=== PATIENT | female | born 1960 | race Caucasian/White ===

== ENCOUNTER 2021-09-09 11:00 | Outpatient (RCR) | payer MEDICAID, SELFPAY | END 2021-09-14 23:59 | LOC: DC 11:00 | PROVIDERS: PCP Physician Assistant Medical; Referring Provider Physician Assistant Medical; Visit Provider Physician Assistant Medical | DX: E11.9 Type 2 diabetes mellitus without complications (principal) | CPT/HCPCS: 97802; G0108 ==

== ENCOUNTER 2022-08-26 05:51 | Day surgery (SDC) | payer MEDICARE, MEDICAID, SELFPAY ==
[2022-08-26] VITALS (7 sets, daily range): BP systolic 86–117; BP diastolic 54–96; PULSE 93–103; RESP 16–20; TEMP 37–37.2; O2SAT 94–98; BMI 29.4
[2022-08-26] MEDS: Lactated Ringers 1,000 ML 15 ML IV (06:43)
[2022-08-26 07:11] LABS: Bedside Glucose 168 mg/dL (74-106)
--- NOTE | 2022-08-26 07:18 | HP.PCM_ITS ---
History and Physical Date of Admission: 08/26/22 Date of Service:? 08/21/22 MR#: [id number] Acct: [id number] Name:? FABRICIO EDWARDS Rep #: [id number] : 1960 ? ? Provider: Dr. Landy Turpin MD Age/Sex:? 61/F ? ? [place] [facility] [place] Status: Signed Intake Vital Signs ? 08/12/2309:18 08/20/2314:40 08/21/2313:00 Height 5 ft 5 in 5 ft 5 in 5 ft 5 in Weight: ? 179 lb 0.986 oz 179 lb BMI ? ? 29.7 BP ? ? 127/83 H Blood Pressure Location ? ? Rt brachial Position ? ? Sitting Respiration ? ? 20 H Pulse ? ? 108 H Pulse Source ? ? Monitor Temp ? ? 97.6 F L Temp Source ? ? Temporal Pulse Oximetry (%) ? ? 94 Oxygen Delivery Method ? ? 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 Required: No Is patient in pain?: No Allergies Seasonal Allergies: Uncoded Allergy (Verified 08/21/22 14:03) PT UNSURE OF REACTION Medications acetaminophen 325 mg capsule 325 mg PO ONCE PRN 07/31/22 [History Confirmed 08/21/22] albuterol sulfate 90 mcg/actuation aerosol inhaler 2 puff inhalation Q4H PRN 07/31/22 [History Confirmed 08/21/22] aspirin 81 mg tablet,delayed release (Adult Low Dose Aspirin) 81 mg PO DAILY 07/31/22 [History Confirmed 08/21/22] bupropion HCl 150 mg tablet,12 hr sustained-release 150 mg PO Q12H 07/31/22 [History Confirmed 08/21/22] empagliflozin 10 mg tablet 10 mg PO DAILY 07/31/22 [History Confirmed 08/21/22] ergocalciferol (vitamin D2) 1,250 mcg (50,000 unit) capsule 1,250 mcg PO QWEEK 07/31/22 [History Confirmed 08/21/22] famotidine 20 mg tablet 20 mg PO BID 07/31/22 [History Confirmed 08/21/22] fluticasone fur. 100 mcg-umeclid 62.5 mcg-vilant 25 mcg inhalat.powder (Trelegy Ellipta) 1 inh inhalation DAILY 07/31/22 [History Confirmed 08/21/22] fluticasone propionate 50 mcg/actuation nasal spray,suspension (Allergy Relief (fluticasone)) 1 spray intranasal DAILY 07/31/22 [History Confirmed 08/21/22] ipratropium 0.5 mg-albuterol 3 mg (2.5 mg base)/3 mL nebulization soln 3 ml inhalation Q4H PRN 07/31/22 [History Confirmed 08/21/22] lisinopril 2.5 mg tablet 2.5 mg PO DAILY 07/31/22 [History Confirmed 08/21/22] lovastatin 20 mg tablet 20 mg PO DAILY 07/31/22 [History Confirmed 08/21/22] metformin 500 mg tablet 500 mg PO TIDWMEAL 07/31/22 [History Confirmed 08/21/22] montelukast 10 mg tablet 10 mg PO DAILY 07/31/22 [History Confirmed 08/21/22] sitagliptin phosphate 100 mg tablet 100 mg PO DAILY 07/31/22 [History Confirmed 08/21/22] tiotropium bromide 2.5 mcg/actuation mist for inhalation (Spiriva Respimat) 2 puff inhalation DAILY 07/31/22 [History Confirmed 08/21/22] trazodone 50 mg tablet 50 mg PO DAILY 07/31/22 [History Confirmed 08/21/22] cetirizine 10 mg tablet 10 mg PO DAILY PRN 08/01/22 [History Confirmed 08/21/22] ondansetron 8 mg disintegrating tablet 8 mg PO Q8H PRN nausea and vomiting #30 tabs 08/12/22 [Rx Confirmed 08/21/22] PFSH Medical History? Acute respiratory failure Cigarette nicotine dependence with nicotine-induced disorder COPD (chronic obstructive pulmonary disease) COVID-19 Depression Diabetes mellitus Encounter for education Gout Murmur VINNIE (obstructive sleep apnea) Seasonal allergies Wears dentures Wears glasses Surgical History? H/O arthroscopy of left knee H/O foot surgery H/O tooth extraction H/O: hysterectomy History of bronchoscopy History of carpal tunnel surgery History of lobectomy of lung History of tonsillectomy Family History? Mother Diabetes Heart disease Cancer ?? ? brain tumorFather Cancer ?? ? blood cancer per ptSister Heart disease Diabetes Cancer ?? ? lungGrandfather Cancer ?? ? lungUncle DiabetesSon Cancer ?? ? testicular Social History? Smoking Status:? Former smoker quit date: 11/12/19 pack-years: 53 alcohol intake:? never substance use type:? 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 Patient's initially she has had surgery did not needing chemotherapy.? Patient had her first chemotherapy treatment this Thursday.? Patient has also began radiation along with this 5 days a week. ROS General General: No weight change, appetite, fatigue, colon cancer or breast cancer HEENT HEENT: No difficulty swallowing, eye injury, eye surgery, swollen glands or hoarseness Endo Endocrine: Yes diabetes mellitus; No thyroid disease, thyroid cancer, Hair loss, heat intolerance or cold intolerance Skin Skin: Yes rash; No changing moles Musc Musculoskeletal: Yes arthritis and gout; No back problems, rheumatoid arthritis or joint pain Cardio Cardiovascular: Yes murmur; No pacemaker, heart disease, atrial fibrillation, high blood pressure, heart attack, heart stent, palpitations, shortness of breat with exertion or chest pain Psych Psychiatric: Yes depression and anxiety; No hearing voices Resp Respiratory: Yes shortness of breath, Yes sleep apnea, No cough, Yes COPD, No asthma, Yes emphysema and No wheezing Gastro Gastrointestinal: No abdominal pain, No nausea or vomiting, No diarrhea, No constipation, No blood in stool, Yes acid reflux, No hemorrhoids, No ulcers, No gallbladder problem and No black,tarry stools Srinivas Hematologic: No blood thinners, No blood disorders, No bleeding, No anemia and No blood clots Neuro Neurologic: Yes numbness and Yes tingling Exam Const General: cooperative, healthy appearing and no acute distress HENMT Head: normal to inspection Neck Neck: supple Chest Other: Palpation of bilateral upper chest normal Resp Effort & Inspection: normal respiratory effort Cardio Rate: regular rate GI Inspection: non-distended Palpation: soft, no guarding and nontender Skin General: no rashes or lesions noted Neuro General: patient oriented x3 Extrem General: no clubbing, cyanosis or edema Psych Affect: normal affect Assessment and Plan Assessment and Plan (1) Radiation esophagitis: ?Status:?Acute (2) Encounter for education: ?Status:?Acute (3) Pre-procedure lab exam: ?Status:?Acute (4) Recurrent squamous cell carcinoma of right lung: ?Status:?Acute ?Comment: Recurrent Squamous cell carcinoma with R hilar mass with lung collapse. Discussed disease status, treatment with chemotherapy and Radiation, chemotherapy with weekly Taxol and Carboplatin weekly, risks, benefits and side effects again. Pt agrees to proceed. Comes to start chemotherapy with Radiation. Counts and chemistry reviewed, OK for therapy. Plan I have discussed above with the patient- Port-a-Cath placement.? Left possible right--scheduled for 730 on 08/26 Patient has been counseled as to the risks/benefits of the procedure. I have explained the risks of the surgery, including but not limited to: infection, bleeding, injury to any blood vessels/nerves, injury to lungs (such as pneumothorax or hemothorax and need for chest tube), not having any access, nonfunctioning of port due to thrombosis, infection of port, etc.? the patient understands and agrees to proceed. I have answered all the patient's questions to the patient?s satisfaction and the patient has no further questions. Landy Turpin M.D. Pager: [phone] [facility] [address] [place] [address], [address] [place] [address] Office: [phone] Coding Level of Care Code Off vis,new,level 3 Diagnoses Radiation esophagitis? K20.80; T66.XXXA Encounter for education? Z71.9 Pre-procedure lab exam? Z01.812 Recurrent squamous cell carcinoma of right lung? C34.91 08/22/22 0952 <Electronically signed by Landy Turpin MD> Date Landy Turpin MD
[2022-08-26] MEDS: Cefazolin 2 GM in 0.9% Normal Saline 100 ML IV (07:29)
[2022-08-26] MEDS: Bupivacaine Mpf 0.5% 30 ML VIAL (07:50)
[2022-08-26] MEDS: Lidocaine 1% /Epi 1:100 (20ml) 20 ML Vial (07:50)
--- NOTE | 2022-08-26 08:16 | PCM.OPRPT ---
Report of Operation Date of Procedure: 08/26/22 Pre-Operative Diagnosis: z45.2, recurrent squamous cell carcinoma of right lung Post-Operative Diagnosis: Same Surgery/Procedure Performed:: Insertion of right IJ Port-A-Cath Use of ultrasound Use of fluoroscopy Surgeon: Landy Turpin Type of Anesthesia: Local MAC Anesthesiologist: Perez Davidson Special Medications: Ancef 2 g IV x1 Specimen's removed: None Estimated Blood Loss (mL): < 10 cc Description of Procedure: After informed consent was given, the patient was brought to the operating room and placed in the supine position. Appropriate time out protocol was followed. Patient was then given IV conscious sedation for anesthesia. The patient's right upper chest and neck were then prepped with a surgical skin preparation and sterile surgical drapes were placed. After proper landmarks were ascertained, the skin at the upper right chest area was then infiltrated with 1:1 mixture of 1% lidocaine with epinephrine and 0.5% marcaine. A needle trocar was then inserted into the right internal jugular vein with ultrasound guidance-multiple vessels were viewed with u/s and the right IJ was chosen-- and there was good aspiration of venous blood. A wire was then threaded into the needle trocar and this was visualized under fluoroscopy to ensure that the wire was in the superior vena cava. Once this was done, then the needle trocar was removed. A small skin mar was made with an 11 blade knife at the wire entrance site. The dilator with the introducer sheath attached was then placed over the wire into the right internal jugular vein via the Seldinger technique and this was visualized under fluoroscopy. The dilator and sheath were in proper position as visualized by fluoroscopy. A subcutaneous pocket was then created caudad to the catheter insertion site. A transverse skin incision was made after the skin and subcutaneous tissues were infiltrated with local anesthetic. Blunt dissection was then used to create a space large enough for placement of the subcutaneous port. The catheter was then tunneled into the subcutaneous pocket. The wire and dilator were then removed. The catheter was then threaded into the introducer sheath and was positioned with its tip at the junction of the superior vena cava and the right atrium as visualized under fluoroscopy. The excess catheter was transected. The catheter was then attached to the subcutaneous port using manufacturers guidelines. The catheter was flushed with a heparin saline mixture prior to placement. Hemostasis was carefully controlled with electrocautery. The port was sutured to the subcutaneous fascia using 2-0 Vicryl suture at two sites. The port was then placed in the subcutaneous pocket. The incision were reapproximated with interrupted subdermal 3-0 vicryl sutures. The skin was reapproximated with 3-0 nylon suture in a interrupted fashion. Steristrips were used for reinforcement of the skin closure at IJ insertion site and a sterile opsite dressings were applied. The patient tolerated the procedure well. Grafts/Implants Used: Bard PowerPort isp M.R.I. 8Fr Lot [id number] [id number]
--- NOTE | 2022-08-26 08:20 | DCINST_ITS ---
Discharge Instructions Procedure Port-A-Cath Diet Discharge Diet: Light diet - advance as tolerated Activity May shower in (days): 5 (Keep port site clean and dry x5 days. Neck incision okay to get wet after 1 day. Okay to lower shower and upper sponge bath. OR okay to taper off port site with a Ziploc bag to shower) Lifting Restrictions: No lifting > 15 pounds for 3 days with the arm on the side of the port Dressing / Incision Call your doctor if your incision/area has: Continuous Slow Oozing, Sudden Increased Bleeding, Increased Pain/ Swelling, Increased Redness, Foul Smelling Discharge and Swelling at the incision site Call your doctor if you observe: Fever of 101 or Higher Change Dressing in: 2 days Follow Up Care Please Follow Up With: Landy Turpin MD When: In 10 days for permanent suture removal?call office for appointment Test Results: Test results from this visit will be discussed in further detail at your follow- up appointment, if applicable. Discharge Plan Admission Attending Provider: Landy Turpin Primary Care Provider: Marce Amador Discharge Orders/Prescriptions Prescriptions: Continued albuterol sulfate 90 mcg/actuation HFA aerosol inhaler 2 puff inhalation Q4H PRN (Reason: SOB) aspirin [Adult Low Dose Aspirin] 81 mg tablet,delayed release (DR/EC) 81 mg PO DAILY bupropion HCl 150 mg tablet sustained-release 12 hr 150 mg PO Q12H empagliflozin 10 mg tablet 10 mg PO DAILY ergocalciferol (vitamin D2) 1,250 mcg (50,000 unit) capsule 1,250 mcg PO QWEEK famotidine 20 mg tablet 20 mg PO BID fluticasone propionate [Allergy Relief (fluticasone)] 50 mcg/actuation spray,suspension 1 spray intranasal DAILY PRN (Reason: ALLERGIES) Rx Instructions: administer into each nostril Trelegy Ellipta 100-62.5-25 mcg blister with device 1 inh inhalation DAILY ipratropium-albuterol 0.5 mg-3 mg(2.5 mg base)/3 mL solution for nebulization 3 ml inhalation Q4H PRN (Reason: SOB) lisinopril 2.5 mg tablet 2.5 mg PO DAILY lovastatin 20 mg tablet 20 mg PO DAILY metformin 500 mg tablet 500 mg PO TIDWMEAL montelukast 10 mg tablet 10 mg PO DAILY sitagliptin phosphate 100 mg tablet 100 mg PO DAILY trazodone 50 mg tablet 50 mg PO QHS cetirizine 10 mg tablet 10 mg PO DAILY ondansetron 8 mg tablet,disintegrating 8 mg PO Q8H PRN (Reason: nausea and vomiting) Qty: 30 2RF Referrals / Follow Up: Marce Amador, [place] [Primary Care Provider] - Disposition Disposition (needs filled in before D/C Order can be placed): Home, Self Care
--- NOTE | 2022-08-26 08:33 | RAD_ITS ---
STUDY: X-RAY CHEST REASON FOR EXAM: Female, 61 years old. Port placement TECHNIQUE: Frontal view of the chest COMPARISON: None. FINDINGS: There is a right-sided port with its tip in the superior vena cava. There is no pneumothorax. There is a [id number] right pleural effusion with overlying atelectasis. The left lung is clear. The heart is normal in size. The visualized osseous structures are within normal limits. RAD/Chest 1 View (Portable) IMPRESSION: Satisfactory position of the right-sided port. No pneumothorax. [id number] right pleural effusion with overlying atelectasis Electronically Signed: Kendell Vaughn MD at 9:10 EDT ,
== END 2022-08-26 09:32 | disposition home or self-care (01) ==
LOC: SDC 05:52 → AC 05:53
PROVIDERS: PCP Physician Assistant Medical; Referring Provider Surgery; Visit Provider Surgery
PROC: (CPT 36561; principal; 2022-08-26 07:15)
DX: Z45.2 Encounter for adjustment and management of vascular access device (principal); C34.91 Malignant neoplasm of unspecified part of right bronchus or lung; M06.9 Rheumatoid arthritis, unspecified; J43.9 Emphysema, unspecified; E11.9 Type 2 diabetes mellitus without complications; T66.XXXA Radiation sickness, unspecified, initial encounter; K20.80 Other esophagitis without bleeding; J98.19 Other pulmonary collapse; I10 Essential (primary) hypertension; E78.00 Pure hypercholesterolemia, unspecified; K21.9 Gastro-esophageal reflux disease without esophagitis; G47.33 Obstructive sleep apnea (adult) (pediatric); Z99.81 Dependence on supplemental oxygen; Z79.82 Long term (current) use of aspirin; Z79.84 Long term (current) use of oral hypoglycemic drugs; Z79.899 Other long term (current) drug therapy; Z87.891 Personal history of nicotine dependence
CPT/HCPCS: 36561; 00532; 71045; 77001; 82962; J7120; C1788

== ENCOUNTER → 2022-09-09 | Outpatient (CLI) | payer MEDICARE, MEDICAID, SELFPAY ==
--- NOTE | 2022-09-09 10:17 | EKG12_ITS ---
Test Reason : Blood Pressure : / mmHG Vent. Rate : 130 BPM Atrial Rate : 130 BPM P-R Int : 148 ms QRS Dur : 082 ms QT Int : 298 ms P-R-T Axes : 032 002 060 degrees QTc Int : 438 ms Sinus tachycardia Otherwise normal ECG Confirmed by ASHLEY DRAKE, RAGHAVENDRA ([id number]), assistant editor RENITA LENZ ([id number]) on 09/10/2022 9:28:49 AM Referred By: Darryl Ramirez Confirmed By:RAGHAVENDRA RAMIREZ MD
== END | disposition home or self-care (01) ==
LOC: PSN 10:16
PROVIDERS: PCP Physician Assistant Medical; Referring Provider Internal Medicine Medical Oncology; Visit Provider Internal Medicine Medical Oncology
DX: C34.91 Malignant neoplasm of unspecified part of right bronchus or lung (principal)
CPT/HCPCS: 93005

== ENCOUNTER → 2022-09-11 | Outpatient (CLI) | payer MEDICARE, MEDICAID, SELFPAY ==
--- NOTE | 2022-09-11 07:43 | ECHODONC_ITS ---
Reason For Study: ANTINEOPLASTIC CHEMOTHERAPY Procedure This was a 2D Doppler, Color Flow transthoracic echocardiogram. Myocardial strain analysis was performed in this exam to aid in the assessment of cardiac function. The study was technically difficult. Exam performed in department. Left Ventricle Normal LV size. Left ventricular systolic function is normal. The estimated ejection fraction is 60 %. No regional wall motion abnormalities noted. Right Ventricle Normal RV size. Normal systolic function. Atria Normal left atrium. Normal right atrium. Mitral Valve Normal mitral valve. Tricuspid Valve Normal tricuspid valve. Aortic Valve Normal aortic valve. Pulmonic Valve The pulmonic valve is not well visualized. Great Vessels Normal aortic root. The pulmonary artery is normal size. Normal inferior vena cava. Pericardium/Pleural No pericardial effusion. MMode/2D Measurements & Calculations LVIDd: 4.0 cm IVSd: 1.1 cm Ao root diam: 3.0 cm LVIDs: 2.4 cm LVPWd: 1.1 cm RVDd: 3.0 cm FS: 40.7 % LVAd ap4: 24.1 cm2 LVAd ap2: 21.0 cm2 SV(MOD-sp4): 37.7 ml LVLd ap4: 8.0 cm LVLd ap2: 8.0 cm EDV(MOD-sp4): 66.0 ml EDV(MOD-sp2): 47.6 ml EDV(sp4-el): 61.5 ml EDV(sp2-el): 47.2 ml LVAs ap4: 14.5 cm2 LVAs ap2: 12.7 cm2 LVLs ap4: 7.0 cm LVLs ap2: 6.5 cm ESV(MOD-sp4): 28.3 ml ESV(MOD-sp2): 23.2 ml ESV(sp4-el): 25.4 ml ESV(sp2-el): 21.4 ml EF(MOD-sp4): 57.1 % EF(MOD-sp2): 51.2 % EF(sp4-el): 58.6 % SV(MOD-sp2): 24.4 ml SV(sp4-el): 36.1 ml LA dimension(2D): 4.1 cm Time Measurements MV dec time: 0.12 sec Doppler Measurements & Calculations MV E max ping: 107.2 cm/sec Ao V2 max: 141.4 cm/sec LV V1 max: 99.9 cm/sec MV A max ping: 56.8 cm/sec Ao max P.0 mmHg LV V1 max P.0 mmHg MV E/A: 1.9 Ao V2 mean: 104.6 cm/sec LV V1 mean P.6 mmHg Ao mean P.9 mmHg LV V1 mean: 77.8 cm/sec Ao V2 VTI: 25.0 cm LV V1 VTI: 18.1 cm AV (velocity ratio): 0.72 PA V2 max: 92.3 cm/sec ECHO/ONC Echo Complete Interpretation Summary Normal LV size. Left ventricular systolic function is normal. The estimated ejection fraction is 60 %. Structurally normal valves. Ordering Physician: Darryl Ramirez Referring Physician: Marce Amador Performed By: Lucas, Gillian, RDCS, RVT
== END | disposition home or self-care (01) ==
LOC: CVS 07:42
PROVIDERS: PCP Physician Assistant Medical; Referring Provider Internal Medicine Medical Oncology; Visit Provider Internal Medicine Medical Oncology
DX: Z51.11 Encounter for antineoplastic chemotherapy (principal)
CPT/HCPCS: 93306; 93356

== ENCOUNTER → 2022-09-16 | Outpatient (CLI) | payer MEDICARE, MEDICAID, SELFPAY ==
--- NOTE | 2022-09-16 16:13 | CT_ITS ---
STUDY: CTA CHEST REASON FOR EXAM: Female, 61 years old. Tachycardia, chest pain, history of lung cancer RADIATION DOSAGE (If Supplied By Facility): CTDIvol = ( 8.51 ) mGy, DLP = ( 364.37 ) mGycm TECHNIQUE: The examination was performed with the intravenous administration of IV 100mL Isovue-370. Post-processing of the angiographic images was performed, with multiplanar reformation and 3D reconstruction. Individualized dose optimization techniques were used for this CT. COMPARISON: 08/26/2022 chest x-ray FINDINGS: Normal enhancement of the main pulmonary artery and right and left pulmonary arteries. Normal enhancement of the bilateral peripheral pulmonary arteries. There is no demonstrated pulmonary embolism. Normal thoracic aorta and visualized great vessels. There is no demonstrated aortic dissection. Normal heart and pericardium. Right thyroid nodule measures up to at least 3.9 cm. Circumferential esophageal thickening is probably posttreatment change. Right lower lobectomy with diffuse right perihilar soft tissue thickening. Normal visualized trachea and bronchi. The lungs are well expanded. Right lung base subsegmental atelectasis. Emphysematous lungs. Normal pleura. Normal chest wall structures. Normal thoracic vertebral alignment. Small hypoattenuating right adrenal gland nodule, probably adenoma. CT/CTA Chest W/WO Contrast IMPRESSION: 3.9 cm right thyroid mass. Correlate with outpatient thyroid ultrasound. Right perihilar soft tissue thickening may represent tumor recurrence or posttreatment change. No demonstrated pulmonary embolism or arterial dissection. Electronically Signed: Dharmesh Collazo MD at 17:47 EDT ,
[2022-09-16] MEDS: 0.9% Saline Lock 10 ML Syringe IV (16:33)
== END | disposition home or self-care (01) ==
LOC: CT 16:07
PROVIDERS: PCP Physician Assistant Medical; Referring Provider Nurse Practitioner Family; Visit Provider Nurse Practitioner Family
DX: R00.0 Tachycardia, unspecified (principal)
CPT/HCPCS: 71275; Q9967; A4216

== ENCOUNTER 2022-10-16 11:30 | Emergency (ER) | payer MEDICARE, MEDICAID, SELFPAY ==
[2022-10-16] VITALS (9 sets, daily range): BP systolic 91–118; BP diastolic 53–95; PULSE 91–117; RESP 12–19; TEMP 36.7–37.2; O2SAT 87–99; BMI 27.0
--- NOTE | 2022-10-16 13:00 | EX.ED.DYSGE1 ---
HPI History of Present Illness Chief Complaint: Weakness Narrative Narrative: 62-year-old female with a current squamous cell carcinoma of the right lung status post 6 months of chemotherapy and radiation therapy presenting with fever, chills, sore throat. Patient states that she had a Tmax of 101.6. Previously seen at and had a septic work-up done. COVID and flu were negative. She was told she has a urine UTI and was put on Keflex which has been taking. She states she feels like a truck hit her now. She does not have any nausea. She has a mild headache. No chest pain. She does not have a cough or shortness of breath. [facility] Medical History Acute respiratory failure Anemia Anxiety Cancer Cardiology follow-up encounter COPD (chronic obstructive pulmonary disease) COVID-19 Depression Diabetes mellitus Dietary restriction Easy bruising Encounter for education Former smoker Gastric reflux Gout High cholesterol History of echocardiogram History of edema History of steroid therapy History of stress test Hypertension Injury of head and neck Murmur On home oxygen therapy Rheumatoid arthritis Seasonal allergies Tinnitus Wears dentures Wears glasses Home Medications albuterol sulfate 90 mcg/actuation aerosol inhaler 2 puff inhalation Q4H PRN SOB 07/31/22 [History Last Taken Unknown] aspirin 81 mg tablet,delayed release (Adult Low Dose Aspirin) 81 mg PO DAILY 07/31/22 [History Last Taken Unknown] empagliflozin 10 mg tablet 10 mg PO DAILY 07/31/22 [History Last Taken Unknown] ergocalciferol (vitamin D2) 1,250 mcg (50,000 unit) capsule 1,250 mcg PO QWEEK 07/31/22 [History Last Taken Unknown] famotidine 20 mg tablet 20 mg PO BID 07/31/22 [History Last Taken Unknown] fluticasone fur. 100 mcg-umeclid 62.5 mcg-vilant 25 mcg inhalat.powder (Trelegy Ellipta) 1 inh inhalation DAILY 07/31/22 [History Last Taken Unknown] fluticasone propionate 50 mcg/actuation nasal spray,suspension (Allergy Relief (fluticasone)) 1 spray intranasal DAILY PRN ALLERGIES 07/31/22 [History Last Taken Unknown] ipratropium 0.5 mg-albuterol 3 mg (2.5 mg base)/3 mL nebulization soln 3 ml inhalation Q4H PRN SOB 07/31/22 [History Last Taken Unknown] lovastatin 20 mg tablet 20 mg PO DAILY 07/31/22 [History Last Taken Unknown] metformin 500 mg tablet 500 mg PO TIDWMEAL 07/31/22 [History Last Taken Unknown] montelukast 10 mg tablet 10 mg PO DAILY 07/31/22 [History Last Taken Unknown] sitagliptin phosphate 100 mg tablet 100 mg PO DAILY 07/31/22 [History Last Taken Unknown] trazodone 50 mg tablet 50 mg PO QHS 07/31/22 [History Last Taken Unknown] cetirizine 10 mg tablet 10 mg PO DAILY 08/01/22 [History Last Taken Unknown] ondansetron 8 mg disintegrating tablet 8 mg PO Q8H PRN nausea and vomiting #30 tabs 08/12/22 [Rx Last Taken Unknown] lidocaine-prilocaine 2.5 %-2.5 % topical cream 1 applic topical ONCE PRN PORT ACCESS 30 days #30 grams 08/26/22 [Rx Last Taken Unknown] MAGIC MOUTH WASH (BMX) 180 mL suspension 15 ml PO .qid PRN pain #180 mL 08/27/22 [Rx Last Taken Unknown] omeprazole 20 mg capsule,delayed release 20 mg PO DAILY #40 caps 08/27/22 [Rx Last Taken Unknown] metoprolol succinate 25 mg tablet,extended release 24 hr (Toprol XL) 25 mg PO BID #60 tabs 09/26/22 [Rx Last Taken Unknown] Allergy/AdvReac Type Severity Reaction Status Date / Time Environmental Allergies: Allergy Other Verified 10/16/22 11:31 Uncoded [seasonal] Family History Mother Diabetes Heart disease Cancer brain tumor Father Cancer blood cancer per pt Sister Heart disease Diabetes Cancer lung Grandfather Cancer lung Uncle Diabetes Son Cancer testicular Surgical History H/O arthroscopy of left knee H/O foot surgery H/O tooth extraction H/O: hysterectomy History of bronchoscopy History of carpal tunnel surgery History of lobectomy of lung History of tonsillectomy Port-A-Cath in place Social History Smoking Status: Former smoker quit date: 11/12/19 pack-years: 53 alcohol intake: never substance use type: does not use ROS ROS ED Constitutional Constitutional ED: Reports chills and fever(s) Eyes Eyes: Denies change in vision ENT ENT ED: Denies rhinorrhea or sore throat Cardiovascular Cardiovascular: Denies chest pain or palpitations Respiratory/Chest Respiratory/Chest: Denies cough or dyspnea Gastrointestinal Gastrointestinal: Denies abdominal pain Genitourinary Genitourinary ED: Denies dysuria or hematuria Musculoskeletal Musculoskeletal: Reports myalgias; Denies arthralgias Integumentary Denies abscess Neurologic Neurologic: Reports headache(s); Denies paresthesias Psychiatric Psychiatric: Denies anxiety or depression EXAM Physical Exam Const Vital Signs: 10/16/22 11:31 10/16/22 12:04 10/16/22 11:33 Temperature 99 F 98.1 F Temperature Source Temporal Temporal Pulse Rate 117 H 102 H Respiratory Rate 14 12 Respiratory Effort Respiratory Pattern Blood Pressure 116/95 H 96/55 L Blood Pressure Mean 102 68 Pulse Ox 96 98 94 Oxygen Delivery Method Room Air Room Air Room Air 10/16/22 12:33 10/16/22 13:50 10/16/22 13:00 Temperature 98.1 F 98.1 F Temperature Source Temporal Temporal Pulse Rate 102 H 104 H Respiratory Rate 19 H 17 Respiratory Effort Normal Non-Labored Respiratory Pattern Normal Blood Pressure 91/53 L 118/82 H Blood Pressure Mean 65 94 Pulse Ox 93 97 Oxygen Delivery Method Room Air Room Air Positive well nourished General Appearance ED: NAD; Negative for pallor HEENT Reports moist mucous membranes Eyes PERRL and EOMs intact bilaterally Chest Wall inspection of chest normal and palpation of chest normal Resp normal respiratory effort and clear to auscultation bilaterally Auscultation: Negative for rales, rhonchi or wheezes Cardio regular rate and regular rhythm GI normal to inspection, nondistended, normoactive bowel sounds Neuro oriented x3 and CN's II-XII intact bilaterally Sensorium / Orientation: alert Motor Exam: strength 5/5 throughout Skin no rashes or lesions noted and no wounds General Skin Exam: Negative for jaundice or pallor MDM MDM MDM Narrative Medical decision making narrative: 62-year-old female status post chemotherapy and radiation therapy for 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 Sepsis work-up was pursued. EKG showed a sinus tachycardia with a ventricular rate of 109 bpm without sign of ischemic change or dysrhythmia. Chest x-ray my interpretation shows no acute cardiopulmonary process and the radiologist interprets this and agrees. CBC shows leukopenia. Hemoglobin stable 11.8. Platelets normal 189. Patient lymphocytic. Coagulation studies are normal. Renal function and electrolytes within normal limits. LFTs are normal. Lactic acid normal at 0.8. Urinalysis negative for infection but does show 150 ketones. D-dimer came back elevated at 1.49. Patient with history of recurrent squamous cell carcinoma of the lung I did obtain a CTA of the chest abdomen pelvis to rule out dissection, PE, malignancy or metastasis. This was ultimately negative with the exception of some new noncalcified nodules in the right upper lobe new since previous CT. Patient counseled on findings. Her COVID and flu swab came back positive for influenza B. This is the fifth day of the patient's symptoms though she is outside the treatment window but she is no longer having fevers and she looks well-appearing. At this point I feel she stable for discharge. Return precautions are discussed. Impression: 1. Influenza B 2. Fatigue 3. History of recurrent squamous cell carcinoma Lab Data Labs: Laboratory Results - last 24 hr 10/16/22 10/16/22 10/16/22 13:30 13:30 13:30 WBC 2.9 L RBC 3.75 L Hgb 11.8 L Hct 35.3 L MCV 94.1 MCH 31.5 MCHC 33.4 RDW Std Deviation 58.9 H RDW Coeff of Gina 17.3 H Plt Count 189 MPV 8.9 Immature Gran % (Auto) 0.700 Neut % (Auto) 64.2 Lymph % (Auto) 11.5 L [place] % (Auto) 22.3 H Eos % (Auto) 0.3 Baso % (Auto) 1.0 Absolute Neuts (auto) 1.8 L Absolute Lymphs (auto) 0.33 L Nucleated RBC % 0 Differential Comment COMMENT Diff Path Review May foll PT 13.6 INR 1.0 APTT 29.6 D-Dimer Quant (PE/DVT) 1.49 H* Sodium 140 Potassium 4.2 Chloride 105 Carbon Dioxide 27.0 Anion Gap 8 BUN 16 Creatinine 0.53 L Estim Creat Clear Calc 96.49 Est GFR (MDRD) Af Amer 149 Est GFR (MDRD) Non-Af 123 BUN/Creatinine Ratio 30.1 H Glucose 81 Lactic Acid Calcium 8.8 Total Bilirubin 0.40 AST 21 ALT 29 Alkaline Phosphatase 74 Total Protein 6.6 Albumin 3.4 Globulin 3.2 Albumin/Globulin Ratio 1.1 Urine Color Urine Clarity Urine pH Ur Specific [place] Urine Protein Urine Glucose (UA) Urine Ketones Urine Occult Blood Urine Nitrite Urine Bilirubin Urine Urobilinogen Ur Leukocyte Esterase Urine RBC Urine WBC Ur Squamous Epith Cells Urine Bacteria Urine Mucus 10/16/22 10/16/22 13:30 14:09 WBC RBC Hgb Hct MCV MCH MCHC RDW Std Deviation RDW Coeff of Gina Plt Count MPV Immature Gran % (Auto) Neut % (Auto) Lymph % (Auto) [place] % (Auto) Eos % (Auto) Baso % (Auto) Absolute Neuts (auto) Absolute Lymphs (auto) Nucleated RBC % Differential Comment Diff Path Review PT INR APTT D-Dimer Quant (PE/DVT) Sodium Potassium Chloride Carbon Dioxide Anion Gap BUN Creatinine Estim Creat Clear Calc Est GFR (MDRD) Af Amer Est GFR (MDRD) Non-Af BUN/Creatinine Ratio Glucose Lactic Acid 0.8 Calcium Total Bilirubin AST ALT Alkaline Phosphatase Total Protein Albumin Globulin Albumin/Globulin Ratio Urine Color Yellow Urine Clarity Sl. Cloudy Urine pH 5.0 Ur Specific [place] 1.020 Urine Protein Negative Urine Glucose (UA) 1000 H Urine Ketones 150 A* Urine Occult Blood Negative Urine Nitrite Negative Urine Bilirubin Negative Urine Urobilinogen Normal Ur Leukocyte Esterase Negative Urine RBC 0 SEEN Urine WBC 0 SEEN Ur Squamous Epith Cells 0-5 SEEN Urine Bacteria 0 SEEN Urine Mucus 0 SEEN Radiography Diagnostic Testing: Clinical Impression(s) from Imaging Studies Chest/Abdomen/Pelvis CTA 10/16/22 13:58 IMPRESSION: No evidence of pulmonary embolism. Status post right lower lobectomy with postoperative scarring and/or atelectasis although this has improved as compared to prior study. Several scattered noncalcified nodules in the right upper lobe. These are new as compared to prior study. Electronically Signed: Aren Maynard MD at 15:11 EDT , Discharge Plan Triage Chief Complaint: Weakness ED Provider: Juan Carlos Miles Dx/Rx/DC Orders Instructions: ED Influenza (Adult), ED Weakness (Uncertain Cause) Prescriptions: No Action albuterol sulfate 90 mcg/actuation HFA aerosol inhaler 2 puff inhalation Q4H PRN (Reason: SOB) aspirin [Adult Low Dose Aspirin] 81 mg tablet,delayed release (DR/EC) 81 mg PO DAILY empagliflozin 10 mg tablet 10 mg PO DAILY ergocalciferol (vitamin D2) 1,250 mcg (50,000 unit) capsule 1,250 mcg PO QWEEK famotidine 20 mg tablet 20 mg PO BID fluticasone propionate [Allergy Relief (fluticasone)] 50 mcg/actuation spray,suspension 1 spray intranasal DAILY PRN (Reason: ALLERGIES) Rx Instructions: administer into each nostril Trelegy Ellipta 100-62.5-25 mcg blister with device 1 inh inhalation DAILY ipratropium-albuterol 0.5 mg-3 mg(2.5 mg base)/3 mL solution for nebulization 3 ml inhalation Q4H PRN (Reason: SOB) lovastatin 20 mg tablet 20 mg PO DAILY metformin 500 mg tablet 500 mg PO TIDWMEAL montelukast 10 mg tablet 10 mg PO DAILY sitagliptin phosphate 100 mg tablet 100 mg PO DAILY trazodone 50 mg tablet 50 mg PO QHS cetirizine 10 mg tablet 10 mg PO DAILY ondansetron 8 mg tablet,disintegrating 8 mg PO Q8H PRN (Reason: nausea and vomiting) Qty: 30 2RF omeprazole 20 mg capsule,delayed release(DR/EC) 20 mg PO DAILY Qty: 40 0RF Rx Instructions: take one tab PO daily MAGIC MOUTH WASH (BMX) 180 mL suspension 15 ml PO .qid PRN (Reason: pain) Qty: 180 5RF Rx Instructions: diphenhydramine 12.5 mg/5 mL oral liquid 60 mL; aluminum-mag hydroxide-simethicone 400 mg-400 mg-40 mg/5 mL oral susp 60 mL; Lidocaine Viscous 2 % mucosal solution 60 mL; Per 180 mL metoprolol succinate [Toprol XL] 25 mg tablet extended release 24 hr 25 mg PO BID Qty: 60 1RF lidocaine-prilocaine 2.5-2.5 % cream 1 applic topical ONCE PRN (Reason: PORT ACCESS) 30 Days Qty: 30 2RF Primary Care Provider: Marce Amador Referrals: Marce Amador, MESSI [Primary Care Provider] - Disposition Disposition: Home, Self Care
[2022-10-16 13:47] LABS: Absolute Lymphocyte Count 0.33 X10^3/uL (0.83-4.51); Absolute Neutrophil Count 1.8 X10^3/uL (2.0-7.7); Basophil# 0.03 X10^3/uL; Eosinophil# 0.01 X10^3/uL; Eosinophils% 0.3 % (0-5); Hematocrit 35.3 % (37-47); Hemoglobin 11.8 g/dL (12.0-15.0); Lymphocyte # 0.33 X10^3/ul (0.83-4.51); Lymphocyte % 11.5 % (19-41); Mean Corp Hgb Conc 33.4 g/dL (32-36); Mean Corpuscular Hgb 31.5 pg (27.0-32.0); Mean Corpuscular Volume 94.1 fL (81-99); Mean Platelet Vol. 8.9 fl (6.2-12.0); Monocyte# 0.64 X10^3/uL; Monocyte% 22.3 % (0-10); NRBC Flagged by Analyzer 0 % (0-5); Neutrophil # 1.84 X10^3/uL (2.7-7.7); Neutrophil % 64.2 % (47-70); POSITIVE DIFFERENTIAL YES; Platelet Count 189 K/mm3 (150-450); RBC Distribution Width CV 17.3 % (11.6-14.6); RBC Distribution Width SD 58.9 fl (35.1-43.9); Red Blood Count 3.75 M/mm3 (4.2-5.4); White Blood Count 2.9 K/mm3 (4.4-11.0)
[2022-10-16 13:49] LABS: Differential Indicated SCAN CRITERIA MET
--- NOTE | 2022-10-16 13:58 | CT_ITS ---
STUDY: CTA CHEST, ABDOMEN T PELVIS WITH CONTRAST REASON FOR EXAM: Female, 62 years old. Abdominal pain/dyspnea. History of squamous cell carcinoma. Chemotherapy and radiation therapy. RADIATION DOSAGE (If Supplied By Facility): CTDIvol = ( 11.37 ) mGy, DLP = ( 951.45 ) mGycm TECHNIQUE: Transaxial imaging was performed following intravenous administration of IV 100mL Isovue-370. Individualized dose optimization techniques were used for this CT. COMPARISON: Comparison is made with prior study dated September 16, 2022. FINDINGS: CHEST A right-sided portacatheter seen with the tip in the superior vena cava. Stable heterogeneous nodule in the right lobe of the liver. Since prior study, there has been improved aeration of the right middle lobe with residual heterogeneous infiltrate suggestive of a possible post radiation fibrosis and/or atelectasis. Mild degree of emphysematous changes. Tiny noncalcified nodule seen in the right upper lobe. These have increased in size as compared to prior study. The patient is status post right lower lobectomy. There are calcifications of the coronary arteries. Normal mediastinum. Normal hilar regions. Normal unenhanced pulmonary arteries. Normal aorta arch and descending thoracic aorta. There are multi-level degenerative changes of the thoracic spine. There is no demonstrated abnormality of the visualized upper abdomen. ABDOMEN There is decreased attenuation of the liver consistent with steatosis. Normal gallbladder and extrahepatic biliary system. Normal spleen. Normal pancreas. Normal bilateral adrenal glands. Normal right kidney. Normal left kidney. There is a small hiatal hernia. Normal small intestine. There are multiple colonic diverticula consistent with diverticulosis. The appendix is visualized and appears normal. There is diffuse atherosclerotic calcification of the abdominal aorta, without a demonstrated aneurysm. Normal inferior vena cava. Normal retroperitoneum. Normal abdominal wall. There are mild degenerative changes of the visualized lumbar spine. PELVIS Normal urinary bladder. The patient is status post hysterectomy. Normal visualized small intestine. Normal visualized colon. There is no pelvic fluid. There is no pelvic lymphadenopathy or mass lesion. There is diffuse atherosclerotic calcification of the pelvic arteries. CT/CTA Chst, Abd, Pel W and/or WO IMPRESSION: No evidence of pulmonary embolism. Status post right lower lobectomy with postoperative scarring and/or atelectasis although this has improved as compared to prior study. Several scattered noncalcified nodules in the right upper lobe. These are new as compared to prior study. Electronically Signed: Aren Maynard MD at 15:11 EDT ,
[2022-10-16] MEDS: Acetaminophen 500 MG Tablet 1000 MG PO (13:59)
[2022-10-16 14:04] LABS: ALB/GLOB Ratio 1.1 RATIO (0.9-2.4); AST(SGOT) 21 U/L (15-37); Alanine Aminotransfer ALT/SGPT 29 U/L (13-56); Albumin, Serum 3.4 g/dL (3.2-5.0); Alkaline Phosphatase 74 U/L (45-117); Anion Gap 8 (5-15); BUN 16 mg/dL (7-18); BUN/Creat Ratio 30.1 RATIO (10-20); Calcium,Total 8.8 mg/dL (8.5-10.1); Chloride 105 mmol/L (98-107); Creatinine, Serum 0.53 mg/dL (0.55-1.02); EST Glomerular Filtration Rate 123 mL/min (>60); Est Glom Filt Rate - Afr Amer 149 mL/min (>60); Estimated Creatinine Clearance 96.49 ml/min; Globulin 3.2 g/dL (2.2-4.2); Glucose 81 mg/dL (74-106); Potassium 4.2 mmol/L (3.5-5.1); Protein, Total 6.6 g/dL (6.4-8.2); Sodium Level 140 mmol/L (136-145)
[2022-10-16 14:09] LABS: Lactic Acid 0.8 mmol/L (0.4-1.9)
[2022-10-16 14:11] LABS: Prothrombin Time (Protime)PT. 13.6 SECONDS (11.7-14.9)
[2022-10-16 14:12] LABS: Partial Thromboplast Time 29.6 Seconds (24.1-36.2)
[2022-10-16 14:22] LABS: Bacteria 0 SEEN /hpf (None Seen); Mucous, Urine 0 SEEN /hpf (<or=2+); Red Blood Cells-Urine 0 SEEN /hpf (0-5); White Blood Cells 0 SEEN /hpf (0-5)
[2022-10-16 14:40] LABS: D-Dimer Quantitative (DVT/PE) 1.49 FEU/ug/m (0.27-0.49)
[2022-10-16 14:42] LABS: Color, Urine Yellow (Yellow); Glucose, Dipstick 1000 mg/dl (Normal); Leukocyte Esterase-Dipstick Negative /ul (Negative); Nitrite-Dipstick Negative (Negative); Occult Blood-Urine Negative /ul (Negative); Protein-Dipstick Negative (Negative); Urine Bilirubin Dipstick Negative (Negative); Urine Clarity Sl. Cloudy (Clear); Urine Urobilinogen Normal (Normal)
[2022-10-16 14:48] LABS: Ketone-Dipstick 150 mg/dl (Negative)
[2022-10-16 14:53] LABS: Squamous Epithelial Cells - UA 0-5 SEEN /hpf (5-10)
[2022-10-17 14:04] LABS: Pathologist Review Reviewed
== END 2022-10-16 16:07 | disposition home or self-care (01) ==
PROVIDERS: Emergency Provider Student in an Organized Health Care Education/Training Program; PCP Physician Assistant Medical; Visit Provider Student in an Organized Health Care Education/Training Program
DX: J10.1 Influenza due to other identified influenza virus with other respiratory manifestations (principal); C34.91 Malignant neoplasm of unspecified part of right bronchus or lung; J44.9 Chronic obstructive pulmonary disease, unspecified; E11.9 Type 2 diabetes mellitus without complications; Z92.3 Personal history of irradiation; E78.00 Pure hypercholesterolemia, unspecified; Z92.21 Personal history of antineoplastic chemotherapy; I10 Essential (primary) hypertension; Z87.891 Personal history of nicotine dependence; R51.9 Headache, unspecified
CPT/HCPCS: 36591; 71275; 74174; 80053; 81001; 83605; 85025; 85379; 85610; 85730; 87040; 87086; 87428; 93005; 99285; Q9967; A4216

== ENCOUNTER → 2022-10-21 | Outpatient (CLI) | payer MEDICARE, MEDICAID, SELFPAY ==
--- NOTE | 2022-10-21 08:29 | CT_ITS ---
STUDY: CT CHEST WITH CONTRAST REASON FOR EXAM: Female, 62 years old. NSCLC - assess treatment response RADIATION DOSAGE (If Supplied By Facility): CTDIvol = ( 10.27 ) mGy, DLP = ( 395.75 ) mGycm TECHNIQUE: Transaxial imaging was performed following intravenous administration of IV 100mL Isovue-300. Multiplanar coronal and sagittal images were reformatted. Individualized dose optimization techniques were used for this CT. COMPARISON: Comparison is made with prior study dated October 16, 2022. FINDINGS: CHEST A right-sided Port-A-Cath is seen with the tip in the superior vena cava. Stable enlargement and heterogeneous nodular density in the right lobe of the thyroid. Once again, there are multiple bilateral tiny pulmonary nodules seen in both lungs. There has been essentially no change. The patient is status post right lower lobectomy with postoperative scarring. Increased markings in the anterior medial aspect of the left lower lobe. There is no demonstrated pleural abnormality. There are calcifications of the coronary arteries. Normal mediastinum. Normal hilar regions. Normal unenhanced pulmonary arteries. Normal aorta arch and descending thoracic aorta. There are multi-level degenerative changes of the thoracic spine. Thickening of the distal esophagus. CT/Chest WITH Contrast IMPRESSION: Multiple bilateral pulmonary nodules as described. There is been no change since prior study. Status post right lower lobectomy with scarring in the right lower lobe as well as in the left lower lobe. Electronically Signed: Aren Maynard MD at 15:01 EDT ,
[2022-10-21] MEDS: 0.9 % NaCl (Sterile) Posiflush 10 mL IV (08:40)
== END | disposition home or self-care (01) ==
LOC: CT 08:23
PROVIDERS: PCP Physician Assistant Medical; Referring Provider Internal Medicine Medical Oncology; Visit Provider Internal Medicine Medical Oncology
DX: C34.90 Malignant neoplasm of unspecified part of unspecified bronchus or lung (principal)
CPT/HCPCS: 71260; Q9967; A4216

== ENCOUNTER 2022-12-02 07:45 | Outpatient (RCR) | payer MEDICARE, MEDICAID, SELFPAY | END 2022-12-15 23:59 | LOC: NS 07:45 | PROVIDERS: PCP Physician Assistant Medical; Visit Provider Internal Medicine Medical Oncology | DX: Z71.3 Dietary counseling and surveillance (principal) ==

== ENCOUNTER → 2023-04-22 | Outpatient (CLI) | payer MEDICARE, MEDICAID, SELFPAY ==
--- NOTE | 2023-04-22 15:54 | CT_ITS ---
INDICATION: NSCLC EXAMINATION: CT CHEST AND ABDOMEN WITH CONTRAST - CT Chest And Abdomen W/ Contrast Injection TECHNIQUE: Helically acquired images were obtained of the chest and abdomen. A radiation dose optimization technique was used for this scan. IV Contrast dosage and agent: 100 mL of Isovue-300 Oral contrast: None. COMPARISON: Prior study dated: 02/03/2023 FINDINGS: ----Chest: LUNGS, PLEURA AND LARGE AIRWAYS: The central airways are patent. The central right lung mass in the hilar region seen on prior imaging is not currently visualized, with significant consolidation of the right upper lobe present. Air bronchograms are noted. Prior study showed multiple pulmonary nodules in the upper lung which are decreased in size compared to prior and now partially obscured by the associated consolidation. For instance, there was a posterior nodule of the right upper lobe which currently measures 0.9 cm on series 2 image 29. This previously measured 1.4 cm. There is now cavitation involving some of these nodules, for instance as seen on series 2 image 36 posteriorly. Suture line of the lower right lung as well as posterior right midlung. This is similar to prior. Small right pleural effusion. Atelectasis at the left base. Moderate emphysema. There is a left upper lobe anterior nodule which is not seen on prior. This measures 0.4 cm on series 2 image 31. No pneumothorax. THYROID: 1.7 cm hypoattenuating nodule in the right lobe of the thyroid gland. This is similar. No abnormal FDG activity. HEART AND PERICARDIUM: Heart size is normal. No pericardial effusion. Rightward mediastinal shift due to volume loss of the right lung. VESSELS: Thoracic aorta is not dilated. MEDIASTINUM AND МАРИЯ: There is persistent right hilar fullness posterior to the pulmonary vasculature. Similar soft tissue density remains seen throughout the right hilar region. No other evidence of mediastinal lymphadenopathy. There is circumferential esophageal wall thickening. This is seen diffusely. No hiatal hernia. BONES: No suspicious lytic or blastic abnormality. Mild degenerative changes of the spine. ----Abdomen (without Pelvis): LIVER: Homogeneous. No focal mass. GALLBLADDER AND BILIARY TREE: No calcified gallstones. The gallbladder is contracted. No wall edema. No intra- or extrahepatic biliary ductal dilation. PANCREAS: No focal cystic or solid mass. SPLEEN: Normal size without focal cystic or solid mass. ADRENAL GLANDS: No nodules. KIDNEYS AND URETERS: Normal renal size and position. No hydronephrosis. PERITONEUM: No ascites or free air. No other fluid collection. BOWEL: Appendix not in the [id number]. No stomach or bowel distension. No focal inflammatory change. LYMPH NODES: No enlarged mesenteric or retroperitoneal lymph nodes. VESSELS: Aorta is non-dilated. Moderate atherosclerotic calcifications. ABDOMINAL WALL: No discrete abdominal wall hernia. BONES: No lytic or blastic abnormality. CT/CT Chest AND Abd W/ Contrast IMPRESSION: Change in appearance in the right lung, likely in part treatment related. The prior hilar region mass is no longer seen. Decreased prominence of multiple nodules of the right upper lung, some of which are now cavitating. This suggests a positive response. There is persistent soft tissue fullness in the right hilar region. Area of consolidation throughout the right mid lung with air bronchograms, nonspecific. This could be treatment related or pneumonia. Cannot exclude underlying neoplasm. There is moderate emphysema. There is a new left upper lobe nodule anteriorly measuring 0.4 cm, not seen on prior. Follow-up per oncologic protocol. No suspicious findings in the abdomen. Electronically Signed: Abrahan Rivas MD at 17:05 EST ,
== END | disposition home or self-care (01) ==
PROVIDERS: PCP Physician Assistant Medical; Referring Provider Nurse Practitioner Family; Visit Provider Nurse Practitioner Family
DX: C34.91 Malignant neoplasm of unspecified part of right bronchus or lung (principal)
CPT/HCPCS: 71260; 74160; Q9967

== ENCOUNTER → 2023-05-19 | Outpatient (CLI) | payer MEDICARE, MEDICAID, SELFPAY ==
--- NOTE | 2023-05-19 16:49 | CT_ITS ---
EXAM: CT CHEST WITH INTRAVENOUS CONTRAST CLINICAL INDICATION: ACUTE RADIATION PNEUMONITIS/LUNG CANCER TECHNIQUE: Helically acquired images were obtained of the chest with intravenous contrast. This CT exam was performed using one or more of the following dose reduction techniques: automated exposure control, adjustment of the mA and/or kV according to patient size, and/or use of iterative reconstruction technique. CONTRAST: IV 100mL Isovue-300 COMPARISON: 04/22/2023 FINDINGS: LUNGS AND PLEURAL SPACES: There is consolidation with volume loss in the right upper and lower lobes. There are small nodular opacities in the right apex which are stable. No mass. No pleural effusion or thickening. No pneumothorax. HEART: Unremarkable. Heart size is normal. No pericardial effusion. MEDIASTINUM: Unremarkable. No mediastinal or hilar adenopathy. Esophagus is unremarkable. No hiatal hernia. THYROID: Unremarkable. No thyroid lesions. BONES/JOINTS: Unremarkable. No suspicious lytic or blastic abnormality. VASCULATURE: There is soft tissue causing extrinsic compression on the distal right mainstem pulmonary artery. There is no pulmonary embolus identified. Thoracic aorta is non-dilated. No thoracic aortic dissection. LYMPH NODES: There is soft tissue density in the right hilum which may represent adenopathy. CT/Chest WITH Contrast IMPRESSION: Persistent consolidation and scarring seen in the right lung which is stable from the reference examination. There are small nodules in the right upper lobe which are stable. There is also stable soft tissue in the hilum which may represent adenopathy. There has been no significant change from the reference exam. Electronically Signed: Chilo Andrews MD at 17:33 EST ,
== END | disposition home or self-care (01) ==
LOC: CT 16:42
PROVIDERS: PCP Physician Assistant Medical; Referring Provider Internal Medicine Medical Oncology; Visit Provider Internal Medicine Medical Oncology
DX: C34.31 Malignant neoplasm of lower lobe, right bronchus or lung (principal); J70.0 Acute pulmonary manifestations due to radiation
CPT/HCPCS: 71260; Q9967

== ENCOUNTER 2023-06-07 17:50 | Emergency (ER) | payer MEDICARE, MEDICAID, SELFPAY ==
[2023-06-07] VITALS (13 sets, daily range): BP systolic 100–120; BP diastolic 75–97; PULSE 100–119; RESP 16–20; TEMP 36.2–36.4; O2SAT 91–95; BMI 27.0
--- NOTE | 2023-06-07 18:45 | CT_ITS ---
STUDY: CTA Chest WO/W Contrast Injection 06/07/2023 8:12 PM REASON FOR EXAM: Female, 62 years old. cough, sob, high risk PE TECHNIQUE: The examination was performed with the intravenous administration of IV 75mL Isovue-370 contrast material. Post-processing of the angiographic images was performed, with axial imaging and 3D reconstruction. MIPS images were obtained. Individualized dose optimization techniques were used for this CT. COMPARISON: 12.6.23. 1.2.24 FINDINGS: There are degenerative changes of the shoulders. There is no pneumothorax. Stable right pleural effusion. Stable areas of consolidation throughout the right lung. Stable nodules in the right upper lobe. Right portacatheter. There are calcifications of the coronary arteries. Shift of the mediastinum to the right side. This is stable. Stable soft tissue in the right hilum. This may be adenopathy. Normal pulmonary arteries. There is atherosclerotic calcification of the aortic arch with tortuosity and elongation of the aortic arch and descending thoracic aorta. There are multi-level degenerative changes of the thoracic spine. There are no acute findings of the upper abdomen. CT/CTA Chest W/WO Contrast IMPRESSION: No demonstrated pulmonary embolism or arterial dissection. There has been no change in the appearance of the chest since the prior study. Electronically Signed: George Purvis MD at 20:16 EST ,
--- NOTE | 2023-06-07 18:59 | ED.VIS.DYS ---
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 Ramirez. Just has history of diabetes and COPD. She is on daily Decadron. She is presenting for 3 days of worsening cough, shortness of breath and sputum production. Denies any chest pain. Does not like she has been wheezing. Is now coughing up green sputum which is new for her. She does have a mild sore throat which she attributed to all of her coughing and some postnasal drip. Denies any sick contact. Denies any fever or chills. No side of his legs. No history of DVT or PE. No other complaints or concerns at this time. [facility] Medical History Acute respiratory failure Anemia Anxiety Cancer Cardiology follow-up encounter Contact with or exposure to other viral diseases COPD (chronic obstructive pulmonary disease) COVID-19 Depression Diabetes mellitus Dietary restriction Easy bruising Encounter for education Fever Former smoker Gastric reflux Gout High cholesterol History of echocardiogram History of edema History of steroid therapy History of stress test Hypertension Injury of head and neck Murmur On home oxygen therapy Pneumonia Rheumatoid arthritis Seasonal allergies SOB (shortness of breath) Tinnitus URI (upper respiratory infection) Wears dentures Wears glasses Home Medications albuterol sulfate 90 mcg/actuation aerosol inhaler 2 puff inhalation Q4H PRN SOB 07/31/22 [History Last Taken Unknown] aspirin 81 mg tablet,delayed release (Adult Low Dose Aspirin) 81 mg PO DAILY 07/31/22 [History Last Taken Unknown] ergocalciferol (vitamin D2) 1,250 mcg (50,000 unit) capsule 1,250 mcg PO QWEEK 07/31/22 [History Last Taken Unknown] famotidine 20 mg tablet 20 mg PO BID 07/31/22 [History Last Taken Unknown] fluticasone fur. 100 mcg-umeclid 62.5 mcg-vilant 25 mcg inhalat.powder (Trelegy Ellipta) 1 inh inhalation DAILY 07/31/22 [History Last Taken Unknown] fluticasone propionate 50 mcg/actuation nasal spray,suspension (Allergy Relief (fluticasone)) 1 spray intranasal DAILY PRN ALLERGIES 07/31/22 [History Last Taken Unknown] ipratropium 0.5 mg-albuterol 3 mg (2.5 mg base)/3 mL nebulization soln 3 ml inhalation Q4H PRN SOB 07/31/22 [History Last Taken Unknown] lovastatin 20 mg tablet 20 mg PO DAILY 07/31/22 [History Last Taken Unknown] metformin 500 mg tablet 500 mg PO TIDWMEAL 07/31/22 [History Last Taken Unknown] montelukast 10 mg tablet 10 mg PO DAILY 07/31/22 [History Last Taken Unknown] sitagliptin phosphate 100 mg tablet 100 mg PO DAILY 07/31/22 [History Last Taken Unknown] trazodone 50 mg tablet 50 mg PO QHS 07/31/22 [History Last Taken Unknown] cetirizine 10 mg tablet 10 mg PO DAILY 08/01/22 [History Last Taken Unknown] ondansetron 8 mg disintegrating tablet 8 mg PO Q8H PRN nausea and vomiting #30 tabs 08/12/22 [Rx Last Taken Unknown] citalopram 40 mg tablet 40 mg PO DAILY 02/16/23 [History Last Taken Unknown] lidocaine-prilocaine 2.5 %-2.5 % topical cream 1 applic topical ONCE PRN port access 30 days #30 grams 03/16/23 [Rx Last Taken Unknown] MAGIC MOUTH WASH (BMX) 180 mL suspension 15 ml PO .qid PRN pain #180 mL 04/16/23 [Rx Last Taken Unknown] dexamethasone 4 mg tablet 4 mg PO DAILY 30 days #30 tabs 05/21/23 [Rx Last Taken Unknown] meloxicam 15 mg tablet 15 mg PO DAILY PRN pain 05/29/23 [History Last Taken Unknown] metoprolol succinate 25 mg tablet,extended release 24 hr (Toprol XL) 25 mg PO Q12H 05/29/23 [History Last Taken Unknown] albuterol sulfate 2.5 mg/3 mL (0.083 %) solution for nebulization 2.5 mg continuous nebulization Q4H PRN shortness of breath or wheezing 06/07/23 [History Last Taken Unknown] bupropion HCl 150 mg tablet,12 hr sustained-release 150 mg PO Q12H 06/07/23 [History Last Taken Unknown] clotrimazole-betamethasone 1 %-0.05 % topical cream 1 applic topical Q12H PRN rash 06/07/23 [History Last Taken Unknown] dexamethasone 4 mg tablet 4 mg PO Q12H #10 tabs 06/07/23 [Rx Last Taken Unknown] doxycycline monohydrate 100 mg capsule 100 mg PO BID #14 CAPSULES 06/07/23 [Rx Last Taken Unknown] empagliflozin 25 mg tablet (Jardiance) 25 mg PO DAILY 06/07/23 [History Last Taken Unknown] lisinopril 2.5 mg tablet 2.5 mg PO DAILY 06/07/23 [History Last Taken Unknown] omeprazole 20 mg capsule,delayed release 20 mg PO DAILY PRN gerd 06/07/23 [History Last Taken Unknown] valacyclovir 1 gram tablet 1,000 mg PO Q8H 06/07/23 [History Last Taken Unknown] Allergy/AdvReac Type Severity Reaction Status Date / Time Environmental Allergies: Allergy Other Verified 05/29/23 09:56 Uncoded [seasonal] Family History Mother Diabetes Heart disease Cancer brain tumor Father Cancer blood cancer per pt Sister Heart disease Diabetes Cancer lung Grandfather Cancer lung Uncle Diabetes Son Cancer testicular Surgical History H/O arthroscopy of left knee H/O foot surgery H/O tooth extraction H/O: hysterectomy History of bronchoscopy History of carpal tunnel surgery History of lobectomy of lung History of tonsillectomy Port-A-Cath in place Social History Smoking Status: Former smoker quit date: 11/12/19 pack-years: 53 alcohol intake: never substance use type: does not use ROS ROS ED Constitutional Constitutional ED: Reports other Details: Fatigue ; Denies chills or fever(s) Eyes Eyes: Denies change in vision ENT ENT ED: Reports sore throat; Denies ear pain or rhinorrhea Cardiovascular Cardiovascular: Denies chest pain Respiratory/Chest Respiratory/Chest: Reports cough, dyspnea and sputum Gastrointestinal Gastrointestinal: Denies abdominal pain, nausea or vomiting Musculoskeletal Musculoskeletal: Denies arthralgias or myalgias Integumentary Denies rash Neurologic Neurologic: Denies headache(s) Hematologic/Lymphatic Hematologic/Lymphatic: Denies easy bleeding or easy bruising EXAM Physical Exam Const Vital Signs: 06/07/23 17:51 06/07/23 19:24 06/07/23 17:52 Temperature 97.5 F L 97.5 F L Temperature Source Temporal Oral Pulse Rate 119 H 105 H Respiratory Rate 16 19 H Respiratory Effort Respiratory Pattern Normal Blood Pressure 100/75 101/85 H Blood Pressure Mean 83 90 Pulse Ox 95 94 Oxygen Delivery Method Room Air 06/07/23 18:52 06/07/23 19:00 06/07/23 19:06 Temperature 97.5 F L 97.5 F L Temperature Source Temporal Temporal Pulse Rate 114 H 108 H Respiratory Rate 19 H 20 H Respiratory Effort Respiratory Pattern Blood Pressure 119/97 H 119/97 H Blood Pressure Mean 104 104 Pulse Ox 93 93 93 Oxygen Delivery Method Room Air Room Air 06/07/23 19:06 06/07/23 19:15 06/07/23 19:21 Temperature Temperature Source Pulse Rate 106 H Respiratory Rate 16 Respiratory Effort Normal Non-Labored Respiratory Pattern Blood Pressure 119/97 H Blood Pressure Mean 105 Pulse Ox 94 Oxygen Delivery Method 06/07/23 19:30 06/07/23 19:51 06/07/23 20:00 Temperature 97.1 F L Temperature Source Temporal Pulse Rate 119 H 100 103 H Respiratory Rate 19 H 16 20 H Respiratory Effort Respiratory Pattern Blood Pressure 120/85 H Blood Pressure Mean 96 Pulse Ox 92 91 95 Oxygen Delivery Method Room Air 06/07/23 21:00 06/07/23 21:00 Temperature 97.1 F L Temperature Source Temporal Pulse Rate 104 H 104 H Respiratory Rate 20 H 20 H Respiratory Effort Respiratory Pattern Blood Pressure 104/85 H 104/85 H Blood Pressure Mean 91 91 Pulse Ox 92 92 Oxygen Delivery Method Positive well nourished and well developed General Appearance ED: well developed and NAD HEENT Reports TM's clear and moist mucous membranes atraumatic Tympanic Membrane ED: Yes TM's clear Eyes PERRL Neck no lymphadenopathy, supple and no JVD Resp normal respiratory effort Resp Narrative: Coarse breath sounds throughout, no wheezing appreciated, hacking cough productive of sputum during exam Auscultation: Negative for rales, rhonchi or wheezes Cardio regular rate, regular rhythm and no murmurs GI non-tender and non-distended Extremity normal to inspection General Extremety ED: Negative for edema General Extremity: Negative for edema Neuro oriented x3 Sensorium / Orientation: alert Motor Exam: Negative for general weakness Psych mental status grossly normal Skin no wounds and skin turgor normal MDM MDM MDM Narrative Medical decision making narrative: Patient evaluated for 3 days of worsening cough and sputum production. Suspect infectious etiology however given her history of lung cancer and radiation pneumonitis cannot rule out PE or worsening pneumonitis. Will obtain CT of the chest, EKG (patient is tachycardic however she ran out of her metoprolol) and give IV fluids as well as her metoprolol in the emergency room. Respiratory symptoms do not sound cardiac. Heart rate does improve with metoprolol but she remains mildly tachycardic. CBC largely normal. Does have a mild left shift however this could be secondary to chronic steroid therapy as well. BMP unremarkable, EKG shows sinus tachycardia with no acute ischemic changes and I do not think she requires a troponin at this time. COVID, flu and RSV swab are negative. CT of the chest is negative for PE. It shows stable changes to the lung consistent with her prior known lung cancer as well as radiation pneumonitis. Case is discussed with Dr. Mcdermott, oncology on-call, who is comfortable given her acute change in her sputum and breathing as well as history of COPD treat her more like a COPD exacerbation. Does recommend bursting her steroid by doubling her Decadron and is agreeable with antibiotics. Patient be placed on a course of doxycycline. Patient is given 1 dose of metoprolol to take home so she can take it in the morning as she lives over 30 minutes away from the pharmacy and is otherwise out of her metoprolol. Patient is [place] ambulated in g the ER and does not go below 88%. She has supplemental oxygen to wear as needed at home as well. Is given return precautions. Will follow-up closely with her oncologist. Discharged home in stable improved condition. Given first dose of dicyclomine and additional dose of Decadron in the emergency room. Lab Data Labs: Laboratory Results - last 24 hr 06/07/23 19:05 WBC 6.9 RBC 4.48 Hgb 12.4 Hct 40.3 MCV 90.0 MCH 27.7 MCHC 30.8 L RDW Std Deviation 57.5 H RDW Coeff of Gina 17.4 H Plt Count 282 MPV 9.2 Immature Gran % (Auto) 1.300 H Neut % (Auto) 87.2 H Lymph % (Auto) 4.5 L Woods % (Auto) 6.7 Eos % (Auto) 0.0 Baso % (Auto) 0.3 Absolute Neuts (auto) 6.0 Absolute Lymphs (auto) 0.31 L Nucleated RBC % 0 Differential Comment SCANNED Sodium 133 L Potassium 4.9 Chloride 98 Carbon Dioxide 25.0 Anion Gap 10 BUN 23 H Creatinine 0.66 Estim Creat Clear Calc 86.60 Est GFR (MDRD) Af Amer 115 Est GFR (MDRD) Non-Af 95 BUN/Creatinine Ratio 34.6 H Glucose 280 H Calcium 10.0 Radiography Diagnostic Testing: Clinical Impression(s) from Imaging Studies Chest CTA 06/07/23 18:45 IMPRESSION: No demonstrated pulmonary embolism or arterial dissection. There has been no change in the appearance of the chest since the prior study. Electronically Signed: George Purvis MD at 20:16 EST Reading Location ID and State: [facility] / [place] , Service support , Rhythm Strip Rhythm Strip: Sinus Tach Rate: 104 Ectopy: None EKG Initial EKG: Attestation: I personally reviewed and interpreted this EKG as follows: Interpretation: Sinus Tachycardia Comments: Sinus tachycardia rate of 104 bpm Normal axis Normal intervals Normal ST segments Management Discussion w/another healthcare provider: Vp Delivery Discharge Plan Triage Chief Complaint: Shortness of Breath Other Complaint: Cold Sx ED Provider: Lisa Buckley Dx/Rx/DC Orders Clinical Impression: Radiation pneumonitis, Asthma exacerbation in COPD Instructions: ED COPD Flare Prescriptions: New dexamethasone 4 mg tablet 4 mg PO Q12H Qty: 10 0RF doxycycline monohydrate 100 mg capsule 100 mg PO BID Qty: 14 0RF No Action albuterol sulfate 90 mcg/actuation HFA aerosol inhaler 2 puff inhalation Q4H PRN (Reason: SOB) aspirin [Adult Low Dose Aspirin] 81 mg tablet,delayed release (DR/EC) 81 mg PO DAILY ergocalciferol (vitamin D2) 1,250 mcg (50,000 unit) capsule 1,250 mcg PO QWEEK famotidine 20 mg tablet 20 mg PO BID fluticasone propionate [Allergy Relief (fluticasone)] 50 mcg/actuation spray,suspension 1 spray intranasal DAILY PRN (Reason: ALLERGIES) Rx Instructions: administer into each nostril Trelegy Ellipta 100-62.5-25 mcg blister with device 1 inh inhalation DAILY ipratropium-albuterol 0.5 mg-3 mg(2.5 mg base)/3 mL solution for nebulization 3 ml inhalation Q4H PRN (Reason: SOB) lovastatin 20 mg tablet 20 mg PO DAILY metformin 500 mg tablet 500 mg PO TIDWMEAL montelukast 10 mg tablet 10 mg PO DAILY sitagliptin phosphate 100 mg tablet 100 mg PO DAILY trazodone 50 mg tablet 50 mg PO QHS cetirizine 10 mg tablet 10 mg PO DAILY ondansetron 8 mg tablet,disintegrating 8 mg PO Q8H PRN (Reason: nausea and vomiting) Qty: 30 2RF meloxicam 15 mg tablet 15 mg PO DAILY PRN (Reason: pain) citalopram 40 mg tablet 40 mg PO DAILY MAGIC MOUTH WASH (BMX) 180 mL suspension 15 ml PO .qid PRN (Reason: pain) Qty: 180 5RF Rx Instructions: diphenhydramine 12.5 mg/5 mL oral liquid 60 mL; aluminum-mag hydroxide-simethicone 400 mg-400 mg-40 mg/5 mL oral susp 60 mL; Lidocaine Viscous 2 % mucosal solution 60 mL; Per 180 mL dexamethasone 4 mg tablet 4 mg PO DAILY 30 Days Qty: 30 1RF metoprolol succinate [Toprol XL] 25 mg tablet extended release 24 hr 25 mg PO Q12H Jardiance 25 mg tablet 25 mg PO DAILY albuterol sulfate 2.5 mg /3 mL (0.083 %) solution for nebulization 2.5 mg continuous nebulization Q4H PRN (Reason: shortness of breath or wheezing) bupropion HCl 150 mg tablet sustained-release 12 hr 150 mg PO Q12H Hold Instructions: on hold for chemo Patient Comments: TAKE 1 TABLET BY MOUTH EVERY 12 HOURS lisinopril 2.5 mg tablet 2.5 mg PO DAILY Hold Instructions: on hold for chemo Patient Comments: TAKE 1 TABLET BY MOUTH ONCE DAILY valacyclovir 1 gram tablet 1,000 mg PO Q8H Patient Comments: started on 06/03/2023 for 7 days clotrimazole-betamethasone 1-0.05 % cream 1 applic TOPICAL Q12H PRN (Reason: rash) omeprazole 20 mg capsule,delayed release(DR/EC) 20 mg PO DAILY PRN (Reason: gerd) Rx Instructions: take one tab PO daily lidocaine-prilocaine 2.5-2.5 % cream 1 applic topical ONCE PRN (Reason: port access) 30 Days Qty: 30 2RF Primary Care Provider: Marce Amador Referrals: Darryl Ramirez MD [Med Staff - Active Staff] - As soon as possible Marce Amador PA [Primary Care Provider] - Activity Restrictions/Additional Instructions: For the next 5 days double up your Decadron (dexamethasone) to 4 mg twice a day. You been given a prescription for a course of antibiotics as well as we suspect you have a COPD exacerbation. If your breathing gets worse please return to the emergency room. Continue to use your breathing treatments at home, you can use the DuoNeb every 4 hours as needed. Disposition Disposition: Home, Self Care
[2023-06-07 19:20] LABS: Absolute Lymphocyte Count 0.31 X10^3/uL (0.83-4.51); Basophil# 0.02 X10^3/uL; Basophil% 0.3 % (0-1); Hematocrit 40.3 % (37-47); Hemoglobin 12.4 g/dL (12.0-15.0); Lymphocyte # 0.31 X10^3/ul (0.83-4.51); Lymphocyte % 4.5 % (19-41); Mean Corp Hgb Conc 30.8 g/dL (32-36); Mean Corpuscular Hgb 27.7 pg (27.0-32.0); Mean Platelet Vol. 9.2 fl (6.2-12.0); Monocyte# 0.46 X10^3/uL; Monocyte% 6.7 % (0-10); NRBC Flagged by Analyzer 0 % (0-5); Neutrophil # 6.02 X10^3/uL (2.7-7.7); Neutrophil % 87.2 % (47-70); POSITIVE DIFFERENTIAL YES; Platelet Count 282 K/mm3 (150-450); RBC Distribution Width CV 17.4 % (11.6-14.6); RBC Distribution Width SD 57.5 fl (35.1-43.9); Red Blood Count 4.48 M/mm3 (4.2-5.4); White Blood Count 6.9 K/mm3 (4.4-11.0)
[2023-06-07 19:21] LABS: Differential Indicated SCAN CRITERIA MET
[2023-06-07 19:23] LABS: Differential Comment SCANNED
[2023-06-07] MEDS: 0.9% Normal Saline (500mL Bag) 500 ML 999 ML IV (19:23)
[2023-06-07] MEDS: Metoprolol(XL)Succ 25 MG Tablet PO ×2 (19:24→21:51)
[2023-06-07 19:34] LABS: Anion Gap 10 (5-15); BUN 23 mg/dL (7-18); BUN/Creat Ratio 34.6 RATIO (10-20); Chloride 98 mmol/L (98-107); Creatinine, Serum 0.66 mg/dL (0.55-1.02); EST Glomerular Filtration Rate 95 mL/min (>60); Est Glom Filt Rate - Afr Amer 115 mL/min (>60); Glucose 280 mg/dL (74-106); Potassium 4.9 mmol/L (3.5-5.1); Sodium Level 133 mmol/L (136-145)
--- NOTE | 2023-06-07 20:39 | ED.RN ---
SPO2 varied from 88%-93% while walking. Complains of mild shortness of breath with activity.
[2023-06-07] MEDS: dexAMETHasone 4 MG Tablet PO (21:51)
[2023-06-07] MEDS: Doxycycline 100 MG CAPSULE PO (21:51)
== END 2023-06-07 21:57 | disposition home or self-care (01) ==
PROVIDERS: Emergency Provider Emergency Medicine; PCP Physician Assistant Medical; Visit Provider Emergency Medicine
DX: J70.0 Acute pulmonary manifestations due to radiation (principal); C34.31 Malignant neoplasm of lower lobe, right bronchus or lung; J44.1 Chronic obstructive pulmonary disease with (acute) exacerbation; E11.9 Type 2 diabetes mellitus without complications; J02.9 Acute pharyngitis, unspecified; Z87.891 Personal history of nicotine dependence; I10 Essential (primary) hypertension; E78.00 Pure hypercholesterolemia, unspecified; Z79.899 Other long term (current) drug therapy
CPT/HCPCS: 36591; 71275; 80048; 85025; 87631; 93005; 96360; 99285; J7040; Q9967; A4216

== ENCOUNTER → 2023-06-22 | Outpatient (CLI) | payer MEDICARE, MEDICAID, SELFPAY ==
--- NOTE | 2023-06-22 16:15 | CT_ITS ---
EXAM: CT CHEST WITH INTRAVENOUS CONTRAST CLINICAL INDICATION: Radiation pneumonitis. TECHNIQUE: Helically acquired images were obtained of the chest with intravenous contrast. This CT exam was performed using one or more of the following dose reduction techniques: automated exposure control, adjustment of the mA and/or kV according to patient size, and/or use of iterative reconstruction technique. CONTRAST: IV 100mL [id number]-370 RADIATION DOSE: CTDIvol = 12.54 mGy, DLP = 442.57 mGy-cm COMPARISON: CTA chest 06/07/2023. CT chest with contrast 05/19/2023. FINDINGS: LUNGS AND PLEURAL SPACES: Multiple noncalcified and indeterminate pulmonary nodules in the right upper lobe without obvious change in size and number. Multifocal atelectasis and or consolidation with air bronchograms in the bottom half of the right lung are unchanged. Centrilobular cysts in the upper lobes. No pleural effusion or thickening. No suspicious pulmonary nodules in the left lung. HEART: Calcified plaques in the LAD branch of the left coronary artery. No other calcified plaques in the remaining coronary arteries. Normal cardiac size. Normal pericardium. Heart size is normal. MEDIASTINUM: Right-sided mediastinal shift and overall diminished right lung volume are unchanged. No mediastinal or hilar adenopathy. Esophagus is unremarkable. No hiatal hernia. THYROID: 1.5 cm hypodense nodule in the right thyroid lobe. BONES/JOINTS: Unremarkable. No suspicious lytic or blastic abnormality. VASCULATURE: No pulmonary thromboemboli, thoracic aortic aneurysm or dissection. No stenosis of the celiac artery, SMA and renal arteries. CT/Chest WITH Contrast IMPRESSION: 1. Multifocal atelectasis and/or consolidation with air bronchograms in the bottom half of the right lung are unchanged when compared to 06/07/2023. 2. Multiple noncalcified and indeterminate pulmonary nodules in the right upper lobe without obvious significant change in size and number. 3. No pulmonary thromboemboli, thoracic aortic aneurysm or dissection. 4. 1.5 cm hypodense nodule in the thyroid lobe. This is unchanged when compared to 05/19/2023. Electronically Signed: Darrin Ornelas MD at 9:36 EST ,
== END | disposition home or self-care (01) ==
LOC: CT 15:49
PROVIDERS: PCP Physician Assistant Medical; Referring Provider Internal Medicine Medical Oncology; Visit Provider Internal Medicine Medical Oncology
DX: C34.91 Malignant neoplasm of unspecified part of right bronchus or lung (principal); J70.0 Acute pulmonary manifestations due to radiation
CPT/HCPCS: 71260; Q9967; A4216

== ENCOUNTER → 2023-07-13 | Outpatient (CLI) | payer MEDICARE, MEDICAID, SELFPAY ==
--- NOTE | 2023-07-13 10:53 | MRI_ITS ---
STUDY: MRI BRAIN WITH AND WITHOUT CONTRAST REASON FOR EXAM: Female, 62 years old. LUNG CA-NEW LEFT FOOT DROP TECHNIQUE: Standardized multiplanar fat and water weighted pulse sequences were obtained. IV 15cc Clariscan was administered for the contrast portion of the examination. COMPARISON: None. FINDINGS: Normal size of the ventricles and extra-axial spaces for the patient''s age. Mild periventricular white matter ischemic changes without mass effect or restricted diffusion.. Probable old infarct in the left external capsule. Normal bilateral basal ganglia. Normal thalami. There is no extra-axial fluid accumulation. Normal flow voids within the major intracranial circulation suggesting patency by spin echo criteria. Normal venous enhancement. There is no enhancing intra-axial or extra-axial abnormality. Empty sella deformity of uncertain significance. Normal, pituitary gland, infundibular stalk, optic chiasm and hypothalamus. Normal tectal plate and pineal gland. Normal midbrain, anthony and medulla. Normal cerebellum. Normal basal cisterns. Normal bilateral temporal bones. Normal bilateral internal auditory canals. No demonstrated orbital abnormality, within the constraints of a routine brain study. Polypoid mucosal thickening of the maxillary sinuses bilaterally.. Normal calvarium and skull base. Normal visualized soft tissue structures. Normal visualized upper cervical spine. MRI/Brain W/WO Contrast IMPRESSION: Mild periventricular white matter ischemic change without evidence for acute infarct.. Probable old lacunar infarct in left external capsule No enhancing lesion to suggest metastatic disease. Electronically Signed: Gregorio Mustafa MD at 19:51 EST ,
== END | disposition home or self-care (01) ==
LOC: MRI 10:49
PROVIDERS: PCP Physician Assistant Medical; Referring Provider Internal Medicine Medical Oncology; Visit Provider Internal Medicine Medical Oncology
DX: M21.372 Foot drop, left foot (principal)
CPT/HCPCS: 70553; A9575

== ENCOUNTER 2023-07-24 14:47 | Inpatient (IN) | payer MEDICARE, MEDICAID, SELFPAY ==
[2023-07-24] VITALS (14 sets, daily range): BP systolic 90–127; BP diastolic 47–97; PULSE 110–132; RESP 12–20; TEMP 36.6–37.8; O2SAT 81–96; BMI 27.5; BMI 26.5
--- NOTE | 2023-07-24 15:05 | EKG12_ITS ---
Test Reason : SOB Blood Pressure : / mmHG Vent. Rate : 121 BPM Atrial Rate : 121 BPM P-R Int : 158 ms QRS Dur : 080 ms QT Int : 302 ms P-R-T Axes : 043 008 051 degrees QTc Int : 428 ms Sinus tachycardia Otherwise normal ECG Confirmed by Hernandez Nieves ([id number]), assistant editor MARIFER MORALES ([id number]) on 07/28/2023 7:08:18 AM Referred By: Confirmed By:Hernandez Nieves
[2023-07-24 15:43] LABS: Absolute Lymphocyte Count 0.63 X10^3/uL (0.83-4.51); Absolute Neutrophil Count 6.4 X10^3/uL (2.0-7.7); Basophil# 0.08 X10^3/uL; Eosinophil# 0.18 X10^3/uL; Eosinophils% 2.2 % (0-5); Hematocrit 35.3 % (37-47); Hemoglobin 10.8 g/dL (12.0-15.0); Lymphocyte # 0.63 X10^3/ul (0.83-4.51); Lymphocyte % 7.9 % (19-41); Mean Corp Hgb Conc 30.6 g/dL (32-36); Mean Corpuscular Hgb 28.2 pg (27.0-32.0); Mean Corpuscular Volume 92.2 fL (81-99); Mean Platelet Vol. 10.1 fl (6.2-12.0); Monocyte# 0.69 X10^3/uL; Monocyte% 8.6 % (0-10); NRBC Flagged by Analyzer 0 % (0-5); Neutrophil # 6.36 X10^3/uL (2.7-7.7); Neutrophil % 79.3 % (47-70); Platelet Count 404 K/mm3 (150-450); RBC Distribution Width CV 15.9 % (11.6-14.6); Red Blood Count 3.83 M/mm3 (4.2-5.4)
--- NOTE | 2023-07-24 15:54 | EDS_ITS ---
HPI History of Present Illness Chief Complaint: Shortness of Breath Informant: patient Narrative Narrative: Patient worsening dyspnea fever yesterday. Started cough for at least 10 days. His COPD on 2 L oxygen just at night at baseline. She was admitted to [facility] Thursday through Thursday. She is treated for pneumonia. She reports there is fluid in her right lung. Reports her plan drainage of the fluid however Thursday they decided not to. She is told to continue her oxygen at 2-2.5 liters at rest and up to 5 L with activities. Yesterday had a fever 101. Now productive sputum. History of non-small lung cancer follow-up with Dr. Ramirez, upcoming immunotherapy. Patient finished her Zithromax is 1 tab left of her Augmentin. [facility] Medical History Anemia Anxiety and depression Cancer Chronic hypoxic respiratory failure Contact with or exposure to other viral diseases COPD (chronic obstructive pulmonary disease) COVID-19 Diabetes mellitus Former smoker Gastric reflux Gout High cholesterol History of steroid therapy Hypertension Injury of head and neck Iron deficiency anemia Recurrent squamous cell carcinoma of right lung Rheumatoid arthritis Seasonal allergies Tinnitus Wears dentures Wears glasses Home Medications albuterol sulfate 90 mcg/actuation aerosol inhaler 2 puff inhalation Q4H PRN SOB 07/31/22 [History Last Taken Unknown] aspirin 81 mg tablet,delayed release (Adult Low Dose Aspirin) 81 mg PO DAILY 07/31/22 [History Last Taken Unknown] ergocalciferol (vitamin D2) 1,250 mcg (50,000 unit) capsule 1,250 mcg PO QWEEK 07/31/22 [History Last Taken Unknown] famotidine 20 mg tablet 20 mg PO BID 07/31/22 [History Last Taken Unknown] fluticasone propionate 50 mcg/actuation nasal spray,suspension (Allergy Relief (fluticasone)) 1 spray intranasal DAILY PRN ALLERGIES 07/31/22 [History Last Taken Unknown] ipratropium 0.5 mg-albuterol 3 mg (2.5 mg base)/3 mL nebulization soln 3 ml inhalation Q4H PRN SOB 07/31/22 [History Last Taken Unknown] lovastatin 20 mg tablet 20 mg PO DAILY 07/31/22 [History Last Taken Unknown] metformin 500 mg tablet 500 mg PO TIDWMEAL 07/31/22 [History Last Taken Unknown] montelukast 10 mg tablet 10 mg PO DAILY 07/31/22 [History Last Taken Unknown] sitagliptin phosphate 100 mg tablet 100 mg PO DAILY 07/31/22 [History Last Taken Unknown] trazodone 50 mg tablet 50 mg PO QHS 07/31/22 [History Last Taken Unknown] cetirizine 10 mg tablet 10 mg PO DAILY 08/01/22 [History Last Taken Unknown] ondansetron 8 mg disintegrating tablet 8 mg PO Q8H PRN nausea and vomiting #30 tabs 08/12/22 [Rx Last Taken Unknown] citalopram 40 mg tablet 40 mg PO DAILY 02/16/23 [History Last Taken Unknown] lidocaine-prilocaine 2.5 %-2.5 % topical cream 1 applic topical ONCE PRN port access 30 days #30 grams 03/16/23 [Rx Last Taken Unknown] MAGIC MOUTH WASH (BMX) 180 mL suspension 15 ml PO .qid PRN pain #180 mL 04/16/23 [Rx Last Taken Unknown] meloxicam 15 mg tablet 15 mg PO DAILY PRN pain 05/29/23 [History Last Taken Unknown] albuterol sulfate 2.5 mg/3 mL (0.083 %) solution for nebulization 2.5 mg continuous nebulization Q4H PRN shortness of breath or wheezing 06/07/23 [History Last Taken Unknown] benzonatate 200 mg capsule 200 mg PO TID PRN cough #20 caps 06/07/23 [Rx Last Taken Unknown] bupropion HCl 150 mg tablet,12 hr sustained-release 150 mg PO Q12H 06/07/23 [History Last Taken Unknown] clotrimazole-betamethasone 1 %-0.05 % topical cream 1 applic topical Q12H PRN rash 06/07/23 [History Last Taken Unknown] empagliflozin 25 mg tablet (Jardiance) 25 mg PO DAILY 06/07/23 [History Last Taken Unknown] omeprazole 20 mg capsule,delayed release 20 mg PO DAILY PRN gerd 06/07/23 [History Last Taken Unknown] metoprolol succinate 25 mg tablet,extended release 24 hr (Toprol XL) 25 mg PO Q12H Mail order RX never arrived. #180 tabs 07/09/23 [Rx Last Taken Unknown] amoxicillin 875 mg-potassium clavulanate 125 mg tablet 1 tab PO Q12H 07/24/23 [History Last Taken Unknown] fluticasone fur. 200 mcg-umeclid 62.5 mcg-vilant 25 mcg inhalat.powder (Trelegy Ellipta) 1 inh inhalation Q24H 07/24/23 [History Last Taken Unknown] gabapentin 100 mg capsule 100 mg PO QHS 07/24/23 [History Last Taken Unknown] levalbuterol tartrate 45 mcg/actuation aerosol inhaler 1 puff inhalation Q4H PRN shortness of breath or wheezing 07/24/23 [History Last Taken Unknown] semaglutide 0.25 mg or 0.5 mg (2 mg/3 mL) subcutaneous pen injector (Ozempic) 0.25 mg subcut 07/24/23 [History Last Taken Unknown] Allergy/AdvReac Type Severity Reaction Status Date / Time Environmental Allergies: Allergy congestion Verified 07/24/23 19:53 Uncoded Family History Mother Diabetes Heart disease Cancer brain tumor Father Cancer blood cancer per pt Sister Heart disease Diabetes Cancer lung Grandfather Cancer lung Uncle Diabetes Son Cancer testicular Surgical History H/O arthroscopy of left knee H/O foot surgery H/O tooth extraction H/O: hysterectomy History of bronchoscopy History of carpal tunnel surgery History of lobectomy of lung History of tonsillectomy Port-A-Cath in place Social History (Updated 07/24/23 @ 20:[address] Antonella Jane MD) household members: none Smoking Status: Former smoker quit date: 11/12/19 pack-years: 53 alcohol intake: never substance use type: does not use ROS ROS ED Constitutional Constitutional ED: Denies chills, fever(s) or sweats Eyes Eyes: Denies change in vision ENT ENT ED: Denies dysphagia or sore throat Cardiovascular Cardiovascular: Denies chest pain, leg edema, palpitations or racing heartbeat Respiratory/Chest Respiratory/Chest: Reports cough, dyspnea and dyspnea on exertion Gastrointestinal Gastrointestinal: Denies abdominal pain, diarrhea, nausea or vomiting Genitourinary Genitourinary ED: Denies dysuria, hematuria or urinary frequency Musculoskeletal Musculoskeletal: Denies back pain, extremity pain or neck pain Integumentary Denies rash or wounds Neurologic Neurologic: Denies headache(s), paresthesias or weakness EXAM Physical Exam Const Vital Signs: 07/24/23 14:48 07/24/23 15:48 07/24/23 15:48 Temperature 100.0 F H Temperature Source Temporal Pulse Rate 132 H Respiratory Rate 20 H Respiratory Effort Respiratory Pattern Blood Pressure 93/74 Blood Pressure Mean 80 Pulse Ox 81 95 Oxygen Delivery Method Room Air Nasal Cannula Nasal Cannula Oxygen Flow Rate (L/min) 4 4 07/24/23 15:50 07/24/23 16:28 07/24/23 16:15 Temperature 99.7 F H 99.7 F H Temperature Source Oral Oral Pulse Rate 125 H 122 H Respiratory Rate 18 17 Respiratory Effort Short of Breath Labored Respiratory Pattern Tachypnea Blood Pressure 90/47 L 103/83 H Blood Pressure Mean 61 88 Pulse Ox 92 93 Oxygen Delivery Method Nasal Cannula Nasal Cannula Nasal Cannula Oxygen Flow Rate (L/min) 4 4 4 07/24/23 17:00 07/24/23 18:00 07/24/23 19:00 Temperature 98.3 F Temperature Source Oral Pulse Rate 121 H 117 H 112 H Respiratory Rate 17 20 H 17 Respiratory Effort Respiratory Pattern Blood Pressure 99/70 107/66 122/97 H Blood Pressure Mean 80 79 105 Pulse Ox 94 95 94 Oxygen Delivery Method Nasal Cannula Oxygen Flow Rate (L/min) 4 07/24/23 19:51 07/24/23 20:00 Temperature 98.3 F 98.2 F Temperature Source Oral Pulse Rate 110 H 119 H Respiratory Rate 12 14 Respiratory Effort Respiratory Pattern Blood Pressure 127/91 H 109/89 H Blood Pressure Mean 103 95 Pulse Ox 95 95 Oxygen Delivery Method Nasal Cannula Oxygen Flow Rate (L/min) 4 Positive well nourished and well developed Constitutional Narrative: 4 L nasal cannula, no respiratory distress. General Appearance ED: well developed and NAD HEENT Reports moist mucous membranes normocephalic and atraumatic Eyes PERRL, EOMs intact bilaterally and conjunctivae normal General Eye ED: Yes normal appearance of both eyes Neck no lymphadenopathy and supple General: Negative for tenderness Chest Wall Chest: Negative for tenderness Resp normal respiratory effort Resp Narrative: Blunting breath sounds right lower lobe. Effort and Inspection: symmetric chest movement; Negative for respiratory dis tress Cardio regular rhythm and no murmurs Rate: tachycardic Peripheral Pulses: pulses 2+ throughout GI normal to inspection, nondistended, normoactive bowel sounds and non-tender Palpation: Negative for guarding or rebound tenderness present Back/Spine no CVA tenderness and no thoracic nor lumbar tenderness Extremity normal to inspection General Extremety ED: Negative for edema or tenderness General Extremity: Negative for edema Neuro oriented x3 and no sensory deficits noted Sensorium / Orientation: awake and alert Skin no rashes or lesions noted and no wounds MDM MDM MDM Narrative Medical decision making narrative: Interventions / MDM: Differential diagnosis: Diagnosis considered but do not suspect: N/A My EKG interpretation: Sinus rate of 121, no ST or T wave changes. Imaging independently reviewed and interpreted by myself: Two-view chest x-ray: Large right pleural effusion. External documents reviewed: N/A Test considered but not ordered:N/A ED course: Patient tachycardic low-grade fever. Initial nursing protocol labs drawn, added sepsis labs. EKG sinus tachycardia. Chest no dry mucosal membranes. No wheezing. Suspect stress from her history of reported pleural effusion. Two-view chest x-ray ordered. Blood pressure 93/74 on arrival states her blood pressure is typically in the 90s. 1710: Chest x-ray right pleural effusion. However per radiology similar stable findings compared to her previous CT on June 22, 2023. White count 8 hemoglobin 10.8. Lactic acid 1. COVID influenza and RSV negative. Blood pressure 90/47 heart rate 125, will give gentle fluids and reevaluate heart rate. 1800: Blood pressure systolic 107 heart rate 115. Discussed further with patient she had a partial right lower lobe resection years ago. This is reason why they did not do the thoracentesis. Discussed likely due to scarring. Discussed with reported stable finding compared to CT, we will re-CT her chest for evaluation of his actual pleural effusion versus scarring. Patient agrees. This was ordered. 1944: CT chest negative for PE notes loculated effusion right lower lobe. No stable pneumonia findings. Patient on continuous oxygen at 4 L. Symptoms worsen developed a fever yesterday elevated temperature today with tachycardia that is new. She has history of cancer on immunotherapy. She is failing outpatient treatment. I will discuss with hospitalist for admission and antibiotic treatment. 2030: Discussed with hospitalist Dr. Jane for admission. Will start Zosyn and vancomycin. Re-evaluation: stable Disposition discussed with patient/family/significant other: Patient Case discussed with consulting clinician: Hospitalist This note was generated with [employer] dictation software. It may contain incorrect words, spelling, and punctuation that were not noted in checking the note before signing. Lab Data Attestation: I reviewed the patient's lab results. Labs: Laboratory Results - last 24 hr 07/24/23 07/24/23 15:30 16:33 WBC 8.0 RBC 3.83 L Hgb 10.8 L Hct 35.3 L MCV 92.2 MCH 28.2 MCHC 30.6 L RDW Std Deviation 54.0 H RDW Coeff of Gina 15.9 H Plt Count 404 MPV 10.1 Immature Gran % (Auto) 1.000 H Neut % (Auto) 79.3 H Lymph % (Auto) 7.9 L [place] % (Auto) 8.6 Eos % (Auto) 2.2 Baso % (Auto) 1.0 Absolute Neuts (auto) 6.4 Absolute Lymphs (auto) 0.63 L Nucleated RBC % 0 PT 14.3 INR 1.1 APTT 40.8 H Sodium Cancelled 135 L Potassium Cancelled 4.1 Chloride Cancelled 96 L Carbon Dioxide Cancelled 28.0 Anion Gap Cancelled 11 BUN Cancelled 17 Creatinine Cancelled 0.67 Estim Creat Clear Calc Cancelled Est GFR (MDRD) Af Amer Cancelled 114 Est GFR (MDRD) Non-Af Cancelled 94 BUN/Creatinine Ratio Cancelled 25.4 H Glucose Cancelled 234 H Lactic Acid 1.0 Calcium Cancelled 9.4 Total Bilirubin 0.40 Direct Bilirubin 0.14 AST 17 ALT 26 Alkaline Phosphatase 102 Troponin I High Sens Cancelled 9 Total Protein 7.2 Albumin 2.3 L Globulin 4.9 H Radiography Diagnostic Testing: Clinical Impression(s) from Imaging Studies Chest X-Ray 07/24/23 16:05 IMPRESSION: No significant change since the prior CT. Electronically Signed: George Purvis MD at 16:15 EST , Chest CTA 07/24/23 18:11 IMPRESSION: 1. No demonstrated pulmonary embolism or arterial dissection. 2. Right pleural effusion which appears loculated is unchanged. Left pneumonia. Left diffuse infiltrate is unchanged since the prior study. Multiple bilateral pulmonary nodules may represent a neoplastic or infectious process. There is diffuse interlobular septal thickening which may suggest underlying pulmonary edema. Electronically Signed: George Purvis MD at 19:10 EST Reading Location ID and State: [facility] / [place] , Service support , Discharge Plan Disposition Disposition: Acute Care Hospital [facility] Discharge Date/Time: 07/24/23 21:29
--- NOTE | 2023-07-24 16:05 | RAD_ITS ---
STUDY: XR Chest 2 Views 07/24/2023 4:06 PM REASON FOR EXAM: Female, 62 years old. cough COMPARISON: CT 06/22/2023 TECHNIQUE: XR Chest 2 Views FINDINGS: Right pleural effusion. Right ported catheter. Multiple right pulmonary nodules. Right lung mass or infiltrate is unchanged. Normal heart size. There is right shift of the mediastinum. Normal abdon. Prominent appearing increased interstitial lung markings. Normal visualized pulmonary arteries. There is atherosclerotic calcification of the aortic arch with tortuosity. There are diffuse degenerative changes of the visualized thoracic spine. There is degenerative osteoarthritis of the bilateral shoulders. There are no acute findings of the upper abdomen. RAD/Chest PA and Lateral IMPRESSION: No significant change since the prior CT. Electronically Signed: George Purvis MD at 16:15 EST ,
[2023-07-24 16:53] LABS: International Normalized Ratio 1.1; Prothrombin Time (Protime)PT. 14.3 SECONDS (11.7-14.9)
[2023-07-24 16:54] LABS: Partial Thromboplast Time 40.8 Seconds (24.1-36.2)
[2023-07-24 17:13] LABS: AST(SGOT) 17 U/L (15-37); Alanine Aminotransfer ALT/SGPT 26 U/L (13-56); Albumin, Serum 2.3 g/dL (3.2-5.0); Alkaline Phosphatase 102 U/L (45-117); Anion Gap 11 (5-15); BUN 17 mg/dL (7-18); BUN/Creat Ratio 25.4 RATIO (10-20); Bilirubin, Direct 0.14 mg/dL (0.00-0.30); Calcium,Total 9.4 mg/dL (8.5-10.1); Chloride 96 mmol/L (98-107); Creatinine, Serum 0.67 mg/dL (0.55-1.02); EST Glomerular Filtration Rate 94 mL/min (>60); Est Glom Filt Rate - Afr Amer 114 mL/min (>60); Globulin 4.9 g/dL (2.2-4.2); Glucose 234 mg/dL (74-106); Potassium 4.1 mmol/L (3.5-5.1); Protein, Total 7.2 g/dL (6.4-8.2); Sodium Level 135 mmol/L (136-145); Troponin-I HS 9 pg/mL (3.0-54.0)
[2023-07-24] MEDS: 0.9% Normal Saline (500mL Bag) 500 ML 999 ML IV (17:26)
--- NOTE | 2023-07-24 18:11 | CT_ITS ---
EXAM: CT ANGIOGRAPHY CHEST WITHOUT AND WITH INTRAVENOUS CONTRAST CLINICAL INDICATION: dyspnea, right pleural effusion TECHNIQUE: Helically acquired angiography images were obtained of the chest without and with intravenous contrast. This CT exam was performed using one or more of the following dose reduction techniques: automated exposure control, adjustment of the mA and/or kV according to patient size, and/or use of iterative reconstruction technique. MIP reconstructed images were created and reviewed. CONTRAST: IV 100mL [id number] RADIATION DOSE: CTDIvol = 8.82 mGy, DLP = 447.51 mGy-cm COMPARISON: 2.5.24 FINDINGS: PULMONARY ARTERIES: Unremarkable. No demonstrated pulmonary embolism or arterial dissection. AORTA: There is atherosclerotic calcification of the aortic arch with tortuosity and elongation of the aortic arch and descending thoracic aorta. Normal in caliber. No evidence of dissection. GREAT VESSELS OF AORTIC ARCH: Unremarkable. Normal in caliber. No evidence of dissection. LUNGS AND PLEURAL SPACES: Loculated right pleural effusion. Diffuse right lung consolidation or infiltrate is unchanged. Multiple bilateral pulmonary nodules. Intralobular septal thickening bilaterally. Diffuse infiltrate in the left lung. No pneumothorax. HEART: There are calcifications of the coronary arteries. Heart size is normal. No pericardial effusion. MEDIASTINUM: Unremarkable. No mediastinal or hilar adenopathy. Esophagus is unremarkable. No hiatal hernia. THYROID: Unremarkable. No thyroid lesions. BONES/JOINTS: There are degenerative changes of the shoulders. There are multi-level degenerative changes of the thoracic spine. No suspicious lytic or blastic abnormality. OTHER FINDINGS: Post-processing of the angiographic images was performed, with axial imaging and 3D reconstruction. MIPS images were obtained. CT/CTA Chest W/WO Contrast IMPRESSION: 1. No demonstrated pulmonary embolism or arterial dissection. 2. Right pleural effusion which appears loculated is unchanged. Left pneumonia. Left diffuse infiltrate is unchanged since the prior study. Multiple bilateral pulmonary nodules may represent a neoplastic or infectious process. There is diffuse interlobular septal thickening which may suggest underlying pulmonary edema. Electronically Signed: George Purvis MD at 19:10 EST ,
--- NOTE | 2023-07-24 20:28 | PCM.HP.STD ---
HPI - General General Date of Admission: 07/24/23 Date of Service: 07/24/23 Chief Complaint: Dyspnea. HPI Narrative The patient is a 62 y/o F w/ PMHx: Anxiety and Depression, Chronic anemia, COPD, GERD, Gout, Rheumatoid arthritis, Former Tobacco use, Diabetes mellitus type II with chronic neuropathy, Chronic Hypoxic Respiratory Failure (2-2.5L NC rest, 5L NC activity), Squamous cell carcinoma RLL s/p lobectomy and medistinal LNDx (11/13/20) with pathologic stage IA2 (pT1b pN0 M0) with recent evidence for local disease recurrence following with Dr. Ramirez with most recent evaluation 07/09/23 who presents to the [facility] ED on 07/24/23 with history of worsening dyspnea, cough starting at least 7 to 10 days prior with onset of fever over the last 24 hours with history of recent admission to [facility] on Thursday through Thursday with treatment for pneumonia with per her report at their facility plan for possible drainage of the fluid but eventually deferred maintained on 2 to 2.5 L at rest and up to 5 L with activity oxygen therapy with now recurrent fevers up to 101 at home and productive sputum reporting that she finished her Z-Bryan and had 1 tablet left of her Augmentin but given worsening status prompted referral to the ED for evaluation. Workup in the ED included T max 100 temporally, heart rate 132, BP 93/74, respiratory rate 20, initially 81% on room air, most recent vital signs include T98.3, heart rate 110, BP 127/91, respiratory rate 12, 95% on 4 L nasal cannula, CBC with WBC 8, human 10.8, MCV 92.2, platelet 404 with increased immature granulocytes with lymphopenia, coags with PTT 40.8 otherwise not marked appearing, CMP with sodium 135, chloride 96, glucose 234, lactic acid 1.0, hepatic profile not marked appearing, troponin 9, chest x-ray with stable changes with a right pleural effusion, right port cath in place, multiple right pulmonary nodules, right lung mass unchanged from previous, follow-up CTPA with no demonstrated pulmonary embolism or arterial dissection, right pleural effusion appears loculated which is unchanged from previous, left-sided pneumonia evident, left diffuse infiltrate unchanged since prior study, multiple bilateral pulmonary nodules possibly neoplastic or infectious, diffuse interlobular septal thickening which may suggest underlying pulmonary edema, SARS COVID/influenza/RSV PCR negative. In the ED patient ministered IV vancomycin and IV Zosyn therapy. [facility] Medical History (Updated 07/24/23 @ 20:[address] Antonella Jane MD) Anemia Anxiety and depression Cancer Chronic hypoxic respiratory failure Contact with or exposure to other viral diseases COPD (chronic obstructive pulmonary disease) COVID-19 Diabetes mellitus Former smoker Gastric reflux Gout High cholesterol History of steroid therapy Hypertension Injury of head and neck Iron deficiency anemia Recurrent squamous cell carcinoma of right lung Rheumatoid arthritis Seasonal allergies Tinnitus Wears dentures Wears glasses Home Medications albuterol sulfate 90 mcg/actuation aerosol inhaler 2 puff inhalation Q4H PRN SOB 07/31/22 [History Last Taken Unknown] aspirin 81 mg tablet,delayed release (Adult Low Dose Aspirin) 81 mg PO DAILY 07/31/22 [History Last Taken Unknown] ergocalciferol (vitamin D2) 1,250 mcg (50,000 unit) capsule 1,250 mcg PO QWEEK 07/31/22 [History Last Taken Unknown] famotidine 20 mg tablet 20 mg PO BID 07/31/22 [History Last Taken Unknown] fluticasone propionate 50 mcg/actuation nasal spray,suspension (Allergy Relief (fluticasone)) 1 spray intranasal DAILY PRN ALLERGIES 07/31/22 [History Last Taken Unknown] ipratropium 0.5 mg-albuterol 3 mg (2.5 mg base)/3 mL nebulization soln 3 ml inhalation Q4H PRN SOB 07/31/22 [History Last Taken Unknown] lovastatin 20 mg tablet 20 mg PO DAILY 07/31/22 [History Last Taken Unknown] metformin 500 mg tablet 500 mg PO TIDWMEAL 07/31/22 [History Last Taken Unknown] montelukast 10 mg tablet 10 mg PO DAILY 07/31/22 [History Last Taken Unknown] sitagliptin phosphate 100 mg tablet 100 mg PO DAILY 07/31/22 [History Last Taken Unknown] trazodone 50 mg tablet 50 mg PO QHS 07/31/22 [History Last Taken Unknown] cetirizine 10 mg tablet 10 mg PO DAILY 08/01/22 [History Last Taken Unknown] ondansetron 8 mg disintegrating tablet 8 mg PO Q8H PRN nausea and vomiting #30 tabs 08/12/22 [Rx Last Taken Unknown] citalopram 40 mg tablet 40 mg PO DAILY 02/16/23 [History Last Taken Unknown] lidocaine-prilocaine 2.5 %-2.5 % topical cream 1 applic topical ONCE PRN port access 30 days #30 grams 03/16/23 [Rx Last Taken Unknown] MAGIC MOUTH WASH (BMX) 180 mL suspension 15 ml PO .qid PRN pain #180 mL 04/16/23 [Rx Last Taken Unknown] meloxicam 15 mg tablet 15 mg PO DAILY PRN pain 05/29/23 [History Last Taken Unknown] albuterol sulfate 2.5 mg/3 mL (0.083 %) solution for nebulization 2.5 mg continuous nebulization Q4H PRN shortness of breath or wheezing 06/07/23 [History Last Taken Unknown] benzonatate 200 mg capsule 200 mg PO TID PRN cough #20 caps 06/07/23 [Rx Last Taken Unknown] bupropion HCl 150 mg tablet,12 hr sustained-release 150 mg PO Q12H 06/07/23 [History Last Taken Unknown] clotrimazole-betamethasone 1 %-0.05 % topical cream 1 applic topical Q12H PRN rash 06/07/23 [History Last Taken Unknown] empagliflozin 25 mg tablet (Jardiance) 25 mg PO DAILY 06/07/23 [History Last Taken Unknown] omeprazole 20 mg capsule,delayed release 20 mg PO DAILY PRN gerd 06/07/23 [History Last Taken Unknown] metoprolol succinate 25 mg tablet,extended release 24 hr (Toprol XL) 25 mg PO Q12H Mail order RX never arrived. #180 tabs 07/09/23 [Rx Last Taken Unknown] amoxicillin 875 mg-potassium clavulanate 125 mg tablet 1 tab PO Q12H 07/24/23 [History Last Taken Unknown] fluticasone fur. 200 mcg-umeclid 62.5 mcg-vilant 25 mcg inhalat.powder (Trelegy Ellipta) 1 inh inhalation Q24H 07/24/23 [History Last Taken Unknown] gabapentin 100 mg capsule 100 mg PO QHS 07/24/23 [History Last Taken Unknown] levalbuterol tartrate 45 mcg/actuation aerosol inhaler 1 puff inhalation Q4H PRN shortness of breath or wheezing 07/24/23 [History Last Taken Unknown] semaglutide 0.25 mg or 0.5 mg (2 mg/3 mL) subcutaneous pen injector (Ozempic) 0.25 mg subcut 07/24/23 [History Last Taken Unknown] Allergy/AdvReac Type Severity Reaction Status Date / Time Environmental Allergies: Allergy congestion Verified 07/24/23 19:53 Uncoded Family History Mother Diabetes Heart disease Cancer brain tumor Father Cancer blood cancer per pt Sister Heart disease Diabetes Cancer lung Grandfather Cancer lung Uncle Diabetes Son Cancer testicular Surgical History H/O arthroscopy of left knee H/O foot surgery H/O tooth extraction H/O: hysterectomy History of bronchoscopy History of carpal tunnel surgery History of lobectomy of lung History of tonsillectomy Port-A-Cath in place Social History (Updated 07/24/23 @ 20:[address] Antonella Jane MD) household members: none Smoking Status: Former smoker quit date: 11/12/19 pack-years: 53 alcohol intake: never substance use type: does not use ROS ROS Narrative Admission Review of Systems: CONSTITUTIONAL: No weight loss, + fever, chills, weakness or fatigue. HEENT: Eyes: No visual loss, blurred vision, double vision or yellow sclerae. Ears, Nose, Throat: No hearing loss, sneezing, congestion, runny nose or sore throat. SKIN: No rash or itching, lesions, wounds. CARDIOVASCULAR: Chronic issues with peripheral distal edema. + No chest pain, chest pressure or chest discomfort, palpitations, orthopnea, syncopal events. RESPIRATORY: + Dyspnea, mildly productive sputum. No marked wheezing or hemoptysis. GASTROINTESTINAL: No anorexia, nausea, vomiting or diarrhea, abdominal pain, melena, BRBPR. GENITOURINARY: No dysuria, frequency, urgency or retention. NEUROLOGICAL: + Chronic left foot drop. No headache, dizziness, syncope, paralysis, ataxia, numbness or tingling in the extremities, focal weakness, change in bowel or bladder control, seizure. MUSCULOSKELETAL: + muscle, back pain, joint pain or stiffness, chronic left foot drop. HEMATOLOGIC: + Anemia, easy bleeding/bruising. LYMPHATICS: No enlarged nodes. No history of splenectomy. PSYCHIATRIC: + History of anxiety and depression. ENDOCRINOLOGIC: No reports of sweating, cold or heat intolerance. No polyuria or polydipsia. ALLERGIES: No history of asthma, hives, eczema or rhinitis. Vital Signs Vital Signs Vital Signs: 07/24/23 14:48 07/24/23 15:48 07/24/23 15:48 Temperature 100.0 F H Temperature Source Temporal Pulse Rate 132 H Respiratory Rate 20 H Respiratory Effort Respiratory Pattern Blood Pressure 93/74 Blood Pressure Mean 80 Pulse Ox 81 95 Oxygen Delivery Method Room Air Nasal Cannula Nasal Cannula Oxygen Flow Rate (L/min) 4 4 07/24/23 15:50 07/24/23 16:28 07/24/23 16:15 Temperature 99.7 F H 99.7 F H Temperature Source Oral Oral Pulse Rate 125 H 122 H Respiratory Rate 18 17 Respiratory Effort Short of Breath Labored Respiratory Pattern Tachypnea Blood Pressure 90/47 L 103/83 H Blood Pressure Mean 61 88 Pulse Ox 92 93 Oxygen Delivery Method Nasal Cannula Nasal Cannula Nasal Cannula Oxygen Flow Rate (L/min) 4 4 4 07/24/23 17:00 07/24/23 18:00 07/24/23 19:00 Temperature 98.3 F Temperature Source Oral Pulse Rate 121 H 117 H 112 H Respiratory Rate 17 20 H 17 Respiratory Effort Respiratory Pattern Blood Pressure 99/70 107/66 122/97 H Blood Pressure Mean 80 79 105 Pulse Ox 94 95 94 Oxygen Delivery Method Nasal Cannula Oxygen Flow Rate (L/min) 4 07/24/23 19:51 Temperature 98.3 F Temperature Source Pulse Rate 110 H Respiratory Rate 12 Respiratory Effort Respiratory Pattern Blood Pressure 127/91 H Blood Pressure Mean 103 Pulse Ox 95 Oxygen Delivery Method Oxygen Flow Rate (L/min) Weight Weight: 165 lb 5.547 oz Body Mass Index (BMI) 27.5 Physical Exam Narrative Physical Examination: General: Awake, alert, oriented x 3 and cooperative, seated upright in the ED bed, fatigued but no acute distress. Skin: Normal color, normal turgor, no icterus, no cyanosis except occasional staged ecchymoses. HEENT: AT/NC, EOMI, PERRLA, mildly dry MM, no carotid bruits or JVD noted. Lungs: Significantly diminished, greater bases, primarily right upper, middle and lower lobe posteriorly, mildly coarse left lower lobe, no evidence of any distress, no marked rales or any wheezing. Heart: Mildly tachycardic with regular rhythm; no gallop, rub audible. Abdomen: Soft, overweight, NTTP, ND, normal BS, no appreciated HSM. Extremities: No cyanosis, no clubbing, no current noted peripheral edema. Neurological: Patient awake, alert, oriented as noted, cognitive function intact; pupils equally reactive to light and accommodation, cranial nerves grossly normal, moving all 4 extremities, chronic left foot drop present, no focal deficits, strength moderately to severely globally Belkis secondary to acute presentation complaints. Psychiatric: Affect appears n fatigued otherwise ormal, no acute evidence of depressive or anxiety feelings but does have underlying history. Results Lab / Micro Data 07/24/23 15:30 07/24/23 16:33 Labs: Laboratory Results - last 24 hr 07/24/23 15:30: WBC 8.0, RBC 3.83 L, Hgb 10.8 L, Hct 35.3 L, MCV 92.2, MCH 28.2, MCHC 30.6 L, RDW Std Deviation 54.0 H, RDW Coeff of Gina 15.9 H, Plt Count 404, MPV 10.1, Immature Gran % (Auto) 1.000 H, Neut % (Auto) 79.3 H, Lymph % (Auto) 7.9 L, Schuyler % (Auto) 8.6, Eos % (Auto) 2.2, Baso % (Auto) 1.0, Absolute Neuts (auto) 6.4, Absolute Lymphs (auto) 0.63 L, Nucleated RBC % 0, Sodium Cancelled, Potassium Cancelled, Chloride Cancelled, Carbon Dioxide Cancelled, Anion Gap Cancelled, BUN Cancelled, Creatinine Cancelled, Estim Creat Clear Calc Cancelled, Est GFR (MDRD) Af Amer Cancelled, Est GFR (MDRD) Non-Af Cancelled, BUN/Creatinine Ratio Cancelled, Glucose Cancelled, Calcium Cancelled, Troponin I High Sens Cancelled 07/24/23 16:33: PT 14.3, INR 1.1, APTT 40.8 H, Sodium 135 L, Potassium 4.1, Chloride 96 L, Carbon Dioxide 28.0, Anion Gap 11, BUN 17, Creatinine 0.67, Est GFR (MDRD) Af Amer 114, Est GFR (MDRD) Non-Af 94, BUN/Creatinine Ratio 25.4 H, Glucose 234 H, Lactic Acid 1.0, Calcium 9.4, Total Bilirubin 0.40, Direct Bilirubin 0.14, AST 17, ALT 26, Alkaline Phosphatase 102, Troponin I High Sens 9, Total Protein 7.2, Albumin 2.3 L, Globulin 4.9 H Micro: Microbiology 07/24/23 16:02 Mucosa - Nose SARS-CoV-2, Influenza & RSV (PCR) - Final Imaging Radiology Impression Chest X-Ray 07/24/23 16:05 IMPRESSION: No significant change since the prior CT. Electronically Signed: George Purvis MD at 16:15 EST , Chest CTA 07/24/23 18:11 IMPRESSION: 1. No demonstrated pulmonary embolism or arterial dissection. 2. Right pleural effusion which appears loculated is unchanged. Left pneumonia. Left diffuse infiltrate is unchanged since the prior study. Multiple bilateral pulmonary nodules may represent a neoplastic or infectious process. There is diffuse interlobular septal thickening which may suggest underlying pulmonary edema. Electronically Signed: George Purvis MD at 19:10 EST , Assessment & Plan Assessment/Plan (1) Acute and chronic respiratory failure with hypoxia: (2) Pneumonia: PLAN: Plan The patient is a 62 y/o F w/ PMHx: Anxiety and Depression, Chronic anemia, COPD, GERD, Gout, Rheumatoid arthritis, Former Tobacco use, Diabetes mellitus type II with chronic neuropathy, Chronic Hypoxic Respiratory Failure (2-2.5L NC rest, 5L NC activity), Squamous cell carcinoma RLL s/p lobectomy and medistinal LNDx (11/13/20) with pathologic stage IA2 (pT1b pN0 M0) with recent evidence for local disease recurrence following with Dr. Ramirez with most recent evaluation 07/09/23 who presents to the [facility] ED on 07/24/23 with history of worsening dyspnea, cough starting at least 7 to 10 days prior with onset of fever over the last 24 hours with history of recent admission to [facility] on Thursday through Thursday with treatment for pneumonia with per her report at their facility plan for possible drainage of the fluid but eventually deferred maintained on 2 to 2.5 L at rest and up to 5 L with activity oxygen therapy with now recurrent fevers up to 101 at home and productive sputum reporting that she finished her Z-Bryan and had 1 tablet left of her Augmentin but given worsening status prompted referral to the ED for evaluation. #1. LLL Pneumonia complicated by underlying COPD as well as underlying stable right pleural effusion which is loculated but unchanged, diffuse infiltrate unchanged since previous, mild bilateral pulmonary nodules likely neoplastic given underlying disease as well as diffuse interlobular septal thickening w/ Acute on Chronic Hypoxic Respiratory Failure, Failed recent abx therapy: Will admit to [facility], maintain on oxygen with wean as tolerated to home oxygen supplementation at rest/activity, continue ATC budesonide, PRN albuterol, maintained on IV Zosyn and Vancomycin w/ MRSA screen requested, HOB, IS parameters w/ pending sputum cultures, full respiratory viral panel and urine antigens as well as procalcitonin especially given no marked WBC elevation however does have increased immature granulocytes as certainly could be viral. Bld cx x 2 obtained in the ED. Pulmonary consultation requested. #2. Squamous cell carcinoma: RLL, s/p lobectomy and medistinal LNDx (11/13/20) with pathologic stage IA2 (pT1b pN0 M0) with recent evidence for local disease recurrence following with Dr. Ramirez with most recent evaluation 07/09/23. 03/12/2023 Started therapy with Taxol/Carboplatin/Nivolumab/Yevoy-->04/12/23 transitioned secondary to toxicity carboplatin, paclitaxel, nivolumab->04/23/23 Immunotherapy eventually held secondary to radiation pneumonitis started on decadron. Most recent course of imaging CT chest 05/19/2023 w/ persistent consolidation in the R lung, stable nodules-->CT 07/02/2023 stable consolidation R lung with stable nodules. 06/22/23 Onset L foot drop, follow-up MRI brain 07/13/23 with mild periventricular white matter ischemic change without evidence of acute infarct with a probable old lacunar infarct in the left external capsule with no enhancing lesion to suggest metastatic disease. Resumed 07/09/2023 maintenance Nivolumab and Ipilimumab. Encourage continued follow-up outpatient with oncology as previously arranged. #3. Chronic COPD with chronic allergic rhinitis: Will maintain on oxygen with wean as tolerated to home oxygen supplementation given acute presentation #1 as noted, continue ATC budesonide, PRN albuterol, HOB, IS parameters, continue patient on fluticasone, montelukast, cetirizine home regimen. #4. Chronic normocytic anemia: Admission hemoglobin 10.8, MCV 92.2, baseline hemoglobin more recently appears 12 range, currently 10.8, will continue closely monitor and may need to further address and workup if decreases. #5. Anxiety and depression: We will continue patient home trazodone, bupropion, citalopram home regimen. #6. Hypertension: Continue home regimen including metoprolol although given history may need to consider alternate regimen, PRN hydralazine. #7. Hyperlipidemia: We will continue patient on statin therapy. #8. GERD: We will continue patient home PPI. #9. Diabetes mellitus type II with chronic neuropathy: Hold oral home regimen, continue home insulin regimen, ADA diet, accu checks w/ ISS. #10. DVT prophylaxis: Lovenox cautiously. #11. CODE status: Patient HCPOA and living will are not in place but she notes that she would want her son and her sister to be her decision makers if she was unable. Discussed CODE status at length including difference between FULL code, DNR-CCA and DNR-CC status. Following discussions about the differences in these status, requested Full Code status. Advanced Care Planning Face to Face Time: 16 minutes. Charges/Coding Visit Charges Inpatient E&M: 15247 Init Hosp L3 Procedures Hospitalists Procedures: 50611 Advncd Care Plan 30 Min
[2023-07-24] MEDS: Piperacil/Tazobactam 4.5 GM in 0.9% Normal Saline (100mL MB+) 100 ML IV (20:59)
[2023-07-24] MEDS: Budesonide Respules 0.5 MG/2 ML AMPUL.NEB. INHALATION (23:06)
[2023-07-24] MEDS: 0.9% Normal Saline (1000mL) 1,000 ML 75 ML IV (23:16)
[2023-07-24] MEDS: Vancomycin HCl 2,000 MG in 0.9% Normal Saline (500mL Bag) 500 ML 250 MG IV (23:16)
[2023-07-24] MEDS: Acetaminophen 325 MG Tablet 650 MG PO (23:16)
[2023-07-24] MEDS: Metoprolol(XL)Succ 25 MG Tablet PO (23:17)
[2023-07-24 23:21] LABS: Procalcitonin 0.11 ng/mL (0.00-0.09)
[2023-07-24 23:32] LABS: Phosphorus 3.8 mg/dL (2.5-4.9)
[2023-07-25] VITALS (9 sets, daily range): BP systolic 103–117; BP diastolic 64–79; PULSE 89–113; RESP 16–20; TEMP 36.2–37.1; O2SAT 91–97
--- NOTE | 2023-07-25 02:45 | PCM.RX.CS ---
Consult Antibiotic Management Pharmacy has been consulted to manage selected antibiotic: Vancomycin Type of Intervention Type of Consult: New start Labs Labs: Sodium 135 mmol/L (136-145) L 07/24/23 16:33 Potassium 4.1 mmol/L (3.5-5.1) 07/24/23 16:33 Chloride 96 mmol/L (98-107) L 07/24/23 16:33 Carbon Dioxide 28.0 mmol/L (21.0-32.0) 07/24/23 16:33 Anion Gap 11 (5-15) 07/24/23 16:33 BUN 17 mg/dL (7-18) 07/24/23 16:33 Creatinine 0.67 mg/dL (0.55-1.02) 07/24/23 16:33 Est GFR (MDRD) Af Amer 114 mL/min (>60) 07/24/23 16:33 Est GFR (MDRD) Non-Af 94 mL/min (>60) 07/24/23 16:33 BUN/Creatinine Ratio 25.4 RATIO (10-20) H 07/24/23 16:33 Glucose 234 mg/dL (74-106) H 07/24/23 16:33 Microbiology Microbiology: Microbiology 07/24/23 23:10 Mucosa - Nasopharyngeal Respiratory Panel (PCR) - Final 07/24/23 16:02 Mucosa - Nose SARS-CoV-2, Influenza & RSV (PCR) - Final Dosing Weight Weight used for dosin.4 kg Estimated Creatinine Clearance Estimated Creatinine Clearance: 84.4 Goal Trough Goal Trough: 15-20 mcg/mL Pharmacy Plan for Drug Dosing Pharmacy Plan for Drug Dosing: Pharmacy Service will continue to monitor and adjust dosing as required. Follow-Up Labs Follow-Up Labs: Trough: Vancomycin Date/Time Labs Ordered Labs to be done on [date and time ordered]: 07/25 @ 1100
[2023-07-25] MEDS: Piperacil/Tazobactam 3.375 GM in 0.9% Normal Saline (50mL MB+) 50 ML IV ×3 (05:50→21:08)
[2023-07-25] MEDS: Insulin Lispro 100 UNIT/ML INSULN.PEN SC ×4 (05:59→21:18)
[2023-07-25 06:20] LABS: Bedside Glucose 155 mg/dL (74-106)
[2023-07-25 06:33] LABS: Absolute Neutrophil Count 5.5 X10^3/uL (2.0-7.7); Basophil# 0.07 X10^3/uL; Eosinophil# 0.24 X10^3/uL; Eosinophils% 3.4 % (0-5); Hematocrit 35.2 % (37-47); Hemoglobin 10.5 g/dL (12.0-15.0); Lymphocyte % 5.7 % (19-41); Mean Corp Hgb Conc 29.8 g/dL (32-36); Mean Corpuscular Hgb 27.9 pg (27.0-32.0); Mean Corpuscular Volume 93.4 fL (81-99); Mean Platelet Vol. 9.1 fl (6.2-12.0); Monocyte# 0.73 X10^3/uL; Monocyte% 10.5 % (0-10); NRBC Flagged by Analyzer 0 % (0-5); Neutrophil # 5.45 X10^3/uL (2.7-7.7); Neutrophil % 78.3 % (47-70); POSITIVE DIFFERENTIAL YES; Platelet Count 410 K/mm3 (150-450); RBC Distribution Width CV 15.8 % (11.6-14.6); RBC Distribution Width SD 54.3 fl (35.1-43.9); Red Blood Count 3.77 M/mm3 (4.2-5.4)
[2023-07-25] MEDS: Budesonide Respules 0.5 MG/2 ML AMPUL.NEB. INHALATION ×2 (06:55→20:44)
[2023-07-25 07:09] LABS: ALB/GLOB Ratio 0.5 RATIO (0.9-2.4); AST(SGOT) 12 U/L (15-37); Alanine Aminotransfer ALT/SGPT 22 U/L (13-56); Albumin, Serum 2.2 g/dL (3.2-5.0); Alkaline Phosphatase 97 U/L (45-117); Anion Gap 4 (5-15); BUN 13 mg/dL (7-18); BUN/Creat Ratio 25.4 RATIO (10-20); Calcium,Total 9.1 mg/dL (8.5-10.1); Chloride 102 mmol/L (98-107); Creatinine, Serum 0.51 mg/dL (0.55-1.02); EST Glomerular Filtration Rate 128 mL/min (>60); Est Glom Filt Rate - Afr Amer 155 mL/min (>60); Estimated Creatinine Clearance 111.11 ml/min; Globulin 4.5 g/dL (2.2-4.2); Glucose 164 mg/dL (74-106); Potassium 4.3 mmol/L (3.5-5.1); Protein, Total 6.7 g/dL (6.4-8.2); Sodium Level 137 mmol/L (136-145)
--- NOTE | 2023-07-25 07:10 | PCM.PN.HOSP ---
Reason for Visit Reason for Visit: Diagnoses Pneumonia, unspecified organism (07/24/23) Acute and chronic respiratory failure with hypoxia (07/24/23) Subjective Subjective Patient is a 62-year-old lady with history of lung CA sent to the ED by her oncologist with shortness of breath. CTA demonstrated right-sided loculated pleural effusion as well as pneumonia involving left lung. Objective Data Objective Data Vital Signs: Vital Signs Temp Pulse Resp BP Pulse Ox O2 Del Method O2 Flow Rate 98.2 F 110 H 18 104/65 93 Nasal Cannula 3 07/25/23 02:45 07/25/23 06:56 07/25/23 06:56 07/25/23 02:45 07/25/23 06:56 07/25/23 06:56 07/25/23 06:56 Oxygen Flow Rate (L/min) 3 Oxygen Delivery Method Nasal Cannula Weight: 72.4 kg Body Mass Index (BMI) 26.5 Intake & Output: Intake and Output for Last 24 Hours 07/23/23 07/24/23 07/25/23 23:59 23:59 23:59 Intake Total 600 / 600 540 / 540 Balance 600 / 600 540 / 540 Lab / Micro Data 07/25/23 06:03 07/25/23 06:03 Labs: Laboratory Results - last 24 hr 07/24/23 15:30: WBC 8.0, RBC 3.83 L, Hgb 10.8 L, Hct 35.3 L, MCV 92.2, MCH 28.2, MCHC 30.6 L, RDW Std Deviation 54.0 H, RDW Coeff of Gina 15.9 H, Plt Count 404, MPV 10.1, Immature Gran % (Auto) 1.000 H, Neut % (Auto) 79.3 H, Lymph % (Auto) 7.9 L, [place] % (Auto) 8.6, Eos % (Auto) 2.2, Baso % (Auto) 1.0, Absolute Neuts (auto) 6.4, Absolute Lymphs (auto) 0.63 L, Nucleated RBC % 0, Sodium Cancelled, Potassium Cancelled, Chloride Cancelled, Carbon Dioxide Cancelled, Anion Gap Cancelled, BUN Cancelled, Creatinine Cancelled, Estim Creat Clear Calc Cancelled, Est GFR (MDRD) Af Amer Cancelled, Est GFR (MDRD) Non-Af Cancelled, BUN/Creatinine Ratio Cancelled, Glucose Cancelled, Calcium Cancelled, Troponin I High Sens Cancelled 07/24/23 16:33: PT 14.3, INR 1.1, APTT 40.8 H, Sodium 135 L, Potassium 4.1, Chloride 96 L, Carbon Dioxide 28.0, Anion Gap 11, BUN 17, Creatinine 0.67, Est GFR (MDRD) Af Amer 114, Est GFR (MDRD) Non-Af 94, BUN/Creatinine Ratio 25.4 H, Glucose 234 H, Lactic Acid 1.0, Calcium 9.4, Total Bilirubin 0.40, Direct Bilirubin 0.14, AST 17, ALT 26, Alkaline Phosphatase 102, Troponin I High Sens 9, Total Protein 7.2, Albumin 2.3 L, Globulin 4.9 H 07/24/23 22:37: Phosphorus 3.8, Magnesium 2.0, Procalcitonin 0.11 H 07/25/23 05:53: POC Glucose 155 H 07/25/23 06:03: WBC 7.0, RBC 3.77 L, Hgb 10.5 L, Hct 35.2 L, MCV 93.4, MCH 27.9, MCHC 29.8 L, RDW Std Deviation 54.3 H, RDW Coeff of Gina 15.8 H, Plt Count 410, MPV 9.1, Immature Gran % (Auto) 1.100 H, Neut % (Auto) 78.3 H, Lymph % (Auto) 5.7 L, [place] % (Auto) 10.5 H, Eos % (Auto) 3.4, Baso % (Auto) 1.0, Absolute Neuts (auto) 5.5, Absolute Lymphs (auto) 0.40 L, Nucleated RBC % 0, Sodium 137, Potassium 4.3, Chloride 102, Carbon Dioxide 31.0, Anion Gap 4 L, BUN 13, Creatinine 0.51 L, Estim Creat Clear Calc 111.11, Est GFR (MDRD) Af Amer 155, Est GFR (MDRD) Non-Af 128, BUN/Creatinine Ratio 25.4 H, Glucose 164 H, Calcium 9.1, Total Bilirubin 0.30, AST 12 L, ALT 22, Alkaline Phosphatase 97, Total Protein 6.7, Albumin 2.2 L, Globulin 4.5 H, Albumin/Globulin Ratio 0.5 L Micro: Microbiology 03/08/24 23:10 Mucosa - Nasopharyngeal Respiratory Panel (PCR) - Final 07/24/23 16:02 Mucosa - Nose SARS-CoV-2, Influenza & RSV (PCR) - Final Radiography Diagnostic Testing: Radiology Impression Chest X-Ray 07/24/23 16:05 IMPRESSION: No significant change since the prior CT. Electronically Signed: George Purvis MD at 16:15 EST , Chest CTA 07/24/23 18:11 IMPRESSION: 1. No demonstrated pulmonary embolism or arterial dissection. 2. Right pleural effusion which appears loculated is unchanged. Left pneumonia. Left diffuse infiltrate is unchanged since the prior study. Multiple bilateral pulmonary nodules may represent a neoplastic or infectious process. There is diffuse interlobular septal thickening which may suggest underlying pulmonary edema. Electronically Signed: George Purvis MD at 19:10 EST , Physical Exam Narrative GENERAL: cooperative HEENT: Atraumatic; normocephalic EYES; Anicteric, Normal Conjunctiva NECK; supple, normal thyroid, RESPIRATORY: Diminished to auscultation CARDIOVASCULAR: Regular S1 S2, GI: soft, normoactive bowel sounds, : No Renal angle tenderness; EXTREMITIES: No edema, no clubbing, MUSCULOSKELETAL: no muscle wasting NEURO: Awake; no lateralizing signs. SKIN: No Rash PSYCH; Flat affect Assessment & Plan Assessment/Plan (1) Acute and chronic respiratory failure with hypoxia: (2) Pneumonia: PLAN: Plan Patient is a 62-year-old lady with history of lung CA sent to the ED by her oncologist with shortness of breath. CTA demonstrated right-sided loculated pleural effusion as well as pneumonia involving left lung. 1. Left lower lobe pneumonia with suspected multidrug-resistant organisms ? Given patient immunocompromise state. Admitted to regular nursing floor cultures sent patient started on broad-spectrum antibiotic therapy with Zosyn and vancomycin. Placed on supplemental oxygen titrated to keep saturation greater than 90 2. 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 Patient has undergone lobectomy. Had a local recurrence and has since been followed by oncology on, patient is on immunotherapy as outpatient. 3. COPD ? Bronchodilator treatment as needed 4. Chronic hypoxic respiratory failure ? Secondary to a combination of COPD and patient underlying lung malignancy patient is on home oxygen 5. Diabetes mellitus type II -patient's oral hypoglycemics held. Placed on long acting insulin, Accu-Cheks a.c. and at bedtime and covered with sliding scale insulin 6.. Hypertension - Blood pressure controlled, home medications continued with dose adjustment as needed 7. Depression with anxiety ? Patient is on citalopram did continue 8. Diabetic polyneuropathy ? Patient is on gabapentin discontinued 9. Anemia - Secondary to chronic disorder monitoring H&H and transfuse if patient becomes symptomatic or hemoglobin falls below 7 10. Dyslipidemia -Patient is on statin therapy, continued at home dose 11 DVT prophylaxis ? SC Lovenox Time spent in the patient's overall evaluation,decision-making process, review of diagnostic data, adjustment of management, discussion with other providers, nursing nursing and ancillary staff involved in patient's care documentation, 52 Minutes Charges/Coding Visit Charges Inpatient E&M: 57548 Subs Hosp L3
[2023-07-25] MEDS: Enoxaparin 40 MG/0.4 ML Syringe SC (10:09)
[2023-07-25] MEDS: Loratadine 10 MG Tablet PO (10:10)
[2023-07-25] MEDS: Aspirin E.C. 81 MG Tablet PO (10:10)
[2023-07-25] MEDS: Metoprolol(XL)Succ 25 MG Tablet PO ×2 (10:10→21:11)
[2023-07-25] MEDS: Montelukast 10 MG Tablet PO (10:11)
[2023-07-25] MEDS: Citalopram 40 MG TABLET PO (10:11)
--- NOTE | 2023-07-25 10:22 | CASEMGMT ---
JOON ASHFORD Assessment: Face to Face with pt for initial transition planning/care coordination assessment. RN MAKEDA introduced self and role at [facility], pt voices understanding and consents to assessment. Pt is A&O x4 and answers all questions appropriately at this time. Pt resting in bed. Care providers, pharmacy, and demographics verified/updated. Admitting Dx: Acute on Chronic Hypoxia, LLL PNA PCP: MESSI Amador Specialists: Follows with Hem/Onc and Cardio at [facility], Pulmonology Dr. Borrero Preferred Pharmacy: [facility] Insurance: [employer] Medicare and Medicaid Prescription Benefit: yes LNOK: Patrick Oliva [phone] Living Arrangements: Pt lives at home, alone. Home has 2-5 steps to enter depending on entrance and is a 2 story home. Pt reports she does not have issues with the stairs into the home. Pt reports she does not go up to the 2nd story, she has a bathroom on the main level and sleeps on the couch. Pt is independent with personal care, has an aide for light housekeeping. Aide comes M 9-1300, T [phone], Fr 9-1330. Family is local and can assist if needed. Transportation: Pt does not currently drive, children and grandchildren assist with any transportation needs. DME: Oxygen through [employer]. Need to follow up on Thursday to confirm home O2. Pt reports her concentrator flashes red when turned up to 5L and her portables are not lasting as they should. Pt reports [employer] is supposed to come out on Thursday. Pt also has a cane, BSC, and w/c but she does not use any of them. HHC/SNF: None Pt states no concerns with going home at time of dc. Pt states no further concerns/needs. CM to follow. Advised pt to ask CM if any further question/concerns/needs arise, voices understanding. Pt Goal: Home Plan: Home Sarah Schmid MSN, RN, CCM
[2023-07-25 12:00] LABS: Bedside Glucose 157 mg/dL (74-106)
[2023-07-25] MEDS: Vancomycin HCl 1,250 MG in 0.9% Normal Saline (250mL Bag) 250 ML 167 MG IV (12:05)
[2023-07-25 17:01] LABS: Bedside Glucose 256 mg/dL (74-106)
[2023-07-25] MEDS: Atorvastatin Calcium 10 MG Tablet 5 MG PO (21:08)
[2023-07-25] MEDS: Gabapentin 100 MG Capsule PO (21:08)
[2023-07-25] MEDS: traZODone 50 MG Tablet PO (21:09)
--- NOTE | 2023-07-25 21:30 | CON.PCM.CC_ITS ---
HPI Consult Data Date of Consult: 07/25/23 HPI Narrative HPI Narrative: FABRICIO EDWARDS, is a 62 F who presents [facility] Medical History Anemia Anxiety and depression Cancer Chronic hypoxic respiratory failure Contact with or exposure to other viral diseases COPD (chronic obstructive pulmonary disease) COVID-19 Diabetes mellitus Former smoker Gastric reflux Gout High cholesterol History of steroid therapy Hypertension Injury of head and neck Iron deficiency anemia Recurrent squamous cell carcinoma of right lung Rheumatoid arthritis Seasonal allergies Tinnitus Wears dentures Wears glasses Home Medications albuterol sulfate 90 mcg/actuation aerosol inhaler 2 puff inhalation Q4H PRN SOB 07/31/22 [History Last Taken Unknown] aspirin 81 mg tablet,delayed release (Adult Low Dose Aspirin) 81 mg PO DAILY blood thinner 07/31/22 [History Last Taken Unknown] ergocalciferol (vitamin D2) 1,250 mcg (50,000 unit) capsule 1,250 mcg PO .twice week supplement 07/31/22 [History Last Taken 07/16/23] fluticasone propionate 50 mcg/actuation nasal spray,suspension (Allergy Relief (fluticasone)) 1 spray intranasal DAILY PRN ALLERGIES 07/31/22 [History Last Taken Unknown] ipratropium 0.5 mg-albuterol 3 mg (2.5 mg base)/3 mL nebulization soln 3 ml inhalation Q4H PRN SOB 07/31/22 [History Last Taken Unknown] lovastatin 20 mg tablet 20 mg PO DAILY see 07/31/22 [History Last Taken Unknown] metformin 500 mg tablet 500 mg PO TIDWMEAL dm 07/31/22 [History Last Taken Unknown] montelukast 10 mg tablet 10 mg PO DAILY 07/31/22 [History Last Taken Unknown] sitagliptin phosphate 100 mg tablet 100 mg PO DAILY see 07/31/22 [History Last Taken Unknown] trazodone 50 mg tablet 50 mg PO QHS sleep 07/31/22 [History Last Taken Unknown] cetirizine 10 mg tablet 10 mg PO DAILY see 08/01/22 [History Last Taken Unknown] ondansetron 8 mg disintegrating tablet 8 mg PO Q8H PRN nausea and vomiting #30 tabs 08/12/22 [Rx Last Taken Unknown] citalopram 40 mg tablet 40 mg PO DAILY see 02/16/23 [History Last Taken Unknown] lidocaine-prilocaine 2.5 %-2.5 % topical cream 1 applic topical ONCE PRN port access 30 days #30 grams 03/16/23 [Rx Last Taken Unknown] MAGIC MOUTH WASH (BMX) 180 mL suspension 15 ml PO .qid PRN pain #180 mL 04/16/23 [Rx Last Taken Unknown] meloxicam 15 mg tablet 15 mg PO DAILY PRN pain 05/29/23 [History Last Taken Unknown] albuterol sulfate 2.5 mg/3 mL (0.083 %) solution for nebulization 2.5 mg continu ous nebulization Q4H PRN shortness of breath or wheezing 06/07/23 [History Last Taken Unknown] bupropion HCl 150 mg tablet,12 hr sustained-release 150 mg PO Q12H see 06/07/23 [History Last Taken Unknown] empagliflozin 25 mg tablet (Jardiance) 25 mg PO DAILY blood thinner 06/07/23 [History Last Taken Unknown] metoprolol succinate 25 mg tablet,extended release 24 hr (Toprol XL) 25 mg PO Q12H Mail order RX never arrived. #180 tabs 07/09/23 [Rx Last Taken Unknown] amoxicillin 875 mg-potassium clavulanate 125 mg tablet 1 tab PO Q12H 07/24/23 [History Last Taken Unknown] fluticasone fur. 200 mcg-umeclid 62.5 mcg-vilant 25 mcg inhalat.powder (Trelegy Ellipta) 1 inh inhalation Q24H breathing 07/24/23 [History Last Taken Unknown] gabapentin 100 mg capsule 100 mg PO QHS pain 07/24/23 [History Last Taken Unknown] levalbuterol tartrate 45 mcg/actuation aerosol inhaler 1 puff inhalation Q4H PRN shortness of breath or wheezing 07/24/23 [History Last Taken Unknown] multivitamin (Daily Multi-Vitamin tablet) 1 tab PO DAILY supplement 07/24/23 [History Last Taken Unknown] semaglutide 0.25 mg or 0.5 mg (2 mg/3 mL) subcutaneous pen injector (Ozempic) 0.25 mg subcut QWEEK dm 07/24/23 [History Last Taken Unknown] Allergy/AdvReac Type Severity Reaction Status Date / Time No Known Allergies Allergy Verified 07/24/23 22:42 Family History Mother Diabetes Heart disease Cancer brain tumor Father Cancer blood cancer per pt Sister Heart disease Diabetes Cancer lung Grandfather Cancer lung Uncle Diabetes Son Cancer testicular Surgical History H/O arthroscopy of left knee H/O foot surgery H/O tooth extraction H/O: hysterectomy History of bronchoscopy History of carpal tunnel surgery History of lobectomy of lung History of tonsillectomy Port-A-Cath in place Social History (Updated 07/24/23 @ 20:[address] Antonella Jane MD) household members: none Smoking Status: Former smoker quit date: 11/12/19 pack-years: 53 alcohol intake: never substance use type: does not use Objective Data Objective Data Vital Signs: Vital Signs Last response Temperature 36.8 C 07/25/23 16:00 Temperature Source Temporal 07/25/23 16:00 Pulse Rate 108 H 07/25/23 21:11 Pulse Strength Normal (2+) 07/25/23 10:00 Respiratory Rate 20 H 07/25/23 20:48 Respiratory Effort Non-Labored 07/25/23 07:53 Respiratory Pattern Normal 07/25/23 06:56 Blood Pressure 103/64 07/25/23 16:00 Blood Pressure Mean 77 07/25/23 16:00 Blood Pressure Source Monitor 07/25/23 16:00 Blood Pressure Position Semi-Fowlers 07/25/23 16:00 Blood Pressure Location Left Arm 07/25/23 16:00 Pulse Ox 91 07/25/23 20:48 Oxygen Delivery Method Nasal Cannula 07/25/23 20:48 Oxygen Flow Rate (L/min) 4 07/25/23 20:48 I&O: I&O Last 24 Hours 07/24/23 07/25/23 07/25/23 23:59 11:59 23:59 Intake Total 600 / 600 590 / 3493.75 2903.75 / 3493.75 Balance 600 / 600 590 / 3493.75 2903.75 / 3493.75 I&O: Total Stay 07/24/23 14:47 thru 07/25/23 18:00 Intake Total 4093.75 Balance 4093.75 Current Meds Ordered / Administered: Current meds ordered / Administered Generic Name Dose Route Start Last Admin Trade Name Freq PRN Reason Stop Dose Admin Acetaminophen 650 mg 07/24/23 22:24 07/24/23 23:16 Acetaminophen 325 Mg Tablet PO 650 mg Q4H PRN PRN Administration Fever, pain 1-10 Al Hydroxide/Mg Hydroxide 30 ml 07/24/23 22:24 Mag Hydrox/Al Hydrox/Simeth 30 Ml Udc PO Q6H PRN PRN Gastric Burning Albuterol Sulfate 2.5 mg 07/24/23 22:24 Albuterol 2.5 Mg/3 Ml Vial.Neb. INHALATION Q2H PRN PRN Dyspnea, wheezing Aspirin 81 mg 07/25/23 10:00 07/25/23 10:10 Aspirin E.C. 81 Mg Tablet PO 81 mg DAILY CHELY Administration Atorvastatin Calcium 5 mg 07/25/23 22:00 07/25/23 21:08 Atorvastatin Calcium 10 Mg Tablet PO 5 mg QHS CHELY Administration Budesonide 0.5 mg 07/24/23 22:30 07/25/23 20:44 Budesonide Respules 0.5 Mg/2 Ml Ampul.Neb. INHALATION 0.5 mg BID.RT CHELY Administration Citalopram Hydrobromide 40 mg 07/25/23 10:00 07/25/23 10:11 Citalopram 40 Mg Tablet PO 40 mg DAILY CHELY Administration Dextrose 0 gm 07/24/23 22:24 Dextrose 50%-Water 25 Gm/50 Ml Disp.Syrin IV X1 PRN HYPOGLYCEMIA Protocol Enoxaparin Sodium 40 mg 07/25/23 10:00 07/25/23 10:09 Enoxaparin 40 Mg/0.4 Ml Syringe SC 40 mg DAILY CHELY Administration Fluticasone Propionate 1 spray 07/24/23 22:29 Fluticasone 0.05% 1 [place] Nasal.Sry NASAL DAILY PRN PRN ALLERGIES Gabapentin 100 mg 07/25/23 22:00 07/25/23 21:08 Gabapentin 100 Mg Capsule PO 100 mg QHS CHELY Administration Glucagon 1 mg 07/24/23 22:24 Glucagon 1 Mg/Ml Syringe IM X1 PRN HYPOGLYCEMIA Guaifenesin 20 ml 07/24/23 22:24 Guaifenesin 10 Ml Udc (200mg/10ml) PO Q4H PRN PRN COUGH Hydralazine HCl 10 mg 07/24/23 22:24 Hydralazine 20 Mg/Ml Vial IV Q4H PRN PRN SBP > 160 Protocol Sodium Chloride 250 mls @ 15 mls/hr 07/24/23 20:55 IV .[id number] PRN Saline Flush Piperacillin Sod/Tazobactam 50 mls @ 12.5 mls/hr 07/25/23 06:00 07/25/23 21:08 Sod 3.375 gm/ Sodium Chloride IV 12.5 mls/hr Q8 CHELY Administration Vancomycin IV-PHARMACY TO DOSE 500 mls @ 250 mls/hr 07/24/23 22:24 1 each/ Sodium Chloride IV X1 PRN Rx to Dose Protocol Vancomycin HCl 1,250 mg/ 275 mls @ 167 mls/hr 07/25/23 11:30 07/25/23 13:45 Sodium Chloride IV Infused Q12H CHELY Infusion Insulin Human Lispro 0 unit 07/25/23 07:00 07/25/23 21:18 Insulin Lispro 100 Unit/Ml Insuln.Pen SC 1 u ACHS CHELY Administration Protocol Lidocaine/Diphenhydr/Alum/Mg/Simeth 15 ml 07/24/23 22:52 Bmx Liquid 180 Ml PO 4X/DAY PRN PRN MOUTH PAIN Lidocaine/Prilocaine 1 gm 07/24/23 22:29 Lidocaine/Prilocaine Hcl 5 Gm Tube TOPICAL X1 PRN PORT ACCESS Protocol Loratadine 10 mg 07/25/23 10:00 07/25/23 10:10 Loratadine 10 Mg Tablet PO 10 mg DAILY CHELY Administration Melatonin 3 mg 07/24/23 22:24 Melatonin 3 Mg Tablet PO QHS PRN PRN INSOMNIA Meloxicam 15 mg 07/24/23 22:29 Meloxicam 15 Mg Tablet PO DAILY PRN PRN Pain Score 1-10 Metoprolol Succinate 25 mg 07/24/23 22:30 07/25/23 21:11 Metoprolol(Xl)Succ 25 Mg Tablet PO 25 mg BID CHELY Administration Protocol Montelukast Sodium 10 mg 07/25/23 10:00 07/25/23 10:11 Montelukast 10 Mg Tablet PO 10 mg DAILY CHELY Administration Ondansetron HCl 4 mg 07/24/23 22:24 Ondansetron 4 Mg/2 Ml Vial IV Q8H PRN PRN NAUSEA/VOMITING Prochlorperazine Edisylate 5 mg 07/24/23 22:24 Prochlorperazine 10 Mg/2 Ml Vial IV Q4H PRN PRN Breakthrough nausea/vomiting Senna/Docusate Sodium 2 tablet 07/24/23 22:24 Senna/Docusate Sodium 1 Tablet PO BID PRN PRN Constipation Sodium Chloride 10 - 40 ml 07/24/23 20:55 0.9% Saline Lock 10 Ml Syringe IV UD PRN SALINE FLUSH Throat Lozenges 1 lozenge 07/24/23 22:24 Benzocaine/Menthol 1 Lozenge MUCOUS MEM Q2H PRN PRN SORE THROAT Trazodone HCl 50 mg 07/25/23 22:00 07/25/23 21:09 Trazodone 50 Mg Tablet PO 50 mg QHS [facility] Administration Vancomycin Protocol 1 lab 07/26/23 09:00 Vancomycin Trough/Random Due MC 07/26/23 13:00 DAILY [facility] Lab / Micro Data 07/25/23 06:03 07/25/23 06:03 Labs: Laboratory Results - last 24 hr 07/24/23 22:37: Phosphorus 3.8, Magnesium 2.0, Procalcitonin 0.11 H 07/25/23 05:53: POC Glucose 155 H 07/25/23 06:03: WBC 7.0, RBC 3.77 L, Hgb 10.5 L, Hct 35.2 L, MCV 93.4, MCH 27.9, MCHC 29.8 L, RDW Std Deviation 54.3 H, RDW Coeff of Gina 15.8 H, Plt Count 410, MPV 9.1, Immature Gran % (Auto) 1.100 H, Neut % (Auto) 78.3 H, Lymph % (Auto) 5.7 L, [place] % (Auto) 10.5 H, Eos % (Auto) 3.4, Baso % (Auto) 1.0, Absolute Neuts (auto) 5.5, Absolute Lymphs (auto) 0.40 L, Nucleated RBC % 0, Sodium 137, P otassium 4.3, Chloride 102, Carbon Dioxide 31.0, Anion Gap 4 L, BUN 13, Creatinine 0.51 L, Estim Creat Clear Calc 111.11, Est GFR (MDRD) Af Amer 155, Est GFR (MDRD) Non-Af 128, BUN/Creatinine Ratio 25.4 H, Glucose 164 H, Calcium 9.1, Total Bilirubin 0.30, AST 12 L, ALT 22, Alkaline Phosphatase 97, Total Protein 6.7, Albumin 2.2 L, Globulin 4.5 H, Albumin/Globulin Ratio 0.5 L 07/25/23 11:38: POC Glucose 157 H 07/25/23 16:11: POC Glucose 256 H Micro: Microbiology 07/24/23 23:10 Mucosa - Nasopharyngeal Respiratory Panel (PCR) - Final 07/24/23 16:02 Mucosa - Nose SARS-CoV-2, Influenza & RSV (PCR) - Final Assessment and Plan . Assessment and plan: Chart and data reviewed at length Full consultation to follow Recent CT chest reviewed and c/w prior exams I think it is likely she has pneumonitis related to recent chemotherapy and immunotherapy Diagnostic bronchoscopy potentially useful to help r/o OI, but unclear if she could safely tolerate this currently, and unavailable over weekend It is probably prudent to initiate an empiric course of corticosteroids soon Will follow up Critical Care Time: The entirety of this encounter was done via Telemedicine
[2023-07-25 21:38] LABS: Bedside Glucose 175 mg/dL (74-106)
[2023-07-26] VITALS (11 sets, daily range): BP systolic 105–112; BP diastolic 64–93; PULSE 101–112; RESP 18–20; TEMP 36.8–37.2; O2SAT 90–97
[2023-07-26] MEDS: Vancomycin HCl 1,250 MG in 0.9% Normal Saline (250mL Bag) 250 ML 167 MG IV (01:38)
[2023-07-26] MEDS: Piperacil/Tazobactam 3.375 GM in 0.9% Normal Saline (50mL MB+) 50 ML IV ×3 (06:02→21:55)
[2023-07-26 06:47] LABS: Absolute Lymphocyte Count 0.48 X10^3/uL (0.83-4.51); Absolute Neutrophil Count 5.8 X10^3/uL (2.0-7.7); Basophil# 0.05 X10^3/uL; Basophil% 0.7 % (0-1); Eosinophil# 0.28 X10^3/uL; Eosinophils% 3.7 % (0-5); Hematocrit 35.3 % (37-47); Hemoglobin 10.6 g/dL (12.0-15.0); Lymphocyte # 0.48 X10^3/ul (0.83-4.51); Lymphocyte % 6.3 % (19-41); Mean Corpuscular Hgb 28.2 pg (27.0-32.0); Mean Corpuscular Volume 93.9 fL (81-99); Mean Platelet Vol. 9.3 fl (6.2-12.0); Monocyte# 0.89 X10^3/uL; Monocyte% 11.7 % (0-10); NRBC Flagged by Analyzer 0 % (0-5); Neutrophil # 5.84 X10^3/uL (2.7-7.7); Neutrophil % 76.7 % (47-70); POSITIVE DIFFERENTIAL YES; Platelet Count 411 K/mm3 (150-450); RBC Distribution Width CV 15.8 % (11.6-14.6); RBC Distribution Width SD 54.7 fl (35.1-43.9); Red Blood Count 3.76 M/mm3 (4.2-5.4); White Blood Count 7.6 K/mm3 (4.4-11.0)
[2023-07-26 07:15] LABS: Anion Gap 6 (5-15); BUN 9 mg/dL (7-18); BUN/Creat Ratio 17.7 RATIO (10-20); Calcium,Total 9.4 mg/dL (8.5-10.1); Chloride 101 mmol/L (98-107); Creatinine, Serum 0.51 mg/dL (0.55-1.02); EST Glomerular Filtration Rate 129 mL/min (>60); Est Glom Filt Rate - Afr Amer 156 mL/min (>60); Estimated Creatinine Clearance 111.11 ml/min; Glucose 166 mg/dL (74-106); Magnesium 2.1 mg/dL (1.6-2.6); Phosphorus 3.2 mg/dL (2.5-4.9); Potassium 4.6 mmol/L (3.5-5.1); Sodium Level 138 mmol/L (136-145)
[2023-07-26 07:16] LABS: Bedside Glucose 161 mg/dL (74-106)
[2023-07-26] MEDS: Insulin Lispro 100 UNIT/ML INSULN.PEN SC ×4 (07:22→21:53)
[2023-07-26] MEDS: Budesonide Respules 0.5 MG/2 ML AMPUL.NEB. INHALATION ×2 (07:25→19:42)
[2023-07-26 08:10] LABS: BNP,B-Type NATRIURETIC PEPTIDE 84.2 pg/mL (0-100)
[2023-07-26] MEDS: Loratadine 10 MG Tablet PO (08:33)
[2023-07-26] MEDS: Montelukast 10 MG Tablet PO (08:33)
[2023-07-26] MEDS: Metoprolol(XL)Succ 25 MG Tablet PO ×2 (08:34→21:54)
[2023-07-26] MEDS: Enoxaparin 40 MG/0.4 ML Syringe SC (08:34)
[2023-07-26] MEDS: Citalopram 40 MG TABLET PO (08:34)
[2023-07-26] MEDS: Aspirin E.C. 81 MG Tablet PO (08:34)
--- NOTE | 2023-07-26 09:13 | PCM.PN.HOSP ---
Reason for Visit Reason for Visit: Diagnoses Pneumonia, unspecified organism (07/24/23) Acute and chronic respiratory failure with hypoxia (07/24/23) Subjective Subjective Patient seen admit to having a productive cough now. Her overall clinical condition improving Objective Data Objective Data Vital Signs: Vital Signs Temp Pulse Resp BP Pulse Ox O2 Del Method O2 Flow Rate 98.7 F 112 H 18 112/93 H 94 Nasal Cannula 4 07/26/23 08:31 07/26/23 08:34 07/26/23 08:31 07/26/23 08:31 07/26/23 08:31 07/26/23 08:31 07/26/23 08:31 Oxygen Flow Rate (L/min) 4 Oxygen Delivery Method Nasal Cannula Weight: 72.4 kg Body Mass Index (BMI) 26.5 Intake & Output: Intake and Output for Last 24 Hours 07/24/23 07/25/23 07/27/23 23:59 23:59 00:59 Intake Total 600 / 600 3493.75 / 3493.75 325 / 325 Output Total 70 / 70 Balance 600 / 600 3493.75 / 3493.75 255 / 255 Lab / Micro Data 07/26/23 06:05 07/26/23 06:05 Labs: Laboratory Results - last 24 hr 07/25/23 11:38: POC Glucose 157 H 07/25/23 16:11: POC Glucose 256 H 07/25/23 21:17: POC Glucose 175 H 07/26/23 06:05: WBC 7.6, RBC 3.76 L, Hgb 10.6 L, Hct 35.3 L, MCV 93.9, MCH 28.2, MCHC 30.0 L, RDW Std Deviation 54.7 H, RDW Coeff of Gina 15.8 H, Plt Count 411, MPV 9.3, Immature Gran % (Auto) 0.900, Neut % (Auto) 76.7 H, Lymph % (Auto) 6.3 L, [place] % (Auto) 11.7 H, Eos % (Auto) 3.7, Baso % (Auto) 0.7, Absolute Neuts (auto) 5.8, Absolute Lymphs (auto) 0.48 L, Nucleated RBC % 0, Sodium 138, Potassium 4.6, Chloride 101, Carbon Dioxide 31.0, Anion Gap 6, BUN 9, Creatinine 0.51 L, Estim Creat Clear Calc 111.11, Est GFR (MDRD) Af Amer 156, Est GFR (MDRD) Non-Af 129, BUN/Creatinine Ratio 17.7, Glucose 166 H, Calcium 9.4, Phosphorus 3.2, Magnesium 2.1, B-Natriuretic Peptide 84.2 07/26/23 06:57: POC Glucose 161 H Micro: Microbiology 07/24/23 23:10 Mucosa - Nasopharyngeal Respiratory Panel (PCR) - Final 07/24/23 16:02 Mucosa - Nose SARS-CoV-2, Influenza & RSV (PCR) - Final Physical Exam Narrative GENERAL: cooperative HEENT: Atraumatic; normocephalic EYES; Anicteric, Normal Conjunctiva NECK; supple, normal thyroid, RESPIRATORY: Diminished to auscultation CARDIOVASCULAR: Regular S1 S2, GI: soft, normoactive bowel sounds, : No Renal angle tenderness; EXTREMITIES: No edema, no clubbing, MUSCULOSKELETAL: no muscle wasting NEURO: Awake; no lateralizing signs. SKIN: No Rash PSYCH; Flat affect Assessment & Plan Assessment/Plan (1) Acute and chronic respiratory failure with hypoxia: (2) Pneumonia: PLAN: Plan Patient is a 62-year-old lady with history of lung CA sent to the ED by her oncologist with shortness of breath. CTA demonstrated right-sided loculated pleural effusion as well as pneumonia involving left lung. 1. Left lower lobe pneumonia with suspected multidrug-resistant organisms ? Given patient immunocompromise state. Admitted to regular nursing floor cultures sent patient started on broad-spectrum antibiotic therapy with Zosyn and vancomycin. Placed on supplemental oxygen titrated to keep saturation greater than 90 ? 07/26/2023 cultures pending 2. 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 Patient has undergone lobectomy. Had a local recurrence and has since been followed by oncology on, patient is on immunotherapy as outpatient. 3. COPD ? Bronchodilator treatment as needed 4. Chronic hypoxic respiratory failure ? Secondary to a combination of COPD and patient underlying lung malignancy patient is on home oxygen 5. Diabetes mellitus type II -patient's oral hypoglycemics held. Placed on long acting insulin, Accu-Cheks a.c. and at bedtime and covered with sliding scale insulin 6.. Hypertension - Blood pressure controlled, home medications continued with dose adjustment as needed 7. Depression with anxiety ? Patient is on citalopram did continue 8. Diabetic polyneuropathy ? Patient is on gabapentin discontinued 9. Anemia - Secondary to chronic disorder monitoring H&H and transfuse if patient becomes symptomatic or hemoglobin falls below 7 10. Dyslipidemia -Patient is on statin therapy, continued at home dose 11 DVT prophylaxis ? SC Lovenox Time spent in the patient's overall evaluation,decision-making process, review of diagnostic data, adjustment of management, discussion with other providers, nursing nursing and ancillary staff involved in patient's care documentation, 40 Minutes Charges/Coding Visit Charges Inpatient E&M: 60275 Subs Hosp L2
[2023-07-26 11:24] LABS: Vancomycin, Trough Level 12.8 ug/mL (5.0-15.0)
[2023-07-26 12:56] LABS: Bedside Glucose 281 mg/dL (74-106)
--- NOTE | 2023-07-26 12:59 | PCM.RX.CS ---
Consult Antibiotic Management Pharmacy has been consulted to manage selected antibiotic: Vancomycin Type of Intervention Type of Consult: Follow-up Suspected Infection Suspected Infection: Pneumonia Labs Labs: Sodium 138 mmol/L (136-145) 07/26/23 06:05 Potassium 4.6 mmol/L (3.5-5.1) 07/26/23 06:05 Chloride 101 mmol/L (98-107) 07/26/23 06:05 Carbon Dioxide 31.0 mmol/L (21.0-32.0) 07/26/23 06:05 Anion Gap 6 (5-15) 07/26/23 06:05 BUN 9 mg/dL (7-18) 07/26/23 06:05 Creatinine 0.51 mg/dL (0.55-1.02) L 07/26/23 06:05 Est GFR (MDRD) Af Amer 156 mL/min (>60) 07/26/23 06:05 Est GFR (MDRD) Non-Af 129 mL/min (>60) 07/26/23 06:05 BUN/Creatinine Ratio 17.7 RATIO (10-20) 07/26/23 06:05 Glucose 166 mg/dL (74-106) H 07/26/23 06:05 Vancomycin Trough 12.8 ug/mL (5.0-15.0) 07/26/23 10:47 Microbiology Microbiology: Microbiology 07/26/23 09:40 Urine, Clean Catch Legionella Antigen - Final 07/24/23 23:10 Mucosa - Nasopharyngeal Respiratory Panel (PCR) - Final 07/24/23 16:02 Mucosa - Nose SARS-CoV-2, Influenza & RSV (PCR) - Final Goal Trough Goal Trough: 15-20 mcg/mL Pharmacy Plan for Drug Dosing Pharmacy Plan for Drug Dosing: VANCOMYCIN LEVEL RECEIVED Current Vancomycin Dose: 1250mg q12h (1130,2330) Number of Doses Received: x1 2000mg ER dose, x2 1250mg doses Vancomycin Level: 12.8 Hours Since Last Dose: 9 hours since last dose 07/26/23 at 0138 Renal Function: SrCr 0.51 Renal Function Trend: stable Lab/Micro: Vancomycin Plan/Comments: resulted trough is below the ordered goal trough of 15-20. recommend increasing dose from 1250mg q12 to 1500mg q12h starting 07/26/23 at 1300. trough prior to the 4th dose Pending Level: 07/27/22 at 0030 Pharmacy Service will continue to monitor and adjust dosing as required. Follow-Up Labs Follow-Up Labs: Trough: Vancomycin (07/28/23 at 0030)
[2023-07-26] MEDS: Vancomycin Trough/Random Due 1 LAB MC (13:20)
[2023-07-26] MEDS: Vancomycin HCl 1,500 MG in 0.9% Normal Saline (500mL Bag) 500 ML 250 MG IV (13:31)
[2023-07-26] MEDS: 0.9% Saline Lock 10 ML Syringe IV (13:36)
[2023-07-26 16:58] LABS: Bedside Glucose 239 mg/dL (74-106)
[2023-07-26] MEDS: Acetaminophen 325 MG Tablet 650 MG PO (19:53)
[2023-07-26] MEDS: Gabapentin 100 MG Capsule PO (21:52)
[2023-07-26] MEDS: Atorvastatin Calcium 10 MG Tablet 5 MG PO (21:54)
[2023-07-26] MEDS: traZODone 50 MG Tablet PO (21:55)
[2023-07-26 22:19] LABS: Bedside Glucose 301 mg/dL (74-106)
[2023-07-27] MEDS: Vancomycin HCl 1,500 MG in 0.9% Normal Saline (500mL Bag) 500 ML 250 MG IV ×2 (01:58→13:50)
--- NOTE | 2023-07-27 02:28 | PN.CC_ITS ---
Objective Data Objective Data Vital Signs: Vital Signs Last response Temperature 36.8 C 07/26/23 20:02 Temperature Source Oral 07/26/23 20:02 Pulse Rate 105 H 07/26/23 21:54 Pulse Strength Normal (2+) 07/26/23 10:00 Respiratory Rate 18 07/26/23 20:02 Respiratory Effort Normal, Non-Labored 07/26/23 20:35 Respiratory Depth Normal 07/26/23 20:35 Respiratory Pattern Normal 07/26/23 20:35 Blood Pressure 105/74 07/26/23 20:02 Blood Pressure Mean 84 07/26/23 20:02 Blood Pressure Source Monitor 07/26/23 20:02 Blood Pressure Position Semi-Fowlers 07/26/23 20:02 Blood Pressure Location Left Arm 07/25/23 16:00 Pulse Ox 96 07/26/23 20:02 Oxygen Delivery Method Nasal Cannula 07/26/23 20:35 Oxygen Flow Rate (L/min) 3.5 07/26/23 20:35 I&O: I&O Last 24 Hours 07/26/23 07/26/23 07/27/23 11:59 23:59 11:59 Intake Total 2280 / 2655 50 / 50 Output Total Balance 2280 / 2585 50 / 50 I&O: Total Stay 07/24/23 14:47 thru 07/27/23 01:55 Intake Total 6798.75 Output Total 70 Balance 6728.75 Current Meds Ordered / Administered: Current meds ordered / Administered Generic Name Dose Route Start Last Admin Trade Name Freq PRN Reason Stop Dose Admin Acetaminophen 650 mg 07/24/23 22:24 07/26/23 19:53 Acetaminophen 325 Mg Tablet PO 650 mg Q4H PRN PRN Administration Fever, pain -02/24 Al Hydroxide/Mg Hydroxide 30 ml 07/24/23 22:24 Mag Hydrox/Al Hydrox/Simeth 30 Ml Udc PO Q6H PRN PRN Gastric Burning Albuterol Sulfate 2.5 mg 07/24/23 22:24 Albuterol 2.5 Mg/3 Ml Vial.Neb. INHALATION Q2H PRN PRN Dyspnea, wheezing Aspirin 81 mg 07/25/23 10:00 07/26/23 08:34 Aspirin E.C. 81 Mg Tablet PO 81 mg DAILY CHELY Administration Atorvastatin Calcium 5 mg 07/25/23 22:00 07/26/23 21:54 Atorvastatin Calcium 10 Mg Tablet PO 5 mg QHS CHELY Administration Budesonide 0.5 mg 07/24/23 22:30 07/26/23 19:42 Budesonide Respules 0.5 Mg/2 Ml Ampul.Neb. INHALATION 0.5 mg BID.RT CHELY Administration Citalopram Hydrobromide 40 mg 07/25/23 10:00 07/26/23 08:34 Citalopram 40 Mg Tablet PO 40 mg DAILY CHELY Administration Dextrose 0 gm 07/24/23 22:24 Dextrose 50%-Water 25 Gm/50 Ml Disp.Syrin IV X1 PRN HYPOGLYCEMIA Protocol Enoxaparin Sodium 40 mg 07/25/23 10:00 07/26/23 08:34 Enoxaparin 40 Mg/0.4 Ml Syringe SC 40 mg DAILY CHELY Administration Fluticasone Propionate 1 spray 07/24/23 22:29 Fluticasone 0.05% 1 [place] Nasal.Sry NASAL DAILY PRN PRN ALLERGIES Gabapentin 100 mg 07/25/23 22:00 07/26/23 21:52 Gabapentin 100 Mg Capsule PO 100 mg QHS CHELY Administration Glucagon 1 mg 07/24/23 22:24 Glucagon 1 Mg/Ml Syringe IM X1 PRN HYPOGLYCEMIA Guaifenesin 20 ml 07/24/23 22:24 Guaifenesin 10 Ml Udc (200mg/10ml) PO Q4H PRN PRN COUGH Hydralazine HCl 10 mg 07/24/23 22:24 Hydralazine 20 Mg/Ml Vial IV Q4H PRN PRN SBP > 160 Protocol Sodium Chloride 250 mls @ 15 mls/hr 07/24/23 20:55 IV .[id number] PRN Saline Flush Piperacillin Sod/Tazobactam 50 mls @ 12.5 mls/hr 07/25/23 06:00 07/27/23 01:55 Sod 3.375 gm/ Sodium Chloride IV Infused Q8 [facility] Infusion Vancomycin IV-PHARMACY TO DOSE 500 mls @ 250 mls/hr 07/24/23 22:24 1 each/ Sodium Chloride IV X1 PRN Rx to Dose Protocol Vancomycin HCl 1,500 mg/ 530 mls @ 250 mls/hr 07/26/23 13:00 07/27/23 01:58 Sodium Chloride IV 250 mls/hr Q12H CHELY Administration Insulin Human Lispro 0 unit 07/25/23 07:00 07/26/23 21:53 Insulin Lispro 100 Unit/Ml Insuln.Pen SC 4 u ACHS CHELY Administration Protocol Lidocaine/Diphenhydr/Alum/Mg/Simeth 15 ml 07/24/23 22:52 Bmx Liquid 180 Ml PO 4X/DAY PRN PRN MOUTH PAIN Lidocaine/Prilocaine 1 gm 07/24/23 22:29 Lidocaine/Prilocaine Hcl 5 Gm Tube TOPICAL X1 PRN PORT ACCESS Protocol Loratadine 10 mg 07/25/23 10:00 07/26/23 08:33 Loratadine 10 Mg Tablet PO 10 mg DAILY CHELY Administration Melatonin 3 mg 07/24/23 22:24 Melatonin 3 Mg Tablet PO QHS PRN PRN INSOMNIA Meloxicam 15 mg 07/24/23 22:29 Meloxicam 15 Mg Tablet PO DAILY PRN PRN Pain Score 1-10 Methylprednisolone 40 mg 07/26/23 14:00 07/26/23 21:53 Methylprednisolone 40 Mg/Ml Vial IV 40 mg Q8 CHELY Administration Metoprolol Succinate 25 mg 07/24/23 22:30 07/26/23 21:54 Metoprolol(Xl)Succ 25 Mg Tablet PO 25 mg BID CHELY Administration Protocol Montelukast Sodium 10 mg 07/25/23 10:00 07/26/23 08:33 Montelukast 10 Mg Tablet PO 10 mg DAILY CHELY Administration Ondansetron HCl 4 mg 07/24/23 22:24 Ondansetron 4 Mg/2 Ml Vial IV Q8H PRN PRN NAUSEA/VOMITING Prochlorperazine Edisylate 5 mg 07/24/23 22:24 Prochlorperazine 10 Mg/2 Ml Vial IV Q4H PRN PRN Breakthrough nausea/vomiting Senna/Docusate Sodium 2 tablet 07/24/23 22:24 Senna/Docusate Sodium 1 Tablet PO BID PRN PRN Constipation Sodium Chloride 10 - 40 ml 07/24/23 20:55 07/26/23 13:36 0.9% Saline Lock 10 Ml Syringe IV 10 ml UD PRN Administration SALINE FLUSH Throat Lozenges 1 lozenge 07/24/23 22:24 Benzocaine/Menthol 1 Lozenge MUCOUS MEM Q2H PRN PRN SORE THROAT Trazodone HCl 50 mg 07/25/23 22:00 07/26/23 21:55 Trazodone 50 Mg Tablet PO 50 mg QHS [facility] Administration Vancomycin Protocol 1 lab 07/27/23 22:30 Vancomycin Trough/Random Due MC 07/28/23 02:30 DAILY [facility] Lab / Micro Data 07/26/23 06:05 07/26/23 06:05 Labs: Laboratory Results - last 24 hr 07/26/23 06:05: WBC 7.6, RBC 3.76 L, Hgb 10.6 L, Hct 35.3 L, MCV 93.9, MCH 28.2, MCHC 30.0 L, RDW Std Deviation 54.7 H, RDW Coeff of Gina 15.8 H, Plt Count 411, MPV 9.3, Immature Gran % (Auto) 0.900, Neut % (Auto) 76.7 H, Lymph % (Auto) 6.3 L, [place] % (Auto) 11.7 H, Eos % (Auto) 3.7, Baso % (Auto) 0.7, Absolute Neuts (auto) 5.8, Absolute Lymphs (auto) 0.48 L, Nucleated RBC % 0, Sodium 138, Potassium 4.6, Chloride 101, Carbon Dioxide 31.0, Anion Gap 6, BUN 9, Creatinine 0.51 L, Estim Creat Clear Calc 111.11, Est GFR (MDRD) Af Amer 156, Est GFR (MDRD) Non-Af 129, BUN/Creatinine Ratio 17.7, Glucose 166 H, Calcium 9.4, Phosphorus 3.2, Magnesium 2.1, B-Natriuretic Peptide 84.2 07/26/23 06:57: POC Glucose 161 H 07/26/23 10:47: Vancomycin Trough 12.8 07/26/23 12:22: POC Glucose 281 H 07/26/23 16:33: POC Glucose 239 H 07/26/23 21:52: POC Glucose 301 H Micro: Microbiology 07/26/23 09:40 Urine, Random Streptococcus pneumoniae Antigen (M - Final 07/26/23 09:40 Urine, Clean Catch Legionella Antigen - Final Assessment and Plan . Assessment and plan: Patient seen and examined on 07/26/23 She is feeling better, but still requiring O2 via N/C. Very little reserve - O2 desaturation w/ any activity. Long d/w patient regarding her course of chemotherapy and immunotherapy, timeline of symptoms and corticosteroid use. It sounds like she has had significant immune-related adverse effects requiring dexamethasone. The steroids were apparently stopped a few months ago d/t hyperglycemia. Immune-checkpoint therapy was resumed a few weeks ago. 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
[2023-07-27 04:00] VITALS: BP 113/77; PULSE 91; RESP 18; TEMP 36.9; O2SAT 97
[2023-07-27 05:43] VITALS: BMI 27.1
[2023-07-27] MEDS: Piperacil/Tazobactam 3.375 GM in 0.9% Normal Saline (50mL MB+) 50 ML IV ×2 (06:31→16:32)
[2023-07-27] MEDS: Insulin Lispro 100 UNIT/ML INSULN.PEN SC ×3 (06:31→16:35)
[2023-07-27 06:46] LABS: Bedside Glucose 266 mg/dL (74-106)
[2023-07-27 07:10] LABS: Absolute Neutrophil Count 6.4 X10^3/uL (2.0-7.7); Basophil# 0.03 X10^3/uL; Basophil% 0.4 % (0-1); Hemoglobin 10.6 g/dL (12.0-15.0); Lymphocyte % 5.6 % (19-41); Mean Corp Hgb Conc 30.3 g/dL (32-36); Mean Corpuscular Hgb 28.4 pg (27.0-32.0); Mean Corpuscular Volume 93.8 fL (81-99); Mean Platelet Vol. 9.1 fl (6.2-12.0); Monocyte# 0.16 X10^3/uL; Monocyte% 2.3 % (0-10); NRBC Flagged by Analyzer 0 % (0-5); Neutrophil # 6.38 X10^3/uL (2.7-7.7); Neutrophil % 90.1 % (47-70); POSITIVE DIFFERENTIAL YES; Platelet Count 402 K/mm3 (150-450); RBC Distribution Width CV 15.4 % (11.6-14.6); RBC Distribution Width SD 52.5 fl (35.1-43.9); Red Blood Count 3.73 M/mm3 (4.2-5.4); White Blood Count 7.1 K/mm3 (4.4-11.0)
[2023-07-27 08:01] LABS: Anion Gap 7 (5-15); BUN 14 mg/dL (7-18); BUN/Creat Ratio 26.4 RATIO (10-20); Calcium,Total 9.8 mg/dL (8.5-10.1); Chloride 102 mmol/L (98-107); Creatinine, Serum 0.53 mg/dL (0.55-1.02); EST Glomerular Filtration Rate 123 mL/min (>60); Est Glom Filt Rate - Afr Amer 149 mL/min (>60); Estimated Creatinine Clearance 107.94 ml/min; Glucose 255 mg/dL (74-106); Potassium 4.7 mmol/L (3.5-5.1); Sodium Level 137 mmol/L (136-145)
[2023-07-27 08:20] VITALS: PULSE 95; RESP 16; O2SAT 97
[2023-07-27] MEDS: Budesonide Respules 0.5 MG/2 ML AMPUL.NEB. INHALATION (08:22)
[2023-07-27 08:32] VITALS: BP 115/77; PULSE 89; RESP 16; TEMP 36.9; O2SAT 95
[2023-07-27 08:44] VITALS: BP 115/77; PULSE 89
[2023-07-27] MEDS: Montelukast 10 MG Tablet PO (08:44)
[2023-07-27] MEDS: Metoprolol(XL)Succ 25 MG Tablet PO (08:44)
[2023-07-27] MEDS: Citalopram 40 MG TABLET PO (08:44)
[2023-07-27] MEDS: Aspirin E.C. 81 MG Tablet PO (08:44)
[2023-07-27] MEDS: Loratadine 10 MG Tablet PO (08:44)
[2023-07-27] MEDS: Enoxaparin 40 MG/0.4 ML Syringe SC (08:46)
[2023-07-27 09:08] LABS: Bedside Glucose 284 mg/dL (74-106)
--- NOTE | 2023-07-27 09:11 | PN.CC_ITS ---
Assessment & Plan Assessment/Plan (1) Acute and chronic respiratory failure with hypoxia: (2) SOB (shortness of breath): (3) Radiation pneumonitis: PLAN: Plan RECOMMENDATIONS: 1. Check walking oximetry prior to discharge 2. Consider transition to 40 mg of prednisone if discharging. Wean by 10 mg/day and 7-day intervals 3. Consider discontinuation of immunotherapy 4. Aggressive control of blood sugars given need for systemic steroids 5. Okay to discontinue Pulmicort while on systemic steroids 6. Okay to discharge later today, if culture negative, from a pulmonary perspective IMPRESSIONS: 1. Acute hypoxia secondary to pneumonitis Patient has concomitant squamous cell carcinoma, COPD and chronic respiratory failure. Patient is on immunotherapy and has a pattern consistent with pneumonitis. Patient carries a diagnosis of radiation pneumonitis, but this would look very similar for immunotherapy. Given patient has had multiple episodes of pneumonitis, consideration for discontinuation of immunotherapy by oncology. Patient should have a walking oximetry prior to discharge. Would recommend transitioning patient to 40 mg of prednisone and weaning by 10 mg every 7 days (4-week taper). Patient is not having any constitutional symptoms to suggest occult infection, but bronchoscopy could be considered with BAL to evaluate if patient declines. Likely okay to discontinue antibiotics if blood cultures negative later today. 2. Diabetes mellitus type 2/diabetic polyneuropathy Blood sugars will be very difficult to control on systemic steroids. Anticipate protracted taper. Patient may benefit from initiation of basal insulin, but defer to primary team. 3. Depression/anemia/hypertension/dyslipidemia/foot drop Complicates care, management, recovery and prognosis. Okay to continue with baseline medications from my perspective. Blood counts have remained stable throughout hospitalization. No signs of GI bleed despite high steroid therapy. Subjective Subjective Patient feels back to baseline today and much improved from yesterday. Patient's oxygen is at her baseline. Patient states she has been ambulating around the room and tolerating this well. On further discussion, patient reportedly had pneumonitis associated with immunotherapy previously and had this held. Patient has received 2 doses of immunotherapy prior to her current presentation. Objective Data Objective Data Vital Signs: Vital Signs Temp Pulse Resp BP Pulse Ox O2 Del Method O2 Flow Rate 36.9 C 89 16 115/77 95 Nasal Cannula 3.5 07/27/23 08:32 07/27/23 08:44 07/27/23 08:32 07/27/23 08:44 07/27/23 08:32 07/27/23 08:32 07/27/23 08:32 Oxygen Flow Rate (L/min) 3.5 Oxygen Delivery Method Nasal Cannula Weight: 73.9 kg Body Mass Index (BMI) 27.1 Intake & Output: Intake and Output for Last 24 Hours 07/25/23 07/26/23 07/27/23 22:59 23:59 23:59 Intake Total 580 / 580 Output Total Balance 580 / 580 Lab / Micro Data Attestation: I reviewed the patient's lab results. 07/27/23 06:58 07/27/23 06:58 Labs: Laboratory Results - last 24 hr 07/26/23 10:47: Vancomycin Trough 12.8 07/26/23 12:22: POC Glucose 281 H 07/26/23 16:33: POC Glucose 239 H 07/26/23 21:52: POC Glucose 301 H 07/27/23 06:27: POC Glucose 266 H 07/27/23 06:58: WBC 7.1, RBC 3.73 L, Hgb 10.6 L, Hct 35.0 L, MCV 93.8, MCH 28.4, MCHC 30.3 L, RDW Std Deviation 52.5 H, RDW Coeff of Gina 15.4 H, Plt Count 402, MPV 9.1, Immature Gran % (Auto) 1.600 H, Neut % (Auto) 90.1 H, Lymph % (Auto) 5.6 L, [place] % (Auto) 2.3, Eos % (Auto) 0.0, Baso % (Auto) 0.4, Absolute Neuts (auto) 6.4, Absolute Lymphs (auto) 0.40 L, Nucleated RBC % 0, Sodium 137, P otassium 4.7, Chloride 102, Carbon Dioxide 28.0, Anion Gap 7, BUN 14, Creatinine 0.53 L, Estim Creat Clear Calc 107.94, Est GFR (MDRD) Af Amer 149, Est GFR (MDRD) Non-Af 123, BUN/Creatinine Ratio 26.4 H, Glucose 255 H, Calcium 9.8 07/27/23 08:48: POC Glucose 284 H Micro: Microbiology 07/26/23 09:40 Urine, Random Streptococcus pneumoniae Antigen (M - Final 07/26/23 09:40 Urine, Clean Catch Legionella Antigen - Final 07/24/23 23:10 Mucosa - Nasopharyngeal Respiratory Panel (PCR) - Final 07/24/23 16:02 Mucosa - Nose SARS-CoV-2, Influenza & RSV (PCR) - Final Physical Exam Const alert, oriented x3 and no apparent distress Constitutional Narrative: No conversational dyspnea General Appearance: Negative for ill appearing HEENT normocephalic and head/scalp atraumatic Eyes PERRL, EOMs intact bilaterally, conjunctivae normal and no scleral icterus Eyes Narrative: Glasses in place Neck full ROM Chest inspection of chest normal Resp Auscultation: rales; Negative for rhonchi or wheezes Cardio S1 normal heart sound, S2 normal heart sound, no murmurs, no rub and no gallops GI normal to inspection, nondistended, normoactive bowel sounds Extremity no clubbing, cyanosis or edema Skin no rashes or lesions noted Neuro oriented x3 and CN's II-XII intact bilaterally Psych cooperative and affect normal Charges/Coding Visit Charges Inpatient E&M: 73016 Subs Hosp L2
--- NOTE | 2023-07-27 09:54 | CASEMGMT ---
RN CM into pt room, pt states that her concentrator is fine until it is turned up to 5L. Notified [employer] who will reschedule visit to assess as pt does not have anyone who can be at her house for them to come today. Pt reports her little tank that she brought with her to the ER ran out and she did not think it was working properly. She states she did have it on 4L, so she is aware it may have ran out. Her family will bring in a portable tank upon dc and it can be verified if working or not. Pt states she would like to ambulate the halls soon. She denies any needs at home.
[2023-07-27 11:37] LABS: Bedside Glucose 346 mg/dL (74-106)
[2023-07-27 13:31] VITALS: PULSE 103; RESP 24; O2SAT 95
[2023-07-27] MEDS: Ipratropium/Albuterol Sulfate 3 ML AMPUL.NEB INHALATION (13:31)
[2023-07-27 16:48] VITALS: BP 105/70; PULSE 109; RESP 16; TEMP 36.8; O2SAT 93
--- NOTE | 2023-07-27 16:49 | DS.PCM_ITS ---
Providers Date of Admission: 07/24/23 Date of Discharge: 07/27/23 Primary Care Physician: MESSI Ruvalcaba Consultations 07/24/23 22:24 Consult: Hand Flesher / Pulmonary Medicine Routine Consulting Provider: Intensivists/Pulmonary Med Reason for Consult: LLL PNA, complicated by lung CA, chronic effusion EMERGENT Consult: No MD Notified: Yes Date Notified: 07/25/23 Time Notified: 10:16 Method of Notification: Answering Service Reason For Visit: ACUTE ON CHRONIC HYPOXIA, LLL PNA, FAILED RECENT Diagnosis Discharge Diagnosis (1) Acute and chronic respiratory failure with hypoxia: Status: Chronic Code(s): J96.21 - Acute and chronic respiratory failure with hypoxia (2) SOB (shortness of breath): Status: Acute Code(s): R06.02 - Shortness of breath (3) Radiation pneumonitis: Status: Acute Code(s): J70.0 - Acute pulmonary manifestations due to radiation Medications at Discharge Home Medications albuterol sulfate 90 mcg/actuation aerosol inhaler 2 puff inhalation Q4H PRN SOB 07/31/22 aspirin 81 mg tablet,delayed release (Adult Low Dose Aspirin) 81 mg PO DAILY blood thinner 07/31/22 ergocalciferol (vitamin D2) 1,250 mcg (50,000 unit) capsule 1,250 mcg PO .twice week supplement 07/31/22 fluticasone propionate 50 mcg/actuation nasal spray,suspension (Allergy Relief (fluticasone)) 1 spray intranasal DAILY PRN ALLERGIES 07/31/22 ipratropium 0.5 mg-albuterol 3 mg (2.5 mg base)/3 mL nebulization soln 3 ml inhalation Q4H PRN SOB 07/31/22 lovastatin 20 mg tablet 20 mg PO DAILY see 07/31/22 metformin 500 mg tablet 500 mg PO TIDWMEAL dm 07/31/22 montelukast 10 mg tablet 10 mg PO DAILY 07/31/22 sitagliptin phosphate 100 mg tablet 100 mg PO DAILY see 07/31/22 trazodone 50 mg tablet 50 mg PO QHS sleep 07/31/22 cetirizine 10 mg tablet 10 mg PO DAILY see 08/01/22 ondansetron 8 mg disintegrating tablet 8 mg PO Q8H PRN nausea and vomiting #30 tabs 08/12/22 citalopram 40 mg tablet 40 mg PO DAILY see 02/16/23 lidocaine-prilocaine 2.5 %-2.5 % topical cream 1 applic topical ONCE PRN port access 30 days #30 grams 03/16/23 MAGIC MOUTH WASH (BMX) 180 mL suspension 15 ml PO .qid PRN pain #180 mL 04/16/23 meloxicam 15 mg tablet 15 mg PO DAILY PRN pain 05/29/23 albuterol sulfate 2.5 mg/3 mL (0.083 %) solution for nebulization 2.5 mg con tinuous nebulization Q4H PRN shortness of breath or wheezing 06/07/23 bupropion HCl 150 mg tablet,12 hr sustained-release 150 mg PO Q12H see 06/07/23 empagliflozin 25 mg tablet (Jardiance) 25 mg PO DAILY blood thinner 06/07/23 metoprolol succinate 25 mg tablet,extended release 24 hr (Toprol XL) 25 mg PO Q12H Mail order RX never arrived. #180 tabs 07/09/23 fluticasone fur. 200 mcg-umeclid 62.5 mcg-vilant 25 mcg inhalat.powder (Trelegy Ellipta) 1 inh inhalation Q24H breathing 07/24/23 gabapentin 100 mg capsule 100 mg PO QHS pain 07/24/23 levalbuterol tartrate 45 mcg/actuation aerosol inhaler 1 puff inhalation Q4H PRN shortness of breath or wheezing 07/24/23 multivitamin (Daily Multi-Vitamin tablet) 1 tab PO DAILY supplement 07/24/23 semaglutide 0.25 mg or 0.5 mg (2 mg/3 mL) subcutaneous pen injector (Ozempic) 0.25 mg subcut QWEEK dm 07/24/23 prednisone 10 mg tablet See Rx Instructions .Route .COMPLEX #70 tabs 07/27/23 Hospital Course Operations None Procedures None Summary of Care Provided Minutes Spent on Discharge: 55 Hospital Course: Patient is a 62-year-old female with a past medical history as outlined was admitted through the ED on 07/24/2023 with a complaint of shortness of breath and fevers that started for about a day prior to admission. The cough has been going on for about 10 days. She had been recently admitted at [facility] for about 3 days and treated with pneumonia. She says she was told there was fluid around her lung and plan was for the fluid to be drained but this plan was subsequently aborted. She was on oxygen at 2 to 2.5 L at rest and this was increased to 5 L with activity. She went home and subsequently had a fever with productive cough. She had a history of non-small cell lung cancer on immunotherapy. She had nearly finished her course of antibiotics at the time that she came in. Chest x-ray showed right pleural effusion with right Port-A-Cath in place and multiple right pleural nodules with a right lung mass which was unchanged from prior. CT of the chest showed no evidence of PE and showed a loculated right pleural effusion and left-sided pneumonia with left diffuse infiltrate which is unchanged since previous study and multiple bilateral lung nodules. COVID and flu as well as RSV test were negative. She was admitted and managed for left lower lobe pneumonia in the setting of underlying lung cancer and COPD. She was started on IV vancomycin and Zosyn. Pulmonology was consulted. Patient's shortness of breath improved and she felt much better. His symptoms were thought to be more due to the immunotherapy that she was on and she was advised that she will need to discuss with oncologist about stopping the immunotherapy as his symptoms were likely due to drug-induced pneumonitis. She felt better was discharged home on 07/27/2023. She is follow- up with her primary care doctor and pulmonology as well as oncology within 1 to 2 weeks. She is to use oxygen at home for shortness of breath as needed. Patient seen and examined prior to discharge. She felt well and had no active complaints. Review of systems otherwise negative. Labs and vitals reviewed. Home medication reviewed and reconciled. Physical Exam Const alert, oriented x3 and no apparent distress General Appearance: cooperative and comfortable Orientation / Consciousness: awake Exam Limitations: no limitations HEENT normocephalic, head/scalp atraumatic, hearing grossly normal bilaterally and moist oral mucous membranes Mouth: oral and palatal mucosa normal Eyes PERRL, EOMs intact bilaterally and conjunctivae normal Neck no lymphadenopathy and supple Resp Resp Narrative: Mildly diminished breath sounds bibasilarly. No wheezes or crackles. On 3.5 L of oxygen. Cardio regular rate, regular rhythm, S1 normal heart sound, S2 normal heart sound and no murmurs GI normal to inspection, nondistended, normoactive bowel sounds, soft to palpation, non-tender and non-distended Extremity normal to inspection, full ROM and no clubbing, cyanosis or edema Skin no rashes or lesions noted, no wounds and skin turgor normal Neuro oriented x3, CN's II-XII intact bilaterally, moves all extremities and no focal motor deficits Sensorium / Orientation: awake Motor Exam: strength 5/5 throughout Psych affect normal Weight / BMI Weight Weight: 162 lb 14.746 oz Body Mass Index (BMI) 27.1 ABG / Lab / Microbiology Data 07/27/23 06:58 07/27/23 06:58 Laboratory: Laboratory Results - last 24 hr 07/26/23 16:33: POC Glucose 239 H 07/26/23 21:52: POC Glucose 301 H 07/27/23 06:27: POC Glucose 266 H 07/27/23 06:58: WBC 7.1, RBC 3.73 L, Hgb 10.6 L, Hct 35.0 L, MCV 93.8, MCH 28.4, MCHC 30.3 L, RDW Std Deviation 52.5 H, RDW Coeff of Gina 15.4 H, Plt Count 402, MPV 9.1, Immature Gran % (Auto) 1.600 H, Neut % (Auto) 90.1 H, Lymph % (Auto) 5.6 L, [place] % (Auto) 2.3, Eos % (Auto) 0.0, Baso % (Auto) 0.4, Absolute Neuts (auto) 6.4, Absolute Lymphs (auto) 0.40 L, Nucleated RBC % 0, Sodium 137, Potassium 4.7, Chloride 102, Carbon Dioxide 28.0, Anion Gap 7, BUN 14, Creatinine 0.53 L, Estim Creat Clear Calc 107.94, Est GFR (MDRD) Af Amer 149, Est GFR (MDRD) Non-Af 123, BUN/Creatinine Ratio 26.4 H, Glucose 255 H, Calcium 9.8 07/27/23 08:48: POC Glucose 284 H 07/27/23 11:11: POC Glucose 346 H Microbiology: Microbiology 07/26/23 09:40 Urine, Random Streptococcus pneumoniae Antigen (M - Final 07/26/23 09:40 Urine, Clean Catch Legionella Antigen - Final 07/24/23 23:10 Mucosa - Nasopharyngeal Respiratory Panel (PCR) - Final 07/24/23 16:02 Mucosa - Nose SARS-CoV-2, Influenza & RSV (PCR) - Final D/C Instructions Discharge Diet: Low fat / Low cholesterol Weight Bearing Status: Weight bearing as tolerated Call your doctor if you observe: Fever of 101 or Higher, Shortness of breath, Dizziness, Swelling in the ankles and Chest pain Meaningful Use Info Meaningful Use Diagnoses (Choose all that apply): None applicable Discharge Plan Admission Admit Date/Time: 07/24/23 20:29 Primary Reason for Your Visit: pneumonitis with hypoxia Attending Provider: Tram Frederick Primary Care Provider: Marce Amador Consulting Providers: Antonella Jane; Mamadou Beltran; Calvin Heck; Galen Blevins; David Boyd; Fallon Villeda; Shankar Aguero; Arabella Chwe; Wilberto Al; Nick West; Sang Castillo; Saroj Locktet; Pavel Yun; Jas Castañeda Instructions Patient Instructions: ED Understanding Hypersensitivity Pneumonitis, ED Dyspnea Additional Instructions / Restrictions: Patient counseled that she will need to stop her immunotherapy as is likely the cause of her pneumonitis. Discharge Orders/Prescriptions Prescriptions: New prednisone 10 mg tablet See Rx Instructions .ROUTE .COMPLEX Qty: 70 0RF Rx Instructions: 40 mg orally x 7 days, then 30mg daily x 7 days, 20mg daily x 7 days then 10mg daily x 7 days. Continued albuterol sulfate 90 mcg/actuation HFA aerosol inhaler 2 puff inhalation Q4H PRN (Reason: SOB) aspirin [Adult Low Dose Aspirin] 81 mg tablet,delayed release (DR/EC) 81 mg PO DAILY ergocalciferol (vitamin D2) 1,250 mcg (50,000 unit) capsule 1,250 mcg PO .twice week fluticasone propionate [Allergy Relief (fluticasone)] 50 mcg/actuation spray,suspension 1 spray intranasal DAILY PRN (Reason: ALLERGIES) Rx Instructions: administer into each nostril ipratropium-albuterol 0.5 mg-3 mg(2.5 mg base)/3 mL solution for nebulization 3 ml inhalation Q4H PRN (Reason: SOB) lovastatin 20 mg tablet 20 mg PO DAILY metformin 500 mg tablet 500 mg PO TIDWMEAL montelukast 10 mg tablet 10 mg PO DAILY sitagliptin phosphate 100 mg tablet 100 mg PO DAILY Hold Instructions: MD Ordered trazodone 50 mg tablet 50 mg PO QHS cetirizine 10 mg tablet 10 mg PO DAILY ondansetron 8 mg tablet,disintegrating 8 mg PO Q8H PRN (Reason: nausea and vomiting) Qty: 30 2RF meloxicam 15 mg tablet 15 mg PO DAILY PRN (Reason: pain) citalopram 40 mg tablet 40 mg PO DAILY MAGIC MOUTH WASH (BMX) 180 mL suspension 15 ml PO .qid PRN (Reason: pain) Qty: 180 5RF Rx Instructions: diphenhydramine 12.5 mg/5 mL oral liquid 60 mL; aluminum-mag hydroxide- simethicone 400 mg-400 mg-40 mg/5 mL oral susp 60 mL; Lidocaine Viscous 2 % mucosal solution 60 mL; Per 180 mL Jardiance 25 mg tablet 25 mg PO DAILY albuterol sulfate 2.5 mg /3 mL (0.083 %) solution for nebulization 2.5 mg continuous nebulization Q4H PRN (Reason: shortness of breath or wheezing) bupropion HCl 150 mg tablet sustained-release 12 hr 150 mg PO Q12H Hold Instructions: on hold for chemo Patient Comments: TAKE 1 TABLET BY MOUTH EVERY 12 HOURS Trelegy Ellipta 200-62.5-25 mcg blister with device 1 inh INHALATION Q24H gabapentin 100 mg capsule 100 mg PO QHS Patient Comments: TAKE 1 CAPSULE BY MOUTH AT BEDTIME levalbuterol tartrate 45 mcg/actuation HFA aerosol inhaler 1 puff INHALATION Q4H PRN (Reason: shortness of breath or wheezing) Ozempic 0.25 mg or 0.5 mg (2 mg/3 mL) pen injector 0.25 mg SUBCUT QWEEK Patient Comments: takes on thursday multivitamin [Daily Multi-Vitamin] Tablet 1 tab PO DAILY lidocaine-prilocaine 2.5-2.5 % cream 1 applic topical ONCE PRN (Reason: port access) 30 Days Qty: 30 2RF metoprolol succinate [Toprol XL] 25 mg tablet extended release 24 hr 25 mg PO Q12H Qty: 180 3RF Discontinued amoxicillin-pot clavulanate 875-125 mg tablet 1 tab PO Q12H Referrals / Follow Up: Marce Amador, PA [Primary Care Provider] - Within 2 Weeks Disposition Disposition (needs filled in before D/C Order can be placed): Home, Self Care Charges/Coding Visit Charges Inpatient E&M: 24126 Disch Hosp >30min
[2023-07-27] MEDS: 0.9% Saline Lock 10 ML Syringe IV (16:56)
[2023-07-27 18:10] LABS: Bedside Glucose 323 mg/dL (74-106)
--- NOTE | 2023-07-29 09:29 | CASEMGMT ---
Social Work SW received call from [facility]. Pt has Passport services and piano case maker is Aren [phone]. Pt has a medical alert, medication tower, home delivered meals and a home health aid from [facility] - 4.5 hours Thursday and Thursday, 1.75 hours on Thursday. EMANUEL updated Aren on admission and discharge status. IVANNA Smith
== END 2023-07-27 18:51 | disposition home or self-care (01) | DRG 206 ==
LOC: ED 20:31 → MS3 07-25 07:06
PROVIDERS: Internal Medicine; Admitting Provider Family Medicine; Emergency Provider Emergency Medicine; PCP Physician Assistant Medical; Visit Provider Student in an Organized Health Care Education/Training Program
DX: J70.0 Acute pulmonary manifestations due to radiation (principal); D84.9 Immunodeficiency, unspecified; J96.11 Chronic respiratory failure with hypoxia; J44.0 Chronic obstructive pulmonary disease with (acute) lower respiratory infection; J90 Pleural effusion, not elsewhere classified; C34.31 Malignant neoplasm of lower lobe, right bronchus or lung; E11.42 Type 2 diabetes mellitus with diabetic polyneuropathy; D64.9 Anemia, unspecified; I10 Essential (primary) hypertension; K21.9 Gastro-esophageal reflux disease without esophagitis; J30.9 Allergic rhinitis, unspecified; E78.5 Hyperlipidemia, unspecified; F41.8 Other specified anxiety disorders; T45.1X5A Adverse effect of antineoplastic and immunosuppressive drugs, initial encounter; Z86.16 Personal history of COVID-19; Z79.1 Long term (current) use of non-steroidal anti-inflammatories (NSAID); Z79.84 Long term (current) use of oral hypoglycemic drugs; Z87.891 Personal history of nicotine dependence; Z79.51 Long term (current) use of inhaled steroids; Z79.82 Long term (current) use of aspirin
CPT/HCPCS: 36415; 36591; 71046; 71275; 80048; 80053; 80076; 80202; 82962; 83605; 83735; 83880; 84100; 84145; 84484; 85025; 85610; 85730; 87040; 87449; 87631; 87633; 93005; 94640; 94668; 94760; 99285; J7030; J7040; J7050; Q9967; A4216

== ENCOUNTER → 2023-07-30 | Outpatient (CLI) | payer MEDICARE, MEDICAID, SELFPAY ==
--- NOTE | 2023-07-30 11:24 | VDLE_ITS ---
Reason For Study: Bilateral leg swelling RIGHT LEFT GSV is normal. GSV is normal. CFV is compressible, spontaneous, phasic, CFV is compressible, spontaneous, phasic, competent and demonstrates normal competent, and demonstrates normal augmentation. augmentation. FV is compressible, spontaneous, phasic, FV is compressible, spontaneous, phasic, competent and demonstrates normal competent and demonstrates normal augmentation. augmentation. POP V is compressible, spontaneous, phasic, POP V is compressible, spontaneous, phasic, competent and demonstrates normal competent and demonstrates normal augmentation. augmentation. T/P Trunk is compressible. T/P Trunk is compressible. PTV is compressible. PTV is compressible. RT PerV is compressible. LT PerV is compressible. Procedure Acute deep vein thrombosis is noted in the This is a venous duplex using B-mode, color Soleus V. It is dilated and NONCOMPRESSIBLE. flow and spectral Doppler. Exam performed in department. A preliminary report was called and/or faxed to [facility]. VL/Venous Duplex US - Elliot Extrem Interpretation Summary Acute deep vein thrombosis is noted in the left soleus vein. Deep veins of the right lower extremity are patent and compressible segmentally . There is no evidence of right lower extremity deep vein thrombosis. The bilateral great sap henous veins appear patent and compressible segmentally. Ordering Physician: Jennifer Delong Referring Physician: Marce Amador Performed By: Abimbola Matos RVT
== END | disposition home or self-care (01) ==
LOC: CVS 11:24
PROVIDERS: PCP Physician Assistant Medical; Referring Provider Nurse Practitioner Family; Visit Provider Nurse Practitioner Family
DX: R60.0 Localized edema (principal)
CPT/HCPCS: 93970

== ENCOUNTER → 2023-09-09 | Outpatient (CLI) | payer MEDICARE, MEDICAID, SELFPAY ==
--- NOTE | 2023-09-08 18:31 | CT_ITS ---
STUDY: CT CHEST WITH CONTRAST REASON FOR EXAM: Female, 62 years old. LUNG CA/PNEUMONITIS RADIATION DOSAGE (If Supplied By Facility): CTDIvol = ( 13.10 ) mGy, DLP = ( 616.85 ) mGycm TECHNIQUE: Transaxial imaging was performed following intravenous administration of IV 100mL Isovue-300. Multiplanar coronal and sagittal images were reformatted. Individualized dose optimization techniques were used for this CT. COMPARISON: Comparison is made with prior study dated June 22, 2023 and July 24, 2023. FINDINGS: CHEST A right-sided portacatheter is in situ with the tip in the superior vena cava. There is a 9.1 cm hypodensity in the midpole of the right lobe of the thyroid. Volume loss in the right hemithorax with shift of the heart and mediastinal structures towards the right hemithorax. There is been an increase in the size of the previously seen nodule in the peripheral lateral aspect of the right upper lobe as seen on axial image #32. This previously measured 3.5 mm and presently measures 6.9 mm. There is also evidence of increased size of the pleural-based nodule in the right upper lobe presently measuring 1.5 cm x 1 cm. There is evidence increased size of the previously seen nodule in the mid posterior medial aspect of the right upper lobe presently measuring 6.2 mm. Since prior study, there has been progressive airspace disease with air bronchograms in the right middle lobe and right lower lobes most likely secondary to post radiation pneumonitis and fibrosis. Stable scarring in the upper lobes worse on the right side. There are calcifications of the coronary arteries. Normal mediastinum. Normal hilar regions. Normal unenhanced pulmonary arteries. Normal aorta arch and descending thoracic aorta. There are multi-level degenerative changes of the thoracic spine. There is no demonstrated abnormality of the visualized upper abdomen. CT/Chest WITH Contrast IMPRESSION: Persistent volume loss in the right hemithorax with progressive size of the previously seen nodules in the right upper lobe as described. The left lung is unchanged. Stable hypodensity in the right lobe of the thyroid. Electronically Signed: Aren Maynard MD at 13:40 EDT ,
== END | disposition home or self-care (01) ==
LOC: CT 11:15
PROVIDERS: PCP Physician Assistant Medical; Referring Provider Internal Medicine Medical Oncology; Visit Provider Internal Medicine Medical Oncology
DX: C34.91 Malignant neoplasm of unspecified part of right bronchus or lung (principal)
CPT/HCPCS: 71260; Q9967; A4216

== ENCOUNTER → 2023-10-08 | Outpatient (CLI) | payer MEDICARE, MEDICAID, SELFPAY ==
--- NOTE | 2023-10-08 13:10 | VDLE_ITS ---
Reason For Study: HX LLE DVT RIGHT LEFT GSV is normal. GSV is normal. CFV is compressible, spontaneous, phasic, CFV is compressible, spontaneous, phasic, competent and demonstrates normal competent, and demonstrates normal augmentation. augmentation. FV is compressible, spontaneous, phasic, FV is compressible, spontaneous, phasic, competent and demonstrates normal competent and demonstrates normal augmentation. augmentation. POP V is compressible, spontaneous, phasic, POP V is compressible, spontaneous, and competent and demonstrates normal phasic. augmentation. T/P Trunk is compressible. T/P Trunk is compressible. PTV is compressible. PTV is compressible. LT PerV is compressible. RT PerV is compressible. Acute deep vein thrombosis is noted in the Procedure SOLEUS V. It is dilated and NONCOMPRESSIBLE. This is a venous duplex using B-mode, color flow and spectral Doppler. Exam performed in department. The exam was diagnostic. A preliminary report was called and/or faxed to [facility] at [facility]. VL/Venous Duplex US - Elliot Extrem Interpretation Summary Acute deep vein thrombosis is noted in the left soleus vein. Deep veins of the right lower extremity are patent and compressible segmentally . There is no evidence of right lower extremity deep vein thrombosis. The bilateral great sap henous veins appear patent and compressible segmentally. Ordering Physician: Darryl Ramirez Referring Physician: Marce Amador Performed By: Jason Moore RVT
== END | disposition home or self-care (01) ==
LOC: CVS 13:08
PROVIDERS: PCP Physician Assistant Medical; Referring Provider Internal Medicine Medical Oncology; Visit Provider Internal Medicine Medical Oncology
DX: M79.89 Other specified soft tissue disorders (principal)
CPT/HCPCS: 93970

== ENCOUNTER → 2023-10-19 | Outpatient (CLI) | payer MEDICARE, MEDICAID, SELFPAY ==
--- NOTE | 2023-10-19 09:02 | NM_ITS ---
CLINICAL: 63-year-old female with history of primary lung carcinoma. WHOLE BODY 99m Tc MDP RADIONUCLIDE BONE SCINTIGRAPHY COMPARISON: None available FINDINGS: Following the intravenous administration of 27.9 mCi of 99m Tc MDP, whole body bone images reveal: 1. Increased radiopharmaceutical concentration is defined in the mid cervical spine posteriorly on the left, acromioclavicular and sternoclavicular compartments of both shoulders, the bilateral wrists, the patellofemoral compartments of both knees, the medial tibial and femoral compartment of the right knee, the bilateral midfoot, the seventh thoracic vertebra posteriorly on the left, the posterior midline sacrum. 2. Facilitated uptake is noted in the seventh and ninth ribs posteriorly on the right. 3. The remaining skeletal structures are scintigraphically unremarkable with normal-appearing renal images and urinary bladder activity identified. NM/Bone Scan Whole Body IMPRESSION: 1. The increase in tracer uptake noted in the right posterior ribs is most consistent with trauma-fracture. Plain film radiography correlation may be of benefit. 2. Degenerative arthritis is demonstrated in the cervical and thoracic spine, bilateral shoulders, both wrists, the knee articulations bilaterally and right-left midfoot. Electronically Signed: Matthias Ash DO at 8:46 EDT ,
== END | disposition home or self-care (01) ==
PROVIDERS: PCP Physician Assistant Medical; Referring Provider Internal Medicine Medical Oncology; Visit Provider Internal Medicine Medical Oncology
DX: C34.31 Malignant neoplasm of lower lobe, right bronchus or lung (principal)
CPT/HCPCS: 78306; A9503

== ENCOUNTER 2023-11-08 12:15 | Inpatient (IN) | payer MEDICARE, MEDICAID, SELFPAY ==
[2023-11-08 12:16] VITALS: BP 106/65; PULSE 124; RESP 16; TEMP 36.3; O2SAT 92
--- NOTE | 2023-11-08 12:56 | CT_ITS ---
STUDY: CT ABDOMEN AND PELVIS WITH CONTRAST REASON FOR EXAM: Female, 63 years old. Bloody diarrhea. History of right lung cancer. RADIATION DOSAGE (If Supplied By Facility): CTDIvol = ( 20 to ) mGy, DLP = ( 1127 ) mGycm TECHNIQUE: Transaxial images were obtained through the abdomen and pelvis without oral contrast. 100 ml of Isovue-370 contrast was administered. Sagittal and coronal images were reconstructed. Individualized dose optimization techniques were used for this CT. COMPARISON: No relevant prior comparison study available FINDINGS: LOWER THORAX: There is a small right pleural effusion and chronic consolidation at the right lung base which is grossly unchanged when compared with the chest CT dated 07/24/2023. The visualized portions of the heart and pericardium are within normal limits. GALLBLADDER / BILE DUCTS: There are no calcified gallstones present. There is no intrahepatic biliary duct dilatation. The common bile duct is normal in caliber. There are no calcified ductal stones. LIVER: The liver is within normal limits. There are no suspicious hepatic lesions. SPLEEN: The spleen is normal in size. PANCREAS: There is mild peripancreatic stranding. ADRENAL GLANDS: The adrenal glands are within normal limits. KIDNEYS / BLADDER: There are no renal or ureteral stones. There is no hydronephrosis. There are no focal renal lesions. The urinary bladder is partially distended and appears grossly unremarkable. STOMACH / BOWEL: Normal visualized stomach. There is no bowel obstruction or inflammation. There are colonic diverticula without evidence of diverticulitis. The appendix is visualized and appears normal. PERITONEUM/RETROPERITONEUM: There is no abdominal or pelvic free air, free fluid or fluid collection. There is no abnormal soft tissue mass identified. There is no abdominal or pelvic lymphadenopathy. VESSELS: The aorta is normal in caliber. The IVC is unremarkable. BONES: There are no destructive osseous lesions. SOFT TISSUES: The visualized soft tissues are within normal limits. CT/Abdomen/Pelvis W IV Cont ONLY IMPRESSION: Mild peripancreatic stranding. Correlation with laboratory lipase value is recommended to evaluate for acute pancreatitis. No bowel obstruction or inflammation. Normal appendix. Colonic diverticula without evidence of acute diverticulitis. Normal kidneys. No hydronephrosis. Small right pleural effusion and chronic consolidation at the right lung base which is grossly unchanged when compared with the chest CT dated 07/24/2023. Electronically Signed: Kendell Vaughn MD at 14:13 EDT ,
--- NOTE | 2023-11-08 12:58 | EDS_ITS ---
<Statement entered by Nora Gautam MD - 11/08/23 16:51> I have personally performed a face to face assessment of the patient and have reviewed the MOSES Note. Patient present secondary to GI bleed. She reports having frequent loose stools for the past 4 days. Today she has noted blood mixed with the stool on 2 separate occasions. She has not had significant abdominal pain. Patient is currently on Xarelto for history of DVT. Patient sitting upright in bed no acute distress. Head neck examination unremarkable. Heart is regular rate and rhythm. Lung sounds are clear. Abdomen is soft with no focal tenderness. Hypoactive but present bowel sounds are noted. CBC and chemistry studies reveal hemoglobin of 10.2. This is down about a gram and a half compared to a month ago. CT scan of the abdomen pelvis reveals diverticulosis with no evidence of acute diverticulitis. There is peripancreatic stranding noted. Lipase is then added and noted to be elevated at 538. Patient discussed with GI. She is to be prepped for scopes tomorrow. He did want the patient to be given Protonix at this time. Patient also discussed with hospitalist. HPI History of Present Illness Chief Complaint: GI Bleed Narrative Narrative: 63-year-old female with past medical history of HTN, HLD, DM2, lung cancer, DVT on Xarelto presents with blood in her stool. Over the last 4 days she has had soft formed stool approximately 15 times a day. She will get an occasional stomach cramps indicating she needs to have a bowel movement but has no overt pain. This morning with 2 of the soft bowel movements there was red blood mixed throughout the stool prompting her to come in. She denies fever or chills or vomiting. She states occasionally when she eats she gets nauseated but this is a chronic issue. 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 She completed chemo/radiation and most recently immunotherapy but states she worsened and discontinued this in May 2023. She is scheduled for a CT scan tomorrow and has follow-up with Dr. Ramirez to plan the next treatment options. She wears 2L nasal cannula at baseline. [facility] Medical History DVT (deep venous thrombosis) Need for pneumocystis prophylaxis Pneumonitis Bilateral lower extremity edema Chronic hypoxic respiratory failure Anxiety and depression Acute and chronic respiratory failure with hypoxia Iron deficiency anemia Radiation pneumonitis Contact with or exposure to other viral diseases SOB (shortness of breath) Tinnitus Cancer History of steroid therapy Rheumatoid arthritis Anemia High cholesterol Injury of head and neck Gastric reflux Former smoker Hypertension Recurrent squamous cell carcinoma of right lung Wears glasses Wears dentures Seasonal allergies Gout Diabetes mellitus COVID-19 COPD (chronic obstructive pulmonary disease) Home Medications ?Medication ?Instructions ?Recorded ?Last Taken ?Type albuterol sulfate 90 mcg/actuation 2 puff inhalation Q4H PRN SOB 07/31/22 Unknown History aerosol inhaler ergocalciferol (vitamin D2) 1,250 1,250 mcg PO .twice week supplement 07/31/22 07/16/23 History mcg (50,000 unit) capsule fluticasone propionate 50 1 spray intranasal DAILY PRN 07/31/22 Unknown History mcg/actuation nasal ALLERGIES spray,suspension (Allergy Relief (fluticasone)) ipratropium 0.5 mg-albuterol 3 mg 3 ml inhalation Q4H PRN SOB 07/31/22 Unknown History (2.5 mg base)/3 mL nebulization soln lovastatin 20 mg tablet 20 mg PO DAILY see 07/31/22 Unknown History metformin 500 mg tablet 500 mg PO TIDWMEAL dm 07/31/22 Unknown History montelukast 10 mg tablet 10 mg PO DAILY 07/31/22 Unknown History trazodone 50 mg tablet 50 mg PO QHS sleep 07/31/22 Unknown History cetirizine 10 mg tablet 10 mg PO DAILY see 08/01/22 Unknown History citalopram 40 mg tablet 40 mg PO DAILY see 02/16/23 Unknown History albuterol sulfate 2.5 mg/3 mL 2.5 mg continuous nebulization Q4H 06/07/23 Unknown History (0.083 %) solution for nebulization PRN shortness of breath or wheezing fluticasone fur. 200 mcg-umeclid 1 inh inhalation Q24H breathing 07/24/23 Unknown History 62.5 mcg-vilant 25 mcg inhalat.powder (Trelegy Ellipta) gabapentin 100 mg capsule 100 mg PO QHS pain 07/24/23 Unknown History levalbuterol tartrate 45 1 puff inhalation Q4H PRN 07/24/23 Unknown History mcg/actuation aerosol inhaler shortness of breath or wheezing multivitamin (Daily Multi-Vitamin 1 tab PO DAILY supplement 07/24/23 Unknown History tablet) pantoprazole 20 mg tablet,delayed 20 mg PO DAILY #30 tabs 07/30/23 Unknown Rx release (Protonix) sulfamethoxazole 800 1 tab PO .COMPLEX #30 tabs 07/30/23 Unknown Rx mg-trimethoprim 160 mg tablet (Bactrim DS) sitagliptin phosphate 100 mg 100 mg PO DAILY 08/13/23 Unknown History tablet (Januvia) empagliflozin 25 mg tablet 25 mg PO QDAY 09/10/23 Unknown History (Jardiance) mecobalamin (vitamin B12) 1,000 1,000 mcg PO .twice weekly 09/10/23 Unknown History mcg chewable tablet prednisone 10 mg tablet 10 mg PO DAILY #14 tabs 09/10/23 Unknown Rx insulin glargine 100 unit/mL 30 unit subcut DAILY 09/16/23 Unknown History subcutaneous solution (Lantus U-100 Insulin) insulin lispro 100 unit/mL 8 - 10 unit subcut TID 09/16/23 Unknown History subcutaneous pen rivaroxaban 20 mg tablet (Xarelto) 20 mg PO DAILY #30 tabs 10/08/23 Unknown Rx Allergy/AdvReac Type Severity Reaction Status Date / Time No Known Allergies Allergy Verified 11/08/23 12:20 Family History Mother Diabetes Heart disease Cancer brain tumor Father Cancer blood cancer per pt Sister Heart disease Diabetes Cancer lung Grandfather Cancer lung Uncle Diabetes Son Cancer testicular Surgical History Port-A-Cath in place History of lobectomy of lung History of bronchoscopy H/O arthroscopy of left knee History of tonsillectomy H/O tooth extraction H/O foot surgery H/O: hysterectomy History of carpal tunnel surgery Social History household members: none Smoking Status: Former smoker quit date: 11/12/19 pack-years: 53 alcohol intake: never substance use type: does not use ROS ROS ED ROS Narrative Constitutional: Negative for fever, chills, malaise. CVS: Negative for chest pain, syncope. Respiratory: Negative for shortness of breath. GI: Negative for abdominal pain, constipation, melena. EXAM Physical Exam Narrative Exam Narrative: CONST: Patient sitting in no acute distress. EYES: Normal inspection. NECK: Normal inspection. RESP: No respiratory distress, CTAB. CVS: Regular rate and rhythm, no murmur, no gallop. ABD: Soft and nontender, no guarding or rebound, nondistended. Normal bowel sounds x 4. TANIYA: Normal external inspection with no evidence of blood. SKIN: Color normal, no rash, warm, dry, intact. EXTREMITIES: Normal appearance, no pedal edema. NEURO: Alert and answering questions appropriately. PSYCH: Normal affect. Const Vital Signs: 11/08/23 12:16 11/08/23 13:22 11/08/23 14:00 Temperature 97.3 F L 97 F L Temperature Source Temporal Temporal Pulse Rate 124 H 108 H 109 H Respiratory Rate 16 20 H 18 Blood Pressure 106/65 110/66 130/90 H Blood Pressure Mean 78 80 103 Pulse Ox 92 95 95 Oxygen Delivery Method Room Air Nasal Cannula Oxygen Flow Rate (L/min) 2 MDM MDM MDM Narrative Medical decision making narrative: Differential: GI bleed including diverticulosis, diverticulitis, hemorrhoids Consults: Hospitalist and GI 63-year-old female presents with frequent soft formed brown bowel movements and 2 episodes of red blood mixed in her stool this morning. She appears well and nontoxic. She is tachycardic around 108 during my exam with otherwise stable vital signs. She wears baseline 2 L of oxygen with history of lung cancer. Her abdomen is soft and nontender. Labs show normal white count of 6.4. Hemoglobin of 10.2 is down about a gram and a half from 1 month ago. BUN and creatinine are normal at 18 and 0.65. Glucose 141. CT scan shows mild peripancreatic stranding so lipase was added on and is 538. She has no epigastric tenderness or nausea or vomiting. There are no other acute findings. I discussed the case with Dr. Brown who recommended IV Protonix and bowel prep with GoLytely so he can scope tomorrow. Case was discussed with the hospitalist. Lab Data Attestation: I reviewed the patient's lab results. Labs: Laboratory Results - last 24 hr 11/08/23 13:05 WBC 6.4 RBC 3.90 L Hgb 10.2 L Hct 34.5 L MCV 88.5 MCH 26.2 L MCHC 29.6 L RDW Std Deviation 47.9 H RDW Coeff of Gina 15.0 H Plt Count 358 MPV 8.8 Immature Gran % (Auto) 0.300 Neut % (Auto) 79.9 H Lymph % (Auto) 5.5 L [place] % (Auto) 9.1 Eos % (Auto) 4.4 Baso % (Auto) 0.8 Absolute Neuts (auto) 5.1 Absolute Lymphs (auto) 0.35 L Nucleated RBC % 0 Sodium 134 L Potassium 3.9 Chloride 98 Carbon Dioxide 25.0 Anion Gap 11 BUN 18 Creatinine 0.65 Est GFR (MDRD) Af Amer 118 Est GFR (MDRD) Non-Af 97 BUN/Creatinine Ratio 27.7 H Glucose 141 H Calcium 9.4 Total Bilirubin 0.40 AST 8 L ALT 11 L Alkaline Phosphatase 82 Total Protein 7.1 Albumin 2.6 L Globulin 4.5 H Albumin/Globulin Ratio 0.6 L Lipase 538 H Radiography Diagnostic Testing: Clinical Impression(s) from Imaging Studies Abdomen/Pelvis CT 11/08/23 12:56 IMPRESSION: Mild peripancreatic stranding. Correlation with laboratory lipase value is recommended to evaluate for acute pancreatitis. No bowel obstruction or inflammation. Normal appendix. Colonic diverticula without evidence of acute diverticulitis. Normal kidneys. No hydronephrosis. Small right pleural effusion and chronic consolidation at the right lung base which is grossly unchanged when compared with the chest CT dated 07/24/2023. Electronically Signed: Kendell Vaughn MD at 14:13 EDT , Discharge Plan Triage Chief Complaint: GI Bleed ED Midlevel Provider: Shena Sheikh ED Provider: Nora Gautam Dx/Rx/DC Orders Clinical Impression: GI bleed, Anemia, Anticoagulant long-term use Prescriptions: No Action albuterol sulfate 90 mcg/actuation HFA aerosol inhaler 2 puff inhalation Q4H PRN (Reason: SOB) ergocalciferol (vitamin D2) 1,250 mcg (50,000 unit) capsule 1,250 mcg PO .twice week fluticasone propionate [Allergy Relief (fluticasone)] 50 mcg/actuation spray,suspension 1 spray intranasal DAILY PRN (Reason: ALLERGIES) Rx Instructions: administer into each nostril ipratropium-albuterol 0.5 mg-3 mg(2.5 mg base)/3 mL solution for nebulization 3 ml inhalation Q4H PRN (Reason: SOB) lovastatin 20 mg tablet 20 mg PO DAILY metformin 500 mg tablet 500 mg PO TIDWMEAL montelukast 10 mg tablet 10 mg PO DAILY trazodone 50 mg tablet 50 mg PO QHS cetirizine 10 mg tablet 10 mg PO DAILY citalopram 40 mg tablet 40 mg PO DAILY sulfamethoxazole-trimethoprim [Bactrim DS] 800-160 mg tablet 1 tab PO .COMPLEX Qty: 30 2RF Rx Instructions: 1 TAB orally on Mondays, Wednesdays, and Fridays ONLY pantoprazole [Protonix] 20 mg tablet,delayed release (DR/EC) 20 mg PO DAILY Qty: 30 2RF Januvia 100 mg tablet 100 mg PO DAILY insulin glargine [Lantus U-100 Insulin] 100 unit/mL solution 30 unit subcut DAILY insulin lispro 100 unit/mL insulin pen 8 - 10 unit subcut TID Xarelto 20 mg tablet 20 mg PO DAILY Qty: 30 3RF Rx Instructions: must administer with evening meal Jardiance 25 mg tablet 25 mg PO QDAY mecobalamin (vitamin B12) 1,000 mcg tablet,chewable 1,000 mcg PO .twice weekly albuterol sulfate 2.5 mg /3 mL (0.083 %) solution for nebulization 2.5 mg continuous nebulization Q4H PRN (Reason: shortness of breath or wheezing) Trelegy Ellipta 200-62.5-25 mcg blister with device 1 inh INHALATION Q24H gabapentin 100 mg capsule 100 mg PO QHS Patient Comments: TAKE 1 CAPSULE BY MOUTH AT BEDTIME levalbuterol tartrate 45 mcg/actuation HFA aerosol inhaler 1 puff INHALATION Q4H PRN (Reason: shortness of breath or wheezing) multivitamin [Daily Multi-Vitamin] Tablet 1 tab PO DAILY prednisone 10 mg tablet 10 mg PO DAILY Qty: 14 0RF Primary Care Provider: Marce Amador Referrals: Marce Amador, PA [Primary Care Provider] - Print Language: Tunisian
[2023-11-08] MEDS: 0.9% Normal Saline (1000mL) 1,000 ML 999 ML IV (13:15)
[2023-11-08 13:16] LABS: Absolute Lymphocyte Count 0.35 X10^3/uL (0.83-4.51); Absolute Neutrophil Count 5.1 X10^3/uL (2.0-7.7); Basophil# 0.05 X10^3/uL; Basophil% 0.8 % (0-1); Eosinophil# 0.28 X10^3/uL; Eosinophils% 4.4 % (0-5); Hematocrit 34.5 % (37-47); Hemoglobin 10.2 g/dL (12.0-15.0); Lymphocyte # 0.35 X10^3/ul (0.83-4.51); Lymphocyte % 5.5 % (19-41); Mean Corp Hgb Conc 29.6 g/dL (32-36); Mean Corpuscular Hgb 26.2 pg (27.0-32.0); Mean Corpuscular Volume 88.5 fL (81-99); Mean Platelet Vol. 8.8 fl (6.2-12.0); Monocyte# 0.58 X10^3/uL; Monocyte% 9.1 % (0-10); NRBC Flagged by Analyzer 0 % (0-5); Neutrophil # 5.07 X10^3/uL (2.7-7.7); Neutrophil % 79.9 % (47-70); POSITIVE DIFFERENTIAL YES; Platelet Count 358 K/mm3 (150-450); RBC Distribution Width SD 47.9 fl (35.1-43.9); White Blood Count 6.4 K/mm3 (4.4-11.0)
[2023-11-08 13:22] VITALS: BP 110/66; PULSE 108; RESP 20; TEMP 36.1; O2SAT 95
[2023-11-08 13:30] LABS: ALB/GLOB Ratio 0.6 RATIO (0.9-2.4); AST(SGOT) 8 U/L (15-37); Alanine Aminotransfer ALT/SGPT 11 U/L (13-56); Albumin, Serum 2.6 g/dL (3.2-5.0); Alkaline Phosphatase 82 U/L (45-117); Anion Gap 11 (5-15); BUN 18 mg/dL (7-18); BUN/Creat Ratio 27.7 RATIO (10-20); Calcium,Total 9.4 mg/dL (8.5-10.1); Chloride 98 mmol/L (98-107); Creatinine, Serum 0.65 mg/dL (0.55-1.02); EST Glomerular Filtration Rate 97 mL/min (>60); Est Glom Filt Rate - Afr Amer 118 mL/min (>60); Globulin 4.5 g/dL (2.2-4.2); Glucose 141 mg/dL (74-106); Potassium 3.9 mmol/L (3.5-5.1); Protein, Total 7.1 g/dL (6.4-8.2); Sodium Level 134 mmol/L (136-145)
[2023-11-08 14:00] VITALS: BP 130/90; PULSE 109; RESP 18; O2SAT 95
[2023-11-08 14:51] LABS: Lipase 538 U/L (13-75)
--- NOTE | 2023-11-08 15:48 | NURSING ---
PCU LOWE GI BLEED
[2023-11-08] MEDS: Pantoprazole Sodium 40 MG in 0.9% Normal Saline (100mL MB+) 100 ML 330 MG IV ×2 (15:54→20:31)
[2023-11-08 15:58] VITALS: BP 117/69; PULSE 110; RESP 18; TEMP 36.4; O2SAT 94
--- NOTE | 2023-11-08 16:12 | HP.PCM.HOS_ITS ---
HPI - General General Date of Admission: 11/08/23 Date of Service: 11/08/23 Chief Complaint: Multiple episodes of diarrhea HPI Narrative FABRICIO EDWARDS, is a 63 F with lung cancer currently with treatment on hold, chronic hypoxic respiratory failure on 2 L O2, diabetes, DVT who presented to [facility] ED 11/08/2023 due to blood in her stool and diarrhea. Patient reports 4 days of up to 20 stools a day and today began to see blood in her stool. She is not having any abdominal pain or nausea or vomiting, breathing is at baseline, sometimes feels cold but has not had any fever, chronic tingling in hands and feet and no other acute complaints. In ED hemoglobin 10.2 down from 11.6, lipase [address] with mild peripancreatic stranding. GI was contacted and recommended IV PPI and admission for endoscopy. Patient agreeable. [facility] Medical History DVT (deep venous thrombosis) Need for pneumocystis prophylaxis Pneumonitis Bilateral lower extremity edema Chronic hypoxic respiratory failure Anxiety and depression Acute and chronic respiratory failure with hypoxia Iron deficiency anemia Radiation pneumonitis Contact with or exposure to other viral diseases SOB (shortness of breath) Tinnitus Cancer History of steroid therapy Rheumatoid arthritis Anemia High cholesterol Injury of head and neck Gastric reflux Former smoker Hypertension Recurrent squamous cell carcinoma of right lung Wears glasses Wears dentures Seasonal allergies Gout Diabetes mellitus COVID-19 COPD (chronic obstructive pulmonary disease) Home Medications ?Medication ?Instructions ?Recorded ?Last Taken ?Type albuterol sulfate 90 mcg/actuation 2 puff inhalation Q4H PRN SOB 07/31/22 Unknown History aerosol inhaler ergocalciferol (vitamin D2) 1,250 1,250 mcg PO .twice week supplement 07/31/22 07/16/23 History mcg (50,000 unit) capsule fluticasone propionate 50 1 spray intranasal DAILY PRN 07/31/22 Unknown History mcg/actuation nasal ALLERGIES spray,suspension (Allergy Relief (fluticasone)) ipratropium 0.5 mg-albuterol 3 mg 3 ml inhalation Q4H PRN SOB 07/31/22 Unknown History (2.5 mg base)/3 mL nebulization soln lovastatin 20 mg tablet 20 mg PO DAILY see 07/31/22 Unknown History metformin 500 mg tablet 500 mg PO TIDWMEAL dm 07/31/22 Unknown History montelukast 10 mg tablet 10 mg PO DAILY breathing 07/31/22 Unknown History trazodone 50 mg tablet 50 mg PO QHS sleep 07/31/22 Unknown History cetirizine 10 mg tablet 10 mg PO DAILY see 08/01/22 Unknown History citalopram 40 mg tablet 40 mg PO DAILY see 02/16/23 Unknown History albuterol sulfate 2.5 mg/3 mL 2.5 mg continuous nebulization Q4H 06/07/23 Unknown History (0.083 %) solution for nebulization PRN shortness of breath or wheezing fluticasone fur. 200 mcg-umeclid 1 inh inhalation Q24H breathing 07/24/23 Unknown History 62.5 mcg-vilant 25 mcg inhalat.powder (Trelegy Ellipta) gabapentin 100 mg capsule 100 mg PO QHS pain 07/24/23 Unknown History levalbuterol tartrate 45 1 puff inhalation Q4H PRN 07/24/23 Unknown History mcg/actuation aerosol inhaler shortness of breath or wheezing multivitamin (Daily Multi-Vitamin 1 tab PO DAILY supplement 07/24/23 Unknown History tablet) pantoprazole 20 mg tablet,delayed 20 mg PO DAILY #30 tabs 07/30/23 Unknown Rx release (Protonix) sulfamethoxazole 800 1 tab PO .COMPLEX #30 tabs 07/30/23 Unknown Rx mg-trimethoprim 160 mg tablet (Bactrim DS) sitagliptin phosphate 100 mg 100 mg PO DAILY diabetes 08/13/23 Unknown History tablet (Januvia) empagliflozin 25 mg tablet 25 mg PO QDAY diabetes 09/10/23 Unknown History (Jardiance) mecobalamin (vitamin B12) 1,000 1,000 mcg PO .twice weekly 09/10/23 Unknown History mcg chewable tablet prednisone 10 mg tablet 10 mg PO DAILY #14 tabs 09/10/23 Unknown Rx insulin glargine 100 unit/mL 30 unit subcut DAILY 09/16/23 Unknown History subcutaneous solution (Lantus U-100 Insulin) insulin lispro 100 unit/mL 10 - 15 unit subcut TID diabetes 09/16/23 Unknown History subcutaneous pen rivaroxaban 20 mg tablet (Xarelto) 20 mg PO DAILY blood thinner #30 10/08/23 Unknown Rx tabs Allergy/AdvReac Type Severity Reaction Status Date / Time No Known Allergies Allergy Verified 11/08/23 12:20 Family History Mother Diabetes Heart disease Cancer brain tumor Father Cancer blood cancer per pt Sister Heart disease Diabetes Cancer lung Grandfather Cancer lung Uncle Diabetes Son Cancer testicular Surgical History Port-A-Cath in place History of lobectomy of lung History of bronchoscopy H/O arthroscopy of left knee History of tonsillectomy H/O tooth extraction H/O foot surgery H/O: hysterectomy History of carpal tunnel surgery Social History household members: none Smoking Status: Former smoker quit date: 11/12/19 pack-years: 53 alcohol intake: never substance use type: does not use ROS ROS Narrative General: Denies fever, sometimes is cold HENT: Denies headache, denies stuffy nose, denies sore throat EYES: Denies changes in vision Resp: Chronic shortness of breath, slowly improving Cardiac: Denies chest pain GI: Denies abdominal pain, multiple episodes of bowel movement as well as blood in stool, denies nausea/vomiting : Denies changes in urination Extremity: Denies swelling MSK: Denies weakness Neuro: Chronic numbness and tingling in fingers and toes Heme: Denies any bleeding or bruising Skin: Denies rashes Psychiatric: No complaints voiced Vital Signs Vital Signs Vital Signs: 11/08/23 12:16 11/08/23 13:22 11/08/23 14:00 Temperature 97.3 F L 97 F L Temperature Source Temporal Temporal Pulse Rate 124 H 108 H 109 H Respiratory Rate 16 20 H 18 Blood Pressure 106/65 110/66 130/90 H Blood Pressure Mean 78 80 103 Pulse Ox 92 95 95 Oxygen Delivery Method Room Air Nasal Cannula Oxygen Flow Rate (L/min) 2 11/08/23 15:58 Temperature 97.6 F L Temperature Source Pulse Rate 110 H Respiratory Rate 18 Blood Pressure 117/69 Blood Pressure Mean 85 Pulse Ox 94 Oxygen Delivery Method Oxygen Flow Rate (L/min) Physical Exam Narrative General: Alert, oriented, no apparent distress HEENT: Atraumatic, normocephalic Eyes: Anicteric, normal conjunctiva, extraocular movements grossly intact Neck: Supple Respiratory: Somewhat diminished bilaterally Cardiovascular: Regular rate and rhythm GI: Soft, nontender, nondistended Extremities: No edema Musculoskeletal: Moving all extremities Neuro: No overt focal neurological deficits Skin: No rashes appreciated Psych: Cooperative Results Lab / Micro Data 11/08/23 13:05 11/08/23 13:05 Labs: Laboratory Results - last 24 hr 11/08/23 13:05: WBC 6.4, RBC 3.90 L, Hgb 10.2 L, Hct 34.5 L, MCV 88.5, MCH 26.2 L, MCHC 29.6 L, RDW Std Deviation 47.9 H, RDW Coeff of Gina 15.0 H, Plt Count 358, MPV 8.8, Immature Gran % (Auto) 0.300, Neut % (Auto) 79.9 H, Lymph % (Auto) 5.5 L, [place] % (Auto) 9.1, Eos % (Auto) 4.4, Baso % (Auto) 0.8, Absolute Neuts (auto) 5.1, Absolute Lymphs (auto) 0.35 L, Nucleated RBC % 0, Sodium 134 L, Potassium 3.9, Chloride 98, Carbon Dioxide 25.0, Anion Gap 11, BUN 18, Creatinine 0.65, Est GFR (MDRD) Af Amer 118, Est GFR (MDRD) Non-Af 97, B UN/Creatinine Ratio 27.7 H, Glucose 141 H, Calcium 9.4, Total Bilirubin 0.40, A ST 8 L, ALT 11 L, Alkaline Phosphatase 82, Total Protein 7.1, Albumin 2.6 L, G lobulin 4.5 H, Albumin/Globulin Ratio 0.6 L, Lipase 538 H Imaging Radiology Impression Abdomen/Pelvis CT 11/08/23 12:56 IMPRESSION: Mild peripancreatic stranding. Correlation with laboratory lipase value is recommended to evaluate for acute pancreatitis. No bowel obstruction or inflammation. Normal appendix. Colonic diverticula without evidence of acute diverticulitis. Normal kidneys. No hydronephrosis. Small right pleural effusion and chronic consolidation at the right lung base which is grossly unchanged when compared with the chest CT dated 07/24/2023. Electronically Signed: Kendell Vaughn MD at 14:13 EDT , Assessment & Plan Assessment/Plan (1) Anemia: (2) DVT (deep venous thrombosis): QUALIFIERS: DVT location: lower extremity Affected thrombotic vein of extremity: other lower extremity vein Chronicity: acute Laterality: l eft Qualified Code(s): I82.492 - Acute embolism and thrombosis of other specified deep vein of left lower extremity (3) Diabetes mellitus: QUALIFIERS: Diabetes mellitus type: type 2 Diabetes mellitus intermediate manager insulin use: with intermediate manager use Diabetes mellitus complication status: w ith hyperglycemia Qualified Code(s): E11.65 - Type 2 diabetes mellitus with hyperglycemia; Z79.4 - joint terminal attack controller (current) use of insulin (4) GI bleed: PLAN: Plan # Diarrhea and concern for GI bleed -Patient has had many bowel movements over the past several days with soft stool and today has had some blood mixed in with her stool -Hemoglobin previously 11.6 10/07 and is 10.2 today -Hold Xarelto -IV PPI -GI consult -N.p.o. at midnight -Check mag -Start gentle IV fluids -Trend H&H -Type and hold 1 unit -Will check stool studies -CT abdomen pelvis with mild peripancreatic stranding and elevated lipase however patient has no pain or nausea and vomiting # Chronic hypoxic respiratory failure on 2 L home O2/lung cancer -Continue home inhalers -Incentive spirometry -Maintain O2 -Patient follows with Dr. Ramirez on outpatient basis and supposed to have CT chest and abdomen with contrast tomorrow for further decision on treatment #Type 2 diabetes mellitus -Glucose checks and sliding scale insulin -Awaiting home dose verification -Hold metformin # DVT -Holding Xarelto given concern for GI bleed #DVT ppx: Marcelo Healy MD Time spent in the patient's overall evaluation,decision-making process, review of diagnostic data, adjustment of management, discussion with other providers, nursing nursing and ancillary staff involved in patient's care documentation, 57 minutes Charges/Coding Visit Charges Inpatient E&M: 87857 Init Hosp L2
[2023-11-08 17:23] VITALS: BMI 29.5
[2023-11-08 17:58] LABS: Bedside Glucose 155 mg/dL (74-106)
[2023-11-08] MEDS: 0.9% Normal Saline (1000mL) 1,000 ML 75 ML IV (18:25)
[2023-11-08 19:06] LABS: Hematocrit 34.5 % (37-47); Hemoglobin 10.2 g/dL (12.0-15.0)
[2023-11-08 19:48] VITALS: PULSE 106; RESP 16; O2SAT 96
[2023-11-08] MEDS: Albuterol 2.5 MG/3 ML VIAL.NEB. INHALATION (19:48)
[2023-11-08] MEDS: Bisacodyl 5 MG Tablet 20 MG PO (19:58)
[2023-11-08] MEDS: Atorvastatin Calcium 10 MG Tablet 5 MG PO (20:31)
[2023-11-08] MEDS: Polyethylene Glycol 3350 BOWEL PREP 1 BOTTLE PO (20:31)
[2023-11-08] MEDS: Gabapentin 100 MG Capsule PO (20:31)
[2023-11-08] MEDS: traZODone 50 MG Tablet PO (20:34)
[2023-11-08] MEDS: Insulin Lispro 100 UNIT/ML INSULN.PEN SC (20:53)
[2023-11-08 20:55] VITALS: BP 108/68; PULSE 110; RESP 18; TEMP 36.6; O2SAT 96
[2023-11-08 22:14] LABS: Bedside Glucose 190 mg/dL (74-106)
[2023-11-08 22:53] LABS: Hematocrit 33.4 % (37-47); Hemoglobin 10.1 g/dL (12.0-15.0)
[2023-11-09] VITALS (16 sets, daily range): BP systolic 97–113; BP diastolic 49–78; PULSE 89–127; RESP 14–20; TEMP 36.3–37.1; O2SAT 92–97; BMI 29.5; BMI 29.3
--- NOTE | 2023-11-09 | COLBX_PTH ---
PATIENT: FABRICIO EDWARDS LOC: [facility] U#:[id number] AGE/SX: 63/F ROOM: [facility] RE11/08/[address]: Dr. Sera Healy MD : 1960 BED: 1 DIS: 11/13/2023 SPEC #: [id number] RECD: 11/09/23 21:52 STATUS: VALERIA BAUTISTA #: [id number] JOÃO: 11/09/23 00:[address]: Matthew Brown DEPT: SURGICAL PATHOLOGY RECD BY: Vinnie Thomas ENTERED: 11/10/23 08:50 SP TYPE: COLON BX OT DR: MD Marce Cuello PA Tissues: A - Duodenum, NOS B - Sigmoid colon biopsy Procedures: Surgery Specimen Level IV HEADER OPERATION: Colposcopy. EGD PRE-OP DIAGNOSIS: GI bleed TISSUE SUBMITTED: A. Duodenum, B. Recto sigmoid colon MICROSCOPIC DIAGNOSIS A. Duodenum, biopsy: Fragments of duodenal mucosa with focal superficial erosion and moderate acute and chronic inflammation. B. Rectal sigmoid colon, biopsy: Focal chronic active colitis. See microscopic description and comment. Emigdio 11/11/2023 COMMENT Correlation with clinical, endoscopic findings and appropriate follow up are necessary. MICROSCOPIC DESCRIPTION Slides are reviewed. B. This specimen shows fragments of colonic mucosa with focal ulceration, acute and chronic inflammatory cell infiltrate in the lambda propria, cryptitis, crypt abscesses and minimal glandular distortion. Granulomas are not seen. No evidence of dysplasia. GROSS DESCRIPTION A. Received in fixative is one container labeled with the patient's name and designated Duodenum biopsy. The specimen consists of multiple irregular fragments of light gonzalez soft tissue that in aggregate measure 1.0 x 0.3 x 0.1 cm. The specimen is totally submitted in one cassette. B. Received in fixative is one container labeled with the patient's name and designated Recto sigmoid colon. The specimen consists of multiple irregular fragments of light gonzalez soft tissue that in aggregate measure 1.2 x 0.5 x 0.1 cm. The specimen is totally submitted in one cassette. [place]/ 11/11/23 TC:2 CPT:87512y6
--- NOTE | 2023-11-09 | COLBX_PTH ---
PATIENT: FABRICIO EDWARDS LOC: [facility] U#:[id number] AGE/SX: 63/F ROOM: [facility] RE11/08/[address]: Dr. Sera Healy MD : [id number] BED: 1 DIS: 11/13/2023 SPEC #: [id number] RECD: 11/09/23 21:52 STATUS: VALERIA BAUTISTA #: [id number] JOÃO: 11/09/23 00:[address]: Matthew Brown DEPT: SURGICAL PATHOLOGY RECD BY: Vinnie Thomas ENTERED: 11/10/23 08:50 SP TYPE: COLON BX OT DR: MD Marce Cuello PA Tissues: A - Duodenum, NOS B - Sigmoid colon biopsy Procedures: Surgery Specimen Level IV HEADER OPERATION: Colposcopy. EGD PRE-OP DIAGNOSIS: GI bleed TISSUE SUBMITTED: A. Duodenum, B. Recto sigmoid colon MICROSCOPIC DIAGNOSIS A. Duodenum, biopsy: Fragments of duodenal mucosa with focal superficial erosion and moderate acute and chronic inflammation. B. Rectal sigmoid colon, biopsy: Focal chronic active colitis. See microscopic description and comment. Emigdio 11/11/2023 COMMENT Correlation with clinical, endoscopic findings and appropriate follow up are necessary. MICROSCOPIC DESCRIPTION Slides are reviewed. B. This specimen shows fragments of colonic mucosa with focal ulceration, acute and chronic inflammatory cell infiltrate in the lambda propria, cryptitis, crypt abscesses and minimal glandular distortion. Granulomas are not seen. No evidence of dysplasia. GROSS DESCRIPTION A. Received in fixative is one container labeled with the patient's name and designated Duodenum biopsy. The specimen consists of multiple irregular fragments of light gonzalez soft tissue that in aggregate measure 1.0 x 0.3 x 0.1 cm. The specimen is totally submitted in one cassette. B. Received in fixative is one container labeled with the patient's name and designated Recto sigmoid colon. The specimen consists of multiple irregular fragments of light gonzalez soft tissue that in aggregate measure 1.2 x 0.5 x 0.1 cm. The specimen is totally submitted in one cassette. CHARLOTTE/ 11/09/23 TC:2 CPT:10748m7
--- NOTE | 2023-11-09 05:55 | EKG12_ITS ---
Test Reason : AM EKG Blood Pressure : / mmHG Vent. Rate : 114 BPM Atrial Rate : 114 BPM P-R Int : 154 ms QRS Dur : 082 ms QT Int : 328 ms P-R-T Axes : 041 006 051 degrees QTc Int : 452 ms Sinus tachycardia Otherwise normal ECG When compared with ECG of 24-JUL-2023 15:51, No significant change was found Confirmed by Hernandez Nieves ([id number]), production editor MARIFER MORALES ([id number]) on 11/10/2023 8:19:46 AM Referred By: CHRISSY Confirmed By:Hernandez Nieves
[2023-11-09 06:07] LABS: Absolute Lymphocyte Count 0.31 X10^3/uL (0.83-4.51); Basophil# 0.04 X10^3/uL; Basophil% 0.8 % (0-1); Eosinophil# 0.32 X10^3/uL; Eosinophils% 6.1 % (0-5); Hematocrit 31.6 % (37-47); Hemoglobin 9.5 g/dL (12.0-15.0); Lymphocyte # 0.31 X10^3/ul (0.83-4.51); Lymphocyte % 5.9 % (19-41); Mean Corp Hgb Conc 30.1 g/dL (32-36); Mean Corpuscular Hgb 26.6 pg (27.0-32.0); Mean Corpuscular Volume 88.5 fL (81-99); Mean Platelet Vol. 9.1 fl (6.2-12.0); Monocyte# 0.61 X10^3/uL; Monocyte% 11.6 % (0-10); NRBC Flagged by Analyzer 0 % (0-5); Neutrophil # 3.98 X10^3/uL (2.7-7.7); Neutrophil % 75.4 % (47-70); POSITIVE DIFFERENTIAL YES; Platelet Count 316 K/mm3 (150-450); RBC Distribution Width SD 48.7 fl (35.1-43.9); Red Blood Count 3.57 M/mm3 (4.2-5.4); White Blood Count 5.3 K/mm3 (4.4-11.0)
[2023-11-09 06:26] LABS: International Normalized Ratio 1.1; Prothrombin Time (Protime)PT. 14.4 SECONDS (11.7-14.9)
[2023-11-09 06:27] LABS: Partial Thromboplast Time 38.1 Seconds (24.1-36.2)
[2023-11-09 06:49] LABS: ALB/GLOB Ratio 0.6 RATIO (0.9-2.4); AST(SGOT) 6 U/L (15-37); Alanine Aminotransfer ALT/SGPT 12 U/L (13-56); Albumin, Serum 2.3 g/dL (3.2-5.0); Alkaline Phosphatase 69 U/L (45-117); Anion Gap 9 (5-15); BUN 9 mg/dL (7-18); BUN/Creat Ratio 24.9 RATIO (10-20); Calcium,Total 8.9 mg/dL (8.5-10.1); Chloride 103 mmol/L (98-107); Creatinine, Serum 0.36 mg/dL (0.55-1.02); EST Glomerular Filtration Rate 192 mL/min (>60); Est Glom Filt Rate - Afr Amer 232 mL/min (>60); Estimated Creatinine Clearance 73.53 ml/min; Globulin 4.1 g/dL (2.2-4.2); Glucose 173 mg/dL (74-106); Potassium 4.1 mmol/L (3.5-5.1); Protein, Total 6.4 g/dL (6.4-8.2); Sodium Level 138 mmol/L (136-145)
[2023-11-09 07:06] LABS: Bedside Glucose 145 mg/dL (74-106)
[2023-11-09] MEDS: Ipratropium/Albuterol Sulfate 3 ML AMPUL.NEB INHALATION ×2 (07:13→13:08)
[2023-11-09] MEDS: Budesonide Respules 0.5 MG/2 ML AMPUL.NEB. INHALATION (07:14)
[2023-11-09] MEDS: Pantoprazole Sodium 40 MG in 0.9% Normal Saline (100mL MB+) 100 ML 330 MG IV ×2 (09:19→22:46)
[2023-11-09] MEDS: Acetaminophen 325 MG Tablet 650 MG PO ×2 (09:20→22:49)
--- NOTE | 2023-11-09 10:01 | CT_ITS ---
STUDY: CT CHEST WITH CONTRAST REASON FOR EXAM: Female, 63 years old. increased productive cough, known lung cancer RADIATION DOSAGE (If Supplied By Facility): CTDIvol = ( 12.91 ) mGy, DLP = ( 583.79 ) mGycm TECHNIQUE: Transaxial imaging was performed following intravenous administration of IV 100mL Isovue-300. Multiplanar coronal and sagittal images were reformatted. Individualized dose optimization techniques were used for this CT. COMPARISON: Comparison is made with prior study dated September 08, 2023. FINDINGS: CHEST A right-sided portacatheter is seen with the tip in the superior vena cava. Stable 9.1 mm hypodensity in the midpole of the right lobe of the thyroid. There is evidence of volume loss in the right hemithorax with shift of the heart and mediastinal structures to the right. This has progressed as compared to prior study. There is evidence of extensive airspace disease in the right upper lobe. There is also evidence of airspace disease and possible post radiation pneumonitis/fibrosis in the superior aspect of the right lower lobe. Progressive increase in size of the spiculated nodule in the right upper lobe as seen on axial image #42. It presently measures 1.7 cm x 1.4 cm. It is difficult to see the previously seen nodule in the peripheral anterior aspect of the right upper lobe due to the consolidation. There is a new 1.7 cm x 1.5 cm in the superior aspect of the left lower lung abutting the left major fissure. Focal area of groundglass appearance in the posterior aspect of the left upper lobe. Atelectasis and/or scarring in the left lower lobe. There are calcifications of the coronary arteries. Normal mediastinum. Normal hilar regions. Normal unenhanced pulmonary arteries. Normal aorta arch and descending thoracic aorta. There are degenerative changes of the thoracic spine. Loss of height of the mid dorsal vertebrae. Questionable small gallstones. CT/Chest WITH Contrast IMPRESSION: Progressive mild loss in the right hemithorax with progressive size of the right upper lobe pulmonary nodule. Progressive postobstructive pneumonitis or post radiation fibrosis in the right upper and right lower lobes. New nodular density in the left upper lobe. Electronically Signed: Aren Maynard MD at 15:18 EDT ,
--- NOTE | 2023-11-09 10:01 | CASEMGMT ---
Addendum entered by Jeanie Turner 11/09/23 12:13: [facility] rn case manager, Aren Paramore direct line: [phone]. EMANUEL advised Aren of admit dx and potential discharge. Aren confirmed that pt receives the following services: [employer], [employer], [employer] [place] aide M-T-F, and pt has a med dispenser that is filled weekly by daughter or son. IVANNA Ware Addendum entered by Jeanie Turner 11/09/23 10:37: Aren: [phone] contact for [facility] IVANNA Ware Original Note: Social Work- EMANUEL met with pt to complete SDOH. Pt was pleasant and cooperative in discussion. Pt reports that she has [employer] services. Aren is her rn case manager. Pt reports that she receives aide services 3x/week, as well as has depends and pads covered. Pt also receives a box of food every Thursday with a week of single serve meals. Pt reports that she drives short distances. Pt reports registered travel nurse's is the main source of transportation for her medical appointments. Pt son also is available for transports outside of work hours. Pt has utilized [employer] in the past. Pt is not always able to give 2 weeks notice and would like any other sources of transportation for back-up. Pt did identify that it would be beneficial to have resources to assist with utilities. Pt reports that she had numerous medical co-pays awhile ago and fell behind on utilities and is struggling to get caught up. Pt has had shut-off notices. Pt does utilize PIP. EMANUEL provided resources for transportation through Office of the [employer], [place] [employer], [employer], [place] [facility] [employer], [facility], and [employer]. EMANUEL called [facility] to advise that pt is hospitalized. IAVNNA Ware
[2023-11-09 10:29] LABS: Hemoglobin A1c 7.8 % (3.8-5.6)
--- NOTE | 2023-11-09 10:53 | PN.HOSP_ITS ---
Reason for Visit Reason for Visit: Diagnoses Anemia, unspecified (11/08/23) Type 2 diabetes mellitus with hyperglycemia (11/08/23) Acute embolism and thrombosis of other specified deep vein of left lower extremity (11/08/23) Gastrointestinal hemorrhage, unspecified (11/08/23) MCC (current) use of insulin (11/08/23) Subjective Subjective Patient reports she has had some increased productive cough today, no abdominal pain, unsure if she still having blood in stool as she is just having copious bowel movements Objective Data Objective Data Vital Signs: Vital Signs Temp Pulse Resp BP Pulse Ox O2 Del Method O2 Flow Rate 97.9 F 96 20 H 109/73 96 Nasal Cannula 2 11/09/23 06:36 11/09/23 07:13 11/09/23 07:13 11/09/23 06:36 11/09/23 07:13 11/09/23 07:13 11/09/23 07:13 Oxygen Flow Rate (L/min) 2 Oxygen Delivery Method Nasal Cannula Weight: 80.6 kg Body Mass Index (BMI) 29.5 Intake & Output: Intake and Output for Last 24 Hours 11/07/23 11/08/23 11/09/23 23:59 23:59 23:59 Intake Total 1420 / 1420 1110 / 1110 Balance 1420 / 1420 1110 / 1110 Lab / Micro Data 11/09/23 04:42 11/09/23 04:42 Labs: Laboratory Results - last 24 hr 11/08/23 13:05: WBC 6.4, RBC 3.90 L, Hgb 10.2 L, Hct 34.5 L, MCV 88.5, MCH 26.2 L, MCHC 29.6 L, RDW Std Deviation 47.9 H, RDW Coeff of Gina 15.0 H, Plt Count 358, MPV 8.8, Immature Gran % (Auto) 0.300, Neut % (Auto) 79.9 H, Lymph % (Auto) 5.5 L, Caroline % (Auto) 9.1, Eos % (Auto) 4.4, Baso % (Auto) 0.8, Absolute Neuts (auto) 5.1, Absolute Lymphs (auto) 0.35 L, Nucleated RBC % 0, Sodium 134 L, Potassium 3.9, Chloride 98, Carbon Dioxide 25.0, Anion Gap 11, BUN 18, Creatinine 0.65, Est GFR (MDRD) Af Amer 118, Est GFR (MDRD) Non-Af 97, B UN/Creatinine Ratio 27.7 H, Glucose 141 H, Calcium 9.4, Magnesium 2.0, Total Bilirubin 0.40, AST 8 L, ALT 11 L, Alkaline Phosphatase 82, Total Protein 7.1, A lbumin 2.6 L, Globulin 4.5 H, Albumin/Globulin Ratio 0.6 L, Lipase 538 H 11/08/23 17:37: POC Glucose 155 H 11/08/23 18:32: Hgb 10.2 L, Hct 34.5 L 11/08/23 18:40: Blood Type A POSITIVE, Antibody Screen NEGATIVE, Crossmatch See Detail 11/08/23 20:45: POC Glucose 190 H 11/08/23 22:42: Hgb 10.1 L, Hct 33.4 L 11/09/23 04:42: WBC 5.3, RBC 3.57 L, Hgb 9.5 L, Hct 31.6 L, MCV 88.5, MCH 26.6 L , MCHC 30.1 L, RDW Std Deviation 48.7 H, RDW Coeff of Gina 15.0 H, Plt Count 316, MPV 9.1, Immature Gran % (Auto) 0.200, Neut % (Auto) 75.4 H, Lymph % (Auto) 5.9 L, Caroline % (Auto) 11.6 H, Eos % (Auto) 6.1 H, Baso % (Auto) 0.8, Absolute Neuts (auto) 4.0, Absolute Lymphs (auto) 0.31 L, Nucleated RBC % 0, PT 14.4, INR 1.1, APTT 38.1 H, Sodium 138, Potassium 4.1, Chloride 103, Carbon Dioxide 26.0, Anion Gap 9, BUN 9, Creatinine 0.36 L, Estim Creat Clear Calc 73.53, Est GFR (MDRD) Af Amer 232, Est GFR (MDRD) Non-Af 192, BUN/Creatinine Ratio 24.9 H, Glucose 173 H, Hemoglobin A1c 7.8 H, Calcium 8.9, Total Bilirubin 0.40, AST 6 L, ALT 12 L, Alkaline Phosphatase 69, Total Protein 6.4, Albumin 2.3 L, Globulin 4.1, A lbumin/Globulin Ratio 0.6 L 11/09/23 06:34: POC Glucose 145 H Micro: Microbiology 11/08/23 18:55 Stool Enteric Bacteriology - Final 11/08/23 18:55 Stool Clostridioides difficile (PCR) - Final Radiography Diagnostic Testing: Radiology Impression Abdomen/Pelvis CT 11/08/23 12:56 IMPRESSION: Mild peripancreatic stranding. Correlation with laboratory lipase value is recommended to evaluate for acute pancreatitis. No bowel obstruction or inflammation. Normal appendix. Colonic diverticula without evidence of acute diverticulitis. Normal kidneys. No hydronephrosis. Small right pleural effusion and chronic consolidation at the right lung base which is grossly unchanged when compared with the chest CT dated 07/24/2023. Electronically Signed: Kendell Vaughn MD at 14:13 EDT , Physical Exam Narrative General: Alert, oriented, no apparent distress HEENT: Atraumatic, normocephalic Eyes: Anicteric, normal conjunctiva, extraocular movements grossly intact Neck: Supple Respiratory: Somewhat diminished bilaterally and coarse right side greater than left Cardiovascular: Regular rate GI: Soft, nontender, nondistended Extremities: No edema Musculoskeletal: Moving all extremities Neuro: No overt focal neurological deficits Skin: No rashes appreciated Psych: Cooperative Assessment & Plan Assessment/Plan (1) Anemia: (2) DVT (deep venous thrombosis): QUALIFIERS: DVT location: lower extremity Affected thrombotic vein of extremity: other lower extremity vein Chronicity: acute Laterality: l eft Qualified Code(s): I82.492 - Acute embolism and thrombosis of other specified deep vein of left lower extremity (3) Diabetes mellitus: QUALIFIERS: Diabetes mellitus type: type 2 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 at midnight -Check mag -Start gentle IV fluids -Trend H&H -Type and hold 1 unit -Will check stool studies -CT abdomen pelvis with mild peripancreatic stranding and elevated lipase however patient has no pain or nausea and vomiting -11/08: Stool studies negative, awaiting endoscopy today # Chronic hypoxic respiratory failure on 2 L home O2/lung cancer -Continue home inhalers -Incentive spirometry -Maintain O2 -Patient follows with Dr. Ramirez on outpatient basis and supposed to have CT chest and abdomen with contrast tomorrow for further decision on treatment -11/08: Did have some increased productive cough, CT ordered and pending. No white count or fever so do not think we need to urgently start antibiotics, will monitor #Type 2 diabetes mellitus -Glucose checks and sliding scale insulin -Awaiting home dose verification -Hold metformin -11/08: Adjusting insulin, patient n.p.o. at this time so likely need to further adjust tomorrow # DVT -Holding Xarelto given concern for GI bleed #DVT ppx: SCDs Sera Healy MD Time spent in the patient's overall evaluation,decision-making process, review of diagnostic data, adjustment of management, discussion with other providers, nursing nursing and ancillary staff involved in patient's care documentation, 38 minutes Charges/Coding Visit Charges Inpatient E&M: 49590 Subs Hosp L2
[2023-11-09 10:59] LABS: Hematocrit 32.1 % (37-47); Hemoglobin 9.6 g/dL (12.0-15.0)
[2023-11-09] MEDS: Citalopram 40 MG TABLET PO (11:46)
[2023-11-09] MEDS: Metoprolol Tartrate 25 MG Tablet PO ×2 (11:46→22:50)
[2023-11-09 11:52] LABS: Bedside Glucose 163 mg/dL (74-106)
--- NOTE | 2023-11-09 12:21 | NURSING ---
Patient reported this AM upon rounding that SCD's were applied but not hooked into the machine after 2200 11/08/23, I reapplied patient this morning at 0845
--- NOTE | 2023-11-09 14:52 | CASEMGMT ---
JOON ASHFORD Assessment Face to Face with patient for initial transition planning/care coordination assessment. JOON ASHFORD introduced self and role at [facility], pt voices understanding. Pt is A&Ox4 and is resting comfortably in the chair and is calm. Care providers, pharmacy, and demographics verified. Admitting dx: Concern for GI Bleed PCP: Marce Amador Specialists: King JACQUES (Endo), James (Onc), Gissell (Pulm) Preferred Pharmacy: [facility] Insurance: Nini WHEAT Dual Adv, NHUNG Prescription Benefit: Yes LNOK: Pj Person (Son), Chastity Jasso (Sister) Living Arrangements: Pt lives alone in a two story home with 4 steps to enter ADLs/IADLs: Ind with ADLs. Requires help for IADLs. Pt states that she has an aide that comes on M/T/F through [employer]. Pt neighbors and son (who lives close) can assist the pt when needed Transportation: Self, children, grandchildren DME: [employer] and supplies. Home O2 through [employer]. Current order states 2lpm at rest & hs, 3lpm w/ exer via NC. Pt has a portable tank in the room currently. Pt states that she has a concentrator and a pulse ox. Pt also states that she has a cane, BSC, W/C, BP Cuff, and nebulizer. HHC/SNF: Denies history or needs Pt?s goal: Home Plan: 6-Click is 24. No Therapy ordered. Pt denies the need for HHC or OP Tx at this time. Pt states that she feels safe returning home once medically ready with the continuation of the help from the HH aide. Pt also reports that her son lives close and he and her neighbors can help the pt as needed. Pt denies any further questions or concerns at this time. CM to follow. John Givens RN, CM
--- NOTE | 2023-11-09 15:57 | CHAPLAIN ---
Type of Pastoral Visit _x__ Initial Visit ___ Follow-up Visit ___ On-call Visit ___ General Patient Visit ___ Spiritual Assessment ___ Family Conference ___ Bereavement ___ Rapid Response ___ Code Blue ___ Other (describe below) Pastoral Care Referral From _x__ Patient ___ Family ___ Nurse ___ Physician ___ Bean Weigher ___ Shoe Cutter ___ Other (describe below) Sacrament/Intervention _x__ Active listening ___ Anointing ___ Jehovah'S Witness ___ Bereavement ___ Communion ___ Aster exploration ___ _x__ Life review ___ Prayer ___ Reconciliation ___ Sacrament of Sick _x__ Supportive presence ___ Wedding ___ Other (describe below) Pastoral Comments patient is welcoming and opens up easily about her current situation and of her ongoing treatments for cancer and various other ailments; pt presents with a patient and positive perspective on healing, emotional care, and outlook; pt says she understands that others may be ahead of her on procedure schedule; 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
[2023-11-09 17:07] LABS: Bedside Glucose 140 mg/dL (74-106)
--- NOTE | 2023-11-09 19:35 | CON.PCM.GI_ITS ---
HPI Consult Data Date of Consult: 11/09/23 HPI Narrative Reason for Consultation: GI bleed HPI Narrative: 63-year-old female with past medical history of HTN, HLD, DM2, lung cancer, DVT on Xarelto presents with blood in her stool. Over the last 4 days she has had soft formed stool approximately 15 times a day. She will get an occasional stomach cramps indicating she needs to have a bowel movement but has no overt pain. This morning with 2 of the soft bowel movements there was red blood mixed throughout the stool prompting her to come in. She denies fever or chills or vomiting. She states occasionally when she eats she gets nauseated but this is a chronic issue. 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 She completed chemo/radiation and most recently immunotherapy but states she worsened and discontinued this in May 2023. She was put on prednisone in May 2023 and it was tapered off on 10/05/2023. She also developed left leg DVTs and was on Eliquis. However recently that was changed to Xarelto. I was asked to see her due to persistent lower GI bleeding. [facility] Medical History DVT (deep venous thrombosis) Need for pneumocystis prophylaxis Pneumonitis Bilateral lower extremity edema Chronic hypoxic respiratory failure Anxiety and depression Acute and chronic respiratory failure with hypoxia Iron deficiency anemia Radiation pneumonitis Contact with or exposure to other viral diseases SOB (shortness of breath) Tinnitus Cancer History of steroid therapy Rheumatoid arthritis Anemia High cholesterol Injury of head and neck Gastric reflux Former smoker Hypertension Recurrent squamous cell carcinoma of right lung Wears glasses Wears dentures Seasonal allergies Gout Diabetes mellitus COVID-19 COPD (chronic obstructive pulmonary disease) Home Medications ?Medication ?Instructions ?Recorded ?Last Taken ?Type albuterol sulfate 90 mcg/actuation 2 puff inhalation Q4H PRN SOB 07/31/22 Unknown History aerosol inhaler ergocalciferol (vitamin D2) 1,250 1,250 mcg PO .twice week supplement 07/31/22 07/16/23 History mcg (50,000 unit) capsule fluticasone propionate 50 1 spray intranasal DAILY PRN 07/31/22 Unknown History mcg/actuation nasal ALLERGIES spray,suspension (Allergy Relief (fluticasone)) ipratropium 0.5 mg-albuterol 3 mg 3 ml inhalation Q4H PRN SOB 07/31/22 Unknown History (2.5 mg base)/3 mL nebulization soln lovastatin 20 mg tablet 20 mg PO DAILY see 07/31/22 Unknown History metformin 500 mg tablet 500 mg PO TIDWMEAL dm 07/31/22 Unknown History montelukast 10 mg tablet 10 mg PO DAILY breathing 07/31/22 Unknown History trazodone 50 mg tablet 50 mg PO QHS sleep 07/31/22 Unknown History cetirizine 10 mg tablet 10 mg PO DAILY see 08/01/22 Unknown History citalopram 40 mg tablet 40 mg PO DAILY see 02/16/23 Unknown History albuterol sulfate 2.5 mg/3 mL 2.5 mg continuous nebulization Q4H 06/07/23 Unknown History (0.083 %) solution for nebulization PRN shortness of breath or wheezing fluticasone fur. 200 mcg-umeclid 1 inh inhalation Q24H breathing 07/24/23 Unknown History 62.5 mcg-vilant 25 mcg inhalat.powder (Trelegy Ellipta) gabapentin 100 mg capsule 100 mg PO QHS pain 07/24/23 Unknown History levalbuterol tartrate 45 1 puff inhalation Q4H PRN 07/24/23 Unknown History mcg/actuation aerosol inhaler shortness of breath or wheezing multivitamin (Daily Multi-Vitamin 1 tab PO DAILY supplement 07/24/23 Unknown History tablet) pantoprazole 20 mg tablet,delayed 20 mg PO DAILY gi bleed #30 tabs 07/30/23 Unknown Rx release (Protonix) sulfamethoxazole 800 1 tab PO .COMPLEX #30 tabs 07/30/23 Unknown Rx mg-trimethoprim 160 mg tablet (Bactrim DS) sitagliptin phosphate 100 mg 100 mg PO DAILY diabetes 08/13/23 Unknown History tablet (Januvia) empagliflozin 25 mg tablet 25 mg PO QDAY diabetes 09/10/23 Unknown History (Jardiance) mecobalamin (vitamin B12) 1,000 1,000 mcg PO .twice weekly anemia 09/10/23 11/07/23 History mcg chewable tablet prednisone 10 mg tablet 10 mg PO DAILY #14 tabs 09/10/23 Unknown Rx insulin glargine 100 unit/mL 30 unit subcut DAILY blood sugar 09/16/23 11/08/23 History subcutaneous solution (Lantus U-100 Insulin) insulin lispro 100 unit/mL 10 - 15 unit subcut TID diabetes 09/16/23 Unknown History subcutaneous pen rivaroxaban 20 mg tablet (Xarelto) 20 mg PO DAILY blood thinner #30 10/08/23 Unknown Rx tabs aluminum-mag hydroxide-simethicone 15 ml PO 4X/DAY PRN PRN pain 11/08/23 Unknown History 400 mg-400 mg-40 mg/5 mL oral susp (Antacid Anti-Gas) ciclopirox 8 % topical solution topical DAILY nail fungus 11/08/23 11/07/23 History metoprolol tartrate 25 mg tablet 25 mg PO BID Tachycardia 11/09/23 11/08/23 08:00 History 25 mg Allergy/AdvReac Type Severity Reaction Status Date / Time No Known Allergies Allergy Verified 11/08/23 12:20 Family History Mother Diabetes Heart disease Cancer brain tumor Father Cancer blood cancer per pt Sister Heart disease Diabetes Cancer lung Grandfather Cancer lung Uncle Diabetes Son Cancer testicular Surgical History Port-A-Cath in place History of lobectomy of lung History of bronchoscopy H/O arthroscopy of left knee History of tonsillectomy H/O tooth extraction H/O foot surgery H/O: hysterectomy History of carpal tunnel surgery Social History household members: none Smoking Status: Former smoker quit date: 11/12/19 pack-years: 53 alcohol intake: never substance use type: does not use ROS ROS Narrative General: Denies fever, sometimes is cold HENT: Denies headache, denies stuffy nose, denies sore throat EYES: Denies changes in vision Resp: Chronic shortness of breath, slowly improving Cardiac: Denies chest pain GI: Denies abdominal pain, multiple episodes of bowel movement as well as blood in stool, denies nausea/vomiting : Denies changes in urination Extremity: Denies swelling MSK: Denies weakness Neuro: Chronic numbness and tingling in fingers and toes Heme: Denies any bleeding or bruising Skin: Denies rashes Psychiatric: No complaints voiced Physical Exam Narrative General: Alert, oriented, no apparent distress HEENT: Atraumatic, normocephalic Eyes: Anicteric, normal conjunctiva, extraocular movements grossly intact Neck: Supple Respiratory: Somewhat diminished bilaterally and coarse right side greater than left Cardiovascular: Regular rate GI: Soft, nontender, nondistended Extremities: No edema Musculoskeletal: Moving all extremities Neuro: No overt focal neurological deficits Skin: No rashes appreciated Psych: Cooperative Lab / Micro Data 11/09/23 10:53 11/09/23 04:42 Labs: Laboratory Results - last 24 hr 11/08/23 13:05: Magnesium 2.0 11/08/23 18:40: Blood Type A POSITIVE, Antibody Screen NEGATIVE, Crossmatch See Detail 11/08/23 20:45: POC Glucose 190 H 11/08/23 22:42: Hgb 10.1 L, Hct 33.4 L 11/09/23 04:42: WBC 5.3, RBC 3.57 L, Hgb 9.5 L, Hct 31.6 L, MCV 88.5, MCH 26.6 L , MCHC 30.1 L, RDW Std Deviation 48.7 H, RDW Coeff of Gina 15.0 H, Plt Count 316, MPV 9.1, Immature Gran % (Auto) 0.200, Neut % (Auto) 75.4 H, Lymph % (Auto) 5.9 L, Towner % (Auto) 11.6 H, Eos % (Auto) 6.1 H, Baso % (Auto) 0.8, Absolute Neuts (auto) 4.0, Absolute Lymphs (auto) 0.31 L, Nucleated RBC % 0, PT 14.4, INR 1.1, APTT 38.1 H, Sodium 138, Potassium 4.1, Chloride 103, Carbon Dioxide 26.0, Anion Gap 9, BUN 9, Creatinine 0.36 L, Estim Creat Clear Calc 73.53, Est GFR (MDRD) Af Amer 232, Est GFR (MDRD) Non-Af 192, BUN/Creatinine Ratio 24.9 H, Glucose 173 H, Hemoglobin A1c 7.8 H, Calcium 8.9, Total Bilirubin 0.40, AST 6 L, ALT 12 L, Alkaline Phosphatase 69, Total Protein 6.4, Albumin 2.3 L, Globulin 4.1, A lbumin/Globulin Ratio 0.6 L 11/09/23 06:34: POC Glucose 145 H 11/09/23 10:53: Hgb 9.6 L, Hct 32.1 L 11/09/23 11:34: POC Glucose 163 H 11/09/23 16:43: POC Glucose 140 H Micro: Microbiology 11/08/23 18:55 Stool Enteric Bacteriology - Final 11/08/23 18:55 Stool Clostridioides difficile (PCR) - Final Imaging Radiology Impression Chest CT 11/09/23 10:01 IMPRESSION: Progressive mild loss in the right hemithorax with progressive size of the right upper lobe pulmonary nodule. Progressive postobstructive pneumonitis or post radiation fibrosis in the right upper and right lower lobes. New nodular density in the left upper lobe. Electronically Signed: Aren Maynard MD at 15:18 EDT , Assessment & Plan Assessment/Plan (1) Anemia: (2) DVT (deep venous thrombosis): QUALIFIERS: DVT location: lower extremity Affected thrombotic vein of extremity: other lower extremity vein Chronicity: acute Laterality: l eft Qualified Code(s): I82.492 - Acute embolism and thrombosis of other specified deep vein of left lower extremity (3) Diabetes mellitus: QUALIFIERS: Diabetes mellitus type: type 2 Diabetes mellitus terminal press operator insulin use: with terminal press operator use Diabetes mellitus complication status: w ith hyperglycemia Qualified Code(s): E11.65 - Type 2 diabetes mellitus with hyperglycemia; Z79.4 - nursing home (current) use of insulin (4) GI bleed: PLAN: Plan 63-year-old with recurrent squamous cell carcinoma of the lung and recent history of DVTs on anticoagulation and prednisone therapy presents with diarrhea and concern for GI bleed. She did have a CT abdomen pelvis with mild peripancreatic stranding and elevated lipase. This could indicate that she has a duodenal ulcer or inflammation in the second portion of the duodenum that runs adjacent to the pancreas that could cause the appearance of pancreatitis. Her hemoglobin previously 11.6 10/07 and is 10.2 today. Recommend that she prep for EGD and colonoscopy. She was explained alternatives, risk, benefits including not withstanding bleeding, infection, sepsis, perforation, need for emergent surgery and . She have an ASA of 3. Continue to hold Xarelto. Charges/Coding Visit Charges Inpatient E&M: 74301 Init Hosp L3
[2023-11-09] MEDS: Lactated Ringers 1,000 ML 15 ML IV (19:54)
--- NOTE | 2023-11-09 20:00 | PRE.ANES_ITS ---
ASA Classification* ASA Classification ASA Classification: 4 and E Assessment & Plan Anesthesia* Anesthesia Assessment Anesthesia Assessment: Discussed sedation and/or anesthesia options, risks, benefits, and alternatives with patient/parents/legal guardian/POA. Questions invited. The patient/parents/legal guardian/POA seems to understand and agrees to proceed with anesthesia plan. Reviewed the physical assessment, medical history, allergy history and patient home medications list prior to surgery/procedure/anesthetic and documented any changes. Performed airway and anesthesia risk assessments. Anesthesia Type Anesthesia Type: MAC Pre-Assessment Diagnosis/Proposed Procedure Planned Operative Procedure(s): egd/colonoscopy Anesthesia History Anesthesia History - foundry worker general: Anesthesia History - foundry worker general Hx Hospitalization No 08/22/22 13:37 Any Problems With Anesthesia No 11/09/23 01:41 Cholinesterase deficiency No 11/09/23 01:41 You/Your Family Experience No 11/09/23 01:41 fever (hyperthermia) with Relationship Recent Exposure to Contagious No 11/09/23 01:41 Disease Does patient have nerve No 11/09/23 01:41 stimulator Patient instructed to have device shut off --Does patient have Pacemaker No 11/09/23 19:47 or ICD? When Was Last Pacemaker Check QUESTION #4 FULL TEXT: You/Your Family Experience fever (hyperthermia) with Anesthesia Last Oral Intake Last Oral intake: Last Oral Intake NPO since 00:01 11/09/23 19:47 Meds taken in AM with sips of Yes 11/09/23 19:47 water? Meds patient instructed to SEE eMAR 11/09/23 19:47 take am of surgery PONV PONV - foundry worker general: PONV - foundry worker general Female HX of Motion Sickness HX of N/V After Surgery Non-Smoker Duration of Surgery greater than 60 minutes Number of Risk Factors PONV Score Height & Weight Height & Weight: Anesthesia: Height & Weight Height 5 ft 5 in 11/09/23 19:47 Weight: 80.6 kg 11/09/23 19:47 Body Mass Index (BMI) 29.5 11/09/23 19:47 Respiratory Assessment Respiratory Assessment - foundry worker general: Respiratory Tract Infection Hx - foundry worker general Hx Respiratory Tract Infection No 11/09/23 01:41 STOP Sleep Apnea STOP Sleep Apnea - foundry worker general: STOP Sleep Apnea - foundry worker general Hx Hypertension No 11/08/23 17:23 Hx Sleep Apnea Yes 11/08/23 17:23 CPAP No 11/08/23 17:23 BIPAP No 11/08/23 17:23 Do you snore loudly (louder than talking or can be heard Do you often feel tired/ fatigued/ sleepy during daytime? Has anyone observed you stop breathing during sleep? STOP Results Positive 11/08/23 17:23 QUESTION #5 FULL TEXT : Do you snore loudly (louder than talking or can be heard through closed doors)? Tobacco Use History Tobacco Use History - foundry worker general: Tobacco Use History - foundry worker general Tobacco Use Smoking Status Former smoker 11/08/23 17:23 Hx Tobacco Use No 11/08/23 17:23 Years Smoking Packs Smoked per Day Smoking Cessation Date was Yes - quit smoking within 15 11/08/23 17:23 within the last 15 years years Hx Smoking Cessation Date 10/22/20 11/08/23 17:23 Hx Smoking Cessation No 11/08/23 17:23 Counseling Hematologic Medial History Hematologic Hx - foundry worker general: Hematologic Medical Hx - manager documentation Hx of Blood Transfusion Yes 11/08/23 17:23 Hx of Transfusion in last 3 No 11/08/23 17:23 Months Date of Last Transfusion (if within last 3 months) Ever experience any problems No 11/08/23 17:23 with transfusion(s)? Specify any problems Hx of Preganancy in last 3 No 11/08/23 17:23 Months Nurse Filling Out Transfusion JROTH 11/08/23 17:23 & Questions: Date: 11/08/23 11/08/23 17:23 Time: 18:11 11/08/23 17:23 Patient unable to answer at this time (ie. confused, unrespo /Reproduction History /Reproductive History - foundry worker general: /Reproductive Hx- foundry worker general Hx Now Gestational Age (in weeks): EDC: Hx Hx Para Hx Section SAB No 08/22/22 13:37 Active Medications Active Medications: Current Medications Generic Name Dose Route Start Last Admin Trade Name Freq PRN Reason Stop Dose Admin Acetaminophen 650 mg 11/08/23 17:54 11/09/23 09:20 Acetaminophen 325 Mg Tablet PO 650 mg Q6H PRN PRN Administration Pain 1-10 Or Fever >100.7 Albuterol Sulfate 2.5 mg 11/08/23 17:54 11/08/23 19:48 Albuterol 2.5 Mg/3 Ml Vial.Neb. INHALATION 2.5 mg Q2H PRN PRN Administration SOB &/OR WHEEZING Albuterol/Ipratropium 3 ml 11/08/23 18:30 11/09/23 13:08 Ipratropium/Albuterol Sulfate 3 Ml Ampul.Neb INHALATION 3 ml Q6HWA.RT CHELY Administration Atorvastatin Calcium 5 mg 11/08/23 22:00 11/08/23 20:31 Atorvastatin Calcium 10 Mg Tablet PO 5 mg QHS CHELY Administration Budesonide 0.5 mg 11/08/23 18:15 11/09/23 07:14 Budesonide Respules 0.5 Mg/2 Ml Ampul.Neb. INHALATION 0.5 mg Q12H.RT CHELY Administration Citalopram Hydrobromide 40 mg 11/09/23 10:00 11/09/23 11:46 Citalopram 40 Mg Tablet PO 40 mg DAILY CHELY Administration Fluticasone Propionate 1 spray 11/08/23 17:54 Fluticasone 0.05% 1 [place] Nasal.Sry NASAL DAILY PRN ALLERGIES Gabapentin 100 mg 11/08/23 22:00 11/08/23 20:31 Gabapentin 100 Mg Capsule PO 100 mg QHS CHELY Administration Glucagon 1 mg 11/08/23 17:54 Glucagon 1 Mg/Ml Syringe IM X1 PRN HYPOGLYCEMIA Protocol Heparin Sodium (Beef Lung) 50 units 11/08/23 18:09 Heparin Pf Lock 10 Units/Ml 50 Units/5 Ml Syringe IV UD PRN Port-a-Cath (VAD)Heparin Flush Dextrose 250 mls @ 999 mls/hr 11/08/23 17:54 Dextrose 10%-Water IV .Q16M PRN HYPOGLYCEMIA Protocol Pantoprazole Sodium 40 mg/ 110 mls @ 330 mls/hr 11/08/23 22:00 11/09/23 09:43 Sodium Chloride IV Infused Q12 CHELY Infusion Sodium Chloride 250 mls @ 15 mls/hr 11/08/23 18:09 IV .[id number] PRN Additional IVPB Infusion Sodium Chloride 250 mls @ 15 mls/hr 11/08/23 18:09 IV .[id number] PRN Saline Flush Lactated Ringer's 1,000 mls @ 15 mls/hr 11/09/23 20:00 11/09/23 19:54 IV 15 mls/hr .Q48H CHELY Administration Insulin Glargine 7 unit 11/10/23 10:00 Insulin Glargine-Yfgn 100 Unit/Ml Pen SC DAILY [facility] Insulin Human Lispro 0 unit 11/08/23 22:00 11/09/23 17:11 Insulin Lispro 100 Unit/Ml Insuln.Pen SC Not Given ACHS CHELY Protocol Melatonin 3 mg 11/08/23 17:54 Melatonin 3 Mg Tablet PO QHS PRN PRN INSOMNIA Metoprolol Tartrate 25 mg 11/09/23 10:00 11/09/23 11:46 Metoprolol Tartrate 25 Mg Tablet PO 25 mg BID CHELY Administration Protocol Oxycodone HCl 2.5 mg 11/08/23 17:54 Oxycodone 5 Mg Tablet PO Q4H PRN PRN Pain Score 4-10 Sodium Chloride 10 - 40 ml 11/08/23 18:09 0.9 % Nacl (Sterile) Posiflush 10 Ml IV UD PRN Port access or dressing change Sodium Chloride 10 - 40 ml 11/08/23 18:09 0.9% Saline Lock 10 Ml Syringe IV UD PRN Port-a-Cath (VAD) Flush Trazodone HCl 50 mg 11/08/23 22:00 11/08/23 20:34 Trazodone 50 Mg Tablet PO 50 mg QHS CHELY Administration Anesthesia Focused Assessment* Temperature: 98.8 F Pulse Rate: 113 Blood Pressure: 111/75 Respiratory Rate: 16 Pulse Ox: 97 Oxygen Flow Rate (L/min): 2 Airway Assessment Mouth opens: >3 cm Mallampati Score: II Focused Labs Anesthesia Preop lab: CBC WBC 5.3 K/mm3 (4.4-11.0) 11/09/23 04:42 RBC 3.57 M/mm3 (4.2-5.4) L 11/09/23 04:42 Hgb 9.6 g/dL (12.0-15.0) L 11/09/23 10:53 Hct 32.1 % (37-47) L 11/09/23 10:53 Plt Count 316 K/mm3 (150-450) 11/09/23 04:42 CHEMISTRY Potassium 4.1 mmol/L (3.5-5.1) 11/09/23 04:42 Sodium 138 mmol/L (136-145) 11/09/23 04:42 Magnesium 2.0 mg/dL (1.6-2.6) 11/08/23 13:05 Phosphorus 3.2 mg/dL (2.5-4.9) 07/26/23 06:05 BUN 9 mg/dL (7-18) 11/09/23 04:42 Creatinine 0.36 mg/dL (0.55-1.02) L 11/09/23 04:42 Glucose 173 mg/dL (74-106) H 11/09/23 04:42 POC Glucose 140 mg/dL (74-106) H 11/09/23 16:43 TSH 0.66 uIU/mL (0.358-3.74) 07/09/23 08:32 COAG PT 14.4 SECONDS (11.7-14.9) 11/09/23 04:42 Review of Systems (Anesthesia) ROS Narrative System reviewed and no additional complaints, except as documented. [facility] Medical History DVT (deep venous thrombosis) Need for pneumocystis prophylaxis Pneumonitis Bilateral lower extremity edema Chronic hypoxic respiratory failure Anxiety and depression Acute and chronic respiratory failure with hypoxia Iron deficiency anemia Radiation pneumonitis Contact with or exposure to other viral diseases SOB (shortness of breath) Tinnitus Cancer History of steroid therapy Rheumatoid arthritis Anemia High cholesterol Injury of head and neck Gastric reflux Former smoker Hypertension Recurrent squamous cell carcinoma of right lung Wears glasses Wears dentures Seasonal allergies Gout Diabetes mellitus COVID-19 COPD (chronic obstructive pulmonary disease) Home Medications ?Medication ?Instructions ?Recorded ?Last Taken ?Type albuterol sulfate 90 mcg/actuation 2 puff inhalation Q4H PRN SOB 07/31/22 Unknown History aerosol inhaler ergocalciferol (vitamin D2) 1,250 1,250 mcg PO .twice week supplement 07/31/22 07/16/23 History mcg (50,000 unit) capsule fluticasone propionate 50 1 spray intranasal DAILY PRN 07/31/22 Unknown History mcg/actuation nasal ALLERGIES spray,suspension (Allergy Relief (fluticasone)) ipratropium 0.5 mg-albuterol 3 mg 3 ml inhalation Q4H PRN SOB 07/31/22 Unknown History (2.5 mg base)/3 mL nebulization soln lovastatin 20 mg tablet 20 mg PO DAILY see 07/31/22 Unknown History metformin 500 mg tablet 500 mg PO TIDWMEAL dm 07/31/22 Unknown History montelukast 10 mg tablet 10 mg PO DAILY breathing 07/31/22 Unknown History trazodone 50 mg tablet 50 mg PO QHS sleep 07/31/22 Unknown History cetirizine 10 mg tablet 10 mg PO DAILY see 08/01/22 Unknown History citalopram 40 mg tablet 40 mg PO DAILY see 02/16/23 Unknown History albuterol sulfate 2.5 mg/3 mL 2.5 mg continuous nebulization Q4H 06/07/23 Unknown History (0.083 %) solution for nebulization PRN shortness of breath or wheezing fluticasone fur. 200 mcg-umeclid 1 inh inhalation Q24H breathing 07/24/23 Unknown History 62.5 mcg-vilant 25 mcg inhalat.powder (Trelegy Ellipta) gabapentin 100 mg capsule 100 mg PO QHS pain 07/24/23 Unknown History levalbuterol tartrate 45 1 puff inhalation Q4H PRN 07/24/23 Unknown History mcg/actuation aerosol inhaler shortness of breath or wheezing multivitamin (Daily Multi-Vitamin 1 tab PO DAILY supplement 07/24/23 Unknown History tablet) pantoprazole 20 mg tablet,delayed 20 mg PO DAILY gi bleed #30 tabs 07/30/23 Unknown Rx release (Protonix) sulfamethoxazole 800 1 tab PO .COMPLEX #30 tabs 07/30/23 Unknown Rx mg-trimethoprim 160 mg tablet (Bactrim DS) sitagliptin phosphate 100 mg 100 mg PO DAILY diabetes 08/13/23 Unknown History tablet (Januvia) empagliflozin 25 mg tablet 25 mg PO QDAY diabetes 09/10/23 Unknown History (Jardiance) mecobalamin (vitamin B12) 1,000 1,000 mcg PO .twice weekly anemia 09/10/23 11/07/23 History mcg chewable tablet prednisone 10 mg tablet 10 mg PO DAILY #14 tabs 09/10/23 Unknown Rx insulin glargine 100 unit/mL 30 unit subcut DAILY blood sugar 09/16/23 11/08/23 History subcutaneous solution (Lantus U-100 Insulin) insulin lispro 100 unit/mL 10 - 15 unit subcut TID diabetes 09/16/23 Unknown History subcutaneous pen rivaroxaban 20 mg tablet (Xarelto) 20 mg PO DAILY blood thinner #30 10/08/23 Unknown Rx tabs aluminum-mag hydroxide-simethicone 15 ml PO 4X/DAY PRN PRN pain 11/08/23 Unknown History 400 mg-400 mg-40 mg/5 mL oral susp (Antacid Anti-Gas) ciclopirox 8 % topical solution topical DAILY nail fungus 11/08/23 11/07/23 History metoprolol tartrate 25 mg tablet 25 mg PO BID Tachycardia 11/09/23 11/08/23 08:00 History 25 mg Allergy/AdvReac Type Severity Reaction Status Date / Time No Known Allergies Allergy Verified 11/08/23 12:20 Family History Mother Diabetes Heart disease Cancer brain tumor Father Cancer blood cancer per pt Sister Heart disease Diabetes Cancer lung Grandfather Cancer lung Uncle Diabetes Son Cancer testicular Surgical History Port-A-Cath in place History of lobectomy of lung History of bronchoscopy H/O arthroscopy of left knee History of tonsillectomy H/O tooth extraction H/O foot surgery H/O: hysterectomy History of carpal tunnel surgery Social History household members: none Smoking Status: Former smoker quit date: 11/12/19 pack-years: 53 alcohol intake: never substance use type: does not use
--- NOTE | 2023-11-09 21:42 | OP.EGD_ITS ---
Patient Name: Karin Cantu Procedure Date: 11/09/2023 9:05 PM Date of : 1960 Age: 63 Procedure: Upper GI endoscopy Indications: Epigastric abdominal pain Providers: Matthew Brown DO Medicines: Monitored Anesthesia Care Patient Profile: This is a 63 year old female. Refer to note in patient chart for documentation of history and physical. Patient has symptoms of acute epigastric abdominal pain. Complications: No immediate complications. Procedure: Pre-Anesthesia Assessment: - Prior to the procedure, a History and Physical was performed, and patient medications and allergies were reviewed. The risks and benefits of the procedure and the sedation options and risks were discussed with the patient. All questions were answered and informed consent was obtained. Patient identification and proposed procedure were verified by the physician. Mental Status Examination: normal. Respiratory Examination: clear to auscultation. Prophylactic Antibiotics: The patient does not require prophylactic antibiotics. Prior Anticoagulants: The patient has taken no anticoagulant or antiplatelet agents. After reviewing the risks and benefits, the patient was deemed in satisfactory condition to undergo the procedure. The anesthesia plan was to use monitored anesthesia care (MAC). Immediately prior to administration of medications, the patient was re-assessed for adequacy to receive sedatives. The heart rate, respiratory rate, oxygen saturations, blood pressure, adequacy of pulmonary ventilation, and response to care were monitored throughout the procedure. The physical status of the patient was re-assessed after the procedure. After obtaining informed consent, the endoscope was passed under direct vision. Throughout the procedure, the patient's blood pressure, pulse, and oxygen saturations were monitored continuously. The Colonoscope was introduced through the mouth, and advanced to the second part of duodenum. The upper GI endoscopy was accomplished without difficulty. The patient tolerated the procedure well. Scope In: 9:20:18 PM Scope Out: 9:24:43 PM Total Procedure Duration Time 0 hours 4 minutes 25 seconds Findings: The examined esophagus was normal. The entire examined stomach was normal. Segmental moderate inflammation characterized by erosions, erythema, granularity and aphthous ulcerations was found in the duodenal bulb, in the first portion of the duodenum and in the second portion of the duodenum. Biopsies were taken with a cold forceps for histology. Verification of patient identification for the specimen was done. Estimated blood loss was minimal. Impression: - Normal esophagus. - Normal stomach. - Acute duodenitis. Biopsied. Recommendation: - [facility] care. - Resume regular diet. - Continue present medications. - Await pathology results. Procedure Code(s): --- Professional --- 31545, Esophagogastroduodenoscopy, flexible, transoral; with biopsy, single or multiple CPT copyright 2021 [employer] [place] [employer]. All rights reserved. The codes documented in this report are preliminary and upon excelsior picker review may be revised to meet current compliance requirements. Matthew Brown DO 11/09/2023 9:42:45 PM This report has been signed electronically. Number of Addenda: 0 Note Initiated On: 11/09/2023 9:05 PM
--- NOTE | 2023-11-09 21:42 | PCM.POST.ANE ---
Anesthesia: Postop Eval I Current Vital Signs Temperature: 97.4 F Pulse Rate: 127 Blood Pressure: 97/49 Respiratory Rate: 16 Pulse Ox: 94 Oxygen Delivery Method: Nasal Cannula Oxygen Flow Rate (L/min): 3 Assessment Airway patent: Yes Spontaneous unlabored respirations: Yes Mental status: Awake and Calm nausea: No Vomiting: No Anesthesia Complication: No Fluid Hydration Crystalloid volume administer (ml): 500 Total IV fluid infused: 500 Progress Note Anesthesia document: Postop Eval 1 completed: Yes
--- NOTE | 2023-11-09 21:43 | OP.CCLET_ITS ---
11/09/2023 Pawel Ruvalcaba Re : Upper GI endoscopy procedure for Karin Cantu Dear Marjorie This procedure was performed on Thursday, November 09, 2023. My impressions and recommendations are as follows: Impressions : - Normal esophagus. - Normal stomach. - Acute duodenitis. Biopsied. Recommendations : - [facility]. - Resume regular diet. - Continue present medications. - Await pathology results. My findings are described in the full procedure note, which is enclosed. If I can be of further assistance, please feel free to contact me at . Sincerely, Matthew Brown, 11/09/2023 9:42:45 PM This report has been signed electronically.
--- NOTE | 2023-11-09 21:48 | OP.CCLET_ITS ---
11/09/2023 Pawel Ruvalcaba Re : Colonoscopy procedure for Karin Cantu Tatumr Marjorie This procedure was performed on Thursday, November 09, 2023. My impressions and recommendations are as follows: Impressions : - Preparation of the colon was poor. - Scattered moderate mucosal changes were found in the rectum, in the recto-sigmoid colon, in the sigmoid colon, in the descending colon and at the splenic flexure secondary to colitis. Biopsied. Fluid aspiration performed. - Stool in the rectum, in the recto-sigmoid colon, in the sigmoid colon, in the descending colon, at the splenic flexure and in the transverse colon. - Diverticulosis in the recto-sigmoid colon, in the sigmoid colon and in the descending colon. Recommendations : - [facility]. - Resume regular diet. - Continue present medications. - Await pathology results. - Repeat colonoscopy in 6 months because the bowel preparation was suboptimal. - IBD labs and vasculitis labs were sent My findings are described in the full procedure note, which is enclosed. If I can be of further assistance, please feel free to contact me at . Sincerely, Matthew Brown, 11/09/2023 9:47:41 PM This report has been signed electronically.
--- NOTE | 2023-11-09 21:48 | OP.COLON_ITS ---
Patient Name: Karin Cantu Procedure Date: 11/09/2023 9:24 PM Date of : 1960 Age: 63 Procedure: Colonoscopy Indications: Clinically significant diarrhea of unexplained origin, Hematochezia, Acute post hemorrhagic anemia Providers: Matthew Brown DO Medicines: Monitored Anesthesia Care Patient Profile: This is a 63 year old female. Refer to note in patient chart for documentation of history and physical. Patient has symptoms of acute epigastric abdominal pain. Last Colonoscopy: date unknown. Unable to locate last colonoscopy report. Complications: No immediate complications. Procedure: Pre-Anesthesia Assessment: - Prior to the procedure, a History and Physical was performed, and patient medications and allergies were reviewed. The risks and benefits of the procedure and the sedation options and risks were discussed with the patient. All questions were answered and informed consent was obtained. Patient identification and proposed procedure were verified by the physician. Mental Status Examination: normal. Respiratory Examination: clear to auscultation. Prophylactic Antibiotics: The patient does not require prophylactic antibiotics. Prior Anticoagulants: The patient has taken no anticoagulant or antiplatelet agents. After reviewing the risks and benefits, the patient was deemed in satisfactory condition to undergo the procedure. The anesthesia plan was to use monitored anesthesia care (MAC). Immediately prior to administration of medications, the patient was re-assessed for adequacy to receive sedatives. The heart rate, respiratory rate, oxygen saturations, blood pressure, adequacy of pulmonary ventilation, and response to care were monitored throughout the procedure. The physical status of the patient was re-assessed after the procedure. After I obtained informed consent, the scope was passed under direct vision. Throughout the procedure, the patient's blood pressure, pulse, and oxygen saturations were monitored continuously. The Colonoscope was introduced through the anus and advanced to the splenic flexure. The colonoscopy was performed without difficulty. The patient tolerated the procedure well. The quality of the bowel preparation was poor. Scope In: 9:28:07 PM Scope Out: 9:37:10 PM Total Procedure Duration Time 0 hours 9 minutes 3 seconds Findings: The perianal and digital rectal examinations were normal. Scattered moderate mucosal changes characterized by congestion (edema), erosions, erythema, friability and granularity were found in the rectum, in the recto-sigmoid colon, in the sigmoid colon, in the descending colon and at the splenic flexure. Biopsies were taken with a cold forceps for histology. Verification of patient identification for the specimen was done. Estimated blood loss was minimal. Lavage of the area was performed using 50 - 200 mL [Clearance/Visualization]. Fluid aspiration was performed through the scope suction channel. The amount of fluid collected was 300 mL. The fluid cloudy. Sample(s) were sent for cell count and differential, bacterial cultures, Clostridium difficile and Gram stain. Verification of patient identification for the specimen was done. Estimated blood loss was minimal. A moderate amount of liquid semi-liquid semi-solid stool was found in the rectum, in the recto-sigmoid colon, in the sigmoid colon, in the descending colon, at the splenic flexure and in the transverse colon, precluding visualization. Multiple small and large-mouthed diverticula were found in the recto-sigmoid colon, sigmoid colon and descending colon. Impression: - Preparation of the colon was poor. - Scattered moderate mucosal changes were found in the rectum, in the recto-sigmoid colon, in the sigmoid colon, in the descending colon and at the splenic flexure secondary to colitis. Biopsied. Fluid aspiration performed. - Stool in the rectum, in the recto-sigmoid colon, in the sigmoid colon, in the descending colon, at the splenic flexure and in the transverse colon. - Diverticulosis in the recto-sigmoid colon, in the sigmoid colon and in the descending colon. Recommendation: - Return [facility] to [facility]. - Resume regular diet. - Continue present medications. - Await pathology results. - Repeat colonoscopy in 6 months because the bowel preparation was suboptimal. - IBD labs and vasculitis labs were sent Procedure Code(s): --- Professional --- 35963, 52, Colonoscopy, flexible; with biopsy, single or multiple CPT copyright 2021 [employer] [employer]. All rights reserved. The codes documented in this report are preliminary and upon medical biller coder review may be revised to meet current compliance requirements. Matthew Brown DO 11/09/2023 9:47:41 PM This report has been signed electronically. Number of Addenda: 0 Note Initiated On: 11/09/2023 9:24 PM
[2023-11-09] MEDS: traZODone 50 MG Tablet PO (22:49)
[2023-11-09] MEDS: Atorvastatin Calcium 10 MG Tablet 5 MG PO (22:49)
[2023-11-09] MEDS: Gabapentin 100 MG Capsule PO (22:49)
[2023-11-09 22:52] LABS: Erythrocyte Sedimentation Rate 68 mm/hr (0-30)
[2023-11-09] MEDS: Insulin Lispro 100 UNIT/ML INSULN.PEN SC (22:55)
[2023-11-09 23:18] LABS: Bedside Glucose 160 mg/dL (74-106)
[2023-11-10] VITALS (8 sets, daily range): BP systolic 100–114; BP diastolic 63–78; PULSE 85–118; RESP 16–18; TEMP 36.9–37.1; O2SAT 93–99
[2023-11-10] MEDS: Insulin Lispro 100 UNIT/ML INSULN.PEN SC ×5 (06:57→22:27)
[2023-11-10 07:11] LABS: Bedside Glucose 171 mg/dL (74-106)
[2023-11-10] MEDS: Budesonide Respules 0.5 MG/2 ML AMPUL.NEB. INHALATION ×2 (07:39→19:41)
[2023-11-10] MEDS: Ipratropium/Albuterol Sulfate 3 ML AMPUL.NEB INHALATION ×3 (07:39→19:41)
[2023-11-10 07:50] LABS: Anion Gap 5 (5-15); BUN 6 mg/dL (7-18); BUN/Creat Ratio 11.7 RATIO (10-20); Calcium,Total 9.2 mg/dL (8.5-10.1); Chloride 104 mmol/L (98-107); Creatinine, Serum 0.51 mg/dL (0.55-1.02); EST Glomerular Filtration Rate 127 mL/min (>60); Est Glom Filt Rate - Afr Amer 154 mL/min (>60); Estimated Creatinine Clearance 73.53 ml/min; Glucose 182 mg/dL (74-106); Potassium 4.3 mmol/L (3.5-5.1); Sodium Level 137 mmol/L (136-145)
[2023-11-10 09:49] LABS: Absolute Lymphocyte Count 0.29 X10^3/uL (0.83-4.51); Absolute Neutrophil Count 3.3 X10^3/uL (2.0-7.7); Basophil# 0.04 X10^3/uL; Basophil% 0.8 % (0-1); Eosinophils% 8.4 % (0-5); Hematocrit 34.9 % (37-47); Hemoglobin 10.1 g/dL (12.0-15.0); Lymphocyte # 0.29 X10^3/ul (0.83-4.51); Lymphocyte % 6.1 % (19-41); Mean Corp Hgb Conc 28.9 g/dL (32-36); Mean Corpuscular Hgb 26.2 pg (27.0-32.0); Mean Corpuscular Volume 90.4 fL (81-99); Mean Platelet Vol. 9.2 fl (6.2-12.0); Monocyte# 0.73 X10^3/uL; Monocyte% 15.4 % (0-10); NRBC Flagged by Analyzer 0 % (0-5); Neutrophil # 3.26 X10^3/uL (2.7-7.7); Neutrophil % 68.9 % (47-70); POSITIVE DIFFERENTIAL YES; Platelet Count 351 K/mm3 (150-450); RBC Distribution Width SD 49.9 fl (35.1-43.9); Red Blood Count 3.86 M/mm3 (4.2-5.4); White Blood Count 4.7 K/mm3 (4.4-11.0)
--- NOTE | 2023-11-10 10:00 | RAD_ITS ---
STUDY: X-RAY - RIGHT KNEE REASON FOR EXAM: Female, 63 years old. Right knee swelling. TECHNIQUE: 3 view(s) of the knee. COMPARISON: None. FINDINGS: Osteopenia. Normal visualized distal femur. Normal visualized proximal tibia and fibula. Normal proximal tibiofibular articulation. Mild medial compartmental arthrosis. Normal lateral femorotibial compartment. Mild arthrosis of the patellofemoral compartment. Moderate-sized suprapatellar joint effusion. RAD/Knee 3 Views IMPRESSION: Osteopenia, mild arthrosis of the medial and patellofemoral compartments and moderate-sized suprapatellar joint effusion. No acute osseous abnormality. Electronically Signed: Linwood Kumar MD at 12:24 EDT ,
[2023-11-10] MEDS: Metoprolol Tartrate 25 MG Tablet PO ×2 (10:33→22:15)
[2023-11-10] MEDS: 0.9% Saline Lock 10 ML Syringe IV ×3 (10:33→12:52)
[2023-11-10] MEDS: Pantoprazole Sodium 40 MG in 0.9% Normal Saline (100mL MB+) 100 ML 330 MG IV ×2 (10:33→22:20)
[2023-11-10] MEDS: Citalopram 40 MG TABLET PO (10:33)
[2023-11-10] MEDS: Insulin Glargine-YFGN 100 UNIT/ML Pen 7 UNIT SC (10:34)
--- NOTE | 2023-11-10 11:07 | POSTOPAN2_ITS ---
Anesthesia Postop Eval I Sum Postop Eval Completion status Anesthesia document: Postop Eval 1 completed: Yes Anesthesia Postop Eval I Summary Anesthesia Postop Eval I Summary: Anesthesia Postop Eval I: Assessment Summary Airway patent Yes 11/09/23 21:43 [email or web address] Spontaneous unlabored Yes 11/09/23 21:43 PROGRAMMER [email or web address] respirations Mental status Awake,Calm 11/09/23 21:43 PROGRAMMER [email or web address] nausea No 11/09/23 21:43 PROGRAMMER [email or web address] Vomiting No 11/09/23 21:43 PROGRAMMER [email or web address] Anesthesia Postop Eval I: Fluid Summary Crystalloid volume administer 500 11/09/23 21:43 PROGRAMMER [email or web address] (ml) Colloids volume administered ( ml) Blood Product volume administered (ml) Total IV fluid infused 500 11/09/23 21:43 PROGRAMMER [email or web address] Anesthesia Postop Eval I: Summary Notes Anesthesia Complication No 11/09/23 21:43 PROGRAMMER [email or web address] Anesthesia Complication Comment: Post-operative progress note Anesthesia: Postop Eval II Evaluation Mental status: Awake and Calm Pain Level: 0 nausea: No Vomiting: No Complications Anesthesia Complication: No
--- NOTE | 2023-11-10 11:07 | PCM.POSTANE2 ---
Anesthesia Postop Eval I Sum Postop Eval Completion status Anesthesia document: Postop Eval 1 completed: Yes Anesthesia Postop Eval I Summary Anesthesia Postop Eval I Summary: Anesthesia Postop Eval I: Assessment Summary Airway patent Yes 11/09/23 21:43 [email or web address] [email or web address] Spontaneous unlabored Yes 11/09/23 21:43 CHAIR [email or web address] respirations Mental status Awake,Calm 11/09/23 21:43 [email or web address] [email or web address] nausea No 11/09/23 21:43 CHAIR [email or web address] Vomiting No 11/09/23 21:43 CHAIR [email or web address] Anesthesia Postop Eval I: Fluid Summary Crystalloid volume administer 500 11/09/23 21:43 CHAIR [email or web address] (ml) Colloids volume administered ( ml) Blood Product volume administered (ml) Total IV fluid infused 500 11/09/23 21:43 CHAIR [email or web address] Anesthesia Postop Eval I: Summary Notes Anesthesia Complication No 11/09/23 21:43 CHAIR [email or web address] Anesthesia Complication Comment: Post-operative progress note Anesthesia: Postop Eval II Evaluation Mental status: Awake and Calm Pain Level: 0 nausea: No Vomiting: No Complications Anesthesia Complication: No
[2023-11-10 11:47] LABS: Bedside Glucose 191 mg/dL (74-106)
[2023-11-10] MEDS: MethylPREDNISolone 125 MG/2 ML Vial 60 MG IV (12:51)
--- NOTE | 2023-11-10 15:19 | CASEMGMT ---
Social Work SW met with pt to discuss advance directives.? Pt confirms she has completed a living will and health care POA naming Chastity Jasso, sister.? Pt notified that documents are not on file at [facility] and SW requested they be brought in for scanning into the EMR.? IVANNA Ware
--- NOTE | 2023-11-10 15:34 | PCM.PN.HOSP ---
Reason for Visit Reason for Visit: Diagnoses Anemia, unspecified (11/08/23) Type 2 diabetes mellitus with hyperglycemia (11/08/23) Acute embolism and thrombosis of other specified deep vein of left lower extremity (11/08/23) Gastrointestinal hemorrhage, unspecified (11/08/23) penitentiary (current) use of insulin (11/08/23) Subjective Subjective Patient eating breakfast this morning, feels slightly better than yesterday, no nausea at this time Objective Data Objective Data Vital Signs: Vital Signs Temp Pulse Resp BP Pulse Ox O2 Del Method O2 Flow Rate 98.8 F 110 H 18 107/70 96 Nasal Cannula 2 11/10/23 15:20 11/10/23 15:20 11/10/23 15:20 11/10/23 15:20 11/10/23 15:20 11/10/23 15:29 11/10/23 15:29 Oxygen Flow Rate (L/min) 2 Oxygen Delivery Method Nasal Cannula Weight: 80.6 kg Body Mass Index (BMI) 29.5 Intake & Output: Intake and Output for Last 24 Hours 11/08/23 11/09/23 11/10/23 23:59 23:59 23:59 Intake Total 1420 / 1420 1220 / 1220 281.75 / 281.75 Balance 1420 / 1420 1220 / 1220 281.75 / 281.75 Lab / Micro Data 11/10/23 05:56 11/10/23 05:56 Labs: Laboratory Results - last 24 hr 11/09/23 04:42: C-React Prot Ext Range 94.10 H 11/09/23 10:53: ESR 68 H 11/09/23 16:43: POC Glucose 140 H 11/09/23 22:31: POC Glucose 160 H 11/10/23 05:56: WBC 4.7, RBC 3.86 L, Hgb 10.1 L, Hct 34.9 L, MCV 90.4, MCH 26.2 L, MCHC 28.9 L, RDW Std Deviation 49.9 H, RDW Coeff of Gina 15.0 H, Plt Count 351, MPV 9.2, Immature Gran % (Auto) 0.400, Neut % (Auto) 68.9, Lymph % (Auto) 6.1 L, Phelps % (Auto) 15.4 H, Eos % (Auto) 8.4 H, Baso % (Auto) 0.8, Absolute Neuts (auto) 3.3, Absolute Lymphs (auto) 0.29 L, Nucleated RBC % 0, Sodium 137, Potassium 4.3, Chloride 104, Carbon Dioxide 28.0, Anion Gap 5, BUN 6 L, Creatinine 0.51 L, Estim Creat Clear Calc 73.53, Est GFR (MDRD) Af Amer 154, Est GFR (MDRD) Non-Af 127, BUN/Creatinine Ratio 11.7, Glucose 182 H, Calcium 9.2 11/10/23 06:36: POC Glucose 171 H 11/10/23 11:16: POC Glucose 191 H Micro: Microbiology 11/08/23 18:55 Stool Enteric Bacteriology - Final 11/08/23 18:55 Stool Clostridioides difficile (PCR) - Final Radiography Diagnostic Testing: Radiology Impression Knee X-Ray 11/10/23 10:00 IMPRESSION: Osteopenia, mild arthrosis of the medial and patellofemoral compartments and moderate-sized suprapatellar joint effusion. No acute osseous abnormality. Electronically Signed: Linwood Kumar MD at 12:24 EDT Reading Location [place] and [place]: [id number] [facility] [place] Service [place] , Physical Exam Narrative General: Alert, oriented, no apparent distress HEENT: Atraumatic, normocephalic Eyes: Anicteric, normal conjunctiva, extraocular movements grossly intact Neck: Supple Respiratory: Somewhat diminished bilaterally and coarse Cardiovascular: Regular rate GI: Soft, nontender, nondistended Extremities: Patient has some swelling of her right knee with no erythema or warmth, minimal tenderness when palpating upper outer portion of the knee, no other tenderness Musculoskeletal: Moving all extremities Neuro: No overt focal neurological deficits Skin: No rashes appreciated Psych: Cooperative Assessment & Plan Assessment/Plan (1) Anemia: (2) DVT (deep venous thrombosis): QUALIFIERS: DVT location: lower extremity Affected thrombotic vein of extremity: other lower extremity vein Chronicity: acute Laterality: left Qualified Code(s): I82.492 - Acute embolism and thrombosis of other specified deep vein of left lower extremity (3) Diabetes mellitus: QUALIFIERS: Diabetes mellitus type: type 2 Diabetes mellitus manager intermediate insulin use: with fpc use Diabetes mellitus complication status: with hyperglycemia Qualified Code(s): E11.65 - Type 2 diabetes mellitus with hyperglycemia; Z79.4 - penitentiary (current) use of insulin (4) GI bleed: PLAN: Plan # Diarrhea and concern for GI bleed -Patient has had many bowel movements over the past several days with soft stool and today has had some blood mixed in with her stool -Hemoglobin previously 11.6 10/07 and is 10.2 today -Hold Xarelto -IV PPI -GI consult -N.p.o. at midnight -Check mag -Start gentle IV fluids -Trend H&H -Type and hold 1 unit -Will check stool studies -CT abdomen pelvis with mild peripancreatic stranding and elevated lipase however patient has no pain or nausea and vomiting -11/08: Stool studies negative, awaiting endoscopy today -11/09: Patient with acute duodenitis on upper endoscopy and patient with colitis on colonoscopy. Discussed with GI and there is concern this still could be related to immunotherapy and was recommended to try IV Solu-Medrol. Patient started on IV Solu-Medrol. Labs and biopsies pending. Holding Xarelto #R Knee swelling -Patient has had some right knee swelling over the past 2 days, today similar to yesterday, no warmth or erythema and has been able to walk and move her knee -X-ray suggestive of effusion -Minimal tenderness mostly on the upper outer portion of the right knee joint -Given lack of significant pain or limited mobility, and no warmth or erythema, lower suspicion for this being any kind of infectious process -Given her metastatic lung cancer- ESR, CRP, and procalcitonin would be expected to be elevated even in the absence of infection but ESR and CRP checked yesterday were elevated so we will recheck today to trend it -Will order for joint aspiration to further assess -Low threshold to get orthopedic surgery involved in pending results or worsening clinical status -Will check blood cultures however with stable vitals, normal white blood cell count with no left shift, normothermic, no warmth or erythema or limited range of motion or severe tenderness will hold off on empiric antibiotics and await fluid studies # Chronic hypoxic respiratory failure on 2 L home O2/lung cancer -Continue home inhalers -Incentive spirometry -Maintain O2 -Patient follows with Dr. Ramirez on outpatient basis and supposed to have CT chest and abdomen with contrast tomorrow for further decision on treatment -11/08: Did have some increased productive cough, CT ordered and pending. No white count or fever so do not think we need to urgently start antibiotics, will monitor -11/09: CT reviewed and shows new nodular density in left upper lobe and progressive increase in right upper lobe nodule, respiratory status today stable, patient to follow with Dr. Ramirez #Type 2 diabetes mellitus -Glucose checks and sliding scale insulin -Awaiting home dose verification -Hold metformin -11/08: Adjusting insulin, patient n.p.o. at this time so likely need to further adjust tomorrow -11/09: Patient anticipated to have elevated blood glucose due to starting steroids, will add Premeal insulin # DVT hx -Holding Xarelto given concern for GI bleed #DVT ppx: SCDs Sera Healy MD Time spent in the patient's overall evaluation,decision-making process, review of diagnostic data, adjustment of management, discussion with other providers, nursing nursing and ancillary staff involved in patient's care documentation, 52 minutes Charges/Coding Visit Charges Inpatient E&M: 27848 Subs Hosp L3
[2023-11-10 17:53] LABS: Erythrocyte Sedimentation Rate 88 mm/hr (0-30)
--- NOTE | 2023-11-10 18:01 | PN.GI_ITS ---
Subjective Subjective Patient underwent EGD and colonoscopy yesterday. She was discovered to have a severe colitis that I think is secondary to her withdrawal of steroids after being on immunotherapy.She has noticed that the diarrhea is a little better today. Objective Data Objective Data Vital Signs: Vital Signs Temp Pulse Resp BP Pulse Ox O2 Del Method O2 Flow Rate 98.8 F 110 H 18 107/70 96 Nasal Cannula 2 11/10/23 15:20 11/10/23 15:20 11/10/23 15:20 11/10/23 15:20 11/10/23 15:20 11/10/23 15:29 11/10/23 15:29 Oxygen Flow Rate (L/min) 2 Oxygen Delivery Method Nasal Cannula Weight: 177 lb 11.081 oz Body Mass Index (BMI) 29.5 Intake & Output: Intake and Output for Last 24 Hours 11/08/23 11/09/23 11/10/23 23:59 23:59 23:59 Intake Total 1420 / 1420 1220 / 1220 281.75 / 281.75 Balance 1420 / 1420 1220 / 1220 281.75 / 281.75 Lab / Micro Data 11/10/23 05:56 11/10/23 05:56 Labs: Laboratory Results - last 24 hr 11/09/23 04:42: C-React Prot Ext Range 94.10 H 11/09/23 10:53: ESR 68 H 11/09/23 22:31: POC Glucose 160 H 11/10/23 05:56: WBC 4.7, RBC 3.86 L, Hgb 10.1 L, Hct 34.9 L, MCV 90.4, MCH 26.2 L, MCHC 28.9 L, RDW Std Deviation 49.9 H, RDW Coeff of Gina 15.0 H, Plt Count 351, MPV 9.2, Immature Gran % (Auto) 0.400, Neut % (Auto) 68.9, Lymph % (Auto) 6.1 L, Stevens % (Auto) 15.4 H, Eos % (Auto) 8.4 H, Baso % (Auto) 0.8, Absolute Neuts (auto) 3.3, Absolute Lymphs (auto) 0.29 L, Nucleated RBC % 0, Sodium 137, Potassium 4.3, Chloride 104, Carbon Dioxide 28.0, Anion Gap 5, BUN 6 L, C reatinine 0.51 L, Estim Creat Clear Calc 73.53, Est GFR (MDRD) Af Amer 154, Est GFR (MDRD) Non-Af 127, BUN/Creatinine Ratio 11.7, Glucose 182 H, Calcium 9.2 11/10/23 06:36: POC Glucose 171 H 11/10/23 11:16: POC Glucose 191 H 11/10/23 17:24: ESR 88 H Micro: Microbiology 11/08/23 18:55 Stool Enteric Bacteriology - Final 11/08/23 18:55 Stool Clostridioides difficile (PCR) - Final Radiography Diagnostic Testing: Radiology Impression Knee X-Ray 11/10/23 10:00 IMPRESSION: Osteopenia, mild arthrosis of the medial and patellofemoral compartments and moderate-sized suprapatellar joint effusion. No acute osseous abnormality. Electronically Signed: Linwood Kumar MD at 12:24 EDT Reading Location ID and State: [address] [place] [address] , Service support , Physical Exam Narrative General: Alert, oriented, no apparent distress HEENT: Atraumatic, normocephalic Eyes: Anicteric, normal conjunctiva, extraocular movements grossly intact Neck: Supple Respiratory: Somewhat diminished bilaterally and coarse Cardiovascular: Regular rate GI: Soft, nontender, nondistended Extremities: Patient has some swelling of her right knee with no erythema or warmth, minimal tenderness when palpating upper outer portion of the knee, no other tenderness Musculoskeletal: Moving all extremities Neuro: No overt focal neurological deficits Skin: No rashes appreciated Psych: Cooperative Assessment & Plan Assessment/Plan (1) Anemia: (2) DVT (deep venous thrombosis): QUALIFIERS: DVT location: lower extremity Affected thrombotic vein of extremity: other lower extremity vein Chronicity: acute Laterality: l eft Qualified Code(s): I82.492 - Acute embolism and thrombosis of other specified deep vein of left lower extremity (3) Diabetes mellitus: QUALIFIERS: Diabetes mellitus type: type 2 Diabetes mellitus mcfp insulin use: with senior online marketing manager use Diabetes mellitus complication status: w ith hyperglycemia Qualified Code(s): E11.65 - Type 2 diabetes mellitus with hyperglycemia; 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 This is more likely than ulcerative colitis. I am going to increase her steroids from 60 mg daily to 60 mg every 6 hours to see if this has improvement in her ESR as it is still going up from 68-88. Awaiting the rest of biochemical workup and to see how she does clinically. Charges/Coding Visit Charges Inpatient E&M: 85627 Subs Hosp L3
[2023-11-10] MEDS: Atorvastatin Calcium 10 MG Tablet 5 MG PO (22:15)
[2023-11-10 22:47] LABS: Bedside Glucose 281 mg/dL (74-106)
[2023-11-10] MEDS: Gabapentin 100 MG Capsule PO (22:54)
[2023-11-10 23:27] LABS: Bedside Glucose 270 mg/dL (74-106)
[2023-11-11] VITALS (9 sets, daily range): BP systolic 102–121; BP diastolic 54–70; PULSE 85–123; RESP 16–20; TEMP 36.5–36.7; O2SAT 94–99
[2023-11-11] MEDS: MethylPREDNISolone 125 MG/2 ML Vial 60 MG IV ×4 (01:19→21:21)
[2023-11-11 06:38] LABS: Absolute Lymphocyte Count 0.22 X10^3/uL (0.83-4.51); Absolute Neutrophil Count 4.5 X10^3/uL (2.0-7.7); Basophil# 0.01 X10^3/uL; Basophil% 0.2 % (0-1); Hematocrit 36.3 % (37-47); Hemoglobin 10.6 g/dL (12.0-15.0); Lymphocyte # 0.22 X10^3/ul (0.83-4.51); Lymphocyte % 4.5 % (19-41); Mean Corp Hgb Conc 29.2 g/dL (32-36); Mean Corpuscular Hgb 25.8 pg (27.0-32.0); Mean Corpuscular Volume 88.3 fL (81-99); Mean Platelet Vol. 9.2 fl (6.2-12.0); Monocyte# 0.08 X10^3/uL; Monocyte% 1.6 % (0-10); NRBC Flagged by Analyzer 0 % (0-5); Neutrophil % 92.9 % (47-70); POSITIVE DIFFERENTIAL YES; Platelet Count 381 K/mm3 (150-450); RBC Distribution Width CV 14.7 % (11.6-14.6); RBC Distribution Width SD 47.6 fl (35.1-43.9); Red Blood Count 4.11 M/mm3 (4.2-5.4); White Blood Count 4.9 K/mm3 (4.4-11.0)
[2023-11-11 07:03] LABS: Anion Gap 10 (5-15); BUN 11 mg/dL (7-18); BUN/Creat Ratio 19.3 RATIO (10-20); Calcium,Total 9.7 mg/dL (8.5-10.1); Chloride 100 mmol/L (98-107); Creatinine, Serum 0.57 mg/dL (0.55-1.02); EST Glomerular Filtration Rate 113 mL/min (>60); Est Glom Filt Rate - Afr Amer 137 mL/min (>60); Estimated Creatinine Clearance 73.53 ml/min; Glucose 279 mg/dL (74-106); Potassium 4.4 mmol/L (3.5-5.1); Sodium Level 136 mmol/L (136-145)
[2023-11-11] MEDS: Ipratropium/Albuterol Sulfate 3 ML AMPUL.NEB INHALATION ×3 (07:05→19:26)
[2023-11-11] MEDS: Budesonide Respules 0.5 MG/2 ML AMPUL.NEB. INHALATION ×2 (07:05→19:26)
[2023-11-11] MEDS: 0.9% Saline Lock 10 ML Syringe IV ×5 (09:12→14:59)
[2023-11-11] MEDS: Insulin Lispro 100 UNIT/ML INSULN.PEN SC ×7 (09:15→21:21)
[2023-11-11] MEDS: Insulin Glargine-YFGN 100 UNIT/ML Pen 7 UNIT SC (09:16)
[2023-11-11 09:37] LABS: Bedside Glucose 293 mg/dL (74-106)
[2023-11-11] MEDS: Metoprolol Tartrate 25 MG Tablet PO ×2 (10:16→20:55)
[2023-11-11] MEDS: Citalopram 40 MG TABLET PO (10:16)
[2023-11-11] MEDS: Acetaminophen 500 MG Tablet 1000 MG PO ×2 (10:16→21:30)
[2023-11-11] MEDS: Pantoprazole Sodium 40 MG in 0.9% Normal Saline (100mL MB+) 100 ML 330 MG IV ×2 (10:17→21:32)
--- NOTE | 2023-11-11 11:06 | PCM.PN.HOSP ---
Reason for Visit Reason for Visit: Diagnoses Anemia, unspecified (11/08/23) Type 2 diabetes mellitus with hyperglycemia (11/08/23) Acute embolism and thrombosis of other specified deep vein of left lower extremity (11/08/23) Gastrointestinal hemorrhage, unspecified (11/08/23) [facility] (current) use of insulin (11/08/23) Subjective Subjective Pt continues to have swelling in her knee but still has full range of motion and has been able to walk though still somewhat tender in the upper outer portion, no warmth erythema. Patient still having loose stool which is slowly improving with the steroids, will continue steroids at this time Objective Data Objective Data Vital Signs: Vital Signs Temp Pulse Resp BP Pulse Ox O2 Del Method O2 Flow Rate 98.0 F 123 H 16 113/70 97 Non-Rebreather @ 15L/min and High Flow 2 11/11/23 10:15 11/11/23 10:16 11/11/23 10:15 11/11/23 10:15 11/11/23 10:15 11/11/23 10:15 11/11/23 07:05 Oxygen Flow Rate (L/min) 2 Oxygen Delivery Method Non-Rebreather @ 15L/min Weight: 80.6 kg Body Mass Index (BMI) 29.5 Intake & Output: Intake and Output for Last 24 Hours 11/09/23 11/10/23 11/11/23 23:59 23:59 23:59 Intake Total 1220 / 1220 391.75 / 1991.75 1649.5 / 1649.5 Balance 1220 / 1220 391.75 / 1990.75 1649.5 / 1649.5 Lab / Micro Data 11/11/23 06:15 11/11/23 06:15 Labs: Laboratory Results - last 24 hr 11/10/23 11:16: POC Glucose 191 H 11/10/23 17:24: ESR 88 H, C-React Prot Ext Range 134.00 H 11/10/23 22:25: POC Glucose 281 H 11/10/23 23:05: POC Glucose 270 H 11/11/23 06:15: WBC 4.9, RBC 4.11 L, Hgb 10.6 L, Hct 36.3 L, MCV 88.3, MCH 25.8 L, MCHC 29.2 L, RDW Std Deviation 47.6 H, RDW Coeff of Gina 14.7 H, Plt Count 381, MPV 9.2, Immature Gran % (Auto) 0.800, Neut % (Auto) 92.9 H, Lymph % (Auto) 4.5 L, Desha % (Auto) 1.6, Eos % (Auto) 0.0, Baso % (Auto) 0.2, Absolute Neuts (auto) 4.5, Absolute Lymphs (auto) 0.22 L, Nucleated RBC % 0, Sodium 136, Potassium 4.4, Chloride 100, Carbon Dioxide 26.0, Anion Gap 10, BUN 11, Creatinine 0.57, Estim Creat Clear Calc 73.53, Est GFR (MDRD) Af Amer 137, Est GFR (MDRD) Non-Af 113, BUN/Creatinine Ratio 19.3, Glucose 279 H, Calcium 9.7 11/11/23 09:05: POC Glucose 293 H Micro: Microbiology 11/08/23 18:55 Stool Enteric Bacteriology - Final 11/08/23 18:55 Stool Clostridioides difficile (PCR) - Final Radiography Diagnostic Testing: Radiology Impression Knee X-Ray 11/10/23 10:00 IMPRESSION: Osteopenia, mild arthrosis of the medial and patellofemoral compartments and moderate-sized suprapatellar joint effusion. No acute osseous abnormality. Electronically Signed: Linwood Kumar MD at 12:24 EDT , Physical Exam Narrative General: Alert, oriented, no apparent distress HEENT: Atraumatic, normocephalic Eyes: Anicteric, normal conjunctiva, extraocular movements grossly intact Neck: Supple Respiratory: Somewhat diminished bilaterally and coarse Cardiovascular: Regular rate GI: Soft, nontender, nondistended Extremities: Patient has some swelling of her right knee with no erythema or warmth, minimal tenderness when palpating upper outer portion of the knee, no other tenderness, full range of motion Musculoskeletal: Moving all extremities Neuro: No overt focal neurological deficits Skin: No rashes appreciated Psych: Cooperative Assessment & Plan Assessment/Plan (1) Anemia: (2) DVT (deep venous thrombosis): QUALIFIERS: Affected thrombotic vein of extremity: other lower extremity vein Chronicity: acute DVT location: lower extremity Laterality: left Qualified Code(s): I82.492 - Acute embolism and thrombosis of other specified deep vein of left lower extremity (3) Diabetes mellitus: QUALIFIERS: Diabetes mellitus complication status: with hyperglycemia Diabetes mellitus penitentiary insulin use: with penitentiary use Diabetes mellitus type: type 2 Qualified Code(s): E11.65 - Type 2 diabetes mellitus with hyperglycemia; 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 at midnight -Check mag -Start gentle IV fluids -Trend H&H -Type and hold 1 unit -Will check stool studies -CT abdomen pelvis with mild peripancreatic stranding and elevated lipase however patient has no pain or nausea and vomiting -11/08: Stool studies negative, awaiting endoscopy today -11/09: Patient with acute duodenitis on upper endoscopy and patient with colitis on colonoscopy. Discussed with GI and there is concern this still could be related to immunotherapy and was recommended to try IV Solu-Medrol. Patient started on IV Solu-Medrol. Labs and biopsies pending. Holding Xarelto -11/10: Steroids were increased linear stool is slowly becoming more formed, GI following, may be able to resume her Xarelto soon, hemoglobin stable #R Knee swelling -Patient has had some right knee swelling over the past 2 days, today similar to yesterday, no warmth or erythema and has been able to walk and move her knee -X-ray suggestive of effusion -Minimal tenderness mostly on the upper outer portion of the right knee joint -Given lack of significant pain or limited mobility, and no warmth or erythema, lower suspicion for this being any kind of infectious process -Given her metastatic lung cancer- ESR, CRP, and procalcitonin would be expected to be elevated even in the absence of infection but ESR and CRP checked yesterday were elevated so we will recheck today to trend it -Will order for joint aspiration to further assess -Low threshold to get orthopedic surgery involved in pending results or worsening clinical status -Will check blood cultures however with stable vitals, normal white blood cell count with no left shift, normothermic, no warmth or erythema or limited range of motion or severe tenderness will hold off on empiric antibiotics and await fluid studies -11/10: Roughly unchanged from yesterday but does still have effusion, still able to walk on it and full range of motion but still has a little bit of tenderness in the upper outer portion, awaiting fluid studies from her arthrocentesis. Still no elevated white blood cell count or temperature, vitally stable, do not think she needs emergent consult but once studies available tomorrow may need Ortho input. Her ESR and CRP remain elevated but unclear clinical significance given her metastatic cancer # Chronic hypoxic respiratory failure on 2 L home O2/lung cancer -Continue home inhalers -Incentive spirometry -Maintain O2 -Patient follows with Dr. Ramirez on outpatient basis and supposed to have CT chest and abdomen with contrast tomorrow for further decision on treatment -11/08: Did have some increased productive cough, CT ordered and pending. No white count or fever so do not think we need to urgently start antibiotics, will monitor -11/09: CT reviewed and shows new nodular density in left upper lobe and progressive increase in right upper lobe nodule, respiratory status today stable, patient to follow with Dr. Ramirez -11/10: At this time stable, continue supportive care #Type 2 diabetes mellitus -Glucose checks and sliding scale insulin -Awaiting home dose verification -Hold metformin -11/08: Adjusting insulin, patient n.p.o. at this time so likely need to further adjust tomorrow -11/09: Patient anticipated to have elevated blood glucose due to starting steroids, will add Premeal insulin -11/10: Significantly elevated now that steroids have been increased, increase long-acting insulin, continue Premeal increase sliding scale insulin # DVT hx -Holding Xarelto given concern for GI bleed -11/10: Xarelto presently held, may be able to resume if okay with GI #DVT ppx: KAREYs Sera Healy MD Time spent in the patient's overall evaluation,decision-making process, review of diagnostic data, adjustment of management, discussion with other providers, nursing nursing and ancillary staff involved in patient's care documentation, 51 minutes Charges/Coding Visit Charges Inpatient E&M: 14767 [facility] L3
[2023-11-11 11:09] LABS: Anti-Centromere B Ab <0.2 AI (0.0-0.9); Anti-Chromatin <0.2 AI (0.0-0.9); Anti-Jo <0.2 AI (0.0-0.9); Anti-Scleroderma-70 AB <0.2 AI (0.0-0.9); Anti-dsDNA Ab <1 IU/mL (0-9); RNP Ab 0.2 AI (0.0-0.9); SJOGREN'S Anti-SS-A test < 0.2 AI (0.0-0.9); SJOGREN'S Anti-SS-B test < 0.2 AI (0.0-0.9); Smith Ab <0.2 AI (0.0-0.9)
[2023-11-11] MEDS: Lidocaine 2% (5ml sdv) 5 ML VIAL.MPF INFILT (11:15)
--- NOTE | 2023-11-11 11:44 | PCM.OP.PRO ---
Procedure Report Date of Procedure: 11/11/23 Assessment & Plan Assessment/Plan (1) Effusion, right knee: PLAN: PROCEDURE: Fluoroscopic guided right knee aspiration ORDERING PROVIDER: Dr. Sera Healy INDICATION: Female, 63 years old. Right knee effusion, suprapatellar. PROVIDER: DYAN [place] FLUOROSCOPY TIME (if supplied): 0 minutes/44 seconds. 2.31 mGy CONSENT: The procedure as well as the benefits and possible complications including infection and bleeding were explained to the patient. Informed consent was obtained. TECHNIQUE: All elements of maximal sterile barrier technique followed. The patient was in the supine position. The overlying skin was prepped and draped in the usual sterile fashion. Following local anesthetic application and direct fluoroscopic guidance, a 22-gauge spinal needle was placed into the suprapatellar effusion using a lateral approach. 20 cc of cloudy yellow/bloody color fluid was drained. A dressing was placed on the aspiration site. The patient tolerated the procedure well. Fluid was sent to the laboratory for analysis. IMPRESSION: 1. Successful fluoroscopic guided right knee aspiration with removal of 20 cc of cloudy yellow/bloody colored fluid. Procedures Radiology Radiology Xray Procedures: [id number] Inj Asp major Joint - Hip, Knee Multi Select Codes Radiology Rad Xray Procedures: [id number] Fluoroscopic guidance for needle placement
[2023-11-11 13:07] LABS: Bedside Glucose 349 mg/dL (74-106)
[2023-11-11 13:24] LABS: Pathologist Comment May follow
[2023-11-11 13:25] LABS: AUTO B FLUID DILUENT BKGD CT WBC <0.1 RBC <0.01 (W<.1,R<.01)
[2023-11-11 13:26] LABS: CRYSTALS, BODY FLUID NO CRYSTALS SEEN; Source / Synovial Fluid RIGHT KNEE; Source- Body Fluid SYNOVIAL
[2023-11-11 13:27] LABS: Appearance /Synovial Fluid Cloudy (CLEAR); Color / Synovial Fluid Red (Pale Yellow); RBC /Synovial Fluid 0.035 10^6/uL (0); Synovial Fld Polynuclear WBC % 72.5 %; Viscosity / Synovial Fluid Mod. Viscous (HIGH)
[2023-11-11 13:28] LABS: Body Fluid QC Type(s) BF2Q,BF3Q; Synovial Fld Mononuclear WBC # 0.745 10^3/ul; Synovial Fld Mononuclear WBC % 27.5 %
[2023-11-11 14:00] LABS: Lymph 22 %; Monocyte /Synovial Fluid 7 %; Neutrophil 71 % (0-25)
[2023-11-11] MEDS: Montelukast 10 MG Tablet PO (17:23)
[2023-11-11 17:44] LABS: Bedside Glucose 377 mg/dL (74-106)
--- NOTE | 2023-11-11 17:50 | PN.GI_ITS ---
Subjective Subjective Patient underwent aspiration of her knee today. She says it does feel little better after getting the fluid removed. She is noticing that her diarrhea is improving. Objective Data Objective Data Vital Signs: Vital Signs Temp Pulse Resp BP Pulse Ox O2 Del Method O2 Flow Rate 98.0 F 107 H 16 113/65 94 Nasal Cannula 2 11/11/23 16:09 11/11/23 16:09 11/11/23 16:09 11/11/23 16:09 11/11/23 16:09 11/11/23 16:34 11/11/23 16:34 Oxygen Flow Rate (L/min) 2 Oxygen Delivery Method Nasal Cannula Weight: 177 lb 11.081 oz Body Mass Index (BMI) 29.5 Intake & Output: Intake and Output for Last 24 Hours 11/09/23 11/10/23 11/11/23 23:59 23:59 23:59 Intake Total 1220 / 1220 391.75 / 1990.75 1710.0 / 1710.0 Balance 1220 / 1220 391.75 / 1990.75 1710.0 / 1710.0 Lab / Micro Data 11/11/23 06:15 11/11/23 06:15 Labs: Laboratory Results - last 24 hr 11/09/23 04:42: PAYTON-1 Antibody <0.2, SS-A/Ro IgG Antibody < 0.2, SS-B/La IgG Antibody < 0.2, Sm (Jasso) Antibody <0.2, GUIDE DOG MOBILITY INSTRUCTOR Antibody 0.2, Scl-70 Scleroderma Ab <0.2, Double Strand DNA Ab <1, Centromere B Antibody <0.2 11/10/23 17:24: ESR 88 H, C-React Prot Ext Range 134.00 H 11/10/23 22:25: POC Glucose 281 H 11/10/23 23:05: POC Glucose 270 H 11/11/23 06:15: WBC 4.9, RBC 4.11 L, Hgb 10.6 L, Hct 36.3 L, MCV 88.3, MCH 25.8 L, MCHC 29.2 L, RDW Std Deviation 47.6 H, RDW Coeff of Gina 14.7 H, Plt Count 381, MPV 9.2, Immature Gran % (Auto) 0.800, Neut % (Auto) 92.9 H, Lymph % (Auto) 4.5 L, Hart % (Auto) 1.6, Eos % (Auto) 0.0, Baso % (Auto) 0.2, Absolute Neuts (auto) 4.5, Absolute Lymphs (auto) 0.22 L, Nucleated RBC % 0, Sodium 136, Potassium 4.4, Chloride 100, Carbon Dioxide 26.0, Anion Gap 10, BUN 11, Creatinine 0.57, Estim Creat Clear Calc 73.53, Est GFR (MDRD) Af Amer 137, Est GFR (MDRD) Non-Af 113, BUN/Creatinine Ratio 19.3, Glucose 279 H, Calcium 9.7 11/11/23 09:05: POC Glucose 293 H 11/11/23 11:20: Fluid Source Cancelled, Fluid Color Cancelled, Fluid Appearance Cancelled, Fluid WBC Cancelled, Fluid RBC Cancelled, Fluid Tot Cell Count Cancelled, Fld Polynuclear WBCs # Cancelled, Fld Polynuclear WBCs % Cancelled, Fluid Mononuclear WBCs Cancelled, Fld Mononuclear WBCs % Cancelled, Fluid Neutrophils Cancelled, Fluid Lymphocytes Cancelled, Fluid Monocytes Cancelled, Fluid Plasma Cells Cancelled, Fluid Macrophages Cancelled, Fld Mesothelial Cells Cancelled, Fluid Other Cells Cancelled, Fluid Crystals NO CRYSTALS SEEN, Fluid Crystal Source SYNOVIAL, Fl Crystal Path Review Will follow, Fl Pathologist Comment Cancelled, Fluid Comment 2 Cancelled, Synovial Source RIGHT KNEE, Synovial Color Red, Synovial Appearance Cloudy, Synovial Viscosity Mod. Viscous, Synovial WBC 2.7050 H, Synovial RBC 0.035 H, Synovial Tot Cell Ct 2.7420 H, Synov Polynuclear WBCs 1.960, Synov Mononuclear WBCs 0.745, Synovial Neutrophils 71 H, Synovial Lymphocytes 22, Synovial Monocytes 7, Synovial Polynuclear % 72.5, Synovial Mononuclear % 27.5, Synovial Path Comment May follow 11/11/23 12:45: POC Glucose 349 H 11/11/23 17:20: POC Glucose 377 H 11/11/23 : Fluid Glucose Cancelled, Fluid Total Protein Cancelled, Fluid LDH Cancelled Micro: Microbiology 11/11/23 11:20 Fluid - Synovial (joint) Gram Stain - Final 11/08/23 18:55 Stool Enteric Bacteriology - Final 11/08/23 18:55 Stool Clostridioides difficile (PCR) - Final Physical Exam Narrative General: Alert, oriented, no apparent distress HEENT: Atraumatic, normocephalic Eyes: Anicteric, normal conjunctiva, extraocular movements grossly intact Neck: Supple Respiratory: Somewhat diminished bilaterally and coarse Cardiovascular: Regular rate GI: Soft, nontender, nondistended Extremities: Patient has some swelling of her right knee with no erythema or warmth, minimal tenderness when palpating upper outer portion of the knee, no other tenderness, full range of motion Musculoskeletal: Moving all extremities Neuro: No overt focal neurological deficits Skin: No rashes appreciated Psych: Cooperative Assessment & Plan Assessment/Plan (1) Anemia: (2) DVT (deep venous thrombosis): QUALIFIERS: DVT location: lower extremity Affected thrombotic vein of extremity: other lower extremity vein Chronicity: acute Laterality: l eft Qualified Code(s): I82.492 - Acute embolism and thrombosis of other specified deep vein of left lower extremity (3) Diabetes mellitus: QUALIFIERS: Diabetes mellitus type: type 2 Diabetes mellitus senior care insulin use: with termite control servicer use Diabetes mellitus complication status: w 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 This is more likely than ulcerative colitis. I am going to increase her steroids from 60 mg daily to 60 mg every 6 hours to see if this has improvement in her ESR as it is still going up from 68-88. Awaiting the rest of biochemical workup and to see how she does clinically. 11/11/2023-her stools are becoming more formed. We will add cholestyramine. Hemoglobin is slightly down today which she has not seen any more blood in her stool. Await IBD SGI. Charges/Coding Visit Charges Inpatient E&M: 56395 Subs Hosp L3
[2023-11-11] MEDS: traZODone 50 MG Tablet PO (20:56)
[2023-11-11] MEDS: Fluticasone 0.05% 1 SPRAY NASAL.SRY NASAL (21:18)
[2023-11-11] MEDS: Gabapentin 100 MG Capsule PO (21:22)
[2023-11-11] MEDS: Atorvastatin Calcium 10 MG Tablet 5 MG PO (21:22)
[2023-11-11 21:45] LABS: Bedside Glucose 384 mg/dL (74-106)
[2023-11-12] VITALS (10 sets, daily range): BP systolic 102–115; BP diastolic 63–77; PULSE 90–108; RESP 18; TEMP 36.4–36.7; O2SAT 85–100
[2023-11-12] MEDS: MethylPREDNISolone 125 MG/2 ML Vial 60 MG IV ×4 (01:56→20:19)
[2023-11-12 04:43] LABS: Absolute Lymphocyte Count 0.33 X10^3/uL (0.83-4.51); Absolute Neutrophil Count 6.3 X10^3/uL (2.0-7.7); Basophil# 0.01 X10^3/uL; Basophil% 0.1 % (0-1); Hematocrit 33.3 % (37-47); Lymphocyte # 0.33 X10^3/ul (0.83-4.51); Lymphocyte % 4.8 % (19-41); Mean Corpuscular Hgb 26.2 pg (27.0-32.0); Mean Corpuscular Volume 87.2 fL (81-99); Mean Platelet Vol. 8.8 fl (6.2-12.0); Monocyte# 0.19 X10^3/uL; Monocyte% 2.8 % (0-10); NRBC Flagged by Analyzer 0 % (0-5); Neutrophil # 6.27 X10^3/uL (2.7-7.7); Neutrophil % 91.4 % (47-70); POSITIVE DIFFERENTIAL YES; Platelet Count 343 K/mm3 (150-450); RBC Distribution Width CV 14.8 % (11.6-14.6); RBC Distribution Width SD 46.9 fl (35.1-43.9); Red Blood Count 3.82 M/mm3 (4.2-5.4); White Blood Count 6.9 K/mm3 (4.4-11.0)
[2023-11-12 05:07] LABS: Anion Gap 6 (5-15); BUN 17 mg/dL (7-18); BUN/Creat Ratio 26.9 RATIO (10-20); Calcium,Total 9.4 mg/dL (8.5-10.1); Chloride 103 mmol/L (98-107); Creatinine, Serum 0.63 mg/dL (0.55-1.02); EST Glomerular Filtration Rate 100 mL/min (>60); Est Glom Filt Rate - Afr Amer 121 mL/min (>60); Estimated Creatinine Clearance 73.53 ml/min; Glucose 353 mg/dL (74-106); Potassium 5.1 mmol/L (3.5-5.1); Sodium Level 138 mmol/L (136-145)
[2023-11-12] MEDS: Colestipol 1 GM TABLET 2 GM PO ×2 (06:14→17:52)
[2023-11-12 09:00] LABS: Bedside Glucose 359 mg/dL (74-106)
[2023-11-12] MEDS: Metoprolol Tartrate 25 MG Tablet PO ×2 (09:57→20:20)
[2023-11-12] MEDS: Citalopram 40 MG TABLET PO (09:58)
[2023-11-12] MEDS: Insulin Lispro 100 UNIT/ML INSULN.PEN SC ×5 (09:58→22:14)
[2023-11-12] MEDS: Loratadine 10 MG Tablet PO (09:58)
[2023-11-12] MEDS: Insulin Glargine-YFGN 100 UNIT/ML Pen 12 UNIT SC (10:00)
[2023-11-12] MEDS: 0.9 % NaCl (Sterile) Posiflush 10 mL IV ×2 (10:05→13:18)
[2023-11-12] MEDS: Pantoprazole Sodium 40 MG in 0.9% Normal Saline (100mL MB+) 100 ML 330 MG IV ×2 (10:11→22:15)
[2023-11-12 10:20] LABS: Pathologist Review Reviewed
--- NOTE | 2023-11-12 11:58 | PCM.CONS.GEN ---
Assessment & Plan Assessment/Plan (1) Effusion, right knee: PLAN: Plan Joint effusion right knee mild DJD, arthrocentesis results do not demonstrate any concern for infection no crystals seen patient is actually improved post aspiration. She is moving her knee without any difficulty. No further orthopedic intervention is warranted at this time would recommend ice and topical NSAID if symptoms return. HPI Consult Data Date of Consult: 11/12/23 HPI Narrative HPI Narrative: FABRICIO EDWARDS, is a 63 F who presents after developing right knee pain and swelling this past 11/08/2023 there was no reported injury or trauma she has had an injury many years ago but no prior surgery or issue with any of the sites that. She did have an aspiration performed and her knee is feeling better now. [facility] Medical History (Updated 11/11/23 @ 11:45 by Marisabel Acosta, [facility] DIRECT[facility]-C) DVT (deep venous thrombosis) Need for pneumocystis prophylaxis Pneumonitis Bilateral lower extremity edema Chronic hypoxic respiratory failure Anxiety and depression Acute and chronic respiratory failure with hypoxia Iron deficiency anemia Radiation pneumonitis Contact with or exposure to other viral diseases SOB (shortness of breath) Tinnitus Cancer History of steroid therapy Rheumatoid arthritis Anemia High cholesterol Injury of head and neck Gastric reflux Former smoker Hypertension Recurrent squamous cell carcinoma of right lung Wears glasses Wears dentures Seasonal allergies Gout Diabetes mellitus COVID-19 COPD (chronic obstructive pulmonary disease) Home Medications ?Medication ?Instructions ?Recorded ?Last Taken ?Type albuterol sulfate 90 mcg/actuation 2 puff inhalation Q4H PRN SOB 07/31/22 Unknown History aerosol inhaler ergocalciferol (vitamin D2) 1,250 1,250 mcg PO .twice week supplement 07/31/22 07/16/23 History mcg (50,000 unit) capsule fluticasone propionate 50 1 spray intranasal DAILY PRN 07/31/22 Unknown History mcg/actuation nasal ALLERGIES spray,suspension (Allergy Relief (fluticasone)) ipratropium 0.5 mg-albuterol 3 mg 3 ml inhalation Q4H PRN SOB 07/31/22 Unknown History (2.5 mg base)/3 mL nebulization soln lovastatin 20 mg tablet 20 mg PO DAILY see 07/31/22 Unknown History metformin 500 mg tablet 500 mg PO TIDWMEAL dm 07/31/22 Unknown History montelukast 10 mg tablet 10 mg PO QPM breathing 07/31/22 Unknown History trazodone 50 mg tablet 50 mg PO QHS sleep 07/31/22 Unknown History cetirizine 10 mg tablet 10 mg PO DAILY for allergies 08/01/22 Unknown History citalopram 40 mg tablet 40 mg PO DAILY see 02/16/23 Unknown History albuterol sulfate 2.5 mg/3 mL 2.5 mg continuous nebulization Q4H 06/07/23 Unknown History (0.083 %) solution for nebulization PRN shortness of breath or wheezing fluticasone fur. 200 mcg-umeclid 1 inh inhalation Q24H breathing 07/24/23 Unknown History 62.5 mcg-vilant 25 mcg inhalat.powder (Trelegy Ellipta) gabapentin 100 mg capsule 100 mg PO QHS pain 07/24/23 Unknown History levalbuterol tartrate 45 1 puff inhalation Q4H PRN 07/24/23 Unknown History mcg/actuation aerosol inhaler shortness of breath or wheezing multivitamin (Daily Multi-Vitamin 1 tab PO DAILY supplement 07/24/23 Unknown History tablet) pantoprazole 20 mg tablet,delayed 20 mg PO DAILY gi bleed #30 tabs 07/30/23 Unknown Rx release (Protonix) sitagliptin phosphate 100 mg 100 mg PO DAILY diabetes 08/13/23 Unknown History tablet (Januvia) empagliflozin 25 mg tablet 25 mg PO QDAY diabetes 09/10/23 Unknown History (Jardiance) mecobalamin (vitamin B12) 1,000 1,000 mcg PO .twice weekly anemia 09/10/23 11/07/23 History mcg chewable tablet insulin glargine 100 unit/mL 8 unit subcut DAILY blood sugar 09/16/23 11/08/23 History subcutaneous solution (Lantus U-100 Insulin) insulin lispro 100 unit/mL 12 unit subcut TIDCM diabetes 09/16/23 Unknown History subcutaneous pen rivaroxaban 20 mg tablet (Xarelto) 20 mg PO DAILY blood thinner #30 10/08/23 Unknown Rx tabs aluminum-mag hydroxide-simethicone 15 ml PO 4X/DAY PRN PRN pain 11/08/23 Unknown History 400 mg-400 mg-40 mg/5 mL oral susp (Antacid Anti-Gas) ciclopirox 8 % topical solution 1 applic topical DAILY nail fungus 11/08/23 11/07/23 History metoprolol tartrate 25 mg tablet 25 mg PO BID Tachycardia 11/09/23 11/08/23 08:00 History 25 mg Allergy/AdvReac Type Severity Reaction Status Date / Time No Known Allergies Allergy Verified 11/08/23 12:20 Family History Mother Diabetes Heart disease Cancer brain tumor Father Cancer blood cancer per pt Sister Heart disease Diabetes Cancer lung Grandfather Cancer lung Uncle Diabetes Son Cancer testicular Surgical History Port-A-Cath in place History of lobectomy of lung History of bronchoscopy H/O arthroscopy of left knee History of tonsillectomy H/O tooth extraction H/O foot surgery H/O: hysterectomy History of carpal tunnel surgery Social History household members: none Smoking Status: Former smoker quit date: 11/12/19 pack-years: 53 alcohol intake: never substance use type: does not use Physical Exam Const alert, oriented x3 and no apparent distress General Appearance: cooperative, comfortable and well kempt Extremity Extremity Narrative: Right knee, very minimal joint effusion mild synovial hypertrophy no erythema or warmth full extension full flexion without any pain no joint line tenderness no collateral or cruciate ligament instability negative Odilia's no significant edema in the lower extremity neurovascular intact right lower extremity left lower extremity has a partial foot drop. No quadriceps or patellar tendon defect Lab / Micro Data 11/12/23 04:32 11/12/23 04:32 Labs: Laboratory Results - last 24 hr 11/08/23 18:40: Crossmatch See Detail 11/11/23 11:20: Fluid Source Cancelled, Fluid Color Cancelled, Fluid Appearance Cancelled, Fluid WBC Cancelled, Fluid RBC Cancelled, Fluid Tot Cell Count Cancelled, Fld Polynuclear WBCs # Cancelled, Fld Polynuclear WBCs % Cancelled, Fluid Mononuclear WBCs Cancelled, Fld Mononuclear WBCs % Cancelled, Fluid Neutrophils Cancelled, Fluid Lymphocytes Cancelled, Fluid Monocytes Cancelled, Fluid Plasma Cells Cancelled, Fluid Macrophages Cancelled, Fld Mesothelial Cells Cancelled, Fluid Other Cells Cancelled, Fluid Crystals NO CRYSTALS SEEN, Fluid Crystal Source SYNOVIAL, Fl Crystal Path Review Reviewed, Fl Pathologist Comment Cancelled, Fluid Comment 2 Cancelled, Synovial Source RIGHT KNEE, Synovial Color Red, Synovial Appearance Cloudy, Synovial Viscosity Mod. Viscous, Synovial WBC 2.7050 H, Synovial RBC 0.035 H, Synovial Tot Cell Ct 2.7420 H, Synov Polynuclear WBCs 1.960, Synov Mononuclear WBCs 0.745, Synovial Neutrophils 71 H, Synovial Lymphocytes 22, Synovial Monocytes 7, Synovial Polynuclear % 72.5, Synovial Mononuclear % 27.5, Synovial Path Comment May follow 11/11/23 12:45: POC Glucose 349 H 11/11/23 17:20: POC Glucose 377 H 11/11/23 21:20: POC Glucose 384 H 11/11/23 : Fluid Glucose Cancelled, Fluid Total Protein Cancelled, Fluid LDH Cancelled 11/12/23 04:32: WBC 6.9, RBC 3.82 L, Hgb 10.0 L, Hct 33.3 L, MCV 87.2, MCH 26.2 L, MCHC 30.0 L, RDW Std Deviation 46.9 H, RDW Coeff of Gina 14.8 H, Plt Count 343, MPV 8.8, Immature Gran % (Auto) 0.900, Neut % (Auto) 91.4 H, Lymph % (Auto) 4.8 L, [place] % (Auto) 2.8, Eos % (Auto) 0.0, Baso % (Auto) 0.1, Absolute Neuts (auto) 6.3, Absolute Lymphs (auto) 0.33 L, Nucleated RBC % 0, Sodium 138, Potassium 5.1, Chloride 103, Carbon Dioxide 29.0, Anion Gap 6, BUN 17, Creatinine 0.63, Estim Creat Clear Calc 73.53, Est GFR (MDRD) Af Amer 121, Est GFR (MDRD) Non-Af 100, BUN/Creatinine Ratio 26.9 H, Glucose 353 H, Calcium 9.4 11/12/23 08:10: POC Glucose 359 H Micro: Microbiology 11/11/23 11:20 Fluid - Synovial (joint) Gram Stain - Final 11/11/23 11:20 Fluid - Synovial (joint) Body Fluid Culture - Preliminary No growth-Final to follow
[2023-11-12] MEDS: Ipratropium/Albuterol Sulfate 3 ML AMPUL.NEB INHALATION ×2 (13:03→21:08)
[2023-11-12 13:39] LABS: Bedside Glucose 309 mg/dL (74-106)
[2023-11-12 16:09] LABS: ACCA 14 units (0-90); ALCA 23 units (0-60); AMCA 40 units (0-100); HEPATITIS B SURFACE AG Negative (Negative); Hep C Antibodies Non Reactive (Non Reactive); Hepatitis A IgM Antibody Negative (Negative); Hepatitis B Core AB IgM Negative (Negative); gASCA 61 units (0-50)
[2023-11-12 17:19] LABS: Bedside Glucose 498 mg/dL (74-106)
[2023-11-12] MEDS: Insulin Lispro 100 UNIT/ML INSULN.PEN 22 UNIT SC (17:48)
[2023-11-12] MEDS: Montelukast 10 MG Tablet PO (17:52)
[2023-11-12] MEDS: Fluticasone 0.05% 1 SPRAY NASAL.SRY NASAL (17:53)
--- NOTE | 2023-11-12 18:27 | PN.GI_ITS ---
Subjective Subjective Patient continues to do better and feels a lot better after getting arthrocentesis Objective Data Objective Data Vital Signs: Vital Signs Temp Pulse Resp BP Pulse Ox O2 Del Method O2 Flow Rate 97.5 F L 94 18 112/75 97 Nasal Cannula 2 11/12/23 15:55 11/12/23 15:55 11/12/23 15:55 11/12/23 15:55 11/12/23 15:55 11/12/23 16:35 11/12/23 16:35 Oxygen Flow Rate (L/min) [ 4 AMBULATING with Oxygen #3] Oxygen Flow Rate (L/min) [ 3 AMBULATING with Oxygen #2] Oxygen Flow Rate (L/min) [ 2 AMBULATING with Oxygen #1] Oxygen Flow Rate (L/min) [At 2 REST with Oxygen] Oxygen Flow Rate (L/min) [At 0 REST on Room Air] Oxygen Flow Rate (L/min) 2 Oxygen Delivery Method Nasal Cannula Weight: 177 lb 11.081 oz Body Mass Index (BMI) 29.5 Intake & Output: Intake and Output for Last 24 Hours 11/10/23 11/11/23 11/12/23 23:59 23:59 23:59 Intake Total 391.75 / 1990.75 1820.0 / 4220.0 3110 / 3110 Balance 391.75 / 1990.75 1820.0 / 4220.0 3110 / 3110 Lab / Micro Data 11/12/23 04:32 11/12/23 04:32 Labs: Laboratory Results - last 24 hr 11/08/23 18:40: Crossmatch See Detail 11/10/23 05:56: Atypical p-ANCA Negative, ALCA IgG Ab 23, AMCA IgG Ab 40, ACCA IgA Ab 14, IBD Serology Comment Comment H, Hepatitis A IgM Ab Negative, Hep Bs Antigen Negative, Hep B Core IgM Ab Negative, Hepatitis C Ab (EIA) Non Reactive, Hep C Ab Comment Comment, S.cerevisiae (Sarkis)IgG 61 H 11/11/23 11:20: Fl Crystal Path Review Reviewed 11/11/23 21:20: POC Glucose 384 H 11/12/23 04:32: WBC 6.9, RBC 3.82 L, Hgb 10.0 L, Hct 33.3 L, MCV 87.2, MCH 26.2 L, MCHC 30.0 L, RDW Std Deviation 46.9 H, RDW Coeff of Gina 14.8 H, Plt Count 343, MPV 8.8, Immature Gran % (Auto) 0.900, Neut % (Auto) 91.4 H, Lymph % (Auto) 4.8 L, [place] % (Auto) 2.8, Eos % (Auto) 0.0, Baso % (Auto) 0.1, Absolute Neuts (auto) 6.3, Absolute Lymphs (auto) 0.33 L, Nucleated RBC % 0, Sodium 138, Potassium 5.1, Chloride 103, Carbon Dioxide 29.0, Anion Gap 6, BUN 17, Creatinine 0.63, Estim Creat Clear Calc 73.53, Est GFR (MDRD) Af Amer 121, Est GFR (MDRD) Non-Af 100, BUN/Creatinine Ratio 26.9 H, Glucose 353 H, Calcium 9.4 11/12/23 08:10: POC Glucose 359 H 11/12/23 13:13: POC Glucose 309 H 11/12/23 16:59: POC Glucose 498 H* Micro: Microbiology 11/11/23 11:20 Fluid - Synovial (joint) Gram Stain - Final 11/11/23 11:20 Fluid - Synovial (joint) Body Fluid Culture - Preliminary No growth-Final to follow 11/08/23 18:55 Stool Enteric Bacteriology - Final 11/08/23 18:55 Stool Clostridioides difficile (PCR) - Final Physical Exam Narrative General: Alert, oriented, no apparent distress HEENT: Atraumatic, normocephalic Eyes: Anicteric, normal conjunctiva, extraocular movements grossly intact Neck: Supple Respiratory: Somewhat diminished bilaterally and coarse Cardiovascular: Regular rate GI: Soft, nontender, nondistended Extremities: Patient has some swelling of her right knee with no erythema or warmth, minimal tenderness when palpating upper outer portion of the knee, no other tenderness, full range of motion Musculoskeletal: Moving all extremities Neuro: No overt focal neurological deficits Skin: No rashes appreciated Psych: Cooperative Assessment & Plan Assessment/Plan (1) Anemia: (2) DVT (deep venous thrombosis): QUALIFIERS: DVT location: lower extremity Affected thrombotic vein of extremity: other lower extremity vein Chronicity: acute Laterality: l eft Qualified Code(s): I82.492 - Acute embolism and thrombosis of other specified deep vein of left lower extremity (3) Diabetes mellitus: QUALIFIERS: Diabetes mellitus type: type 2 Diabetes mellitus intermission coordinator insulin use: with intermission coordinator use Diabetes mellitus complication status: w ith hyperglycemia Qualified Code(s): E11.65 - Type 2 diabetes mellitus with hyperglycemia; Z79.4 - [facility] (current) use of insulin (4) GI bleed: PLAN: Plan 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 This is more likely than ulcerative colitis. I am going to increase her steroids from 60 mg daily to 60 mg every 6 hours to see if this has improvement in her ESR as it is still going up from 68-88. Awaiting the rest of biochemical workup and to see how she does clinically. 11/11/2023-her stools are becoming more formed. We will add cholestyramine. Hemoglobin is slightly down today which she has not seen any more blood in her stool. Await IBD SGI. 11/12/2023-patient continues to improve. Her inflammatory bowel disease diagnostic testing she does show the marker positive for Crohn's disease. Her biopsies from the rectum do show active colitis. Patient continues on steroid therapy. I am still suspecting that she has underlying inflammatory bowel disease. Depending on her prognosis from oncology we will guide her therapy for likely inflammatory bowel disease versus immunotherapy induced colitis.
--- NOTE | 2023-11-12 18:36 | PN.HOSP_ITS ---
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 (11/08/23) Subjective Subjective Stool is becoming more formed, and he feels better however patient feels lightheaded and not well when she stands up Objective Data Objective Data Vital Signs: Vital Signs Temp Pulse Resp BP Pulse Ox O2 Del Method O2 Flow Rate 97.5 F L 94 18 112/75 97 Nasal Cannula 2 11/12/23 15:55 11/12/23 15:55 11/12/23 15:55 11/12/23 15:55 11/12/23 15:55 11/12/23 16:35 11/12/23 16:35 Oxygen Flow Rate (L/min) [ 4 AMBULATING with Oxygen #3] Oxygen Flow Rate (L/min) [ 3 AMBULATING with Oxygen #2] Oxygen Flow Rate (L/min) [ 2 AMBULATING with Oxygen #1] Oxygen Flow Rate (L/min) [At 2 REST with Oxygen] Oxygen Flow Rate (L/min) [At 0 REST on Room Air] Oxygen Flow Rate (L/min) 2 Oxygen Delivery Method Nasal Cannula Weight: 80.6 kg Body Mass Index (BMI) 29.5 Intake & Output: Intake and Output for Last 24 Hours 11/10/23 11/11/23 11/12/23 23:59 23:59 23:59 Intake Total 391.75 / 1990.75 1820.0 / 4220.0 3110 / 3110 Balance 391.75 / 1990.75 1820.0 / 4220.0 3110 / 3110 Lab / Micro Data 11/12/23 04:32 11/12/23 04:32 Labs: Laboratory Results - last 24 hr 11/08/23 18:40: Crossmatch See Detail 11/10/23 05:56: Atypical p-ANCA Negative, ALCA IgG Ab 23, AMCA IgG Ab 40, ACCA IgA Ab 14, IBD Serology Comment Comment H, Hepatitis A IgM Ab Negative, Hep Bs Antigen Negative, Hep B Core IgM Ab Negative, Hepatitis C Ab (EIA) Non Reactive, Hep C Ab Comment Comment, S.cerevisiae (Sarkis)IgG 61 H 11/11/23 11:20: Fl Crystal Path Review Reviewed 11/11/23 21:20: POC Glucose 384 H 11/12/23 04:32: WBC 6.9, RBC 3.82 L, Hgb 10.0 L, Hct 33.3 L, MCV 87.2, MCH 26.2 L, MCHC 30.0 L, RDW Std Deviation 46.9 H, RDW Coeff of Gina 14.8 H, Plt Count 343, MPV 8.8, Immature Gran % (Auto) 0.900, Neut % (Auto) 91.4 H, Lymph % (Auto) 4.8 L, [place] % (Auto) 2.8, Eos % (Auto) 0.0, Baso % (Auto) 0.1, Absolute Neuts (auto) 6.3, Absolute Lymphs (auto) 0.33 L, Nucleated RBC % 0, Sodium 138, Potassium 5.1, Chloride 103, Carbon Dioxide 29.0, Anion Gap 6, BUN 17, Creatinine 0.63, Estim Creat Clear Calc 73.53, Est GFR (MDRD) Af Amer 121, Est GFR (MDRD) Non-Af 100, BUN/Creatinine Ratio 26.9 H, Glucose 353 H, Calcium 9.4 11/12/23 08:10: POC Glucose 359 H 11/12/23 13:13: POC Glucose 309 H 11/12/23 16:59: POC Glucose 498 H* Micro: Microbiology 11/11/23 11:20 Fluid - Synovial (joint) Gram Stain - Final 11/11/23 11:20 Fluid - Synovial (joint) Body Fluid Culture - Preliminary No growth-Final to follow 11/08/23 18:55 Stool Enteric Bacteriology - Final 11/08/23 18:55 Stool Clostridioides difficile (PCR) - Final Physical Exam Narrative General: Alert, oriented HEENT: Atraumatic, normocephalic Eyes: Anicteric, normal conjunctiva, extraocular movements grossly intact Neck: Supple Respiratory: Did have somewhat increased respiratory effort when walking in her room, breath sounds unchanged Cardiovascular: Regular rate and rhythm GI: Soft, nontender, nondistended Extremities: No edema Musculoskeletal: Moving all extremities Neuro: No overt focal neurological deficits Skin: No rashes appreciated Psych: Cooperative Assessment & Plan Assessment/Plan (1) Anemia: (2) DVT (deep venous thrombosis): QUALIFIERS: DVT location: lower extremity Affected thrombotic vein of extremity: other lower extremity vein Chronicity: acute Laterality: l eft Qualified Code(s): I82.492 - Acute embolism and thrombosis of other specified deep vein of left lower extremity (3) Diabetes mellitus: QUALIFIERS: Diabetes mellitus type: type 2 Diabetes mellitus intermission coordinator insulin use: with intermission coordinator use Diabetes mellitus complication status: w ith hyperglycemia Qualified Code(s): E11.65 - Type 2 diabetes mellitus with hyperglycemia; Z79.4 - care home (current) use of insulin (4) GI bleed: PLAN: Plan # Diarrhea and concern for GI bleed?found to have colitis -Patient has had many bowel movements over the past several days with soft stool and today has had some blood mixed in with her stool -Hemoglobin previously 11.6 10/07 and is 10.2 today -Hold Xarelto -IV PPI -GI consult -N.p.o. at midnight -Check mag -Start gentle IV fluids -Trend H&H -Type and hold 1 unit -Will check stool studies -CT abdomen pelvis with mild peripancreatic stranding and elevated lipase however patient has no pain or nausea and vomiting -11/08: Stool studies negative, awaiting endoscopy today -11/09: Patient with acute duodenitis on upper endoscopy and patient with colitis on colonoscopy. Discussed with GI and there is concern this still could be related to immunotherapy and was recommended to try IV Solu-Medrol. Patient started on IV Solu-Medrol. Labs and biopsies pending. Holding Xarelto -11/10: Steroids were increased linear stool is slowly becoming more formed, GI following, may be able to resume her Xarelto soon, hemoglobin stable -11/11: Lab work concerning for possible Crohn's, continue IV steroids, GI following. Discussed with GI, resume Xarelto # Lightheadedness -Ortho is negative -Did require 4 L of O2 on ambulation which is higher than usual but not profoundly hypoxic and did not seem to correlate with symptoms -Has been having reduced amount of ectopy on telemetry, query if this is part of her symptoms -Presently on beta-boris -Will check mag and Phos, limited echo -Given the extent of her diarrhea over several days as well as her elevated glucose acting as a diuretic may be slightly volume depleted -Will give gentle IV fluids -Check TSH -Tighten glucose control #R Knee swelling-noninfectious effusion -Patient has had some right knee swelling over the past 2 days, today similar to yesterday, no warmth or erythema and has been able to walk and move her knee -X-ray suggestive of effusion -Minimal tenderness mostly on the upper outer portion of the right knee joint -Given lack of significant pain or limited mobility, and no warmth or erythema, lower suspicion for this being any kind of infectious process -Given her metastatic lung cancer- ESR, CRP, and procalcitonin would be expected to be elevated even in the absence of infection but ESR and CRP checked yesterday were elevated so we will recheck today to trend it -Will order for joint aspiration to further assess -Low threshold to get orthopedic surgery involved in pending results or worsening clinical status -Will check blood cultures however with stable vitals, normal white blood cell count with no left shift, normothermic, no warmth or erythema or limited range of motion or severe tenderness will hold off on empiric antibiotics and await fluid studies -11/10: Roughly unchanged from yesterday but does still have effusion, still able to walk on it and full range of motion but still has a little bit of tenderness in the upper outer portion, awaiting fluid studies from her arthrocentesis. Still no elevated white blood cell count or temperature, vitally stable, do not think she needs emergent consult but once studies available tomorrow may need Ortho input. Her ESR and CRP remain elevated but unclear clinical significance given her metastatic cancer -11/11: Evaluated by Ortho, can use ice and topical NSAIDs, does not appear infected, no further workup or management necessary # Chronic hypoxic respiratory failure on 2 L home O2/lung cancer -Continue home inhalers -Incentive spirometry -Maintain O2 -Patient follows with Dr. Ramirez on outpatient basis and supposed to have CT chest and abdomen with contrast tomorrow for further decision on treatment -11/08: Did have some increased productive cough, CT ordered and pending. No white count or fever so do not think we need to urgently start antibiotics, will monitor -11/09: CT reviewed and shows new nodular density in left upper lobe and progressive increase in right upper lobe nodule, respiratory status today stable, patient to follow with Dr. Ramirez -11/10: At this time stable, continue supportive care -11/11: Required increased O2 with ambulation but no increased cough and did not initially feel more short of breath, will add incentive spirometer and flutter valve, continue nebs #Type 2 diabetes mellitus -Glucose checks and sliding scale insulin -Awaiting home dose verification -Hold metformin -11/08: Adjusting insulin, patient n.p.o. at this time so likely need to further adjust tomorrow -11/09: Patient anticipated to have elevated blood glucose due to starting steroids, will add Premeal insulin -11/10: Significantly elevated now that steroids have been increased, increase long-acting insulin, continue Premeal increase sliding scale insulin -11/11: Further adjusted insulin # DVT hx -Holding Xarelto given concern for GI bleed -11/10: Xarelto presently held, may be able to resume if okay with GI -11/11: Xarelto resumed #DVT ppx: Xarelto Sera Healy MD Time spent in the patient's overall evaluation,decision-making process, review of diagnostic data, adjustment of management, discussion with other providers, nursing nursing and ancillary staff involved in patient's care documentation, 57 minutes Charges/Coding Visit Charges Inpatient E&M: 12557 [facility] Hosp L3
--- NOTE | 2023-11-12 18:40 | ECHOLC_ITS ---
Reason For Study: Syncope, Wall Motion/EF Procedure This was a limited 2D transthoracic echocardiogram. The study was technically difficult. Contrast injection was performed. Exam performed portable in patient room. Left Ventricle Normal LV size. The estimated ejection fraction is 55 %. Unable to assess diastolic dysfunction. No regional wall motion abnormalities noted. Right Ventricle Normal RV size. Normal systolic function. Atria The left and right atria are normal. No doppler evidence for ASD. Mitral Valve There is no mitral valve stenosis. No mitral valve insufficiency. Tricuspid Valve There is no tricuspid stenosis. Trivial tricuspid valve insufficiency. Unable to estimate RV systolic pressure due to insufficient tricuspid regurgitant envelope. Aortic Valve Trisinus/trileaflet aortic valve. There is no aortic stenosis. No aortic valve insufficiency. Pulmonic Valve There is no pulmonic valvular stenosis. No pulmonic valve insufficiency. Great Vessels Normal aortic root. Pericardium/Pleural No pericardial effusion. Medication Diluted definity 3ml given slow IV push to enhance endocardial definition. MMode/2D Measurements & Calculations LVIDd: 5.1 cm IVSd: 1.2 cm LA dimension: 3.4 cm LVIDs: 3.7 cm LVPWd: 0.85 cm FS: 28.5 % LAV(MOD-sp4): 59.9 ml LVAd ap4: 28.6 cm2 SV(MOD-sp4): 42.2 ml LVLd ap4: 8.3 cm EDV(MOD-sp4): 81.5 ml EDV(sp4-el): 83.8 ml LVAs ap4: 17.9 cm2 LVLs ap4: 6.8 cm ESV(MOD-sp4): 39.4 ml ESV(sp4-el): 39.9 ml EF(MOD-sp4): 51.7 % EF(sp4-el): 52.4 % SV(sp4-el): 43.9 ml LA A4 area: 22.3 cm2 Doppler Measurements & Calculations TR max ping: 298.3 cm/sec TR max P.6 mmHg ECHO/Echo Limited w/Contrast Interpretation Summary The estimated ejection fraction is 55 %. Ordering Physician: Sera Healy Performed By: Adrian Del Rosario RCS
[2023-11-12 19:40] LABS: Magnesium 2.1 mg/dL (1.6-2.6); Phosphorus 3.3 mg/dL (2.5-4.9); T4 Free Direct 1.07 ng/dL (0.76-1.46); Thyroid Stim Hormone (TSH) 0.11 uIU/mL (0.358-3.74)
[2023-11-12] MEDS: 0.9% Normal Saline (1000mL) 1,000 ML 75 ML IV (20:14)
[2023-11-12] MEDS: traZODone 50 MG Tablet PO (20:20)
[2023-11-12] MEDS: Gabapentin 100 MG Capsule PO (20:23)
[2023-11-12] MEDS: Rivaroxaban 20 MG Tablet PO (20:30)
[2023-11-12] MEDS: Atorvastatin Calcium 10 MG Tablet 5 MG PO (20:31)
[2023-11-12] MEDS: Budesonide Respules 0.5 MG/2 ML AMPUL.NEB. INHALATION (21:08)
[2023-11-12] MEDS: Acetaminophen 500 MG Tablet 1000 MG PO (22:13)
[2023-11-12] MEDS: Insulin Glargine-YFGN 100 UNIT/ML Pen 10 UNIT SC (22:15)
[2023-11-12 23:01] LABS: Bedside Glucose 374 mg/dL (74-106)
[2023-11-13] MEDS: MethylPREDNISolone 125 MG/2 ML Vial 60 MG IV (03:09)
[2023-11-13 04:00] VITALS: BP 128/74; PULSE 76; RESP 18; TEMP 35.7; O2SAT 100
[2023-11-13 05:33] LABS: Absolute Lymphocyte Count 0.34 X10^3/uL (0.83-4.51); Absolute Neutrophil Count 6.5 X10^3/uL (2.0-7.7); Hematocrit 32.9 % (37-47); Hemoglobin 9.8 g/dL (12.0-15.0); Lymphocyte # 0.34 X10^3/ul (0.83-4.51); Lymphocyte % 4.7 % (19-41); Mean Corp Hgb Conc 29.8 g/dL (32-36); Mean Corpuscular Hgb 26.1 pg (27.0-32.0); Mean Corpuscular Volume 87.7 fL (81-99); Mean Platelet Vol. 9.1 fl (6.2-12.0); Monocyte# 0.32 X10^3/uL; Monocyte% 4.4 % (0-10); NRBC Flagged by Analyzer 0 % (0-5); Neutrophil # 6.52 X10^3/uL (2.7-7.7); Neutrophil % 89.8 % (47-70); POSITIVE DIFFERENTIAL YES; Platelet Count 353 K/mm3 (150-450); RBC Distribution Width CV 15.1 % (11.6-14.6); RBC Distribution Width SD 48.4 fl (35.1-43.9); Red Blood Count 3.75 M/mm3 (4.2-5.4); White Blood Count 7.3 K/mm3 (4.4-11.0)
[2023-11-13 06:04] LABS: Anion Gap 5 (5-15); BUN 20 mg/dL (7-18); BUN/Creat Ratio 26.1 RATIO (10-20); Calcium,Total 9.3 mg/dL (8.5-10.1); Chloride 102 mmol/L (98-107); Creatinine, Serum 0.76 mg/dL (0.55-1.02); EST Glomerular Filtration Rate 81 mL/min (>60); Est Glom Filt Rate - Afr Amer 97 mL/min (>60); Estimated Creatinine Clearance 73.53 ml/min; Glucose 406 mg/dL (74-106); Potassium 4.6 mmol/L (3.5-5.1); Sodium Level 138 mmol/L (136-145)
[2023-11-13] MEDS: Colestipol 1 GM TABLET 2 GM PO (06:16)
[2023-11-13 07:49] VITALS: PULSE 75; RESP 17; O2SAT 100
[2023-11-13] MEDS: Budesonide Respules 0.5 MG/2 ML AMPUL.NEB. INHALATION (07:49)
[2023-11-13] MEDS: Ipratropium/Albuterol Sulfate 3 ML AMPUL.NEB INHALATION (07:49)
[2023-11-13] MEDS: Insulin Lispro 100 UNIT/ML INSULN.PEN SC ×2 (08:07→12:59)
[2023-11-13] MEDS: Insulin Lispro 100 UNIT/ML INSULN.PEN 12 UNIT SC ×2 (08:08→12:59)
[2023-11-13] MEDS: Citalopram 40 MG TABLET PO (08:11)
[2023-11-13] MEDS: Loratadine 10 MG Tablet PO (08:11)
[2023-11-13 08:12] VITALS: BP 125/80; PULSE 90
[2023-11-13] MEDS: Metoprolol Tartrate 25 MG Tablet PO (08:12)
[2023-11-13] MEDS: Insulin Glargine-YFGN 100 UNIT/ML Pen 10 UNIT SC (08:16)
[2023-11-13 08:42] LABS: Bedside Glucose 359 mg/dL (74-106)
[2023-11-13] MEDS: Pantoprazole Sodium 40 MG in 0.9% Normal Saline (100mL MB+) 100 ML 330 MG IV (09:19)
[2023-11-13] MEDS: predniSONE 20 MG Tablet 40 MG PO (09:19)
[2023-11-13 10:00] VITALS: BP 125/80; PULSE 90; RESP 18; TEMP 36.7; O2SAT 100
--- NOTE | 2023-11-13 11:05 | DCINST_ITS ---
Discharge Instructions Diet Discharge Diet: Light diet - advance as tolerated Activity Discharge Activity: - (Increase activity as tolerated) Follow Up Care Test Results: Test results from this visit will be discussed in further detail at your follow- up appointment, if applicable. Discharge Plan Admission Admit Date/Time: 11/08/23 16:13 Primary Reason for Your Visit: Diarrhea, concern for GI bleed Attending Provider: Sera Healy Primary Care Provider: Marce Amador Consulting Providers: Darryl Connors Instructions Patient Instructions: ED Understanding Colitis, ED Lower GI Bleeding (Stable) Additional Instructions / Restrictions: DISCHARGE INSTRUCTIONS PLEASE READ *Please take this with you to your next doctors appointment* -You will need to follow-up with Dr. Brown with GI in his office upon discharge. Please call his office to schedule your hospital follow-up appointment (ph. [phone]) -You will need to have a repeat colonoscopy in 6 months -You will be discharged on 40 mg of prednisone, please take this daily, ultimat alex dosing will be adjusted by gastroenterology and/or your oncologist -Please follow up with Dr. Ramirez Thursday as previously scheduled - Given that you are on steroids you are insulin has been increased to 10 units twice daily of your long-acting and you will continue your short acting, if you have any episodes of low blood sugar or if your glucose stays consistently above 250 please contact your prescribing physician to discuss altering her insulin regimen -For your diarrhea you have been prescribed colestipol 2 g with breakfast and dinner. You will be prescribed a week of this, if further episodes of diarrhea he may need to be resumed on this -Please call your primary care provider's office upon discharge to schedule a hospital follow up within 1 week. -For any concerning signs or symptoms please call 911 or proceed to the nearest emergency department Discharge Orders/Prescriptions Prescriptions: New prednisone 20 mg Tablet 40 mg PO BREAKFAST 7 Days Qty: 14 0RF colestipol 1 gram Tablet 2 g PO 0600,1700 7 Days Qty: 28 0RF Continued albuterol sulfate 90 mcg/actuation HFA aerosol inhaler 2 puff inhalation Q4H PRN (Reason: SOB) ergocalciferol (vitamin D2) 1,250 mcg (50,000 unit) capsule 1,250 mcg PO .twice week fluticasone propionate [Allergy Relief (fluticasone)] 50 mcg/actuation spray,suspension 1 spray intranasal DAILY PRN (Reason: ALLERGIES) Rx Instructions: administer into each nostril ipratropium-albuterol 0.5 mg-3 mg(2.5 mg base)/3 mL solution for nebulization 3 ml inhalation Q4H PRN (Reason: SOB) lovastatin 20 mg tablet 20 mg PO DAILY metformin 500 mg tablet 500 mg PO TIDWMEAL montelukast 10 mg tablet 10 mg PO QPM trazodone 50 mg tablet 50 mg PO QHS cetirizine 10 mg tablet 10 mg PO DAILY citalopram 40 mg tablet 40 mg PO DAILY pantoprazole [Protonix] 20 mg tablet,delayed release (DR/EC) 20 mg PO DAILY Qty: 30 2RF Januvia 100 mg tablet 100 mg PO DAILY insulin lispro 100 unit/mL insulin pen 12 unit subcut TIDCM Xarelto 20 mg tablet 20 mg PO DAILY Qty: 30 3RF Rx Instructions: must administer with evening meal Jardiance 25 mg tablet 25 mg PO QDAY mecobalamin (vitamin B12) 1,000 mcg tablet,chewable 1,000 mcg PO .twice weekly albuterol sulfate 2.5 mg /3 mL (0.083 %) solution for nebulization 2.5 mg continuous nebulization Q4H PRN (Reason: shortness of breath or wheezing) ciclopirox 8 % solution 1 applic topical DAILY alum-mag hydroxide-simeth [Antacid Anti-Gas] 400-400-40 mg/5 mL suspension 15 ml PO 4X/DAY PRN PRN (Reason: pain) metoprolol tartrate 25 mg tablet 25 mg PO BID Trelegy Ellipta 200-62.5-25 mcg blister with device 1 inh INHALATION Q24H gabapentin 100 mg capsule 100 mg PO QHS Patient Comments: TAKE 1 CAPSULE BY MOUTH AT BEDTIME levalbuterol tartrate 45 mcg/actuation HFA aerosol inhaler 1 puff INHALATION Q4H PRN (Reason: shortness of breath or wheezing) multivitamin [Daily Multi-Vitamin] Tablet 1 tab PO DAILY Changed insulin glargine [Lantus U-100 Insulin] 100 unit/mL solution 10 unit subcut BID Qty: 10 0RF Referrals / Follow Up: Friend,Matthew, DO [Med Staff - Active Staff] - ( -You will need to follow-up with Dr. Brown with GI in his office upon discharge. Please call his office to schedule your hospital follow-up appointment (ph. [phone])) Marce Amador, PA [Primary Care Provider] - Within 1 Week Disposition Disposition (needs filled in before D/C Order can be placed): Home, Self Care
[2023-11-13 11:20] VITALS: BP 125/80; PULSE 90; RESP 18; TEMP 36.7; O2SAT 100
--- NOTE | 2023-11-13 11:21 | PCM.PN.HOSP ---
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 (11/08/23) Objective Data Objective Data Vital Signs: Vital Signs Temp Pulse Resp BP Pulse Ox O2 Del Method O2 Flow Rate 98.0 F 90 18 125/80 H 100 Nasal Cannula 2 11/13/23 10:00 11/13/23 10:00 11/13/23 10:00 11/13/23 10:00 11/13/23 10:00 11/13/23 10:00 11/13/23 10:00 Oxygen Flow Rate (L/min) [ 4 AMBULATING with Oxygen #3] Oxygen Flow Rate (L/min) [ 3 AMBULATING with Oxygen #2] Oxygen Flow Rate (L/min) [ 2 AMBULATING with Oxygen #1] Oxygen Flow Rate (L/min) [At 2 REST with Oxygen] Oxygen Flow Rate (L/min) [At 0 REST on Room Air] Oxygen Flow Rate (L/min) 2 Oxygen Delivery Method Nasal Cannula Weight: 80.6 kg Body Mass Index (BMI) 29.5 Intake & Output: Intake and Output for Last 24 Hours 11/11/23 11/12/23 11/13/23 23:59 23:59 23:59 Intake Total 1820.0 / 4220.0 3220 / 4260 2150 / 2150 Balance 1820.0 / 4220.0 3220 / 4260 2150 / 2150 Lab / Micro Data 11/13/23 04:35 11/13/23 04:35 Labs: Laboratory Results - last 24 hr 11/10/23 05:56: Atypical p-ANCA Negative, ALCA IgG Ab 23, AMCA IgG Ab 40, ACCA IgA Ab 14, IBD Serology Comment Comment H, Hepatitis A IgM Ab Negative, Hep Bs Antigen Negative, Hep B Core IgM Ab Negative, Hepatitis C Ab (EIA) Non Reactive, Hep C Ab Comment Comment, S.cerevisiae (Sarkis)IgG 61 H 11/12/23 04:32: Phosphorus 3.3, Magnesium 2.1, TSH 0.11 L, Free T4 1.07 06/27/24 13:13: POC Glucose 309 H 11/12/23 16:59: POC Glucose 498 H* 11/12/23 22:12: POC Glucose 374 H 11/13/23 04:35: WBC 7.3, RBC 3.75 L, Hgb 9.8 L, Hct 32.9 L, MCV 87.7, MCH 26.1 L, MCHC 29.8 L, RDW Std Deviation 48.4 H, RDW Coeff of Gina 15.1 H, Plt Count 353, MPV 9.1, Immature Gran % (Auto) 1.100 H, Neut % (Auto) 89.8 H, Lymph % (Auto) 4.7 L, Duval % (Auto) 4.4, Eos % (Auto) 0.0, Baso % (Auto) 0.0, Absolute Neuts (auto) 6.5, Absolute Lymphs (auto) 0.34 L, Nucleated RBC % 0, Sodium 138, Potassium 4.6, Chloride 102, Carbon Dioxide 31.0, Anion Gap 5, BUN 20 H, Creatinine 0.76, Estim Creat Clear Calc 73.53, Est GFR (MDRD) Af Amer 97, Est GFR (MDRD) Non-Af 81, BUN/Creatinine Ratio 26.1 H, Glucose 406 H, Calcium 9.3 11/13/23 08:03: POC Glucose 359 H Micro: Microbiology 11/11/23 11:20 Fluid - Synovial (joint) Gram Stain - Final 11/11/23 11:20 Fluid - Synovial (joint) Body Fluid Culture - Preliminary No growth-Final to follow 11/11/23 11:20 Fluid - Synovial (joint) Anaerobic Culture - Preliminary No growth in 48 hours. 11/10/23 17:28 Blood Culture (Wb) - Anticubital Left Blood Culture - Preliminary No growth in 48 hours. 11/10/23 17:24 Blood Culture (Wb) - Anticubital Right Blood Culture - Preliminary No growth in 48 hours. 11/08/23 18:55 Stool Enteric Bacteriology - Final 11/08/23 18:55 Stool Clostridioides difficile (PCR) - Final
[2023-11-13 11:33] LABS: Bedside Glucose 347 mg/dL (74-106)
--- NOTE | 2023-11-13 11:38 | CASEMGMT ---
Social Work- EMANUEL called Aren, [facility] [place], to advise of pt discharge. EMANUEL left a voicemail, as Aren was unavailable. IVANNA Ware
[2023-11-13 11:43] VITALS: O2SAT 87; O2SAT 90; O2SAT 94
--- NOTE | 2023-11-13 11:48 | CASEMGMT ---
Patient has order for discharge. Patient is maintaining on home oxygen. RN CM in to patient's room to discuss needs at discharge. Patient denies needs or help at discharge. Patient had no further questions or concerns.
[2023-11-13] MEDS: 0.9 % NaCl (Sterile) Posiflush 10 mL IV (11:49)
--- NOTE | 2023-11-13 12:06 | PCM.DC.SUM ---
Providers Date of Admission: 11/08/23 Date of Discharge: 11/13/23 Primary Care Physician: MESSI Ruvalcaba Consultations 11/08/23 17:54 Consult: Gastroenterology Routine Consulting Provider: [facility] Reason for Consult: GI bleed EMERGENT Consult: No Notified: Yes Date Notified: 11/08/23 Time Notified: 16:22 Method of Notification: ED Physician Initiated 11/12/23 09:04 Consult: Orthopedics Routine Consulting Provider: Darryl Connors Reason for Consult: R knee effusion unclear origin, arthrocentesis results available EMERGENT Consult: No MD Notified: Yes Date Notified: 11/12/23 Time Notified: 10:36 Method of Notification: Verbal Reason For Visit: GIB 2/2 duodenitis and colitis Diagnosis Discharge Diagnosis (1) Anemia: Status: Acute Code(s): D64.9 - Anemia, unspecified (2) DVT (deep venous thrombosis): Status: Acute Code(s): I82.409 - Acute embolism and thrombosis of unspecified deep veins of unspecified lower extremity Qualifiers: Affected thrombotic vein of extremity: other lower extremity vein Chronicity: acute DVT location: lower extremity Laterality: left Qualified Code(s): I82.492 - Acute embolism and thrombosis of other specified deep vein of left lower extremity (3) Diabetes mellitus: Status: Chronic Code(s): E11.9 - Type 2 diabetes mellitus without complications Qualifiers: Diabetes mellitus complication status: with hyperglycemia 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: with senior care use Diabetes mellitus type: type 2 Qualified Code(s): E11.65 - Type 2 diabetes mellitus with hyperglycemia; 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 (4) GI bleed: Status: Acute Code(s): K92.2 - Gastrointestinal hemorrhage, unspecified Qualifiers: GI bleed type/associated pathology: duodenitis Qualified Code(s): K29.81 - Duodenitis with bleeding Plan #GI Bleed secondary to acute duodenitis and colitis #Crohn's disease vs immunotherapy colitis #R Knee swelling-noninfectious effusion # Chronic hypoxic respiratory failure on 2 L home O2 #Metastatic lung cancer #Type 2 diabetes mellitus # DVT hx Medications at Discharge Home Medications albuterol sulfate 90 mcg/actuation aerosol inhaler 2 puff inhalation Q4H PRN SOB 07/31/22 ergocalciferol (vitamin D2) 1,250 mcg (50,000 unit) capsule 1,250 mcg PO .twice week supplement 07/31/22 fluticasone propionate 50 mcg/actuation nasal spray,suspension (Allergy Relief (fluticasone)) 1 spray intranasal DAILY PRN ALLERGIES 07/31/22 ipratropium 0.5 mg-albuterol 3 mg (2.5 mg base)/3 mL nebulization soln 3 ml inhalation Q4H PRN SOB 07/31/22 lovastatin 20 mg tablet 20 mg PO DAILY cholesterol 07/31/22 metformin 500 mg tablet 500 mg PO TIDWMEAL dm 07/31/22 montelukast 10 mg tablet 10 mg PO QPM breathing 07/31/22 trazodone 50 mg tablet 50 mg PO QHS sleep 07/31/22 cetirizine 10 mg tablet 10 mg PO DAILY for allergies 08/01/22 citalopram 40 mg tablet 40 mg PO DAILY depression 02/16/23 albuterol sulfate 2.5 mg/3 mL (0.083 %) solution for nebulization 2.5 mg continuous nebulization Q4H PRN shortness of breath or wheezing 06/07/23 fluticasone fur. 200 mcg-umeclid 62.5 mcg-vilant 25 mcg inhalat.powder (Trelegy Ellipta) 1 inh inhalation Q24H breathing 07/24/23 gabapentin 100 mg capsule 100 mg PO QHS pain 07/24/23 levalbuterol tartrate 45 mcg/actuation aerosol inhaler 1 puff inhalation Q4H PRN shortness of breath or wheezing 07/24/23 multivitamin (Daily Multi-Vitamin tablet) 1 tab PO DAILY supplement 07/24/23 pantoprazole 20 mg tablet,delayed release (Protonix) 20 mg PO DAILY gi bleed #30 tabs 07/30/23 sitagliptin phosphate 100 mg tablet (Januvia) 100 mg PO DAILY diabetes 08/13/23 empagliflozin 25 mg tablet (Jardiance) 25 mg PO QDAY diabetes 09/10/23 mecobalamin (vitamin B12) 1,000 mcg chewable tablet 1,000 mcg PO .twice weekly anemia 09/10/23 insulin lispro 100 unit/mL subcutaneous pen 12 unit subcut TIDCM diabetes 09/16/23 rivaroxaban 20 mg tablet (Xarelto) 20 mg PO DAILY blood thinner #30 tabs 10/08/23 aluminum-mag hydroxide-simethicone 400 mg-400 mg-40 mg/5 mL oral susp (Antacid Anti-Gas) 15 ml PO 4X/DAY PRN PRN pain 11/08/23 ciclopirox 8 % topical solution 1 applic topical DAILY nail fungus 11/08/23 metoprolol tartrate 25 mg tablet 25 mg PO BID Tachycardia 11/09/23 colestipol 1 gram tablet 2 g (2 x 1 gram) PO 0600,1700 7 days #28 tabs 11/13/23 insulin glargine 100 unit/mL subcutaneous solution (Lantus U-100 Insulin) 10 unit (0.1 mL) subcut BID blood sugar #10 mL 11/13/23 prednisone 20 mg tablet 40 mg (2 x 20 mg) PO BREAKFAST 7 days #14 tabs 11/13/23 Hospital Course Procedures Colonoscopy Summary of Care Provided Minutes Spent on Discharge: 34 Hospital Course: FABRICIO EDWARDS, is a 63 F with lung cancer currently with treatment on hold, chronic hypoxic respiratory failure on 2 L O2, diabetes, DVT who presented to [facility] ED 11/08/2023 due to blood in her stool and diarrhea. Hemoglobin a month prior was 11.6 and down trended to 10.2. GI was consulted and performed upper and lower endoscopies and found duodenitis and colitis possibly immunotherapy induced versus inflammatory bowel disease. It was advised to give patient IV steroids and this and colestipol did improve her diarrhea. During her hospitalization she developed a right knee effusion, tap was benign and orthopedic surgery recommended no further intervention, conservative management. The day patient was going to be discharged she reported feeling lightheaded when she stood up and unwell, patient did have some ectopy on telemetry and was more hypoxic on ambulation so she was kept for further workup. Echo ordered and obtained but when evaluating patient in the a.m. she is doing much better had been up walking around and was no longer feeling that way and was comfortable with outpatient follow-up and advised that if any new marked abnormalities on echo she would be called and informed. Discharge instructions as follows: -You will need to follow-up with Dr. Brown with GI in his office upon discharge. Please call his office to schedule your hospital follow-up appointment (ph. [phone]) -You will need to have a repeat colonoscopy in 6 months -You will be discharged on 40 mg of prednisone, please take this daily, ultimately dosing will be adjusted by gastroenterology and/or your oncologist -Please follow up with Dr. Ramirez Thursday as previously scheduled - Given that you are on steroids you are insulin has been increased to 10 units twice daily of your long-acting and you will continue your short acting, if you have any episodes of low blood sugar or if your glucose stays consistently above 250 please contact your prescribing physician to discuss altering her insulin regimen -For your diarrhea you have been prescribed colestipol 2 g with breakfast and dinner. You will be prescribed a week of this, if further episodes of diarrhea he may need to be resumed on this -Please call your primary care provider's office upon discharge to schedule a hospital follow up within 1 week. -For any concerning signs or symptoms please call 911 or proceed to the nearest emergency department Physical Exam Narrative General: Alert, oriented HEENT: Atraumatic, normocephalic Eyes: Anicteric, normal conjunctiva, extraocular movements grossly intact Neck: Supple Respiratory: Breath sounds unchanged, no increased respiratory effort when not moving around today Cardiovascular: Regular rate and rhythm GI: Soft, nontender, nondistended Extremities: No edema Musculoskeletal: Moving all extremities Neuro: No overt focal neurological deficits Skin: No rashes appreciated Psych: Cooperative Weight / BMI Weight Weight: 80.6 kg Body Mass Index (BMI) 29.5 ABG / Lab / Microbiology Data 11/13/23 04:35 11/13/23 04:35 Laboratory: Laboratory Results - last 24 hr 11/10/23 05:56: Atypical p-ANCA Negative, ALCA IgG Ab 23, AMCA IgG Ab 40, ACCA IgA Ab 14, IBD Serology Comment Comment H, Hepatitis A IgM Ab Negative, Hep Bs Antigen Negative, Hep B Core IgM Ab Negative, Hepatitis C Ab (EIA) Non Reactive, Hep C Ab Comment Comment, S.cerevisiae (Sarkis)IgG 61 H 11/12/23 04:32: Phosphorus 3.3, Magnesium 2.1, TSH 0.11 L, Free T4 1.07 11/12/23 13:13: POC Glucose 309 H 11/12/23 16:59: POC Glucose 498 H* 11/12/23 22:12: POC Glucose 374 H 11/13/23 04:35: WBC 7.3, RBC 3.75 L, Hgb 9.8 L, Hct 32.9 L, MCV 87.7, MCH 26.1 L, MCHC 29.8 L, RDW Std Deviation 48.4 H, RDW Coeff of Gina 15.1 H, Plt Count 353, MPV 9.1, Immature Gran % (Auto) 1.100 H, Neut % (Auto) 89.8 H, Lymph % (Auto) 4.7 L, Holt % (Auto) 4.4, Eos % (Auto) 0.0, Baso % (Auto) 0.0, Absolute Neuts (auto) 6.5, Absolute Lymphs (auto) 0.34 L, Nucleated RBC % 0, Sodium 138, Potassium 4.6, Chloride 102, Carbon Dioxide 31.0, Anion Gap 5, BUN 20 H, Creatinine 0.76, Estim Creat Clear Calc 73.53, Est GFR (MDRD) Af Amer 97, Est GFR (MDRD) Non-Af 81, BUN/Creatinine Ratio 26.1 H, Glucose 406 H, Calcium 9.3 11/13/23 08:03: POC Glucose 359 H 11/13/23 11:13: POC Glucose 347 H Microbiology: Microbiology 11/11/23 11:20 Fluid - Synovial (joint) Gram Stain - Final 11/11/23 11:20 Fluid - Synovial (joint) Body Fluid Culture - Preliminary No growth-Final to follow 11/11/23 11:20 Fluid - Synovial (joint) Anaerobic Culture - Preliminary No growth in 48 hours. 11/10/23 17:28 Blood Culture (Wb) - Anticubital Left Blood Culture - Preliminary No growth in 48 hours. 11/10/23 17:24 Blood Culture (Wb) - Anticubital Right Blood Culture - Preliminary No growth in 48 hours. 11/08/23 18:55 Stool Enteric Bacteriology - Final 11/08/23 18:55 Stool Clostridioides difficile (PCR) - Final D/C Instructions Discharge Diet: Light diet - advance as tolerated Meaningful Use Info Meaningful Use Meaningful Use Diagnoses (Choose all that apply): None applicable Ischemic Stroke Statin Dosing Therapy Reference: STATIN DOSE THERAPY REFERENCE: * Patients > 75 years receive moderate or high dose statin therapy. * Patients 75 years or YOUNGER should receive HIGH intensity statin dose unless contraindicated. You will be required to document reason for non-treatment if statin daily dose does not meet guidelines. HIGH DOSE STATIN THERAPY DAILY Atorvastatin > than or = to 40 mg Rosuvastatin > than or = to 20 mg Amlodipine + Atorvastatin > than or = to 2.5/40 mg Ezetimibe + Simvastatin 10/80 mg Simvastatin 80mg Discharge Plan Admission Admit Date/Time: 11/08/23 16:13 Primary Reason for Your Visit: Diarrhea, concern for GI bleed Attending Provider: Sera Healy Primary Care Provider: Marce Amador Consulting Providers: Darryl Connors Instructions Patient Instructions: ED Understanding Colitis, ED Lower GI Bleeding (Stable) Additional Instructions / Restrictions: DISCHARGE INSTRUCTIONS PLEASE READ *Please take this with you to your next doctors appointment* -You will need to follow-up with Dr. Brown with GI in his office upon discharge. Please call his office to schedule your hospital follow-up appointment (ti. [phone]) -You will need to have a repeat colonoscopy in 6 months -You will be discharged on 40 mg of prednisone, please take this daily, ultimately dosing will be adjusted by gastroenterology and/or your oncologist -Please follow up with Dr. Ramirez Thursday as previously scheduled - Given that you are on steroids you are insulin has been increased to 10 units twice daily of your long-acting and you will continue your short acting, if you have any episodes of low blood sugar or if your glucose stays consistently above 250 please contact your prescribing physician to discuss altering her insulin regimen -For your diarrhea you have been prescribed colestipol 2 g with breakfast and dinner. You will be prescribed a week of this, if further episodes of diarrhea he may need to be resumed on this -Please call your primary care provider's office upon discharge to schedule a hospital follow up within 1 week. -For any concerning signs or symptoms please call 911 or proceed to the nearest emergency department Discharge Orders/Prescriptions Prescriptions: New prednisone 20 mg Tablet 40 mg PO BREAKFAST 7 Days Qty: 14 0RF colestipol 1 gram Tablet 2 g PO 0600,1700 7 Days Qty: 28 0RF Continued albuterol sulfate 90 mcg/actuation HFA aerosol inhaler 2 puff inhalation Q4H PRN (Reason: SOB) ergocalciferol (vitamin D2) 1,250 mcg (50,000 unit) capsule 1,250 mcg PO .twice week fluticasone propionate [Allergy Relief (fluticasone)] 50 mcg/actuation spray,suspension 1 spray intranasal DAILY PRN (Reason: ALLERGIES) Rx Instructions: administer into each nostril ipratropium-albuterol 0.5 mg-3 mg(2.5 mg base)/3 mL solution for nebulization 3 ml inhalation Q4H PRN (Reason: SOB) lovastatin 20 mg tablet 20 mg PO DAILY metformin 500 mg tablet 500 mg PO TIDWMEAL montelukast 10 mg tablet 10 mg PO QPM trazodone 50 mg tablet 50 mg PO QHS cetirizine 10 mg tablet 10 mg PO DAILY citalopram 40 mg tablet 40 mg PO DAILY pantoprazole [Protonix] 20 mg tablet,delayed release (DR/EC) 20 mg PO DAILY Qty: 30 2RF Januvia 100 mg tablet 100 mg PO DAILY insulin lispro 100 unit/mL insulin pen 12 unit subcut TIDCM Xarelto 20 mg tablet 20 mg PO DAILY Qty: 30 3RF Rx Instructions: must administer with evening meal Jardiance 25 mg tablet 25 mg PO QDAY mecobalamin (vitamin B12) 1,000 mcg tablet,chewable 1,000 mcg PO .twice weekly albuterol sulfate 2.5 mg /3 mL (0.083 %) solution for nebulization 2.5 mg continuous nebulization Q4H PRN (Reason: shortness of breath or wheezing) ciclopirox 8 % solution 1 applic topical DAILY alum-mag hydroxide-simeth [Antacid Anti-Gas] 400-400-40 mg/5 mL suspension 15 ml PO 4X/DAY PRN PRN (Reason: pain) metoprolol tartrate 25 mg tablet 25 mg PO BID Trelegy Ellipta 200-62.5-25 mcg blister with device 1 inh INHALATION Q24H gabapentin 100 mg capsule 100 mg PO QHS Patient Comments: TAKE 1 CAPSULE BY MOUTH AT BEDTIME levalbuterol tartrate 45 mcg/actuation HFA aerosol inhaler 1 puff INHALATION Q4H PRN (Reason: shortness of breath or wheezing) multivitamin [Daily Multi-Vitamin] Tablet 1 tab PO DAILY Changed insulin glargine [Lantus U-100 Insulin] 100 unit/mL solution 10 unit subcut BID Qty: 10 0RF Referrals / Follow Up: Matthew Brown DO [Med Staff - Active Staff] - 01/20/24 2:30 pm () Marce Amador PA [Primary Care Provider] - 11/30/23 9:20 am Disposition Disposition (needs filled in before D/C Order can be placed): Home, Self Care Charges/Coding Visit Charges Inpatient E&M: 62337 Disch Hosp >30min
--- NOTE | 2023-11-13 12:18 | PHA.DC.MC.R ---
Pharmacy [facility] has performed discharge medication reconciliation and counseling for this patient. The patient's discharge medication list was reviewed for discrepancies and discrepancies were resolved. The patient was counseled on the following discharge medications and changes in medications for homegoing were reviewed. 1. COLESTIPOL 2. PREDNISONE The Reason for Use, instructions for use, and potential side effects were reviewed for all new medications. The patient's questions regarding all of their medications were answered. The patient was able to verbally demonstrate an understanding of their discharge medications. the patient was counselled by Tato Johnson PharmD Candidate Medications at Discharge Home Medications albuterol sulfate 90 mcg/actuation aerosol inhaler 2 puff inhalation Q4H PRN SOB 07/31/22 ergocalciferol (vitamin D2) 1,250 mcg (50,000 unit) capsule 1,250 mcg PO .twice week supplement 07/31/22 fluticasone propionate 50 mcg/actuation nasal spray,suspension (Allergy Relief (fluticasone)) 1 spray intranasal DAILY PRN ALLERGIES 07/31/22 ipratropium 0.5 mg-albuterol 3 mg (2.5 mg base)/3 mL nebulization soln 3 ml inhalation Q4H PRN SOB 07/31/22 lovastatin 20 mg tablet 20 mg PO DAILY cholesterol 07/31/22 metformin 500 mg tablet 500 mg PO TIDWMEAL dm 07/31/22 montelukast 10 mg tablet 10 mg PO QPM breathing 07/31/22 trazodone 50 mg tablet 50 mg PO QHS sleep 07/31/22 cetirizine 10 mg tablet 10 mg PO DAILY for allergies 08/01/22 citalopram 40 mg tablet 40 mg PO DAILY depression 02/16/23 albuterol sulfate 2.5 mg/3 mL (0.083 %) solution for nebulization 2.5 mg continuous nebulization Q4H PRN shortness of breath or wheezing 06/07/23 fluticasone fur. 200 mcg-umeclid 62.5 mcg-vilant 25 mcg inhalat.powder (Trelegy Ellipta) 1 inh inhalation Q24H breathing 07/24/23 gabapentin 100 mg capsule 100 mg PO QHS pain 07/24/23 levalbuterol tartrate 45 mcg/actuation aerosol inhaler 1 puff inhalation Q4H PRN shortness of breath or wheezing 07/24/23 multivitamin (Daily Multi-Vitamin tablet) 1 tab PO DAILY supplement 07/24/23 pantoprazole 20 mg tablet,delayed release (Protonix) 20 mg PO DAILY gi bleed #30 tabs 07/30/23 sitagliptin phosphate 100 mg tablet (Januvia) 100 mg PO DAILY diabetes 08/13/23 empagliflozin 25 mg tablet (Jardiance) 25 mg PO QDAY diabetes 09/10/23 mecobalamin (vitamin B12) 1,000 mcg chewable tablet 1,000 mcg PO .twice weekly anemia 09/10/23 insulin lispro 100 unit/mL subcutaneous pen 12 unit subcut TIDCM diabetes 09/16/23 rivaroxaban 20 mg tablet (Xarelto) 20 mg PO DAILY blood thinner #30 tabs 10/08/23 aluminum-mag hydroxide-simethicone 400 mg-400 mg-40 mg/5 mL oral susp (Antacid Anti-Gas) 15 ml PO 4X/DAY PRN PRN pain 11/08/23 ciclopirox 8 % topical solution 1 applic topical DAILY nail fungus 11/08/23 metoprolol tartrate 25 mg tablet 25 mg PO BID Tachycardia 11/09/23 colestipol 1 gram tablet 2 g (2 x 1 gram) PO 0600,1700 7 days #28 tabs 11/13/23 insulin glargine 100 unit/mL subcutaneous solution (Lantus U-100 Insulin) 10 unit (0.1 mL) subcut BID blood sugar #10 mL 11/13/23 prednisone 20 mg tablet 40 mg (2 x 20 mg) PO BREAKFAST 7 days #14 tabs 11/13/23
[2023-11-13 15:09] LABS: Albumin 2.5 g/dL (2.9-4.4); Alpha-1-Globulins 0.3 g/dL (0.0-0.4); Alpha-2-Globulins 1.2 g/dL (0.4-1.0); Cytoplasmic Ab (C-ANCA) <1:20 titer (Neg:<1:20); Deamidated Gliadin IgA 3 units (0-19); Deamidated Gliadin IgG 2 units (0-19); Endomysial Antibody IgA Negative (Negative); Gamma Globulin 0.8 g/dL (0.4-1.8); Immunoglobulin A 212 mg/dL (87-352); Immunoglobulin E 669 IU/mL (6-495); Immunoglobulin G 937 mg/dL (586-1602); Immunoglobulin M 42 mg/dL (26-217); PROEL- TOTAL PROTEIN 5.7 g/dL (6.0-8.5); Perinuclear Ab (P-ANCA) <1:20 titer (Neg:<1:20); t-Transglutaminase IgA <2 U/mL (0-3)
[2023-11-14 11:09] LABS: GLUCOSE, SYNOVIAL FLUID 342 mg/dL (.); PROTEIN, SYNOVIAL FLUID 4.5 g/dL (.)
--- NOTE | 2023-11-16 08:36 | CASEMGMT ---
Social Work- EMANUEL received a return call from [facility], requesting a fax with discharge instructions. EMANUEL faxed over instructions to [phone]. IVANNA Ware
--- NOTE | 2023-11-18 16:04 | CASEMGMT ---
Pt left message on RN CM solomon. Pt states she was returning the follow up phone call. She states she had seen and they are proceeding with a lung bx on the left on 11/26. She states she is doing good and is taking meds as ordered. Pt stated she was appreciative of the call.
== END 2023-11-13 13:20 | disposition home or self-care (01) | DRG 393 ==
LOC: ED 13:29 → PCU 16:17
PROVIDERS: Anesthesiology; Internal Medicine Gastroenterology; Physician Assistant; Admitting Provider Internal Medicine; Emergency Provider Emergency Medicine; PCP Physician Assistant Medical; Visit Provider Internal Medicine
PROC: 0DJD8ZZ Inspection of Lower Intestinal Tract, Via Natural or Artificial Opening Endoscopic (ICD-10-PCS; CPT 45378; principal; 2023-11-09 17:40)
DX: K52.1 Toxic gastroenteritis and colitis (principal); K29.81 Duodenitis with bleeding; C79.9 Secondary malignant neoplasm of unspecified site; J96.11 Chronic respiratory failure with hypoxia; C34.90 Malignant neoplasm of unspecified part of unspecified bronchus or lung; K50.911 Crohn's disease, unspecified, with rectal bleeding; D62 Acute posthemorrhagic anemia; Z99.81 Dependence on supplemental oxygen; J44.9 Chronic obstructive pulmonary disease, unspecified; E11.65 Type 2 diabetes mellitus with hyperglycemia; Z79.4 Long term (current) use of insulin; I10 Essential (primary) hypertension; E78.00 Pure hypercholesterolemia, unspecified; M25.461 Effusion, right knee; M17.11 Unilateral primary osteoarthritis, right knee; T45.1X5A Adverse effect of antineoplastic and immunosuppressive drugs, initial encounter; R42 Dizziness and giddiness; Z79.84 Long term (current) use of oral hypoglycemic drugs; Z79.51 Long term (current) use of inhaled steroids; Z79.52 Long term (current) use of systemic steroids; Z79.01 Long term (current) use of anticoagulants; Z86.718 Personal history of other venous thrombosis and embolism; Z87.891 Personal history of nicotine dependence; Z90.2 Acquired absence of lung [part of]
CPT/HCPCS: 20610; 36415; 36591; 71260; 73562; 74177; 77002; 80048; 80053; 80074; 82784; 82785; 82945; 82962; 83036; 83516; 83690; 83735; 84100; 84157; 84165; 84439; 84443; 85014; 85018; 85025; 85610; 85652; 85730; 86036; 86140; 86225; 86235; 86255; 86256; 86334; 86671; 86850; 86900; 86901; 86920; 86922; 87040; 87070; 87075; 87177; 87205; 87209; 87493; 87506; 88305; 89050; 89051; 89060; 93005; 93308; 94640; 94668; 97802; 99252; 99285; J7030; J7120; Q9957; Q9967; A4216; C8924; G0463; J2405

== ENCOUNTER 2023-11-27 07:43 | Outpatient (CLI) | payer MEDICARE, MEDICAID, SELFPAY ==
[2023-11-27] VITALS (19 sets, daily range): BP systolic 71–130; BP diastolic 27–100; PULSE 104–114; RESP 12–18; TEMP 37.4; O2SAT 80–99; BMI 28.3
--- NOTE | 2023-11-27 | ASPIGT_PTH ---
PATIENT: FABRICIO EDWARDS LOC: [place] U#:[id number] AGE/SX: 63/F ROOM: RE11/27/[address]: Dr. Darryl Ramirez MD : 1960 BED: DIS: 11/27/2023 SPEC #: [id number] RECD: 11/27/23 10:08 STATUS: VALERIA RETeresa #: [id number] JOÃO: 11/27/23 00:[address]: Darryl Ramirez DEPT: SURGICAL PATHOLOGY RECD BY: Patricia Kyle ENTERED: 11/27/23 10:08 SP TYPE: ASP RAD OTHR DR: MESSI Ruvalcaba Tissues: Lung, NOS Procedures: FNA Specimen Adequacy Elastin Stain (control) Trichrome (control) Special Stain Group II Special Stain Group I Surgery Specimen Level IV Retic (control) Imprint (control) HEADER OPERATION: CT guided lung biopsy PRE-OP DIAGNOSIS: Left lung mass TISSUE SUBMITTED: 20 gauge x 4cores- Upper left MICROSCOPIC DIAGNOSIS Left lung mass, CT guided core biopsy: Lung parenchymal tissue, negative for malignancy. See comment. / 11/30/2023 COMMENT The specimen is evaluated at the time of biopsy by Dr. Eisenberg. Immediate Evaluation = Mildly atypical cells noted. Interstitial fibrosis, mild chronic inflammation and changes consistent with organizing pneumonia are noted. Elastic, reticulin and trichrome stain with matched controls are also used in the evaluation of the specimen. Correlation with clinical, radiologic findings and appropriate follow up are necessary. MICROSCOPIC DESCRIPTION Slides are reviewed. GROSS DESCRIPTION Received in fixative is one container labeled with the patient's name and designated Left lung. The specimen consists of multiple irregular fragments of gonzalez soft tissue that in aggregate measure 0.5 x 0.2 x 0.1 cm. The specimen is totally submitted in one cassette. Three touch imprints are prepared at the time of core biopsy. / 11/27/2023 TC:5 CPT:00465,26404,69721F3
[2023-11-27 08:07] LABS: Absolute Lymphocyte Count 0.31 X10^3/uL (0.83-4.51); Absolute Neutrophil Count 5.9 X10^3/uL (2.0-7.7); Basophil# 0.05 X10^3/uL; Basophil% 0.7 % (0-1); Eosinophil# 0.34 X10^3/uL; Eosinophils% 4.7 % (0-5); Hematocrit 39.7 % (37-47); Lymphocyte # 0.31 X10^3/ul (0.83-4.51); Lymphocyte % 4.3 % (19-41); Mean Corp Hgb Conc 30.2 g/dL (32-36); Mean Corpuscular Volume 89.4 fL (81-99); Mean Platelet Vol. 8.8 fl (6.2-12.0); Monocyte# 0.52 X10^3/uL; Monocyte% 7.2 % (0-10); NRBC Flagged by Analyzer 0 % (0-5); Neutrophil # 5.94 X10^3/uL (2.7-7.7); Neutrophil % 82.5 % (47-70); POSITIVE DIFFERENTIAL YES; Platelet Count 273 K/mm3 (150-450); RBC Distribution Width CV 18.2 % (11.6-14.6); RBC Distribution Width SD 56.9 fl (35.1-43.9); Red Blood Count 4.44 M/mm3 (4.2-5.4); White Blood Count 7.2 K/mm3 (4.4-11.0)
[2023-11-27 08:24] LABS: International Normalized Ratio 1.1; Partial Thromboplast Time 29.3 Seconds (24.1-36.2)
[2023-11-27] MEDS: 0.9% Normal Saline (250mL Bag) 250 ML 15 ML IV (09:10)
[2023-11-27] MEDS: Midazolam 2 MG/2 ML Syringe IV ×2 (09:10→09:27)
[2023-11-27] MEDS: fentaNYL 100 MCG/2 ML Ampul IV ×2 (09:12→09:50)
[2023-11-27] MEDS: Lidocaine 2% (20 ml mdv) 20 ML Vial INFILT (09:30)
--- NOTE | 2023-11-27 09:45 | RAD_ITS ---
STUDY: X-RAY CHEST REASON FOR EXAM: Female, 63 years old. Post biopsy -- Immediately post lung biopsy TECHNIQUE: AP and inspiration and expiration views. COMPARISON: Comparison is made with prior study dated July 24, 2023. FINDINGS: The patient is status post left lung biopsy. There is no evidence of pneumothorax. Stable chronic changes in the right lung. Calcific tendinitis of the right shoulder. RAD/Chest Insp/Exp 2 View IMPRESSION: No evidence of pneumothorax on the immediate post left lung biopsy radiographs. Electronically Signed: Aren Maynard MD at 9:57 EDT ,
[2023-11-27] MEDS: Ketorolac 30 MG/ML Syringe 15 MG IV (10:08)
--- NOTE | 2023-11-27 10:11 | PCM.OP.PRO ---
Procedure Report Date of Procedure: 11/27/23 Assessment & Plan Assessment/Plan (1) Left lower lobe pulmonary nodule: PLAN: PROCEDURE: CT GUIDED CORE NEEDLE LUNG BIOPSY ORDERING PROVIDER: Dr. Ramirez INDICATION: Female, 63 years old. Left lower lobe pulmonary nodule. PROVIDER: DYAN [place] CONSENT: Written informed consent was obtained having explained the risks, benefits and alternatives in detail with the patient who accepted the risks and agreed to proceed. Laboratory review and clinical assessment was performed. PRE-PROCEDURE SEDATION ASSESSMENT: Current history and physical dictated by referring physician and reviewed. No clinical changes since date of exam. Patient has a Mallampati Score of Class 1 and ASA Class of 3. PROCEDURAL SEDATION PROTOCOL: The Drugs used were: 2 mg Versed, IV, and 50 mcg Fentanyl, IV. The sedation time was: 30 minutes, starting at 9:10 AM and terminated at 9:40 AM. The procedural sedation protocol was independently monitored by the department nurse. RADIATION DOSAGE (If Supplied By Facility): CTDIvol = 19.53 mGy, DLP = 634.29 mGycm Individualized dose optimization techniques were used for this CT. TECHNIQUE: The patient was placed in a prone position. A noncontrast CT was performed to localize the lesion in the left lower lobe. The skin surface was prepped and draped in a sterile fashion. 2% lidocaine was used for local anesthesia. Using CT guidance, a 20-gauge coaxial biopsy device was advanced to the periphery of the lesion. A total of 4 core specimens were obtained. Specimens were microscopically reviewed by pathology in the CT suite and placed in formalin solution. BioSentry tract sealant system was deployed at the biopsy site, and the biopsy needle was removed. A sterile occlusive dressing was applied to the biopsy site. The patient tolerated the procedure well. An immediate chest xray was ordered, per protocol. The patient complained of sharp chest pain, left-sided, immediately post biopsy. She was moved to her cot and placed in a high Fowlers position. Her oxygen saturation continued to drop despite good waveform, into the 70s. Nonrebreather was placed. Chest x-ray was obtained and confirmed no evidence of pneumothorax. The patient was given additional pain medication including another 50 mcg of fentanyl. On return to the recovery bay, the patient continued to climb planing of pain. An order for 50 mg of Toradol IV was given, as well as to wean the nonrebreather as tolerated. The patient is on baseline 2 L. A negative biopsy does not exclude malignancy. Further imaging or clinical followup based on patient condition and degree of clinical suspicion for malignancy. Suggest rebiopsy, if biopsy results do not match with clinical scenario. IMPRESSION: 1. CT directed core needle biopsy of left lower lobe nodule using CT image guidance with image documentation as described. Pathology results are pending. 2. Procedural Sedation protocol utilized with independent monitoring by the department nurse. Procedures Radiology Radiology CT Procedures: [id number] Biopsy Lung
[2023-11-27] MEDS: 0.9% Saline Lock 10 ML Syringe IV (11:50)
--- NOTE | 2023-11-27 11:50 | RAD_ITS ---
STUDY: X-RAY CHEST REASON FOR EXAM: Female, 63 years old. Post biopsy -- 2 hours post lung biopsy TECHNIQUE: Two-hour post left lung biopsy radiographs. COMPARISON: Comparison is made with prior examination done earlier in the day. FINDINGS: No evidence of pneumothorax on the 2 hour post left lung biopsy radiographs. RAD/Chest Insp/Exp 2 View IMPRESSION: No evidence of pneumothorax on the two-hour post left lung biopsy radiographs. Electronically Signed: Aren Maynard MD at 12:23 EDT ,
== END 2023-11-27 23:59 | disposition home or self-care (01) ==
PROVIDERS: PCP Physician Assistant Medical; Referring Provider Internal Medicine Medical Oncology; Visit Provider Internal Medicine Medical Oncology
DX: R92.8 Other abnormal and inconclusive findings on diagnostic imaging of breast (principal); D64.9 Anemia, unspecified
CPT/HCPCS: 36415; 71046; 77012; 85025; 85610; 85730; 88172; 88305; 88312; 88313; 99156; 99157; J7050; A4216; C2613

== ENCOUNTER 2023-11-27 12:52 | Emergency (ER) | payer MEDICARE, MEDICAID, SELFPAY ==
[2023-11-27 12:53] VITALS: BP 81/61; PULSE 110; RESP 20; TEMP 36.3; O2SAT 91
--- NOTE | 2023-11-27 13:19 | CT_ITS ---
STUDY: CT CHEST WITHOUT CONTRAST REASON FOR EXAM: Female, 63 years old. Shortness of breath. Hypotension. Prior left lung biopsy earlier today. RADIATION DOSAGE (If Supplied By Facility): CTDIvol = ( 13.99 ) mGy, DLP = ( 475.33 ) mGycm TECHNIQUE: Transaxial imaging was performed without the administration of intravenous contrast material. Multiplanar coronal and sagittal images were reformatted. Individualized dose optimization techniques were used for this CT. COMPARISON: Comparison is made with prior study dated November 09, 2023. FINDINGS: CHEST The patient is status post biopsy of the nodular density in the anterior superior left lower lobe adjacent to the left major fissure. There now is evidence of a small parenchymal contusion at the biopsy site. No evidence of pneumothorax. Stable right upper lobectomy with chronic changes in the right lung with volume loss. Stable pleural-parenchymal changes in the right hemithorax. Coronary artery calcification. CT/Chest without Contrast IMPRESSION: Status post left lung biopsy with the focal hemorrhagic contusion at the biopsy site. The remainder of the examination is unchanged. No evidence of pneumothorax. Electronically Signed: Aren Maynard MD at 14:44 EDT ,
--- NOTE | 2023-11-27 13:20 | EKG12_ITS ---
Test Reason : LOW BP Blood Pressure : / mmHG Vent. Rate : 103 BPM Atrial Rate : 103 BPM P-R Int : 158 ms QRS Dur : 070 ms QT Int : 322 ms P-R-T Axes : 035 015 024 degrees QTc Int : 421 ms Sinus tachycardia Otherwise normal ECG Confirmed by SUZETTE DRAKE, YADIRA ([id number]), map editor RENITA LENZ ([id number]) on 12/02/2023 10:48:11 A M Referred By: Confirmed By:AMINA BRADFORD MD
--- NOTE | 2023-11-27 13:26 | EX.ED.DYSGE1 ---
HPI <PAUL Benites - Last Filed: 11/27/23 16:29> History of Present Illness Chief Complaint: Hypotension Narrative Narrative: Patient is a 63-year-old female with history of DVT on Xarelto, who has recurrent right-sided lower lung cancer. Patient is currently not on any treatment. Patient does wear 2 L of nasal cannula oxygen daily. Patient today had a left lower lung biopsy. Patient had hypotension while before as well as after the procedure. Blood pressure as low as 70 systolic. He states he feels slightly lightheaded. She did feel more short of breath than usual today. Secondary to the blood pressure not going up, they referred her to the emergency department. Patient states she does have some shortness of breath however no chest pain. Patient's blood pressure was 81 systolic here. 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 Wears glasses Wears dentures Seasonal allergies Gout Diabetes mellitus COVID-19 COPD (chronic obstructive pulmonary disease) Home Medications ?Medication ?Instructions ?Recorded ?Last Taken ?Type albuterol sulfate 90 mcg/actuation 2 puff inhalation Q4H PRN SOB 07/31/22 Unknown History aerosol inhaler ergocalciferol (vitamin D2) 1,250 1,250 mcg PO .twice week supplement 07/31/22 07/16/23 History mcg (50,000 unit) capsule fluticasone propionate 50 1 spray intranasal DAILY PRN 07/31/22 Unknown History mcg/actuation nasal ALLERGIES spray,suspension (Allergy Relief (fluticasone)) ipratropium 0.5 mg-albuterol 3 mg 3 ml inhalation Q4H PRN SOB 07/31/22 Unknown History (2.5 mg base)/3 mL nebulization soln lovastatin 20 mg tablet 20 mg PO DAILY cholesterol 07/31/22 Unknown History metformin 500 mg tablet 500 mg PO TIDWMEAL dm 07/31/22 Unknown History montelukast 10 mg tablet 10 mg PO QPM breathing 07/31/22 Unknown History trazodone 50 mg tablet 50 mg PO QHS sleep 07/31/22 Unknown History cetirizine 10 mg tablet 10 mg PO DAILY for allergies 08/01/22 Unknown History citalopram 40 mg tablet 40 mg PO DAILY depression 02/16/23 Unknown History albuterol sulfate 2.5 mg/3 mL 2.5 mg continuous nebulization Q4H 06/07/23 Unknown History (0.083 %) solution for nebulization PRN shortness of breath or wheezing fluticasone fur. 200 mcg-umeclid 1 inh inhalation Q24H breathing 07/24/23 Unknown History 62.5 mcg-vilant 25 mcg inhalat.powder (Trelegy Ellipta) gabapentin 100 mg capsule 100 mg PO Q12H pain 07/24/23 Unknown History levalbuterol tartrate 45 1 puff inhalation Q4H PRN 07/24/23 Unknown History mcg/actuation aerosol inhaler shortness of breath or wheezing multivitamin (Daily Multi-Vitamin 1 tab PO DAILY supplement 07/24/23 Unknown History tablet) sitagliptin phosphate 100 mg 100 mg PO DAILY diabetes 08/13/23 Unknown History tablet (Januvia) empagliflozin 25 mg tablet 25 mg PO QDAY diabetes 09/10/23 Unknown History (Jardiance) mecobalamin (vitamin B12) 1,000 1,000 mcg PO .twice weekly anemia 09/10/23 11/07/23 History mcg chewable tablet insulin lispro 100 unit/mL 12 unit subcut TIDCM diabetes 09/16/23 Unknown History subcutaneous pen rivaroxaban 20 mg tablet (Xarelto) 20 mg PO DAILY blood thinner #30 10/08/23 Unknown Rx tabs aluminum-mag hydroxide-simethicone 15 ml PO 4X/DAY PRN PRN pain 11/08/23 Unknown History 400 mg-400 mg-40 mg/5 mL oral susp (Antacid Anti-Gas) ciclopirox 8 % topical solution 1 applic topical DAILY nail fungus 11/08/23 11/07/23 History metoprolol tartrate 25 mg tablet 25 mg PO BID Tachycardia 11/09/23 11/08/23 08:00 History 25 mg colestipol 1 gram tablet 2 g (2 x 1 gram) PO 0600,1700 7 11/13/23 Unknown Rx days #28 tabs insulin glargine 100 unit/mL 10 unit (0.1 mL) subcut BID blood 11/13/23 11/08/23 Rx subcutaneous solution (Lantus sugar #10 mL U-100 Insulin) prednisone 20 mg tablet 20 mg PO BREAKFAST 14 days #14 tabs 11/16/23 Unknown Rx budesonide 3 mg 6 mg (2 x 3 mg) PO DAILY #60 ea 11/20/23 Unknown Rx capsule,delayed,extended release Allergy/AdvReac Type Severity Reaction Status Date / Time No Known Allergies Allergy Verified 11/27/23 12:58 Family History Mother Diabetes Heart disease Cancer brain tumor Father Cancer blood cancer per pt Sister Heart disease Diabetes Cancer lung Grandfather Cancer lung Uncle Diabetes Son Cancer testicular Surgical History Port-A-Cath in place History of lobectomy of lung History of bronchoscopy H/O arthroscopy of left knee History of tonsillectomy H/O tooth extraction H/O foot surgery H/O: hysterectomy History of carpal tunnel surgery Social History household members: none Smoking Status: Former smoker quit date: 11/12/19 pack-years: 53 alcohol intake: never substance use type: does not use ROS <PAUL Benites - Last Filed: 11/27/23 16:29> ROS ED ROS Narrative Constitutional: Negative for fever, chills, weight loss. Positive for weakness Eyes: Negative for vision loss, vision change, double vision ENT: Negative for any sore throat, ear pain, congestion Cardiovascular: Negative for any chest pain, tightness, palpitations Respiratory: Negative for any cough, sputum production, hemoptysis, orthopnea. Positive for dyspnea, dyspnea on exertion Gastrointestinal: Negative for any abdominal pain, nausea, vomiting, diarrhea, constipation, blood in stool, blood in vomit : Negative for any urinary frequency, dysuria, retention, blood in urine Muscle skeletal: Negative for any neck pain, back pain Neurological: Negative for any headache, syncope, dizziness Skin: Negative for any rashes, itching, abrasions, lacerations Psychiatric: Negative for any depression, anxiety, stress, suicidal ideation, homicidal ideation Hematologic: Negative for any excessive bruising, easy bleeding EXAM <Dharmesh MccauleyPAUL - Last Filed: 11/27/23 16:29> Physical Exam Narrative Exam Narrative: Vital signs reviewed. Blood pressure was 81/61 with a heart rate of 110. Patient on appearance does not look like her blood pressure is that low. Patient is 93% on 3 L. HEET: Head normocephalic atraumatic, TMs clear bilaterally. Posterior pharynx is clear, moist mucous membranes. Nares clear bilaterally. Neck: Supple with no lymphadenopathy or tenderness. No signs of meningismus. Cardiac: Regular rate and rhythm no murmurs gallops or rubs, equal peripheral pulses bilaterally. Respiratory: Patient has a dressing to the left upper lobe, left upper lobe was unremarkable, adequate breath sounds heard. Right lower quadrant was diminished however the remainder was clear.. No chest tenderness. Abdomen: Soft, nontender, nondistended. No abdominal bruit or pulsatile masses. No hepatosplenomegaly Extremities: No peripheral edema, no signs of gross trauma or deformity. Active full range of motion of all extremities. Neuro: Cranial nerves II through XII intact, no focal neurological deficits. Skin: Clean dry and intact with no rash, purpura, petechiae, vesicles or pustules. Backs/flank: No CVA tenderness, no midline spinal tenderness, no deformity. Psych: Normal mood and affect. No SI, HI or acute psychosis. Const Vital Signs: 11/27/23 12:53 11/27/23 13:53 11/27/23 13:58 Temperature 97.4 F L Temperature Source Temporal Pulse Rate 110 H 108 H Pulse Rate [Lying] Pulse Rate [Sitting (for 1 minute prior to obtaining)] Pulse Rate [Standing (for 1 minute prior to obtaining)] Respiratory Rate 20 H 15 Respiratory Effort Normal Non-Labored Respiratory Pattern Normal Blood Pressure 81/61 L 90/63 Blood Pressure [Lying] Blood Pressure [Sitting (for 1 minute prior to obtaining)] Blood Pressure [Standing (for 1 minute prior to obtaining)] Blood Pressure Mean 67 72 Blood Pressure Mean [Lying] Blood Pressure Mean [Sitting (for 1 minute prior to obtaining)] Blood Pressure Mean [Standing (for 1 minute prior to obtaining)] Pulse Ox 91 97 Oxygen Delivery Method Nasal Cannula Nasal Cannula Oxygen Flow Rate (L/min) 4 2 11/27/23 14:49 11/27/23 15:24 11/27/23 16:00 Temperature Temperature Source Pulse Rate 109 H 104 H Pulse Rate [Lying] 97 Pulse Rate [Sitting (for 1 minute prior to obtaining)] 102 H Pulse Rate [Standing (for 1 minute prior to obtaining)] 103 H Respiratory Rate 20 H 16 Respiratory Effort Respiratory Pattern Blood Pressure 94/68 159/77 H Blood Pressure [Lying] 88/64 L Blood Pressure [Sitting (for 1 minute prior to obtaining)] 84/53 L Blood Pressure [Standing (for 1 minute prior to obtaining)] 91/59 L Blood Pressure Mean 76 104 Blood Pressure Mean [Lying] 72 Blood Pressure Mean [Sitting (for 1 minute prior to obtaining)] 63 Blood Pressure Mean [Standing (for 1 minute prior to obtaining)] 69 Pulse Ox 98 97 Oxygen Delivery Method Nasal Cannula Nasal Cannula Oxygen Flow Rate (L/min) 2 2 11/27/23 16:51 Temperature 97.4 F L Temperature Source Pulse Rate 103 H Pulse Rate [Lying] Pulse Rate [Sitting (for 1 minute prior to obtaining)] Pulse Rate [Standing (for 1 minute prior to obtaining)] Respiratory Rate 16 Respiratory Effort Respiratory Pattern Blood Pressure 102/67 Blood Pressure [Lying] Blood Pressure [Sitting (for 1 minute prior to obtaining)] Blood Pressure [Standing (for 1 minute prior to obtaining)] Blood Pressure Mean 78 Blood Pressure Mean [Lying] Blood Pressure Mean [Sitting (for 1 minute prior to obtaining)] Blood Pressure Mean [Standing (for 1 minute prior to obtaining)] Pulse Ox 97 Oxygen Delivery Method Oxygen Flow Rate (L/min) Positive well nourished and well developed General Appearance ED: well developed <Dr. Perez Lance, DO - Last Filed: 11/27/23 19:46> Physical Exam Const Vital Signs: 11/27/23 12:53 11/27/23 13:53 11/27/23 13:58 Temperature 97.4 F L Temperature Source Temporal Pulse Rate 110 H 108 H Pulse Rate [Lying] Pulse Rate [Sitting (for 1 minute prior to obtaining)] Pulse Rate [Standing (for 1 minute prior to obtaining)] Respiratory Rate 20 H 15 Respiratory Effort Normal Non-Labored Respiratory Pattern Normal Blood Pressure 81/61 L 90/63 Blood Pressure [Lying] Blood Pressure [Sitting (for 1 minute prior to obtaining)] Blood Pressure [Standing (for 1 minute prior to obtaining)] Blood Pressure Mean 67 72 Blood Pressure Mean [Lying] Blood Pressure Mean [Sitting (for 1 minute prior to obtaining)] Blood Pressure Mean [Standing (for 1 minute prior to obtaining)] Pulse Ox 91 97 Oxygen Delivery Method Nasal Cannula Nasal Cannula Oxygen Flow Rate (L/min) 4 2 11/27/23 14:49 11/27/23 15:24 11/27/23 16:00 Temperature Temperature Source Pulse Rate 109 H 104 H Pulse Rate [Lying] 97 Pulse Rate [Sitting (for 1 minute prior to obtaining)] 102 H Pulse Rate [Standing (for 1 minute prior to obtaining)] 103 H Respiratory Rate 20 H 16 Respiratory Effort Respiratory Pattern Blood Pressure 94/68 159/77 H Blood Pressure [Lying] 88/64 L Blood Pressure [Sitting (for 1 minute prior to obtaining)] 84/53 L Blood Pressure [Standing (for 1 minute prior to obtaining)] 91/59 L Blood Pressure Mean 76 104 Blood Pressure Mean [Lying] 72 Blood Pressure Mean [Sitting (for 1 minute prior to obtaining)] 63 Blood Pressure Mean [Standing (for 1 minute prior to obtaining)] 69 Pulse Ox 98 97 Oxygen Delivery Method Nasal Cannula Nasal Cannula Oxygen Flow Rate (L/min) 2 2 11/27/23 16:51 Temperature 97.4 F L Temperature Source Pulse Rate 103 H Pulse Rate [Lying] Pulse Rate [Sitting (for 1 minute prior to obtaining)] Pulse Rate [Standing (for 1 minute prior to obtaining)] Respiratory Rate 16 Respiratory Effort Respiratory Pattern Blood Pressure 102/67 Blood Pressure [Lying] Blood Pressure [Sitting (for 1 minute prior to obtaining)] Blood Pressure [Standing (for 1 minute prior to obtaining)] Blood Pressure Mean 78 Blood Pressure Mean [Lying] Blood Pressure Mean [Sitting (for 1 minute prior to obtaining)] Blood Pressure Mean [Standing (for 1 minute prior to obtaining)] Pulse Ox 97 Oxygen Delivery Method Oxygen Flow Rate (L/min) [facility] <PAUL Benites - Last Filed: 11/27/23 16:29> [facility] Lab Data Labs: Laboratory Results - last 24 hr 11/27/23 13:40 WBC 7.4 RBC 3.84 L Hgb 10.3 L Hct 33.7 L MCV 87.8 MCH 26.8 L MCHC 30.6 L RDW Std Deviation 56.6 H RDW Coeff of Gina 18.2 H Plt Count 249 MPV 9.0 Immature Gran % (Auto) 0.500 Neut % (Auto) 92.3 H Lymph % (Auto) 3.2 L [place] % (Auto) 2.7 Eos % (Auto) 0.9 Baso % (Auto) 0.4 Absolute Neuts (auto) 6.8 Absolute Lymphs (auto) 0.24 L Nucleated RBC % 0 Sodium 137 Potassium 4.1 Chloride 103 Carbon Dioxide 30.0 Anion Gap 4 L BUN 15 Creatinine 0.64 Estim Creat Clear Calc 72.78 Est GFR (MDRD) Af Amer 119 Est GFR (MDRD) Non-Af 98 BUN/Creatinine Ratio 23.3 H Glucose 121 H Calcium 8.9 Troponin I High Sens 7 Radiography Diagnostic Testing: Clinical Impression(s) from Imaging Studies Chest CT 11/27/23 13:19 IMPRESSION: Status post left lung biopsy with the focal hemorrhagic contusion at the biopsy site. The remainder of the examination is unchanged. No evidence of pneumothorax. Electronically Signed: Aren Maynard MD at 14:44 EDT , EKG Sinus tachycardia,: Attestation: I personally reviewed and interpreted this EKG as follows: Comments: Sinus tachycardia, rate 103 bpm, [place] interval 158 ms, QRS duration 70 ms, no acute ST elevation, no acute infarct noted. Treatment and Re-Evaluation :: Differential diagnosis includes however is not limited to: Pneumothorax, hemothorax, dehydration, [facility] pneumonia, electrolyte abnormality, ACS or NH Patient appears to be in no obvious distress patient is hypotension, patient does have some tachycardia. However patient does not look to be in any distress. Patient dates she feels slightly lightheaded however patient is sitting upright in bed in no distress. Cardiac and pulmonary exam was unremarkable. Patient will receive a CT scan of the chest, EKG, laboratory values including troponin. Patient will receive 1 L of normal saline to see if this improves her blood pressure. Patient will be reevaluated. All radiologic examinations were read, reviewed by the emergency department attending. From these reads, a plan of care will be put in place. On reevaluation, the patient is unchanged, patient's vital signs show that the patient blood pressure is 94/68, heart rate of 109.Patient's laboratory values show stable anemia with a hemoglobin of 10.3, patient's glucose 121, troponin was negative. Patient CT scan of the chest shows status post left lung biopsy with no focal hemorrhagic contusion at the biopsy site. The remainder of the examination is unchanged. No evidence of any pneumothorax. Patient was ambulatory several times the bathroom with a steady gait, patient will receive orthostatic vital signs. Orthostatic vital signs were negative, patient's blood pressure latest is 91/59. Patient is now eating and drinking in the room, is no distress. At this time, the patient is on metoprolol 25 mg twice a day for tachycardia however side effect is blood pressure. Secondary to the patient being concerned that her heart rate will increase, patient is unsure if she wants to stop taking metoprolol. I am going to reach out to the patient's primary care doctor. Patient's primary care doctor is out. I did try to reach out to Dr. Ramirez, patient's blood pressure 99/50, patient is ambulatory, eating and drink, asymptomatic. At this time, do believe the patient stable for discharge. I spoke with the patient about stopping her metoprolol until she sees her PCP. She states she is mostly concerned because of her heart rate, however the metoprolol does decrease her blood pressure. She states that she will hold it, she will follow-up outpatient. She instructed return for any worsening symptoms, patient stable for discharge. <Dr. Perez Lance, DO - Last Filed: 11/27/23 19:46> [employer] Narrative Medical decision making narrative: I have personally performed a face to face assessment of the patient and have reviewed the MOSES Note. I performed a substantive portion of the visit including all aspects of the following. My grant findings include: History: Patient presents with low blood pressure that was noted today. Patient had a lung biopsy done today. Patient states that during the biopsy her blood pressure became low. Patient states that it remained low and therefore she was transferred to the emergency department. Patient denies any shortness of breath or cough. Patient states she feels lightheaded and dizzy. Family noted that the blood pressure while she was getting her procedure went down to 59/39. Upon arrival to the emergency department, patient's blood pressure was 81/61. Exam: Vital signs were stable except for low blood pressure of 81/61 and a mild tachycardia of 110. Patient is afebrile. Patient is in no acute distress. Oral mucosa is pink and moist. Neck is supple. Trachea is midline. There is no JVD. Heart was regular and tachycardic. Lungs are clear and equal bilaterally. There is good respiratory effort noted. Abdomen is soft. Bowel sounds are normal. There is no tenderness. Cranial nerves II through XII are grossly intact. There are no focal motor or sensory deficits noted. Medical Decision Making: Differential diagnosis includes pneumothorax, hemothorax, cardiac dysrhythmia, cardiac ischemia, and hematoma. CBC will be obtained to assess for leukocytosis and anemia. Basic metabolic profile will be obtained to assess for electrolyte abnormality and renal function. High-sensitivity troponin will be obtained to assess for cardiac ischemia. CT scan of the chest will be obtained to assess for pneumothorax, hematoma, and hemothorax. EKG will be obtained to assess for cardiac dysrhythmia and cardiac ischemia. Patient was given IV fluids. EKG was obtained. On my independent interpretation, it shows sinus tachycardia with a rate of 103. [place] interval, QRS interval, and QTc intervals are within normal limits. There are no acute ST or T wave changes noted. CT scan of the chest was obtained. There is no pneumothorax noted. There is no hemothorax noted. There is a small hemorrhagic contusion noted at the biopsy site. This was interpreted by the radiologist was also independently reviewed by myself. CBC was reviewed. There is a mild anemia with a hemoglobin of 10.3 and hematocrit 33.7. Basic metabolic profile was reviewed and was essentially within normal limits. High-sensitivity troponin was reviewed and was normal at 7. Patient is feeling better on reevaluation. Patient was able to sit up and stand up without any lightheadedness. Orthostatic vital signs were reviewed and were within normal limits. Patient was able to ambulate without difficulty. Patient wants to go home. Patient was instructed to follow-up with her primary care physician in 3 to 5 days. Patient was instructed to return if worse in any way. Patient understood and was agreeable with the plan. All questions were answered. Lab Data Labs: Laboratory Results - last 24 hr 11/27/23 13:40 WBC 7.4 RBC 3.84 L Hgb 10.3 L Hct 33.7 L MCV 87.8 MCH 26.8 L MCHC 30.6 L RDW Std Deviation 56.6 H RDW Coeff of Gina 18.2 H Plt Count 249 MPV 9.0 Immature Gran % (Auto) 0.500 Neut % (Auto) 92.3 H Lymph % (Auto) 3.2 L [place] % (Auto) 2.7 Eos % (Auto) 0.9 Baso % (Auto) 0.4 Absolute Neuts (auto) 6.8 Absolute Lymphs (auto) 0.24 L Nucleated RBC % 0 Sodium 137 Potassium 4.1 Chloride 103 Carbon Dioxide 30.0 Anion Gap 4 L BUN 15 Creatinine 0.64 Estim Creat Clear Calc 72.78 Est GFR (MDRD) Af Amer 119 Est GFR (MDRD) Non-Af 98 BUN/Creatinine Ratio 23.3 H Glucose 121 H Calcium 8.9 Troponin I High Sens 7 Radiography Diagnostic Testing: Clinical Impression(s) from Imaging Studies Chest CT 11/27/23 13:19 IMPRESSION: Status post left lung biopsy with the focal hemorrhagic contusion at the biopsy site. The remainder of the examination is unchanged. No evidence of pneumothorax. Electronically Signed: Aren Maynard MD at 14:44 EDT Reading Location ID and State: [address] [place] [address] , Service support , Discharge Plan Triage Chief Complaint: Hypotension ED Midlevel Provider: Dharmesh Mccauley ED Provider: Perez Lance Dx/Rx/DC Orders Clinical Impression: Acute hypotension, Lung cancer Instructions: Hypotension Dc, Blood Pressure Check Steps, ED Low Blood Pressure, All Causes Prescriptions: No Action albuterol sulfate 90 mcg/actuation HFA aerosol inhaler 2 puff inhalation Q4H PRN (Reason: SOB) ergocalciferol (vitamin D2) 1,250 mcg (50,000 unit) capsule 1,250 mcg PO .twice week fluticasone propionate [Allergy Relief (fluticasone)] 50 mcg/actuation spray,suspension 1 spray intranasal DAILY PRN (Reason: ALLERGIES) Rx Instructions: administer into each nostril ipratropium-albuterol 0.5 mg-3 mg(2.5 mg base)/3 mL solution for nebulization 3 ml inhalation Q4H PRN (Reason: SOB) lovastatin 20 mg tablet 20 mg PO DAILY metformin 500 mg tablet 500 mg PO TIDWMEAL montelukast 10 mg tablet 10 mg PO QPM trazodone 50 mg tablet 50 mg PO QHS cetirizine 10 mg tablet 10 mg PO DAILY citalopram 40 mg tablet 40 mg PO DAILY Januvia 100 mg tablet 100 mg PO DAILY insulin lispro 100 unit/mL insulin pen 12 unit subcut TIDCM Xarelto 20 mg tablet 20 mg PO DAILY Qty: 30 3RF Rx Instructions: must administer with evening meal Jardiance 25 mg tablet 25 mg PO QDAY mecobalamin (vitamin B12) 1,000 mcg tablet,chewable 1,000 mcg PO .twice weekly prednisone 20 mg tablet 20 mg PO BREAKFAST 14 Days Qty: 14 0RF albuterol sulfate 2.5 mg /3 mL (0.083 %) solution for nebulization 2.5 mg continuous nebulization Q4H PRN (Reason: shortness of breath or wheezing) ciclopirox 8 % solution 1 applic topical DAILY alum-mag hydroxide-simeth [Antacid Anti-Gas] 400-400-40 mg/5 mL suspension 15 ml PO 4X/DAY PRN PRN (Reason: pain) metoprolol tartrate 25 mg tablet 25 mg PO BID colestipol 1 gram Tablet 2 g PO 0600,1700 7 Days Qty: 28 0RF insulin glargine [Lantus U-100 Insulin] 100 unit/mL solution 10 unit subcut BID Qty: 10 0RF Trelegy Ellipta 200-62.5-25 mcg blister with device 1 inh INHALATION Q24H gabapentin 100 mg capsule 100 mg PO Q12H Patient Comments: TAKE 1 CAPSULE BY MOUTH AT BEDTIME levalbuterol tartrate 45 mcg/actuation HFA aerosol inhaler 1 puff INHALATION Q4H PRN (Reason: shortness of breath or wheezing) multivitamin [Daily Multi-Vitamin] Tablet 1 tab PO DAILY budesonide 3 mg capsule,delayed,extend.release 6 mg PO DAILY Qty: 60 0RF Primary Care Provider: Marce Amador Referrals: Marce Amador, PA [Primary Care Provider] - Activity Restrictions/Additional Instructions: I do understand that the metoprolol decreases your heart rate, however it also decreases your blood pressure. I would like you to hold it to get your blood pressure up. You need to follow-up outpatient in the next 24 to 48 hours. You need to take your blood pressure at home. If you become symptomatic meaning dizzy, near syncopal, nausea or vomiting, sweating, chest pain you need to return. Print Language: Citizen Of [place] Disposition Disposition: Home, Self Care Discharge Date/Time: 11/27/23 16:56
[2023-11-27 13:30] VITALS: BMI 29.0
[2023-11-27 13:53] VITALS: BP 90/63; PULSE 108; RESP 15; O2SAT 97
[2023-11-27] MEDS: 0.9% Normal Saline (1000mL) 1,000 ML 999 ML IV (13:53)
[2023-11-27 13:54] LABS: Absolute Lymphocyte Count 0.24 X10^3/uL (0.83-4.51); Absolute Neutrophil Count 6.8 X10^3/uL (2.0-7.7); Basophil# 0.03 X10^3/uL; Basophil% 0.4 % (0-1); Eosinophil# 0.07 X10^3/uL; Eosinophils% 0.9 % (0-5); Hematocrit 33.7 % (37-47); Hemoglobin 10.3 g/dL (12.0-15.0); Lymphocyte # 0.24 X10^3/ul (0.83-4.51); Lymphocyte % 3.2 % (19-41); Mean Corp Hgb Conc 30.6 g/dL (32-36); Mean Corpuscular Hgb 26.8 pg (27.0-32.0); Mean Corpuscular Volume 87.8 fL (81-99); Monocyte% 2.7 % (0-10); NRBC Flagged by Analyzer 0 % (0-5); Neutrophil # 6.83 X10^3/uL (2.7-7.7); Neutrophil % 92.3 % (47-70); POSITIVE DIFFERENTIAL YES; Platelet Count 249 K/mm3 (150-450); RBC Distribution Width CV 18.2 % (11.6-14.6); RBC Distribution Width SD 56.6 fl (35.1-43.9); Red Blood Count 3.84 M/mm3 (4.2-5.4); White Blood Count 7.4 K/mm3 (4.4-11.0)
[2023-11-27 14:15] LABS: Anion Gap 4 (5-15); BUN 15 mg/dL (7-18); BUN/Creat Ratio 23.3 RATIO (10-20); Calcium,Total 8.9 mg/dL (8.5-10.1); Chloride 103 mmol/L (98-107); Creatinine, Serum 0.64 mg/dL (0.55-1.02); EST Glomerular Filtration Rate 98 mL/min (>60); Est Glom Filt Rate - Afr Amer 119 mL/min (>60); Estimated Creatinine Clearance 72.78 ml/min; Glucose 121 mg/dL (74-106); Potassium 4.1 mmol/L (3.5-5.1); Sodium Level 137 mmol/L (136-145); Troponin-I HS 7 pg/mL (3.0-54.0)
[2023-11-27 14:49] VITALS: BP 94/68; PULSE 109; RESP 20; O2SAT 98
[2023-11-27 15:24] VITALS: BP 84/53; BP 88/64; BP 91/59; PULSE 102; PULSE 103; PULSE 97
[2023-11-27 16:00] VITALS: BP 159/77; PULSE 104; RESP 16; O2SAT 97
[2023-11-27 16:51] VITALS: BP 102/67; PULSE 103; RESP 16; TEMP 36.3; O2SAT 97
== END 2023-11-27 16:56 | disposition home or self-care (01) ==
PROVIDERS: Nurse Practitioner; Emergency Provider Emergency Medicine; PCP Physician Assistant Medical; Visit Provider Emergency Medicine
DX: I95.9 Hypotension, unspecified (principal); C34.90 Malignant neoplasm of unspecified part of unspecified bronchus or lung; J44.9 Chronic obstructive pulmonary disease, unspecified; E11.9 Type 2 diabetes mellitus without complications; I10 Essential (primary) hypertension; Z87.891 Personal history of nicotine dependence; E78.00 Pure hypercholesterolemia, unspecified; Z86.718 Personal history of other venous thrombosis and embolism; Z79.01 Long term (current) use of anticoagulants; K21.9 Gastro-esophageal reflux disease without esophagitis; Z79.899 Other long term (current) drug therapy; R92.8 Other abnormal and inconclusive findings on diagnostic imaging of breast; D64.9 Anemia, unspecified
CPT/HCPCS: 32408; 36415; 36591; 71046; 71250; 77012; 80048; 84484; 85025; 85610; 85730; 88172; 88305; 88313; 93005; 99156; 99157; 99283; J7030; J7050; A4216; C2613

== ENCOUNTER → 2024-02-01 | Outpatient (CLI) | payer MEDICARE, MEDICAID, SELFPAY ==
--- NOTE | 2024-02-01 07:59 | CT_ITS ---
INDICATION: LUNG CA EXAMINATION: CT CHEST AND ABDOMEN WITH CONTRAST - CT Chest And Abdomen W/ Contrast Injection TECHNIQUE: Helically acquired images were obtained of the chest and abdomen.The protocol utilizes one or more of the following dose reduction techniques: automated exposure control, adjustment of mA and/or kV according to patient size,and/or use of iterative reconstruction technique. IV Contrast dosage and agent: 100 mL of Isovue-370 Oral contrast: None. COMPARISON: Prior study dated: 04/22/2023 FINDINGS: ----Chest: LUNGS, PLEURA AND LARGE AIRWAYS: The central airways are patent. Volume loss of the right lung with areas of consolidation at the mid to lower lung. These are increased from prior. Increased nodular opacities in the right upper lung posteriorly, with masslike opacity measuring 4 cm on series 2 image 42. There is mild centrilobular emphysema. There is a new central nodule in the lingula measuring 0.7 cm on series 2 image 68. New left lower lobe 0.5 cm nodule on image 61. Loculated pleural fluid seen at the right apex.. No pneumothorax. THYROID: Redemonstration of a 1.7 cm hypoattenuating nodule in the right lobe of the thyroid gland. HEART AND PERICARDIUM: Heart size is normal. No pericardial effusion. VESSELS: Thoracic aorta is not dilated. Right chest wall port in place. MEDIASTINUM AND МАРИЯ: Prominent right paratracheal lymph nodes are new from prior. The largest measures 1 cm short axis on series 2 image 26. Additional mediastinal lymph nodes are increased in size. This includes a paraesophageal lymph node along the distal aspect of the esophagus measuring 1.6 cm. Esophagus is unremarkable. No hiatal hernia. BONES: No suspicious lytic or blastic abnormality. Mild degenerative changes of the spine. There is a new mild anterior wedge deformity of T7, with approximately 30% loss of vertebral body height anteriorly. No focal underlying lesion identified. ----Abdomen (without Pelvis): LIVER: Homogeneous. No focal mass. GALLBLADDER AND BILIARY TREE: No calcified gallstones. No gallbladder distension or wall edema. No intra- or extrahepatic biliary ductal dilation. PANCREAS: No focal cystic or solid mass. SPLEEN: Normal size without focal cystic or solid mass. ADRENAL GLANDS: No nodules. KIDNEYS AND URETERS: Normal renal size and position. No hydronephrosis. PERITONEUM: No ascites or free air. No other fluid collection. BOWEL: No evidence of acute appendicitis. No stomach or bowel distension. No focal inflammatory change. Colonic diverticulosis without diverticulitis. LYMPH NODES: There is new retroperitoneal lymphadenopathy. Conglomerate of nodes is seen along the left aspect of the aorta at the level of the kidneys measuring 4.1 x 2.1 cm. Additional prominent lymph nodes are seen. VESSELS: Aorta is non-dilated. Moderate atherosclerotic calcification. ABDOMINAL WALL: No discrete abdominal wall hernia. BONES: No lytic or blastic abnormality. CT/CT Chest AND Abd W/ Contrast IMPRESSION: Evidence of progression of metastatic disease. This includes increased nodularity with masslike opacity of the right upper lung. There is also new mediastinal lymphadenopathy and retroperitoneal lymphadenopathy. Increased consolidation of the right lower lung. There is a new compression deformity of the T7 vertebral body. No underlying lesion identified. Electronically Signed: Abrahan Rivas MD at 23:32 EDT ,
[2024-02-01] MEDS: 0.9% Saline Lock 10 ML Syringe IV (08:19)
[2024-02-01 08:25] LABS: CREATININE FINGERSTICK < 1.0 mg/dL (0.55-1.02); EGFR FINGERSTICK > 60.0000 mL/min (>60)
== END | disposition home or self-care (01) ==
LOC: CT 07:56
PROVIDERS: PCP Physician Assistant Medical; Referring Provider Internal Medicine Medical Oncology; Visit Provider Internal Medicine Medical Oncology
DX: Z01.812 Encounter for preprocedural laboratory examination (principal); C34.31 Malignant neoplasm of lower lobe, right bronchus or lung; E11.9 Type 2 diabetes mellitus without complications; I10 Essential (primary) hypertension
CPT/HCPCS: 71260; 74160; Q9967; A4216

== ENCOUNTER 2024-02-29 07:10 | Day surgery (SDC) | payer MEDICARE, MEDICAID, SELFPAY ==
[2024-02-29] VITALS (8 sets, daily range): BP systolic 77–105; BP diastolic 53–82; PULSE 104–120; RESP 16–18; TEMP 36.7–37.2; O2SAT 92–97; BMI 28.7
--- NOTE | 2024-02-29 07:49 | PCM.PRE.AN2 ---
ASA Classification* ASA Classification ASA Classification: 3 Assessment & Plan Anesthesia* Anesthesia Assessment Anesthesia Assessment: Discussed sedation and/or anesthesia options, risks, benefits, and alternatives with patient/parents/legal guardian/POA. Questions invited. The patient/parents/legal guardian/POA seems to understand and agrees to proceed with anesthesia plan. Reviewed the physical assessment, medical history, allergy history and patient home medications list prior to surgery/procedure/anesthetic and documented any changes. Performed airway and anesthesia risk assessments. Anesthesia Type Anesthesia Type: MAC Anesthesia Focused Assessment* Airway Assessment Mouth opens: >3 cm Mallampati Score: II Focused Labs Anesthesia Preop lab: CBC WBC 7.3 K/mm3 (4.4-11.0) 02/03/24 10:12 RBC 4.14 M/mm3 (4.2-5.4) L 02/03/24 10:12 Hgb 10.8 g/dL (12.0-15.0) L 02/03/24 10:12 Hct 36.5 % (37-47) L 02/03/24 10:12 Plt Count 346 K/mm3 (150-450) 02/03/24 10:12 CHEMISTRY Potassium 3.9 mmol/L (3.5-5.1) 02/03/24 10:12 Sodium 141 mmol/L (136-145) 02/03/24 10:12 Magnesium 2.1 mg/dL (1.6-2.6) 11/12/23 04:32 Phosphorus 3.3 mg/dL (2.5-4.9) 11/12/23 04:32 BUN 15 mg/dL (7-18) 02/03/24 10:12 Creatinine 0.62 mg/dL (0.55-1.02) 02/03/24 10:12 Glucose 87 mg/dL (74-106) 02/03/24 10:12 POC Glucose 347 mg/dL (74-106) H 11/13/23 11:13 TSH 1.020 uIU/mL (0.358-3.740) 02/03/24 10:12 COAG PT 14.0 SECONDS (11.7-14.9) 11/27/23 07:49 Pre-Assessment Diagnosis/Proposed Procedure Planned Operative Procedure(s): COLONOSCOPY Anesthesia History Anesthesia History - director channel: Anesthesia History - director channel Hx Hospitalization Yes: [facility] 02/25/24 09:53 Any Problems With Anesthesia No 02/25/24 09:53 Cholinesterase deficiency No 02/25/24 09:53 You/Your Family Experience No 02/25/24 09:53 fever (hyperthermia) with Relationship Recent Exposure to Contagious No 11/09/23 01:41 Disease Does patient have nerve No 02/25/24 09:53 stimulator Patient instructed to have device shut off --Does patient have Pacemaker or ICD? When Was Last Pacemaker Check QUESTION #4 FULL TEXT: You/Your Family Experience fever (hyperthermia) with Anesthesia Last Oral Intake Last Oral intake: Last Oral Intake NPO since Meds taken in AM with sips of water? Meds patient instructed to take am of surgery PONV PONV - director channel: PONV - director channel Female Yes 02/25/24 09:53 HX of Motion Sickness No 02/25/24 09:53 HX of N/V After Surgery No 02/25/24 09:53 Non-Smoker Yes 02/25/24 09:53 Duration of Surgery greater No 02/25/24 09:53 than 60 minutes Number of Risk Factors 2 02/25/24 09:53 PONV Score Moderate Risk 02/25/24 09:53 Height & Weight Height & Weight: Anesthesia: Height & Weight Height 5 ft 5 in 02/26/24 09:16 Respiratory Assessment Respiratory Assessment - director channel: Respiratory Tract Infection Hx - director channel Hx Respiratory Tract Infection No 02/25/24 09:53 STOP Sleep Apnea STOP Sleep Apnea - director channel: STOP Sleep Apnea - director channel Hx Hypertension Yes: CONTROLLED WITH MEDS 02/25/24 09:53 Hx Sleep Apnea Yes 02/25/24 09:53 CPAP No 02/25/24 09:53 BIPAP No 02/25/24 09:53 Do you snore loudly (louder than talking or can be heard Do you often feel tired/ fatigued/ sleepy during daytime? Has anyone observed you stop breathing during sleep? STOP Results Positive 02/25/24 09:53 QUESTION #5 FULL TEXT : Do you snore loudly (louder than talking or can be heard through closed doors)? 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 Specify any problems Hx of Preganancy in last 3 No 02/25/24 09:53 Months Nurse Filling Out Transfusion [email or web address] 02/25/24 09:53 & Questions: Date: 02/25/24 02/25/24 09:53 Time: 10:00 02/25/24 09:53 Patient unable to answer at this time (ie. confused, unrespo /Reproduction History /Reproductive History - director channel: /Reproductive Hx- director channel Hx Now Gestational Age (in weeks): EDC: Hx Hx Para Hx Section SAB No 08/22/22 13:37 Active Medications Active Medications: Current Medications Generic Name Dose Route Start Last Admin Trade Name Freq PRN Reason Stop Dose Admin Heparin Sodium (Beef Lung) 50 units 02/29/24 07:18 Heparin Pf Lock 10 Units/Ml 50 Units/5 Ml Syringe IV UD PRN Port-a-Cath (VAD)Heparin Flush Sodium Chloride 10 - 40 ml 02/29/24 07:18 0.9 % Nacl (Sterile) Posiflush 10 Ml IV UD PRN Port access or dressing change Sodium Chloride 10 - 40 ml 02/29/24 07:18 0.9% Saline Lock 10 Ml Syringe IV UD PRN Port-a-Cath (VAD) Flush PFSH Medical History Ambulates with cane History of echocardiogram Cardiology follow-up encounter GI bleed DVT (deep venous thrombosis) Need for pneumocystis prophylaxis Pneumonitis Bilateral lower extremity edema Chronic hypoxic respiratory failure Anxiety and depression Acute and chronic respiratory failure with hypoxia Iron deficiency anemia Radiation pneumonitis Contact with or exposure to other viral diseases SOB (shortness of breath) Tinnitus Cancer History of steroid therapy Rheumatoid arthritis Anemia High cholesterol Injury of head and neck Gastric reflux Former smoker Hypertension Recurrent squamous cell carcinoma of right lung Wears glasses Wears dentures Seasonal allergies Gout Diabetes mellitus COVID-19 COPD (chronic obstructive pulmonary disease) Home Medications ?Medication ?Instructions ?Recorded ?Last Taken ?Type albuterol sulfate 90 mcg/actuation 2 puff inhalation Q4H PRN SOB 07/31/22 Unknown History aerosol inhaler ergocalciferol (vitamin D2) 1,250 1,250 mcg PO .twice week supplement 07/31/22 07/16/23 History mcg (50,000 unit) capsule fluticasone propionate 50 1 spray intranasal DAILY PRN 07/31/22 Unknown History mcg/actuation nasal ALLERGIES spray,suspension (Allergy Relief (fluticasone)) ipratropium 0.5 mg-albuterol 3 mg 3 ml inhalation Q4H PRN SOB 07/31/22 Unknown History (2.5 mg base)/3 mL nebulization soln lovastatin 20 mg tablet 20 mg PO DAILY cholesterol 07/31/22 Unknown History metformin 500 mg tablet 500 mg PO TIDWMEAL dm 07/31/22 Unknown History montelukast 10 mg tablet 10 mg PO QPM breathing 07/31/22 Unknown History trazodone 50 mg tablet 50 mg PO QHS sleep 07/31/22 Unknown History cetirizine 10 mg tablet 10 mg PO DAILY for allergies 08/01/22 Unknown History citalopram 40 mg tablet 40 mg PO DAILY depression 02/16/23 Unknown History albuterol sulfate 2.5 mg/3 mL 2.5 mg continuous nebulization Q4H 06/07/23 Unknown History (0.083 %) solution for nebulization PRN shortness of breath or wheezing fluticasone fur. 200 mcg-umeclid 1 inh inhalation Q24H breathing 07/24/23 Unknown History 62.5 mcg-vilant 25 mcg inhalat.powder (Trelegy Ellipta) gabapentin 100 mg capsule 100 mg PO Q12H pain 07/24/23 Unknown History levalbuterol tartrate 45 1 puff inhalation Q4H PRN 07/24/23 Unknown History mcg/actuation aerosol inhaler shortness of breath or wheezing multivitamin (Daily Multi-Vitamin 1 tab PO DAILY supplement 07/24/23 Unknown History tablet) sitagliptin phosphate 100 mg 100 mg PO DAILY diabetes 08/13/23 Unknown History tablet (Januvia) empagliflozin 25 mg tablet 25 mg PO QDAY diabetes 09/10/23 Unknown History (Jardiance) mecobalamin (vitamin B12) 1,000 1,000 mcg PO .twice weekly anemia 09/10/23 11/07/23 History mcg chewable tablet insulin lispro 100 unit/mL 16 unit subcut DAILY diabetes 09/16/23 Unknown History subcutaneous pen ciclopirox 8 % topical solution 1 applic topical DAILY nail fungus 11/08/23 11/07/23 History rivaroxaban 20 mg tablet (Xarelto) 20 mg PO DAILY blood thinner #30 02/10/24 Unknown Rx tabs insulin glargine 100 unit/mL 10 unit subcut DAILY blood sugar 02/25/24 Unknown History subcutaneous solution (Lantus U-100 Insulin) insulin lispro 100 unit/mL 10 unit subcut BID 02/25/24 Unknown History subcutaneous pen (Humalog KwikPen (U-100) Insulin) metoprolol tartrate 25 mg tablet 12.5 mg (1/2 x 25 mg) PO BID #60 02/26/24 Unknown Rx tabs Allergy/AdvReac Type Severity Reaction Status Date / Time No Known Allergies Allergy Verified 02/25/24 09:43 Family History Mother Diabetes Heart disease Cancer brain tumor Father Cancer blood cancer per pt Sister Heart disease Diabetes Cancer lung Grandfather Cancer lung Uncle Diabetes Son Cancer testicular Surgical History Port-A-Cath in place History of lobectomy of lung History of bronchoscopy H/O arthroscopy of left knee History of tonsillectomy H/O tooth extraction H/O foot surgery H/O: hysterectomy History of carpal tunnel surgery Social History household members: none Smoking Status: Former smoker quit date: 11/12/19 pack-years: 53 alcohol intake: never substance use type: does not use Review of Systems (Anesthesia) ROS Narrative System reviewed and no additional complaints, except as documented.
--- NOTE | 2024-02-29 08:01 | PCM.HP.BLA ---
History and Physical Date of Admission: 02/29/24 FABRICIO EDWARDS, is a 63 F who presents to the office today for hospital f/u. She has a medical hx of lung cancer, diabetes, anemia and DVT. She was admitted due to GI bleeding persistent diarrhea 10-12 times per day. In the hospital she underwent EGD and colonoscopy. Biopsys of the colon showed active colitis and IBD SGI indicted crohns. It was unclear whether this was immune mediated colitis or IBD. Colonoscopy 11.09.23; - Preparation of the colon was poor. - Scattered moderate mucosal changes were found in the rectum, in the recto-sigmoid colon, in the sigmoid colon, in the descending colon and at the splenic flexure secondary to colitis. Biopsied. Fluid aspiration performed. - Stool in the rectum, in the recto-sigmoid colon, in the sigmoid colon, in the descending colon, at the splenic flexure and in the transverse colon. - Diverticulosis in the recto-sigmoid colon, in the sigmoid colon and in the descending colon. EGD ; 11.09.23 - Normal esophagus. - Normal stomach. - Acute duodenitis. Biopsied. OV 01.22.24 Patient has been doing well since her discharge besides an episode of diarrhea last week. She is aware of foods that can be triggering to her such as processed meats and she tries to avoid them. She is having formed bowel movements otherwise. She tells me her cancer is continuing to spread and the next step will be for chemotherapy. From a GI standpoint she is feeling well. ROS Const Constitutional: Positive for fatigue and headache(s); No fever(s) or weight change ENT ENT: Positive for headache(s) and difficulty swallowing Gastro GI: Positive for bloating, diarrhea, heartburn, difficulty swallowing and excessive flatus; No abdominal pain, belching, change in bowel habits, change in stool character, coffee ground emesis, constipation, cramping, feeling full early, incontinent of stools, Vomiting blood/hematemesis, Blood in stool, loose stools, Black,tarry stools, nausea/dyspepsia, pain with swallowing, vomiting or other Musc Musculoskeletal: Positive for numbness, tingling and Arthritis; No joint pain Skin Skin: No yellowing of the eye or itchy eyes Neuro Neurology: Positive for headache(s), numbness and tingling Psych Psychiatric: Positive for anxiety and Positive for depression Endo Endocrine: Positive for fatigue; No weight change Aller/Imm Allergy/Immunologic: No itchy eyes Srinivas/Lymp Hematologic/Lymphatic: Positive for easy bruising; No easy bleeding Exam Const General: cooperative and comfortable Nutritional Appearance: average body habitus and well nourished [facility] Head: normal to inspection Ears: hearing grossly normal bilaterally Nose: external nose normal Face and sinus: normal facial exam Eyes General: appearance normal, both eyes and all related structures Neck Neck: normal visual inspection Chest Chest palpation & inspection: normal inspection of the chest Resp Effort & Inspection: normal respiratory effort and able to speak in complete sentences Cardio Palpation: normal PMI GI Inspection: normal to inspection Auscultation: normal bowel sounds Palpation: no hepatosplenomegaly Skin General: no rashes or lesions noted Neuro General: patient alert Extrem General: normal to inspection Psych Affect: normal affect Assessment and Plan Assessment and Plan (1) Colitis: Status: Acute Comment: have improved, no diarrhea. Plan: Patient is here today for hospital f/u. She has been doing much better with only one episode of diarrhea since her discharge. We discussed that she did have colitis but the etiology is unclear as it could be related to IBD or immune mediated. Since she does not have GI complaints at this time I recommended we put further testing on the back burner as she continues treatment for her spreading lung cancer. She is agreeable to this plan and feels her cancer treatment is of most importance at this time. In the future we can consider further work up with MR enterography. We will however schedule her for a colonoscopy as the one in the hospital was not a good prep. I will also order stool testing to look for inflammation. She will call our office if she has any new changes or needs an appointment Orders: Orders ENTERIC PATHOGEN PANEL STOOL Today K52.9 - Noninfective gastroenteritis and colitis, unspecified, K58.9 - Irritable bowel syndrome without diarrhea, R19.7 - Diarrhea, unspecified Stool Lactoferrin/WBC Today K52.9 - Noninfective gastroenteritis and colitis, unspecified, K58.9 - Irritable bowel syndrome without diarrhea CDIFF (PCR) Today K52.9 - Noninfective gastroenteritis and colitis, unspecified Calprotectin, Stool Today K52.9 - Noninfective gastroenteritis and colitis, unspecified Pancreatic Elastase, Fecal Today K52.9 - Noninfective gastroenteritis and colitis, unspecified OVA+PARA w/Giardia EIA [id number] Today K52.9 - Noninfective gastroenteritis and colitis, unspecified Fecal Fat, Qualitative Today K52.9 - Noninfective gastroenteritis and colitis, unspecified I have examined the patient and the H&P has been reviewed. There are no clinical changes since date of exam.
[2024-02-29 08:10] LABS: Bedside Glucose 155 mg/dL (74-106)
--- NOTE | 2024-02-29 08:15 | COLBX_PTH ---
PATIENT: FABRICIO EDWARDS LOC: EN U#:[id number] AGE/SX: 63/F ROOM: RE02/29/[address]: Dr. Matthew Brown DO : 1960 BED: DIS: 02/29/2024 SPEC #: [id number] RECD: 02/29/24 11:33 STATUS: VALERIA REQ #: [id number] JOÃO: 02/29/24 08:[address]: Matthew Brown DEPT: SURGICAL PATHOLOGY RECD BY: Patricia Kyle ENTERED: 02/29/24 13:24 SP TYPE: COLON BX OTHR DR: MESSI Ruvalcaba Tissues: A - Cecum, NOS B - Descending colon Procedures: Surgery Specimen Level IV HEADER OPERATION: Colonoscopy, polypectomy with cautery and biopsy PRE-OP DIAGNOSIS: Colitis TISSUE SUBMITTED: A- Cecal polyp biopsy and polypectomy, B- Descending colon polyp MICROSCOPIC DIAGNOSIS A. Cecum polyp, biopsy: Fragments of colonic mucosa with focal adenomatous change. B. Descending colon polyp, biopsy: Hyperplastic polyp. AM. 03/01/2024 MICROSCOPIC DESCRIPTION Slides are reviewed. GROSS DESCRIPTION A. Received in fixative is one container labeled with the patient's name and designated Cecal polyp biopsy and polypectomy. The specimen consists of two irregular fragments of light gonzalez soft tissue that in aggregate measure 0.8 x 0.3 x 0.1 cm. The specimen is totally submitted in one cassette. B. Received in fixative is one container labeled with the patient's name and designated Descending colon polyp biopsy. The specimen consists of a gonzalez-pink polyp measuring 0.8 x 0.4 x 0.4cm. The presumed base is inked. The polyp is bisected and submitted entirely in one cassette. 02/29/2024 TC:5 CPT:[id number]
--- NOTE | 2024-02-29 09:11 | OP.CCLET_ITS ---
02/29/2024 Pawel Ruvalcaba Re : Colonoscopy procedure for Karin Cantu Dear Marjorie This procedure was performed on Thursday, February 29, 2024. My impressions and recommendations are as follows: Impressions : - Diverticulosis in the recto-sigmoid colon, in the sigmoid colon, in the descending colon and in the proximal descending colon. - Three 1 to 2 mm polyps in the descending colon and in the cecum, removed with a hot snare. Resected and retrieved. Recommendations : - Repeat colonoscopy in 3 years for surveillance. - Continue present medications. My findings are described in the full procedure note, which is enclosed. If I can be of further assistance, please feel free to contact me at . Sincerely, Matthew Brown, 02/29/2024 9:10:50 AM This report has been signed electronically.
--- NOTE | 2024-02-29 09:11 | OP.COLON_ITS ---
Patient Name: Karin Cantu Procedure Date: 02/29/2024 8:38 AM Date of : 1960 Age: 63 Procedure: Colonoscopy Indications: Abdominal pain in the left lower quadrant, Clinically significant diarrhea of unexplained origin Providers: Matthew Brown DO Referring MD: Pawel Ruvalcaba Medicines: Monitored Anesthesia Care Patient Profile: This is a 63 year old female. Refer to note in patient chart for documentation of history and physical. Last Colonoscopy: 6 months ago. Complications: No immediate complications. Procedure: Pre-Anesthesia Assessment: - Prior to the procedure, a History and Physical was performed, and patient medications and allergies were reviewed. The patient is competent. The risks and benefits of the procedure and the sedation options and risks were discussed with the patient. All questions were answered and informed consent was obtained. Patient identification and proposed procedure were verified by the physician in the pre-procedure area. Mental Status Examination: alert and oriented. Airway Examination: normal oropharyngeal airway and neck mobility. Respiratory Examination: clear to auscultation. CV Examination: normal. Prophylactic Antibiotics: The patient does not require prophylactic antibiotics. Prior Anticoagulants: The patient has taken no anticoagulant or antiplatelet agents except for NSAID medication. ASA Grade Assessment: II - A patient with mild systemic disease. After reviewing the risks and benefits, the patient was deemed in satisfactory condition to undergo the procedure. The anesthesia plan was to use monitored anesthesia care (MAC). Immediately prior to administration of medications, the patient was re-assessed for adequacy to receive sedatives. The heart rate, respiratory rate, oxygen saturations, blood pressure, adequacy of pulmonary ventilation, and response to care were monitored throughout the procedure. The physical status of the patient was re-assessed after the procedure. After I obtained informed consent, the scope was passed under direct vision. Throughout the procedure, the patient's blood pressure, pulse, and oxygen saturations were monitored continuously. The Colonoscope was introduced through the anus and advanced to the cecum, identified by appendiceal orifice and ileocecal valve. The colonoscopy was performed without difficulty. The patient tolerated the procedure well. The quality of the bowel preparation was adequate. The ileocecal valve, appendiceal orifice, and rectum were photographed. Scope In: 8:50:09 AM Scope Withdrawal Time 0 hours 7 minutes 11 seconds Scope Out: 9:03:19 AM Total Procedure Duration Time 0 hours 13 minutes 10 seconds Findings: The perianal and digital rectal examinations were normal. Multiple small and large-mouthed diverticula were found in the recto-sigmoid colon, sigmoid colon, descending colon and proximal descending colon. Three sessile polyps were found in the descending colon and cecum. The polyps were 1 to 2 mm in size. These polyps were removed with a hot snare. Resection and retrieval were complete. Verification of patient identification for the specimen was done. Estimated blood loss was minimal. Impression: - Diverticulosis in the recto-sigmoid colon, in the sigmoid colon, in the descending colon and in the proximal descending colon. - Three 1 to 2 mm polyps in the descending colon and in the cecum, removed with a hot snare. Resected and retrieved. Recommendation: - Repeat colonoscopy in 3 years for surveillance. - Continue present medications. Procedure Code(s): --- Professional --- 65964, Colonoscopy, flexible; with removal of tumor(s), polyp(s), or other lesion(s) by snare technique CPT copyright 2021 [employer]. All rights reserved. The codes documented in this report are preliminary and upon innovations paraprofessional review may be revised to meet current compliance requirements. Matthew Brown DO 02/29/2024 9:10:50 AM This report has been signed electronically. Number of Addenda: 0 Note Initiated On: 02/29/2024 8:38 AM
--- NOTE | 2024-02-29 09:12 | PCM.POST.ANE ---
Anesthesia: Postop Eval I Current Vital Signs Temperature: 98.1 F Pulse Rate: 104 Blood Pressure: 77/53 Respiratory Rate: 16 Pulse Ox: 96 Oxygen Delivery Method: Nasal Cannula Oxygen Flow Rate (L/min): 2 Assessment Airway patent: Yes Spontaneous unlabored respirations: Yes Mental status: Awake and Calm nausea: No Vomiting: No Anesthesia Complication: No Fluid Hydration Crystalloid volume administer (ml): 30 Total IV fluid infused: 30 Progress Note Anesthesia document: Postop Eval 1 completed: Yes
--- NOTE | 2024-02-29 10:01 | PCM.POSTANE2 ---
Anesthesia Postop Eval I Sum Postop Eval Completion status Anesthesia document: Postop Eval 1 completed: Yes Anesthesia Postop Eval I Summary Anesthesia Postop Eval I Summary: Anesthesia Postop Eval I: Assessment Summary Airway patent Yes 02/29/24 09:13 [email or web address] Spontaneous unlabored Yes 02/29/24 09:13 [email or web address] respirations Mental status Awake,Calm 02/29/24 09:13 [email or web address] nausea No 02/29/24 09:13 [email or web address] Vomiting No 02/29/24 09:13 [email or web address] Anesthesia Postop Eval I: Fluid Summary Crystalloid volume administer 30 02/29/24 09:13 [email or web address] (ml) Colloids volume administered ( ml) Blood Product volume administered (ml) Total IV fluid infused 30 02/29/24 09:13 [email or web address] Anesthesia Postop Eval I: Summary Notes Anesthesia Complication No 02/29/24 09:13 [email or web address] Anesthesia Complication Comment: Post-operative progress note Anesthesia: Postop Eval II Evaluation Mental status: Awake Pain Level: 0 nausea: No Vomiting: No
== END 2024-02-29 10:18 | disposition home or self-care (01) ==
LOC: EN 07:11 → AC 07:12
PROVIDERS: PCP Physician Assistant Medical; Referring Provider Physician Assistant Medical; Visit Provider Internal Medicine Gastroenterology
PROC: 0DJD8ZZ Inspection of Lower Intestinal Tract, Via Natural or Artificial Opening Endoscopic (ICD-10-PCS; CPT 45378; principal; 2024-02-29 08:10)
DX: K63.5 Polyp of colon (principal); C77.2 Secondary and unspecified malignant neoplasm of intra-abdominal lymph nodes; C34.91 Malignant neoplasm of unspecified part of right bronchus or lung; E11.9 Type 2 diabetes mellitus without complications; Z79.4 Long term (current) use of insulin; K52.9 Noninfective gastroenteritis and colitis, unspecified; K57.30 Diverticulosis of large intestine without perforation or abscess without bleeding; K21.9 Gastro-esophageal reflux disease without esophagitis; I10 Essential (primary) hypertension; Z79.01 Long term (current) use of anticoagulants; Z79.84 Long term (current) use of oral hypoglycemic drugs; Z79.899 Other long term (current) drug therapy; Z86.16 Personal history of COVID-19; Z87.891 Personal history of nicotine dependence
CPT/HCPCS: 45385; 82962; 88305; A4216; J2405

== ENCOUNTER → 2024-05-17 | Outpatient (CLI) | payer MEDICARE, MEDICAID, SELFPAY ==
--- NOTE | 2024-05-17 07:50 | CT_ITS ---
STUDY: CT CHEST T ABDOMEN WITH CONTRAST REASON FOR EXAM: Female, 63 years old. LUNG CA RADIATION DOSAGE (If Supplied By Facility): CTDIvol = ( 15.87 ) mGy, DLP = ( 1218.18 ) mGycm TECHNIQUE: Transaxial imaging was performed following intravenous administration of IV 100mL Isovue-370. Individualized dose optimization techniques were used for this CT. COMPARISON: 02/01/2024 FINDINGS: CHEST Right internal jugular chest port. 2 cm nodule right lobe of thyroid gland and follow-up thyroid ultrasound is recommended. No change in right lung volume loss and scarring. New 4 mm noncalcified nodule in the left lower lung zone image 29. New 10 mm noncalcified nodule in the left upper lobe of the lungs on image 39. Interval increase in the size of the noncalcified nodule in the medial lingula from 7 mm in diameter to 10 mm in diameter. Findings are worrisome for worsening pulmonary parenchymal metastases. There is no demonstrated pleural abnormality. Normal heart and pericardium. Normal mediastinum. Normal hilar regions. Normal unenhanced pulmonary arteries. Normal aorta arch and descending thoracic aorta. Chronic mild wedge compression fracture of the lower thoracic spine. There is no demonstrated abnormality of the visualized upper abdomen. ABDOMEN Small right pleural effusion. The visualized portions of the heart are within normal limits. New 2 cm mass of decreased attenuation within the subcapsular posterior segment right lobe of the liver worrisome for metastasis. The gallbladder is contracted. Normal spleen. Normal pancreas. Normal bilateral adrenal glands. Normal right kidney. Normal left kidney. Normal visualized stomach. Normal small intestine. Normal colon. The appendix is visualized and appears normal. There is diffuse atherosclerotic calcification of the abdominal aorta, without a demonstrated aneurysm. Normal inferior vena cava. No change in left periaortic lymphadenopathy measuring 2 x 4 cm. Normal abdominal wall. Normal osseous structures. CT/CT Chest AND Abd W/ Contrast IMPRESSION: Worsening metastatic disease with new and enlarging left lung nodules and new hepatic metastasis. Electronically Signed: Matthias Callaway MD at 17:38 EST ,
[2024-05-17] MEDS: 0.9% Saline Lock 10 ML Syringe IV (08:09)
== END | disposition home or self-care (01) ==
LOC: CT 07:46
PROVIDERS: PCP Physician Assistant Medical; Referring Provider Internal Medicine Medical Oncology; Visit Provider Internal Medicine Medical Oncology
DX: C34.31 Malignant neoplasm of lower lobe, right bronchus or lung (principal)
CPT/HCPCS: 71260; 74160; Q9967; A4216

== ENCOUNTER → 2024-07-07 | Outpatient (CLI) | payer MEDICARE, MEDICAID, SELFPAY ==
[2024-07-07] MEDS: 0.9% Saline Lock 10 ML Syringe IV (08:00)
--- NOTE | 2024-07-07 08:10 | CT_ITS ---
PROCEDURE: CT of the chest, abdomen, and pelvis with IV contrast. REASON FOR EXAM: Metastatic [id number] lung cancer. Evaluate treatment response. TECHNIQUE: After IV contrast administration, contiguous axial CT images were obtained through the chest, abdomen, and pelvis. Sagittal and coronal reformats were created. COMPARISON: 05/17/2024 FINDINGS: Chest CT: The bones are osteopenic with degenerative changes in the spine. Unchanged superior endplate compression deformity of T7. Similar 2.2 cm low-attenuation right thyroid lesion. A right [id number] remains. Heart is not enlarged. No sizable pericardial effusion. Similar volume loss of the right hilda thorax with rightward shift of mediastinal structures. No supraclavicular or left axillary adenopathy. A 1.1 cm in long axis right axillary lymph node on the prior study now measures 2 cm on image 45 of the axial images. Thoracic aorta normal in caliber. Central airway and central pulmonary arteries clear. Moderate right mediastinal/paratracheal adenopathy is not significantly changed. There is slightly worsened lobulated soft tissue density at the posterior superior margin of the right hilda thorax. Other patchy dense consolidation with air bronchograms in the mid to lower right lung is similar. Small amount of right pleural fluid is unchanged. The lungs are emphysematous. There is compensatory expansion of the left lung, similar to the previous study. Curvilinear streaky densities left lingula unchanged. Interval increase in size of left lung pulmonary nodules, greatest in the left upper lobe. For example, and anterior left upper lobe nodule on image 45 of the lung windows is 14 mm on the current study, compared to 11 mm previously. Abdominal/pelvic CT: The bones are osteopenic with degenerative changes in the spine. Proximal femurs are intact. Mild degenerative changes in the hip joints. The abdominal aorta is normal in caliber. Patchy wall thickening of the stomach may be due to lack of distention versus peristalsis. Contracted gallbladder. No abnormal dilation of the biliary tree. Kidneys are symmetric in size and enhancement. No solid renal mass or obstructive uropathy. 2 cm suspected metastatic lesion lateral right hepatic lobe on the prior study has increased in size measuring 3.5 cm currently. There is a new suspected metastatic lesion inferior medial right hepatic lobe image 27 axial soft tissue windows measuring 1 cm. The adrenal glands, spleen, and pancreas show no specific abnormality. Slightly worsened upper abdominal and retroperitoneal adenopathy. For example, the retroperitoneal lymph node mass at the level of the mid left kidney previously measured 4.6 x 2.7 cm, compared to 5.0 x 2.9 cm currently. Kidneys are symmetric in size and enhancement. No solid renal mass or obstructive uropathy. No abnormally dilated bowel segments or free intraperitoneal air. A small fat containing inguinal hernias, greatest on the right. No large abdominal wall defect. Scattered patchy wall thickening of the colon may be due to lack of distention versus peristalsis or chronic diverticular disease. No focal abnormality of the urinary bladder. Uterus is absent. No adnexal mass. Normal appendix. CT/CT Chest, Abd, Pel w/Contrast IMPRESSION: Overall, findings most compatible with progressive disease in the chest, abdome n, and pelvis. Interval enlargement of pulmonary nodules and upper abdominal/retroperitoneal adenopathy. Worsening hepatic meta stases. Emphysema. There is also some progressed soft tissue density in the posterior superior right hilda thorax/right upper lobe. Chronic appearing consolidation and small pleural effusion in the mid to inferi or right hemithorax. Colonic diverticulosis. One or more dose reduction techniques were used (e.g., Automated exposure contr ol, adjustment of the mA and/or kV according to patient size, use of iterative reconstruction technique). Reading Location: [facility]
== END | disposition home or self-care (01) ==
LOC: CT 07:48
PROVIDERS: PCP Physician Assistant Medical; Referring Provider Nurse Practitioner Family; Visit Provider Nurse Practitioner Family
DX: C34.91 Malignant neoplasm of unspecified part of right bronchus or lung (principal); C78.6 Secondary malignant neoplasm of retroperitoneum and peritoneum
CPT/HCPCS: 71260; 74177; Q9967; A4216

== ENCOUNTER → 2024-07-21 | Outpatient (CLI) | payer MEDICARE, MEDICAID, SELFPAY ==
--- NOTE | 2024-07-21 15:49 | MRI_ITS ---
PROCEDURE: MRI brain without and with IV contrast REASON FOR EXAM: Headaches, history of lung carcinoma TECHNIQUE: Multiplanar, multisequence MRI of the brain were obtained after the administration of intravenous gadolinium-based contrast. CONTRAST: 15 mL COMPARISON: 07/13/2023 FINDINGS: No evidence of acute intracranial hemorrhage, midline shift or mass effect. No diffusion restriction to suggest acute/subacute ischemia. No evidence of chronic microhemorrhage. Mild generalized cerebral atrophy and minimal chronic small-vessel ischemic changes. Unchanged prominent perivascular space along the inferior left basal ganglia. No pathologic enhancement. Globes are intact. Mild polypoid bilateral maxillary mucosal thickening. MRI/Brain W/WO Contrast IMPRESSION: 1. No acute process or pathologic enhancement. 2. Chronic findings as above. Reading Location: [facility]
== END | disposition home or self-care (01) ==
LOC: MRI 15:47
PROVIDERS: PCP Physician Assistant Medical; Referring Provider Nurse Practitioner Family; Visit Provider Nurse Practitioner Family
DX: C34.91 Malignant neoplasm of unspecified part of right bronchus or lung (principal); C78.6 Secondary malignant neoplasm of retroperitoneum and peritoneum; R11.2 Nausea with vomiting, unspecified
CPT/HCPCS: 70553; A9575; A4216

== ENCOUNTER 2024-09-13 09:16 | Emergency (ER) | payer MEDICARE, MEDICAID, SELFPAY ==
[2024-09-13 09:16] VITALS: PULSE 106; O2SAT 92
[2024-09-13 09:17] VITALS: BP 92/64; PULSE 104; RESP 22; TEMP 36.2; O2SAT 88
--- NOTE | 2024-09-13 09:52 | CT_ITS ---
PROCEDURE: BRAIN/HEAD WITHOUT CONTRAST (CTBR), 09/13/2024 REASON FOR EXAM: INJURY COMPARISON: 07/21/2024 TECHNIQUE: CT head was performed without IV contrast. Multiplanar reformats were generated. RADIATION DOSE SUMMARY: CTDlvol: 44.99 mGy DLP: 796.11 mGycm One or more dose reduction techniques were used (e.g., Automated exposure control, adjustment of the mA and/or kV according to patient size, use of iterative reconstruction technique). FINDINGS: Cerebrum: No definite acute territorial infarct, visible acute intracranial hemorrhage, or mass. Similar large likely prominent perivascular space in the LEFT basal ganglia, better evaluated on previous MRI.. Cerebellum/brainstem: Unremarkable. Note slight limitation due to beam hardening artifact. Ventricles/extra-axial spaces: Unremarkable. Paranasal sinuses/mastoid air cells: Partially imaged presumed mucous retention cyst or polyp in the RIGHT maxillary sinus, also present previously. Scalp/calvarium: 9 mm lucency in the RIGHT parietal calvarium near the vertex correlates with a T2 bright focus on previous MRI 07/21/2024, essentially unchanged from 07/13/2023.. This was probably above the field of view on recent PET/CT 06/13/2024. Other: Near-complete opacification of the RIGHT chest on the insurance loss adjuster, better evaluated on concurrent CT, reported separately. Partially empty sella, can be a normal variant or may be seen in the setting of idiopathic intracranial hypertension amongst other etiologies.
--- NOTE | 2024-09-13 09:52 | CT_ITS ---
PROCEDURE: CHEST WITH CONTRAST (CTCHW), 09/13/2024 REASON FOR EXAM: DYSPNEA LUNG CANCER TECHNIQUE: CT chest was performed with IV contrast. Multiplanar reformats were generated. CONTRAST: Isovue-300 VOLUME: 98mL RADIATION DOSE SUMMARY: CTDlvol: 9.97+ 15.96 mGy DLP: 531.32 mGycm One or more dose reduction techniques were used (e.g., Automated exposure control, adjustment of the mA and/or kV according to patient size, use of iterative reconstruction technique). COMPARISON: 07/07/2024 FINDINGS: Exam limited by beam hardening artifact related to the arms which were positioned at the sides rather than above the head. Heart/pericardium: Rightward mediastinal shift related to complete lobar consolidation/collapse of the RIGHT middle and lower lobes and subtotal lobar consolidation/collapse of the RIGHT upper lobe, increased from prior as below. Advanced three-vessel coronary atherosclerosis and/or stents. Aorta: Mild atherosclerosis. Pulmonary arteries: Mild enlargement of the central pulmonary arteries which may indicate pulmonary arterial hypertension. Non opacification of majority of pulmonary arterial branches to the RIGHT lower lobe and small caliber of the remaining branches is similar to prior. Lymph nodes: Asymmetrically prominent but technically nonenlarged RIGHT axillary node, 12 mm short axis, previously 13 mm.. High RIGHT paratracheal node, 22 mm short axis, previously 19 mm. More inferior RIGHT paratracheal node, 13 mm short axis, previously 11 mm. Retrocrural node on the RIGHT, 11 mm short axis, previously 7 mm. Gastrohepatic nodes up to 23 mm short axis, previously 15 mm. RIGHT pericardiophrenic nodes up to 13 mm short axis, previously 10 mm. Lungs/pleura: Emphysema. Complete lobar collapse/consolidation of the RIGHT lower lobe is slightly increased from prior. New complete lobar consolidation/collapse of the RIGHT middle lobe. Increasing near-complete lobar consolidation/collapse of the RIGHT upper lobe. Enhancement of the consolidated parenchyma is heterogeneously decreased.4 pulmonary nodules on the LEFT have enlarged, largest in the central LEFT upper lobe measuring 22 x 18 mm, previously 14 x 13 mm (series 7, image 61). A 6 mm subpleural nodule in the LEFT lower lobe on series 7 image 66 is probably new. Airways: New cutoff of the RIGHT mainstem bronchus distally.. Chest wall: RIGHT chest wall port/catheter. Similar 2.4 cm RIGHT lobe thyroid nodule, enlarged from more remote exams such as 11/27/2023. Upper abdomen: Lymphadenopathy as above. Hepatic metastases are increased in size and number, largest in the posterolateral RIGHT lobe, roughly 5.5 x 3.6 cm, previously 3.9 x 2.7 cm. Partially imaged thickening of the LEFT adrenal gland most conspicuous inferiorly, appears to be new from prior. Musculoskeletal: Demineralization. Multilevel spondylosis. Mild thoracic levoscoliosis. Enlarging lytic metastasis involving the RIGHT posterolateral aspect of the T11 vertebral body probably extending into the RIGHT T11-T12 neural foramen and encroaching on the thecal sac was not definitely visible previously. Irregular lytic lesion in the RIGHT posterior 9th rib measures 1.5 cm and was not definitely visible previously. Similar mild midthoracic vertebral body compression deformity. Old RIGHT rib fracture. CT/Chest WITH Contrast IMPRESSION: 1. Worsening aeration of the RIGHT lung now with complete consolidation/collaps e of the RIGHT middle and lower lobes and minimal aeration of the RIGHT upper lobe. Finding is presumably related to a combinati on of pneumonia and neoplasm. A cutoff of the RIGHT mainstem bronchus distally is new from prior and is presumably malignant although aspirated material may appear similarly. 2. Increase in the size and number of numerous presumed, pulmonary, osseous, no megan, and hepatic metastases as above. Additional partially imaged findings which are suspicious for early metastasis involving t he LEFT adrenal gland. Recommend clinical/oncologic follow-up. 3. Recommend outpatient thyroid ultrasound for an enlarging RIGHT lobe thyroid nodule now 2.4 cm. 4. Additional description as above. Reading Location: [id number]
--- NOTE | 2024-09-13 09:53 | EKG12_ITS ---
Test Reason : SOB Blood Pressure : */* mmHG Vent. Rate : 98 BPM Atrial Rate : 98 BPM P-R Int : 194 ms QRS Dur : 72 ms QT Int : 316 ms P-R-T Axes : 31 -13 24 degrees QTcB Int : 403 ms Normal sinus rhythm Normal ECG Confirmed by ASHLEY DRAKE, RAGHAVENDRA ([id number]), art editor RENITA LENZ ([id number]) on 09/14/2024 1:30:21 PM Referred By: Confirmed By: RAGHAVENDRA RAMIREZ MD
[2024-09-13 10:09] LABS: Absolute Lymphocyte Count 0.29 X10^3/uL (0.83-4.51); Absolute Neutrophil Count 7.2 X10^3/uL (2.0-7.7); Basophil# 0.03 X10^3/uL; Basophil% 0.4 % (0-1); Eosinophil# 0.04 X10^3/uL; Eosinophils% 0.5 % (0-5); Hematocrit 27.8 % (37-47); Hemoglobin 8.5 g/dL (12.0-15.0); Lymphocyte # 0.29 X10^3/ul (0.83-4.51); Lymphocyte % 3.5 % (19-41); Mean Corp Hgb Conc 30.6 g/dL (32-36); Mean Corpuscular Hgb 28.6 pg (27.0-32.0); Mean Corpuscular Volume 93.6 fL (81-99); Mean Platelet Vol. 8.9 fl (6.2-12.0); Monocyte# 0.61 X10^3/uL; Monocyte% 7.4 % (0-10); NRBC Flagged by Analyzer 0 % (0-5); Neutrophil # 7.21 X10^3/uL (2.7-7.7); Neutrophil % 87.6 % (47-70); POSITIVE DIFFERENTIAL YES; Platelet Count 313 K/mm3 (150-450); RBC Distribution Width CV 13.4 % (11.6-14.6); RBC Distribution Width SD 45.7 fl (35.1-43.9); Red Blood Count 2.97 M/mm3 (4.2-5.4); White Blood Count 8.2 K/mm3 (4.4-11.0)
[2024-09-13] MEDS: 0.9% Normal Saline (1000mL) 1,000 ML 1000 ML IV ×2 (10:12→12:16)
[2024-09-13 10:31] LABS: AST(SGOT) 19 U/L (<=31); Alanine Aminotransfer ALT/SGPT 16 U/L (<=34); Albumin, Serum 3.2 g/dL (3.4-4.8); Alkaline Phosphatase 146 U/L (35-104); Anion Gap 15 (5-15); BUN 23 mg/dL (4-19); BUN/Creat Ratio 19.3 RATIO (10-20); Bilirubin, Direct 0.28 mg/dL (0.00-0.30); Calcium,Total 11.2 mg/dL (7.6-11.0); Carbon Dioxide 26.2 mmol/L (21.0-32.0); Chloride 89 mmol/L (98-108); EST Glomerular Filtration Rate 50 (>60); Globulin 4.1 g/dL (2.2-4.2); Glucose 144 mg/dL (70-99); Potassium 4.6 mmol/L (3.3-5.1); Protein, Total 7.3 g/dL (5.9-8.4); Sodium Level 131 mmol/L (133-145); Total Bilirubin 0.46 mg/dL (0.00-1.30)
[2024-09-13 10:37] VITALS: BP 120/74; PULSE 100; RESP 18; O2SAT 97; BMI 27.3
[2024-09-13 10:44] LABS: Bacteria 0 SEEN /hpf (None Seen); Mucous, Urine 0 SEEN /hpf (<or=2+); Red Blood Cells-Urine 0 SEEN /hpf (0-5)
[2024-09-13 10:52] LABS: Color, Urine Yellow (Yellow); Glucose, Dipstick 1000 mg/dl (Normal); Ketone-Dipstick 15 mg/dl (Negative); Leukocyte Esterase-Dipstick 100 /ul (Negative); Nitrite-Dipstick Negative (Negative); Occult Blood-Urine Negative /ul (Negative); Protein-Dipstick 30 mg/dl (Negative); Specific Gravity, Urine 1.015 (1.002-1.030); Urine Bilirubin Dipstick Negative (Negative); Urine Clarity Sl. Cloudy (Clear); Urine Urobilinogen Normal (Normal)
[2024-09-13 11:00] VITALS: PULSE 102; RESP 16; O2SAT 100
[2024-09-13 11:04] LABS: White Blood Cells 5-10 SEEN /hpf (0-5)
[2024-09-13 11:05] LABS: Renal Epithelial Cells 0-5 SEEN /hpf (0-5); Squamous Epithelial Cells - UA 0-5 SEEN /hpf (5-10)
[2024-09-13 11:06] LABS: Coarse Granular Cast 10-25 SEEN /lpf (0-5 /lpf)
--- NOTE | 2024-09-13 11:22 | ED.VIS.DYS ---
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 Patient states that the disease has been progressing despite treatment and that she was advised that she may entertain the idea of hospice. She had a recent ED visit for an injury where she hit her head on the mirror. She notes generalized weakness increasing shortness of breath with exertion. She notes difficulty with appetite and getting nutrition. She denies fever. 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 Eye drainage Iron deficiency anemia Elevated serum creatinine Rhinosinusitis Mucositis (ulcerative) due to antineoplastic therapy Prerenal azotemia Thrombocytopenia Drug induced neutropenia Ambulates with cane History of echocardiogram Cardiology follow-up encounter GI bleed DVT (deep venous thrombosis) Need for pneumocystis prophylaxis Pneumonitis Bilateral lower extremity edema Chronic hypoxic respiratory failure Anxiety and depression Acute and chronic respiratory failure with hypoxia Radiation pneumonitis Contact with or exposure to other viral diseases SOB (shortness of breath) Tinnitus Cancer History of steroid therapy Rheumatoid arthritis Anemia High cholesterol Injury of head and neck Gastric reflux Former smoker Hypertension Recurrent squamous cell carcinoma of right lung Wears glasses Wears dentures Seasonal allergies Gout Diabetes mellitus COVID-19 COPD (chronic obstructive pulmonary disease) Home Medications ?Medication ?Instructions ?Recorded ?Last Taken ?Type albuterol sulfate 90 mcg/actuation 2 puff inhalation Q4H PRN SOB 07/31/22 Unknown History aerosol inhaler ergocalciferol (vitamin D2) 1,250 1,250 mcg PO QWEEK supplement 07/31/22 02/28/24 History mcg (50,000 unit) capsule fluticasone propionate 50 1 spray intranasal DAILY PRN 07/31/22 02/29/24 History mcg/actuation nasal ALLERGIES spray,suspension (Allergy Relief (fluticasone)) ipratropium 0.5 mg-albuterol 3 mg 3 ml inhalation Q4H PRN SOB 07/31/22 Unknown History (2.5 mg base)/3 mL nebulization soln lovastatin 20 mg tablet 20 mg PO DAILY cholesterol 07/31/22 02/28/24 History montelukast 10 mg tablet 10 mg PO QHS breathing 07/31/22 02/28/24 History trazodone 50 mg tablet 50 mg PO QHS sleep 07/31/22 02/28/24 History cetirizine 10 mg tablet 10 mg PO DAILY for allergies 08/01/22 02/28/24 History albuterol sulfate 2.5 mg/3 mL 2.5 mg continuous nebulization Q4H 06/07/23 Unknown History (0.083 %) solution for nebulization PRN shortness of breath or wheezing fluticasone fur. 200 mcg-umeclid 1 inh inhalation Q24H breathing 07/24/23 02/29/24 History 62.5 mcg-vilant 25 mcg inhalat.powder (Trelegy Ellipta) gabapentin 100 mg capsule 100 mg PO QHS pain 07/24/23 02/28/24 History levalbuterol tartrate 45 1 puff inhalation Q4H PRN 07/24/23 Unknown History mcg/actuation aerosol inhaler shortness of breath or wheezing multivitamin (Daily Multi-Vitamin 1 tab PO DAILY supplement 07/24/23 02/28/24 History tablet) sitagliptin phosphate 100 mg 100 mg PO DAILY diabetes 08/13/23 02/28/24 History tablet (Januvia) ciclopirox 8 % topical solution 1 applic topical DAILY nail fungus 11/08/23 02/28/24 History insulin lispro 100 unit/mL 10 unit subcut BID 02/25/24 Unknown History subcutaneous pen (Humalog KwikPen (U-100) Insulin) ondansetron 8 mg disintegrating 8 mg PO Q12H PRN nausea and 03/10/24 Unknown Rx tablet vomiting #30 tabs MAGIC MOUTH WASH (BMX) 180 mL 15 ml PO .Q6HR #180 mL 03/31/24 Unknown Rx suspension FreeStyle Pauline 3 Plus Sensor #6 ea 07/21/24 Unknown Rx (blood-glucose sensor) food supplemt, lactose-reduced 0.1 296 ml PO DAILY #8,288 mL 09/05/24 Unknown Rx gram-1.18 kcal/mL oral liquid (Ensure Complete) acetaminophen 300 mg-codeine 30 mg 1 tab PO TID PRN severe pain 09/13/24 09/13/24 History tablet ammonium lactate 12 % topical cream 1 applic topical BID 09/13/24 Unknown History amoxicillin 875 mg-potassium 875 mg PO Q12H #20 TABLETS 09/13/24 Unknown Rx clavulanate 125 mg tablet aspirin 81 mg tablet,delayed 81 mg PO DAILY 09/13/24 Unknown History release (Adult Aspirin Regimen) budesonide-formoterol HFA 160 1 inh inhalation BID 09/13/24 Unknown History mcg-4.5 mcg/actuation aerosol inhaler (Breyna) citalopram 20 mg tablet (Celexa) 20 mg PO DAILY 09/13/24 Unknown History dexamethasone 4 mg tablet 4 mg PO DAILY 09/13/24 Unknown History doxycycline hyclate 100 mg capsule 100 mg PO DAILY 09/13/24 Unknown History empagliflozin 10 mg tablet 10 mg PO DAILY 09/13/24 Unknown History (Jardiance) fluconazole 150 mg tablet 150 mg PO QMONTH 09/13/24 Unknown History furosemide 20 mg tablet 20 mg PO DAILY 09/13/24 Unknown History gabapentin 100 mg capsule 200 mg PO BID 09/13/24 09/13/24 History linagliptin 5 mg tablet (Tradjenta) 5 mg PO DAILY 09/13/24 Unknown History lisinopril 2.5 mg tablet 2.5 mg PO DAILY 09/13/24 Unknown History loratadine 10 mg tablet 10 mg PO DAILY 09/13/24 Unknown History meloxicam 15 mg tablet 15 mg PO DAILY 09/13/24 Unknown History metformin 500 mg tablet 500 mg PO TID 09/13/24 Unknown History metoprolol succinate 25 mg 25 mg PO DAILY 09/13/24 09/13/24 History tablet,extended release 24 hr omeprazole 20 mg capsule,delayed 20 mg PO DAILY 09/13/24 Unknown History release ondansetron 4 mg disintegrating 4 mg PO Q6H PRN PRN Nausea #15 tabs 09/13/24 Unknown Rx tablet promethazine-DM 6.25 mg-15 mg/5 mL 5 ml PO Q6H 09/13/24 Unknown History oral syrup rivaroxaban 20 mg tablet (Xarelto) 20 mg PO QHS for blood clot 09/13/24 Unknown History sennosides 8.6 mg tablet 17.2 mg PO DAILY 09/13/24 Unknown History (Black-Draught Lax-Senna) valacyclovir 1 gram tablet 1,000 mg PO DAILY 09/13/24 Unknown History Allergy/AdvReac Type Severity Reaction Status Date / Time No Known Allergies Allergy Verified 09/13/24 09:16 Family History Mother Diabetes Heart disease Cancer brain tumor Father Cancer blood cancer per pt Sister Heart disease Diabetes Cancer lung Grandfather Cancer lung Uncle Diabetes Son Cancer testicular Surgical History Port-A-Cath in place History of lobectomy of lung History of bronchoscopy H/O arthroscopy of left knee History of tonsillectomy H/O tooth extraction H/O foot surgery H/O: hysterectomy History of carpal tunnel surgery Social History household members: none Smoking Status: Former smoker quit date: 11/12/19 pack-years: 53 alcohol intake: never substance use type: does not use ROS ROS ED ROS Narrative Generalized weakness Constitutional Constitutional ED: Denies chills or weight loss Eyes Eyes: Denies change in vision or diplopia ENT ENT ED: Reports other Details: Dry mouth ; Denies ear pain, rhinorrhea or sore throat Cardiovascular Cardiovascular: Denies chest pain, orthopnea, palpitations or racing heartbeat Respiratory/Chest Respiratory/Chest: Reports dyspnea and dyspnea on exertion; Denies cough or orthopnea Gastrointestinal Gastrointestinal: Reports constipation; Denies abdominal pain, diarrhea, nausea or vomiting Genitourinary Genitourinary ED: Denies dysuria, hematuria or urinary frequency Musculoskeletal Musculoskeletal: Denies arthralgias or myalgias Integumentary Denies abscess or rash Neurologic Neurologic: Denies headache(s) or weakness Psychiatric Psychiatric: Reports anxiety; Denies depression, suicidal ideation or suicidal thoughts Endocrine Endocrinology: Denies polydipsia, polyphagia or polyuria Allergic/Immunologic Allergic/Immunologic ED: Denies mouth swelling, tongue swelling or urticaria EXAM Physical Exam Const Vital Signs: 09/13/24 09:16 09/13/24 09:17 09/13/24 10:37 Temperature 97.2 F L Temperature Source Temporal Pulse Rate 106 H 104 H 100 Respiratory Rate 22 H 18 Blood Pressure 92/64 120/74 Blood Pressure Mean 73 89 Pulse Ox 92 88 97 Oxygen Delivery Method Nasal Cannula Nasal Cannula Oxygen Flow Rate (L/min) 1 1 09/13/24 11:00 09/13/24 12:17 09/13/24 13:00 Temperature Temperature Source Pulse Rate 102 H 108 H 115 H Respiratory Rate 16 21 H 17 Blood Pressure Blood Pressure Mean Pulse Ox 100 96 97 Oxygen Delivery Method Oxygen Flow Rate (L/min) Positive well nourished and well developed General Appearance ED: well developed and NAD HEENT Reports normocephalic, head/scalp atraumatic and moist mucous membranes Eyes PERRL and EOMs intact bilaterally Neck supple and no JVD Neck Narrative: There are firm 1 to 3 cm lymph nodes palpable in the cervical chains. Resp normal respiratory effort Resp Narrative: Occasional cough. No real lung sounds heard on the right. Cardio regular rate, regular rhythm and no murmurs GI normal to inspection, nondistended, normoactive bowel sounds and non-tender Palpation: soft Back/Spine no CVA tenderness and normal ROM Extremity normal to inspection General Extremety ED: Negative for edema General Extremity: Negative for edema Neuro oriented x3 and CN's II-XII intact bilaterally Sensorium / Orientation: alert Motor Exam: strength 5/5 throughout Psych mental status grossly normal Mood & Affect: Negative for depressed or tearful Skin no rashes or lesions noted and no wounds MDM MDM MDM Narrative Medical decision making narrative: Differential diagnosis includes but not limited to pulmonary embolism worsening metastatic disease pneumonia dehydration anemia UTI sepsis acute coronary syndrome acute on chronic hypoxia Basic blood work shows a white count of 8.2 hemoglobin of 8.5 platelet count of 313. BMP with a creatinine 1.20 liver enzymes within normal limits except for alkaline phosphatase at 146. Urinalysis with no overt infection. CT the brain demonstrated no acute findings please see radiologist read for full details. CT of the chest was obtained please see radiologist read. In short there is worsening metastatic disease and virtually no aeration of the right lung. EKG shows no ischemia with a sinus rhythm at the rate of 86. Patient is anticoagulated and I do not believe that PE is likely. I spoke with the patient as well as family. We discussed the above results and the possibility of enrolling in hospice. Patient is open to this idea. They would like to use hospice of [facility]. Spoke with social work and they were in contact with them. Patient is comfortable going home and visiting with hospice in her home. I can write for some Zofran. We talked about ways for her to get nutrition. I will update her oncology team. I changed her CODE STATUS to DNR comfort care. History & Record Review Discussion w/independent historian: Patient and Family Additional record(s) reviewed:: Prior outpatient record, Prior ED visit and Prior labs Lab Data Attestation: I reviewed the patient's lab results. Labs: Laboratory Results - last 24 hr 09/13/24 09/13/24 09:45 10:30 WBC 8.2 RBC 2.97 L Hgb 8.5 L Hct 27.8 L MCV 93.6 MCH 28.6 MCHC 30.6 L RDW Std Deviation 45.7 H RDW Coeff of Gina 13.4 Plt Count 313 MPV 8.9 Immature Gran % (Auto) 0.600 Neut % (Auto) 87.6 H Lymph % (Auto) 3.5 L [place] % (Auto) 7.4 Eos % (Auto) 0.5 Baso % (Auto) 0.4 Absolute Neuts (auto) 7.2 Absolute Lymphs (auto) 0.29 L Nucleated RBC % 0 Sodium 131 L Potassium 4.6 Chloride 89 L Carbon Dioxide 26.2 Anion Gap 15 BUN 23 H Creatinine 1.20 Est GFR (MDRD) Non-Af 50 L BUN/Creatinine Ratio 19.3 Glucose 144 H Calcium 11.2 H Total Bilirubin 0.46 Direct Bilirubin 0.28 AST 19 ALT 16 Alkaline Phosphatase 146 H Total Protein 7.3 Albumin 3.2 L Globulin 4.1 Urine Color Yellow Urine Clarity Sl. Cloudy Urine pH 6.0 Ur Specific [place] 1.015 Urine Protein 30 H Urine Glucose (UA) 1000 H Urine Ketones 15 H Urine Occult Blood Negative Urine Nitrite Negative Urine Bilirubin Negative Urine Urobilinogen Normal Ur Leukocyte Esterase 100 H Urine RBC 0 SEEN Urine WBC 5-10 SEEN Ur Squamous Epith Cells 0-5 SEEN Ur Renal Epithelial Cell 0-5 SEEN Urine Bacteria 0 SEEN Coarse Granular Casts 10-25 SEEN Urine Mucus 0 SEEN Radiography Diagnostic Testing: Clinical Impression(s) from Imaging Studies Brain CT 09/13/24 09:52 IMPRESSION: 1. No visible acute intracranial findings. If there is persistent concern, consider MRI. 2. Near-complete opacification of the RIGHT chest on the setter induction heating equipment, better evaluated on concurrent CT, reported separately. 3. 9 mm RIGHT parietal calvarial lesion, unchanged from MRI of 07/13/2023. Given reported history of malignancy, recommend continued follow-up to ensure ongoing stability up to at least 2 years. 4. Additional description as above. Reading Location: [facility] Chest CT 09/13/24 09:52 IMPRESSION: 1. Worsening aeration of the RIGHT lung now with complete consolidation/collapse of the RIGHT middle and lower lobes and minimal aeration of the RIGHT upper lobe. Finding is presumably related to a combination of pneumonia and neoplasm. A cutoff of the RIGHT mainstem bronchus distally is new from prior and is presumably malignant although aspirated material may appear similarly. 2. Increase in the size and number of numerous presumed, pulmonary, osseous, yessy, and hepatic metastases as above. Additional partially imaged findings which are suspicious for early metastasis involving the LEFT adrenal gland. Recommend clinical/oncologic follow-up. 3. Recommend outpatient thyroid ultrasound for an enlarging RIGHT lobe thyroid nodule now 2.4 cm. 4. Additional description as above. Reading Location: [facility] EKG Initial EKG: Attestation: I personally reviewed and interpreted this EKG as follows: Comments: Normal sinus rhythm ventricular rate of 98 bpm Discharge Plan Triage Chief Complaint: Shortness of Breath ED Provider: Missael Michelle Dx/Rx/DC Orders Clinical Impression: Recurrent squamous cell carcinoma of right lung, Nausea, Acute and chronic respiratory failure with hypoxia Prescriptions: New ondansetron 4 mg tablet,disintegrating 4 mg PO Q6H PRN PRN (Reason: Nausea) Qty: 15 0RF amoxicillin-pot clavulanate 875-125 mg tablet 875 mg PO Q12H Qty: 20 0RF No Action albuterol sulfate 90 mcg/actuation HFA aerosol inhaler 2 puff inhalation Q4H PRN (Reason: SOB) ergocalciferol (vitamin D2) 1,250 mcg (50,000 unit) capsule 1,250 mcg PO QWEEK fluticasone propionate [Allergy Relief (fluticasone)] 50 mcg/actuation spray,suspension 1 spray intranasal DAILY PRN (Reason: ALLERGIES) Rx Instructions: administer into each nostril ipratropium-albuterol 0.5 mg-3 mg(2.5 mg base)/3 mL solution for nebulization 3 ml inhalation Q4H PRN (Reason: SOB) lovastatin 20 mg tablet 20 mg PO DAILY montelukast 10 mg tablet 10 mg PO QHS trazodone 50 mg tablet 50 mg PO QHS cetirizine 10 mg tablet 10 mg PO DAILY Januvia 100 mg tablet 100 mg PO DAILY ondansetron 8 mg tablet,disintegrating 8 mg PO Q12H PRN (Reason: nausea and vomiting) Qty: 30 0RF MAGIC MOUTH WASH (BMX) 180 mL suspension 15 ml PO .Q6HR Qty: 180 1RF Rx Instructions: diphenhydramine 12.5 mg/5 mL oral liquid 60 mL; aluminum-mag hydroxide-simethicone 400 mg-400 mg-40 mg/5 mL oral susp 60 mL; Lidocaine Viscous 2 % mucosal solution 60 mL; Per 180 mL (DME) FreeStyle Pauline 3 Plus Sensor Device See Rx Instructions .Route Qty: 6 3RF Rx Instructions: As directed albuterol sulfate 2.5 mg /3 mL (0.083 %) solution for nebulization 2.5 mg continuous nebulization Q4H PRN (Reason: shortness of breath or wheezing) ciclopirox 8 % solution 1 applic topical DAILY insulin lispro [Humalog KwikPen Insulin] 100 unit/mL insulin pen 10 unit subcut BID Trelegy Ellipta 200-62.5-25 mcg blister with device 1 inh INHALATION Q24H gabapentin 100 mg capsule 100 mg PO QHS Patient Comments: TAKE 1 CAPSULE BY MOUTH AT BEDTIME levalbuterol tartrate 45 mcg/actuation HFA aerosol inhaler 1 puff INHALATION Q4H PRN (Reason: shortness of breath or wheezing) multivitamin [Daily Multi-Vitamin] Tablet 1 tab PO DAILY aspirin [Adult Aspirin Regimen] 81 mg tablet,delayed release (DR/EC) 81 mg PO DAILY ammonium lactate 12 % cream 1 applic topical BID budesonide-formoterol [Breyna] 160-4.5 mcg/actuation HFA aerosol inhaler 1 inh inhalation BID citalopram [Celexa] 20 mg tablet 20 mg PO DAILY dexamethasone 4 mg tablet 4 mg PO DAILY metoprolol succinate 25 mg tablet extended release 24 hr 25 mg PO DAILY omeprazole 20 mg capsule,delayed release(DR/EC) 20 mg PO DAILY valacyclovir 1 gram tablet 1,000 mg PO DAILY sennosides [Black-Draught Lax-Senna] 8.6 mg tablet 17.2 mg PO DAILY promethazine-DM 6.25-15 mg/5 mL syrup 5 ml PO Q6H metformin 500 mg tablet 500 mg PO TID meloxicam 15 mg tablet 15 mg PO DAILY loratadine 10 mg tablet 10 mg PO DAILY lisinopril 2.5 mg tablet 2.5 mg PO DAILY Jardiance 10 mg tablet 10 mg PO DAILY furosemide 20 mg tablet 20 mg PO DAILY Tradjenta 5 mg tablet 5 mg PO DAILY gabapentin 100 mg capsule 200 mg PO BID doxycycline hyclate 100 mg capsule 100 mg PO DAILY fluconazole 150 mg tablet 150 mg PO QMONTH Xarelto 20 mg tablet 20 mg PO QHS acetaminophen-codeine 300-30 mg tablet 1 tab PO TID PRN (Reason: severe pain) Ensure Complete 0.1 gram- 1.18 kcal/mL liquid 296 ml PO DAILY Qty: 8288 2RF Primary Care Provider: Marce Amador Referrals: Marce Amador PA [Primary Care Provider] - Activity Restrictions/Additional Instructions: Hospice [facility] will be in contact with you. Increase your oxygen as needed for comfort. Print Language: Sinhala Disposition Disposition: Home, Self Care
[2024-09-13 12:17] VITALS: PULSE 108; RESP 21; O2SAT 96
[2024-09-13 13:00] VITALS: PULSE 115; RESP 17; O2SAT 97
--- NOTE | 2024-09-13 14:17 | ED.RN ---
patient requesting port be flushed with heparin
--- NOTE | 2024-09-13 18:23 | CM.ED ---
Social Work SW met with patient, patients cousin also at bedside. Patient gave permission for open discussion with cousin present. Patient stated that she had a HPOA completed at home, but they had not been witnessed. SW offered to complete HPOA and LW while in ED, patient accepted. Both completed, 2 copies given to patient, other copy placed in patients medical record. Patient also told SW that she had previously been admitted for palliative care, but after speaking with physician, she would like Hospice services to begin when she got home. ER physician in agreement with hospice referral. Patient requested Hospice [facility]. Referral was sent with request for patient to be evaluated in her home. Hospice [facility] called SW back to verify that they had received the referral and they had set up an intake appointment in patients home for tomorrow between 8:30-9:00 am. Emili Gavin, POWER ENGINEER, EPIC MANAGER
== END 2024-09-13 14:45 | disposition home or self-care (01) ==
PROVIDERS: Emergency Provider Emergency Medicine; PCP Physician Assistant Medical; Visit Provider Emergency Medicine
DX: J96.21 Acute and chronic respiratory failure with hypoxia (principal); C79.9 Secondary malignant neoplasm of unspecified site; C34.91 Malignant neoplasm of unspecified part of right bronchus or lung; J44.9 Chronic obstructive pulmonary disease, unspecified; E11.9 Type 2 diabetes mellitus without complications; I10 Essential (primary) hypertension; Z87.891 Personal history of nicotine dependence; E78.00 Pure hypercholesterolemia, unspecified; K21.9 Gastro-esophageal reflux disease without esophagitis; Z79.82 Long term (current) use of aspirin; Z79.899 Other long term (current) drug therapy; Z79.84 Long term (current) use of oral hypoglycemic drugs
CPT/HCPCS: 36591; 70450; 71260; 80048; 80076; 81001; 85025; 93005; 96360; 96361; 99283; Q9967; A4216